=== PATIENT | female | born 1950 | race Caucasian/White ===

== ENCOUNTER 2018-11-10 11:48 | Observation (INO) | payer OTHER, BC ==
[2018-11-10 14:33] LABS: Absolute Lymphocytes (CBC) 2.8 K/uL (0.7-4.9); Basophils % 1.2 % (0-1.3); Hematocrit 41.2 % (36.0-45.0); Lymphocytes % 28.7 % (15.3-44.8); MPV 8.7 fL (7.6-11.3); RBC Red Blood Cell Count 4.65 M/uL (3.86-4.86)
[2018-11-10] MEDS ORDERED: NA CHLORIDE 0.9% 1,000 ML ONE (14:35)
[2018-11-10 14:39] LABS: Protime INR 1.05
[2018-11-10 15:28] LABS: ALT/SGPT 20 U/L (12-78); AST/SGOT 16 U/L (15-37); Albumin 3.5 g/dL (3.4-5.0); Alkaline Phosphatase 102 U/L (45-117); BUN Blood Urea Nitrogen 17 mg/dL (7-18); Bicarbonate 30 mmol/L (21-32); Bilirubin Direct 0.1 mg/dL (0-0.2); Bilirubin Total 0.5 mg/dL (0.2-1.0); Glucose Level 97 mg/dL (74-106); Lipase 126 U/L (73-393); Magnesium 2.3 mg/dL (1.8-2.4); NT PRO-BNP 148 pg/mL (<125); Potassium 3.8 mmol/L (3.5-5.1); Protein, Total 7.5 g/dL (6.4-8.2); Sodium Level 145 mmol/L (136-145); Troponin (Emerg Dept Use Only) < 0.02 ng/mL (0.0-0.045)
--- NOTE | 2018-11-10 15:48 | ER ---
Nurse's Notes [facility] Name: Mallory Lai Age: 68 yrs Sex: Female : 1950 Arrival Date: 11/10/2018 Time: 11:49 Bed 15 Private MD: Diagnosis: Chest pain, unspecified;Angina pectoris;Essential (primary) hypertension Presentation: 11/10 11:52 Presenting complaint: Patient states: Chest pain that started just prior to arrival. ss Patient reports that pain was much worse en route to ED, but now it seems to have "slacked up some.". Transition of care: patient was not received from another setting of care. Onset of symptoms was November 10, 2018. Risk Assessment: Do you want to hurt yourself or someone else? Patient reports no desire to harm self or others. Initial Sepsis Screen: Does the patient meet any 2 criteria? No. Patient's initial sepsis screen is negative. Does the patient have a suspected source of infection? No. Patient's initial sepsis screen is negative. Care prior to arrival: None. 11:52 Method Of Arrival: Ambulatory ss 11:52 Acuity: JAD 3 ss Historical: - Allergies: 11:54 No Known Allergies; ss - PMHx: 11:54 Hypertension; Hypothyroidism; ss - PSHx: 11:54 ; Tonsillectomy; b/l knee replacements; ss - Immunization history:: Adult Immunizations up to date. - Social history:: Smoking status: Patient/guardian denies using tobacco. - Ebola Screening: : Patient denies exposure to infectious person Patient denies travel to an Ebola-affected area in the 21 days before illness onset. - Family history:: not pertinent. Screenin:49 Abuse screen: Denies threats or abuse. Denies injuries from another. Nutritional ss screening: No deficits noted. Tuberculosis screening: Never had TB. Fall Risk None identified. Assessment: 11:52 General: Appears in no apparent distress. Behavior is calm, cooperative. Pain: ss Complains of pain in chest Pain does not radiate. Pain currently is 0 out of 10 on a pain scale. at worst was 7 out of 10 on a pain scale. Quality of pain is described as aching, Pain began suddenly, 30 min ago. Is episodic. Neuro: Level of Consciousness is awake, alert, obeys commands, Oriented to person, place, time, situation, Speech is normal. Cardiovascular: Capillary refill < 3 seconds is brisk in bilateral fingers. Respiratory: Airway is patent Respiratory effort is even, unlabored, Respiratory pattern is regular, symmetrical. GI: Abdomen is non-distended, Patient currently denies abdominal pain, diarrhea, nausea, vomiting. : Denies burning with urination, urinary frequency. EENT: Oral mucosa is moist. Throat is clear. Derm: Skin is fragile, is thin, Skin is dry, Skin is pink, warm \\T\\ dry. 14:49 Reassessment: blanket given for comfort. Patient is in good spirits and is laughing ss with ED staff and who remains at bedside. Denies pain at this time. Call light remains within reach. Awaiting results. 18:08 Reassessment: Patient appears in no apparent distress at this time. Patient and/or rv family updated on plan of care and expected duration. Pain level reassessed. Patient is alert, oriented x 3, equal unlabored respirations, skin warm/dry/pink. patient feels better and denies any pain at this moment. given food and updated on the status and plan of care. still awaiting admission. 19:26 Reassessment: HOSPITALIST TALKED TO THE PATIENT, EXPLAINED THE RESULT AND PLAN OF CARE. rv PATIENT AGREED. AWAITING ROOM ASSIGNMENT. Vital Signs: 11:54 BP 117 / 76; Pulse 63; Resp 18; Temp 97.6(TE); Pulse Ox 98% on R/A; Weight 78.02 kg; ss Height 5 ft. 6 in. (167.64 cm); Pain 0/10; 15:09 BP 116 / 69; Pulse 54; Resp 17; Pulse Ox 99% on R/A; rv 16:00 BP 137 / 108; Pulse 59; Resp 23; Pulse Ox 99% on R/A; rv 16:30 BP 135 / 65; Pulse 61; Resp 14; Pulse Ox 100% on R/A; rv 17:00 BP 118 / 59; Pulse 61; Resp 20; Pulse Ox 99% on R/A; rv 17:30 BP 115 / 63; Pulse 62; Resp 21; Pulse Ox 98% on R/A; rv 18:00 BP 130 / 61; Pulse 58; Resp 17; Pulse Ox 98% on R/A; rv 19:25 BP 137 / 68; Pulse 58; Resp 17; Pulse Ox 98% on R/A; rv 21:15 BP 126 / 68; Pulse 56; Resp 15; Pulse Ox 100% on R/A; mg2 11:54 Body Mass Index 27.76 (78.02 kg, 167.64 cm) ED Course: 11:49 Patient arrived in ED. as 11:54 Triage completed. ss 11:54 Arm band placed on right wrist. ss 11:59 EKG done, by electromechanical assembly technician. reviewed by Siddharth Andrea MD. at1 14:06 Siddharth Andrea MD is Attending Physician. stephanie 14:22 Lars Coles, ARNIE is Primary Nurse. rv 14:31 Inserted saline lock: 20 gauge in right antecubital area, using aseptic technique. ss Blood collected. Patient maintains SpO2 saturation greater than 95% on room air. 14:49 Patient has correct armband on for positive identification. Bed in low position. Call ss light in reach. color television console monitor on. Pulse ox on. NIBP on. 15:36 XRAY Chest (1 view) In Process Unspecified. EDSD 15:46 Jenn Gallego MD is Hospitalizing Provider. stephanie 21:15 No provider procedures requiring assistance completed. Patient admitted, IV remains in mg2 place. Administered Medications: 14:47 Drug: NS 0.9% 1000 ml Route: IV; Rate: 125 ml/hr; Site: right antecubital; ss 16:05 Drug: Aspirin 162 mg Route: PO; rv 18:12 Follow up: Response: No adverse reaction rv 16:10 Drug: Pepcid 20 mg Route: IVP; Site: right antecubital; rv 18:12 Follow up: Response: No adverse reaction rv 16:10 Drug: Lovenox 1 mg/kg Route: Sub-Q; Site: right lower abdomen; rv 18:12 Follow up: Response: No adverse reaction rv Outcome: 15:47 Decision to Hospitalize by Provider. stephanie 21:15 Admitted to Tele accompanied by tech, via wheelchair, room 410, Report called to rajan johnson rn 21:15 Condition: good 21:15 Instructed on the need for admit. 21:16 Patient left the ED. [facility] [place] Signatures: Dispatcher [employer] EDSD Siddharth Andrea MD MD cha Martinez, Amelia as Smirch, Shelby, RN RN ss Carmen Hogan, insole buffer EKG Tat1 Ede Dominguez RN RN mg2 Lars Coles RN RN rv Corrections: (The following items were deleted from the chart) 15:23 15:09 Pulse 54bpm; Resp 17bpm; Pulse Ox 99% RA; rv rv
--- NOTE | 2018-11-10 15:48 | EDPHYS ---
Physician Documentation [facility] Name: Mallory Lai Age: 68 yrs Sex: Female : 1950 Arrival Date: 11/10/2018 Time: 11:49 Bed 15 Private MD: ED Physician Siddharth Andrea HPI: 11/10 15:43 This 68 yrs old Female presents to ER via Ambulatory with complaints of Chest stephanie Pain. 15:43 The patient or guardian reports chest pain that is located primarily in the substernal stephanie area. Onset: just prior to arrival. The pain does not radiate. Associated signs and symptoms: The patient has no apparent associated signs or symptoms. The chest pain is described as a heaviness, a pressure, squeezing. Duration: The patient or guardian reports a single episode, that is now resolved. Modifying factors: The symptoms are alleviated by application of supplemental oxygen, remaining still, rest, the symptoms are aggravated by walking. Severity of pain: At its worst the pain was moderate in the emergency department the pain has resolved and did so just prior to arrival. The patient has not experienced similar symptoms in the past. Historical: - Allergies: 11:54 No Known Allergies; ss - PMHx: 11:54 Hypertension; Hypothyroidism; ss - PSHx: 11:54 ; Tonsillectomy; b/l knee replacements; ss - Immunization history:: Adult Immunizations up to date. - Social history:: Smoking status: Patient/guardian denies using tobacco. - Ebola Screening: : Patient denies exposure to infectious person Patient denies travel to an Ebola-affected area in the 21 days before illness onset. - Family history:: not pertinent. ROS: 15:43 Constitutional: Negative for fever, chills, and weight loss, Eyes: Negative for injury, stephanie pain, redness, and discharge, ENT: Negative for injury, pain, and discharge, Neck: Negative for injury, pain, and swelling, Respiratory: Negative for shortness of breath, cough, wheezing, and pleuritic chest pain, Abdomen/GI: Negative for abdominal pain, nausea, vomiting, diarrhea, and constipation, Back: Negative for injury and pain, : Negative for injury, bleeding, discharge, and swelling, MS/Extremity: Negative for injury and deformity, Skin: Negative for injury, rash, and discoloration, Neuro: Negative for headache, weakness, numbness, tingling, and seizure. 15:43 Cardiovascular: Positive for chest pain, of the chest. Exam: 15:43 Constitutional: This is a well developed, well nourished patient who is awake, alert, stephanie and in no acute distress. Head/Face: Normocephalic, atraumatic. Eyes: Pupils equal round and reactive to light, extra-ocular motions intact. Lids and lashes normal. Conjunctiva and sclera are non-icteric and not injected. Cornea within normal limits. Periorbital areas with no swelling, redness, or edema. ENT: Nares patent. No nasal discharge, no septal abnormalities noted. Tympanic membranes are normal and external auditory canals are clear. Oropharynx with no redness, swelling, or masses, exudates, or evidence of obstruction, uvula midline. Mucous membranes moist. Neck: Trachea midline, no thyromegaly or masses palpated, and no cervical lymphadenopathy. Supple, full range of motion without nuchal rigidity, or vertebral point tenderness. No Meningismus. Chest/axilla: Normal chest wall appearance and motion. Nontender with no deformity. No lesions are appreciated. Cardiovascular: Regular rate and rhythm with a normal S1 and S2. No gallops, murmurs, or rubs. Normal PMI, no JVD. No pulse deficits. Respiratory: Lungs have equal breath sounds bilaterally, clear to auscultation and percussion. No rales, rhonchi or wheezes noted. No increased work of breathing, no retractions or nasal flaring. Abdomen/GI: Soft, non-tender, with normal bowel sounds. No distension or tympany. No guarding or rebound. No evidence of tenderness throughout. Back: No spinal tenderness. No costovertebral tenderness. Full range of motion. Skin: Warm, dry with normal turgor. Normal color with no rashes, no lesions, and no evidence of cellulitis. MS/ Extremity: Pulses equal, no cyanosis. Neurovascular intact. Full, normal range of motion. Neuro: Awake and alert, GCS 15, oriented to person, place, time, and situation. Cranial nerves II-XII grossly intact. Motor strength 5/5 in all extremities. Sensory grossly intact. Cerebellar exam normal. Normal gait. Psych: Awake, alert, with orientation to person, place and time. Behavior, mood, and affect are within normal limits. 15:43 Musculoskeletal/extremity: DVT Exam: No signs of deep vein thrombosis. no pain, no swelling, no tenderness, negative Homans' sign noted on exam, no appreciated bluish discoloration, no erythema, no increased warmth. Vital Signs: 11:54 BP 117 / 76; Pulse 63; Resp 18; Temp 97.6(TE); Pulse Ox 98% on R/A; Weight 78.02 kg; ss Height 5 ft. 6 in. (167.64 cm); Pain 0/10; 15:09 BP 116 / 69; Pulse 54; Resp 17; Pulse Ox 99% on R/A; rv 16:00 BP 137 / 108; Pulse 59; Resp 23; Pulse Ox 99% on R/A; rv 16:30 BP 135 / 65; Pulse 61; Resp 14; Pulse Ox 100% on R/A; rv 17:00 BP 118 / 59; Pulse 61; Resp 20; Pulse Ox 99% on R/A; rv 17:30 BP 115 / 63; Pulse 62; Resp 21; Pulse Ox 98% on R/A; rv 18:00 BP 130 / 61; Pulse 58; Resp 17; Pulse Ox 98% on R/A; rv 19:25 BP 137 / 68; Pulse 58; Resp 17; Pulse Ox 98% on R/A; rv 21:15 BP 126 / 68; Pulse 56; Resp 15; Pulse Ox 100% on R/A; mg2 11:54 Body Mass Index 27.76 (78.02 kg, 167.64 cm) MDM: 14:06 Patient medically screened. [facility] 15:45 Data reviewed: vital signs, nurses notes, lab test result(s), EKG, radiologic studies, stephanie plain films. 11/10 14:08 Order name: Basic Metabolic Panel; Complete Time: 15:41 [facility] 11/10 14:08 Order name: CBC with Diff; Complete Time: 15:41 [facility] 11/10 14:08 Order name: LFT's; Complete Time: 15:41 [facility] 11/10 14:08 Order name: Magnesium; Complete Time: 15:41 [facility] 11/10 14:08 Order name: NT PRO-BNP; Complete Time: 15:41 [facility] 11/10 14:08 Order name: PT-INR; Complete Time: 15:41 [facility] 11/10 14:08 Order name: Troponin (emerg Dept Use Only); Complete Time: 15:41 [facility] 11/10 14:08 Order name: XRAY Chest (1 view) [facility] 11/10 14:08 Order name: EKG; Complete Time: 14:09 stephanie 11/10 14:08 Order name: Lipase; Complete Time: 15:41 [facility] 11/10 14:08 Order name: Cardiac monitoring; Complete Time: 14:31 [facility] 11/10 14:08 Order name: EKG - Nurse/Tech; Complete Time: 14:32 [facility] 11/10 14:08 Order name: IV Saline Lock; Complete Time: 14:32 [facility] 11/10 14:08 Order name: Labs collected and sent; Complete Time: 14:32 [facility] 11/10 14:08 Order name: O2 Per Protocol; Complete Time: 14:32 [facility] 11/10 14:08 Order name: O2 Sat Monitoring; Complete Time: 14:32 [facility] 11/10 16:33 Order name: Diet Heart Healthy; Complete Time: 16:33 aa5 Administered Medications: 14:47 Drug: NS 0.9% 1000 ml Route: IV; Rate: 125 ml/hr; Site: right antecubital; ss 16:05 Drug: Aspirin 162 mg Route: PO; rv 18:12 Follow up: Response: No adverse reaction rv 16:10 Drug: Pepcid 20 mg Route: IVP; Site: right antecubital; rv 18:12 Follow up: Response: No adverse reaction rv 16:10 Drug: Lovenox 1 mg/kg Route: Sub-Q; Site: right lower abdomen; rv 18:12 Follow up: Response: No adverse reaction rv Disposition: 11/10/18 15:47 Hospitalization ordered by Jenn Gallego for Observation. Preliminary diagnosis are Chest pain, unspecified, Angina pectoris, Essential (primary) hypertension. - Bed requested for Telemetry/MedSurg (observation). - Status is Observation. mg2 - Condition is Stable. - Problem is new. - Symptoms have improved. UTI on Admission? No Signatures: Dispatcher [employer] EDMS Siddharth Andrea MD MD cha Smirch, Shelby, RN RN ss Rosemary Cerda RN RN Ede Dominguez RN RN mg2 Lars Coles RN RN rv Corrections: (The following items were deleted from the chart) 20:26 15:47 Hospitalization Ordered by Jenn Galleog MD for Observation. Preliminary diagnosis cg is Chest pain, unspecified; Angina pectoris; Essential (primary) hypertension. Bed requested for Telemetry/MedSurg (observation). Status is Observation. Condition is Stable. Problem is new. Symptoms have improved. UTI on Admission? No. stephanie 21:16 20:26 11/10/2018 15:47 Hospitalization Ordered by Jenn Gallego MD for Observation. mg2 Preliminary diagnosis is Chest pain, unspecified; Angina pectoris; Essential (primary) hypertension. Bed requested for Telemetry/MedSurg (observation). Status is Observation. Condition is Stable. Problem is new. Symptoms have improved. UTI on Admission? No. cg
[2018-11-10] MEDS ORDERED: FAMOTIDINE 20 MG/2 ML VIAL IV ONE (15:53)
[2018-11-10] MEDS ORDERED: ASPIRIN 81 MG CHEWABLE TABLET ONE (15:53)
[2018-11-10] MEDS ORDERED: ENOXAPARIN 80 MG/0.8 ML SQ ONE (15:53)
--- NOTE | 2018-11-10 20:05 | P.HP ---
Certification for Inpatient Patient admitted to: Observation With expected LOS: <2 Midnights Patient will require the following post-hospital care: None Practitioner: I am a practitioner with admitting privileges, knowledge of patient current condition, hospital course, and medical plan of care. Services: Services provided to patient in accordance with Admission requirements found in Title 42 Section 412.3 of the Code of Federal Regulations Patient History Date of Service: 11/10/18 Primary Care Provider: Dr. Randy Mascorro Reason for admission: Chest pain History of Present Illness: 68-year-old female presented to the emergency room with chest pain. Patient with history of hypertension, hypothyroidism, and suspected early dementia. Most of the information came from the . reports that the patient had chest pain this morning. She was grabbing her chest. She appeared to have some shortness of breath. Patient was not able to describe her chest pain. No nausea, vomiting, palpitations noted. decided to bring the patient in for further evaluation. In the ER blood pressure is stable. CBC unremarkable. Sodium 145, potassium 3.8. Initial cardiac enzymes unremarkable. BNP 148. Patient was admitted for observation. When I saw the patient in the ER, she appeared comfortable. She appears to have underlying early dementia. She admits with memory loss. Allergies morphine Allergy (Intermediate, Verified 10/26/12 18:38) Itching/Hives/Rash No Known Allergies Allergy (Uncoded 07/30/15 06:38) Unknown Home medications list reviewed: Yes Home Medications: Amlodipine [Norvasc*] 5 mg PO DAILY 10/26/12 Fenofibrate [Tricor*] 145 mg PO DAILY 10/26/12 Losartan Potassium [Cozaar] 25 mg PO DAILY 10/26/12 Hydrocodone 5/APAP 325 [Barry 5/325*] 1 tab PO Q4HP PRN #30 tab 11/03/12 Rivaroxaban [Xarelto*] 15 mg PO BID 21 Days tablet 11/03/12 Rivaroxaban [Xarelto*] 20 mg PO DAILY 90 Days tab 11/03/12 - Past Medical/Surgical History Diabetic: No -: Hypertension -: Hypothyroidism -: Suspected early dementia -: History of DVT -: x2 -: Tonsillectomy -: Bilateral knee replacements Psychosocial/ Personal History: Patient is - Family History Family History: Reviewed- Non-Contributory - Social History Smoking Status: Never smoker Alcohol use: Yes CD- Drugs: No Caffeine use: Yes Place of Residence: Home Review of Systems General: As per HPI Eyes: Unremarkable ENT: Unremarkable Respiratory: Shortness of Breath, As per HPI Cardiovascular: Chest Pain, As per HPI Gastrointestinal: Unremarkable Genitourinary: Unremarkable Musculoskeletal: Unremarkable Integumentary: Unremarkable Neurological: Unremarkable Lymphatics: Unremarkable Physical Examination - Physical Exam General: Alert, In no apparent distress, Oriented x3, Cooperative HEENT: Atraumatic, Normocephalic, PERRLA, Mucous membr. moist/pink Neck: Supple, No Thyromegaly Respiratory: Clear to auscultation bilaterally, Normal air movement Cardiovascular: Normal pulses, Regular rate/rhythm Gastrointestinal: Normal bowel sounds, Soft and benign, Non-distended, No masses , No rebound, No guarding Musculoskeletal: No contractures, No erythema, No tenderness, No warmth Integumentary: No tenderness/swelling, No erythema, No warmth, No cyanosis Neurological: Normal speech, Normal strength at 5/5 x4 extr, Normal tone, Normal affect, Dementia (Mild dementia noted) - Studies Laboratory Data (last 24 hrs) 11/10/18 14:23: PT 12.4, INR 1.05 11/10/18 14:23: WBC 9.9, Hgb 14.0, Hct 41.2, Plt Count 345 11/10/18 14:23: Sodium 145, Potassium 3.8, BUN 17, Creatinine 0.86, Glucose 97, Magnesium 2.3, Total Bilirubin 0.5, AST 16, ALT 20, Alkaline Phosphatase 102, Lipase 126 Assessment and Plan - Plan Impression: Chest pain Hypertension Hypothyroidism Suspect early dementia Plan: Chest pain: Patient admitted for observation. Will continue to monitor telemetry and cardiac enzymes. Will provide aspirin, Lipitor and blood pressure medication if required. Will consult cardiology in the morning. If workup unremarkable anticipate discharge tomorrow. Patient may have further workup as an outpatient. Daytime hospitalist to continue her care. Hypertension: Will need to obtain home medication and restart. Hypothyroidism: Need to obtain home medication. Will check tsh and free T4. Suspect early dementia: This can be further evaluated by neurology as an outpatient. Discharge Plan: Home Plan to discharge in: 24 Hours - Advance Directives Does patient have a Living Will: No Does patient have a Durable POA for Healthcare: No - Code Status/Comfort Care Code Status Assessed: Yes (Patient is full code) Time Spent Managing Pts Care (In Minutes): 55
[2018-11-10] MEDS ORDERED: ACETAMINOPHEN 500 MG TAB PO PRN (21:08)
[2018-11-10] MEDS ORDERED: HYDRALAZINE HCL 20 MG/ML VIAL IV PRN (21:08)
[2018-11-10] MEDS ORDERED: ONDANSETRON 4 MG/2 ML VIAL IV PRN (21:08)
[2018-11-10 21:40] VITALS: BMI 34.2
[2018-11-10] MEDS ORDERED: ATORVASTATIN 40 MG TAB PO SCH (22:00)
[2018-11-10 22:08] LABS: CKMB Creatine Kinase MB < 1.0 ng/mL (0.3-3.6); Creatine Phosphokinase 47 U/L (26-192); Troponin I < 0.02 ng/mL (0.0-0.045)
[2018-11-10 22:15] LABS: Thyroid Stimulating Hormone 1.97 uIU/mL (0.360-3.740)
[2018-11-10] MEDS: FAMOTIDINE 20 MG TAB PO SCH (22:23)
--- NOTE | 2018-11-10 23:12 | RAD REPORT ---
EXAM DESCRIPTION: Bryson Single View11/10/2018 7:18 pm CLINICAL HISTORY: Chest pain COMPARISON: 2014 FINDINGS: The lungs appear clear of acute infiltrate. The heart is normal size IMPRESSION: No acute abnormalities displayed
--- NOTE | 2018-11-11 01:28 | P.DS ---
Admission Date: 11/10/18 Discharge Date: 11/11/18 Primary Care Provider: Dr. Randy Mascorro Disposition: ROUTINE DISCHARGE Discharge Condition: GOOD Reason for Admission: Chest pain Consultations: Cardiology Procedures: Medical Problem List: Chest pain Hypertension Hypothyroidism Hyperlipidemia Suspect early dementia Brief History of Present Illness: 68-year-old female presented to the emergency room with chest pain. Patient with history of hypertension, hypothyroidism, and suspected early dementia. Most of the information came from the . reports that the patient had chest pain this morning. She was grabbing her chest. She appeared to have some shortness of breath. Patient was not able to describe her chest pain. No nausea, vomiting, palpitations noted. decided to bring the patient in for further evaluation. In the ER blood pressure is stable. CBC unremarkable. Sodium 145, potassium 3.8. Initial cardiac enzymes unremarkable. BNP 148. Patient was admitted for observation. When I saw the patient in the ER, she appeared comfortable. She appears to have underlying early dementia. She admits with memory loss. Hospital Course: Patient presented with chest pain. Cardiac enzymes unremarkable. Chest pain likely noncardiac. Patient to be seen by Cardiology. Anticipate discharge today once cleared by cardiology. Patient may follow up with cardiology as an outpatient to further evaluate. At discharge patient may continue with aspirin 81 mg daily and folic acid 1 mg daily. Patient with underlying hypertension and hyperlipidemia. Patient may continue with her medication-Norvasc/lipitor 5/20 mg daily. Patient with underlying hypothyroidism. Tsh and free T4 within normal range. Patient may continue with her medication-levothyroxine 25 mcg daily.. Suspect early dementia as the patient and mention increased memory loss. Patient may continue with Aricept 10 mg daily along with folic acid 1 mg daily. Recommend neurology evaluation and workup as an outpatient to further address and monitor. Vital Signs/Physical Exam: Temp Pulse Resp BP Pulse Ox 98.5 F 59 18 141/78 H 100 11/11/18 00:00 11/11/18 00:00 11/11/18 00:00 11/11/18 00:00 11/11/18 00:00 General: Alert, In no apparent distress, Cooperative HEENT: Atraumatic Neck: Supple Respiratory: Clear to auscultation bilaterally, Normal air movement Cardiovascular: Normal pulses, Regular rate/rhythm Gastrointestinal: Normal bowel sounds, Soft and benign, Non-distended, No tenderness, No masses, No rebound, No guarding Musculoskeletal: No erythema, No tenderness, No warmth Integumentary: No tenderness/swelling, No erythema, No warmth, No cyanosis Neurological: Normal speech, Normal strength at 5/5 x4 extr, Normal tone, Normal affect, Dementia (Suspect early dementia) Laboratory Data at Discharge: WBC 9.9 K/uL (4.3-10.9) 11/10/18 14:23 Hgb 14.0 g/dL (12.0-15.0) 11/10/18 14:23 Hct 41.2 % (36.0-45.0) 11/10/18 14:23 Plt Count 345 K/uL (152-406) 11/10/18 14:23 PT 12.4 SECONDS (9.5-12.5) 11/10/18 14:23 INR 1.05 11/10/18 14:23 Sodium 145 mmol/L (136-145) 11/10/18 14:23 Potassium 3.8 mmol/L (3.5-5.1) 11/10/18 14:23 BUN 17 mg/dL (7-18) 11/10/18 14:23 Creatinine 0.86 mg/dL (0.55-1.3) 11/10/18 14:23 Glucose 97 mg/dL (74-106) 11/10/18 14:23 Magnesium 2.3 mg/dL (1.8-2.4) 11/10/18 14:23 Total Bilirubin 0.5 mg/dL (0.2-1.0) 11/10/18 14:23 AST 16 U/L (15-37) 11/10/18 14:23 ALT 20 U/L (12-78) 11/10/18 14:23 Alkaline Phosphatase 102 U/L (45-117) 11/10/18 14:23 Troponin I < 0.02 ng/mL (0.0-0.045) 11/10/18 21:27 Lipase 126 U/L (73-393) 11/10/18 14:23 Home Medications: Amlodipine/Atorvastatin [Amlodipine-Atorvast 5-20 mg] 1 each PO DAILY 11/10/18 Donepezil HCl 10 mg PO BEDTIME 11/10/18 Levothyroxine [Synthroid*] 25 mcg PO DAILY 11/10/18 Aspirin [Aspirin EC 81 MG] 81 mg PO DAILY #90 tablet. 11/11/18 Folic Acid 1 mg PO DAILY #90 tablet 11/11/18 New Medications: Aspirin [Aspirin EC 81 MG] 81 mg PO DAILY #90 tablet. Folic Acid 1 mg PO DAILY #90 tablet Patient Discharge Instructions: 1. Recommend follow up with her PCP within 1 week to follow up hospitalization. 2. Patient presented with chest pain. Cardiac enzymes unremarkable. Chest pain likely noncardiac. Patient to be seen by Cardiology. Anticipate discharge today once cleared by cardiology. Patient may follow up with cardiology as an outpatient to further evaluate. At discharge patient may continue with aspirin 81 mg daily and folic acid 1 mg daily. 3. Patient with underlying hypertension and hyperlipidemia. Patient may continue with her medication-Norvasc/lipitor 5/20 mg daily. 4. Patient with underlying hypothyroidism. Tsh and free T4 within normal range. Patient may continue with her medication-levothyroxine 25 mcg daily.. 5. Suspect early dementia as the patient and mention increased memory loss. Patient may continue with Aricept 10 mg daily along with folic acid 1 mg daily. Recommend neurology evaluation and workup as an outpatient to further address and monitor. Diet: AHA Activity: Fall precautions Time spent managing pt's care (in minutes): 55
--- NOTE | 2018-11-11 04:40 | EKG ---
Test Date: 2018-11-10 Test Time: 11:51:49 Plant Operator Helper: LORRIE MEASUREMENT RESULTS: Intervals: Rate: 65 CO: 166 QRSD: 86 QT: 408 QTc: 424 Rock: P: 47 CO: 166 QRS: -2 T: 47 INTERPRETIVE STATEMENTS: Normal sinus rhythm normal ECG Compared to ECG 11/19/2014 07:50:28 Sinus bradycardia no longer present Electronically Signed On 11-11-18 04:39:57 CDT by Guido Lozano
[2018-11-11 06:30] LABS: CKMB Creatine Kinase MB < 1.0 ng/mL (0.3-3.6); Creatine Phosphokinase 35 U/L (26-192); Troponin I < 0.02 ng/mL (0.0-0.045)
[2018-11-11] MEDS ORDERED: POTASSIUM CL SA 10 MEQ TAB PO ONE (08:00)
[2018-11-11] MEDS ORDERED: ENOXAPARIN 40 MG/0.4 ML SQ SCH (09:00)
[2018-11-11] MEDS ORDERED: ASPIRIN EC 81 MG TAB PO SCH (09:00)
[2018-11-11] MEDS ORDERED: FOLIC ACID 1 MG TABLET PO SCH (09:00)
[2018-11-11] MEDS ORDERED: THIAMINE HCL 100 MG TABLET PO SCH (09:00)
[2018-11-11] MEDS: FAMOTIDINE 20 MG TAB PO SCH (09:30)
[2018-11-11 12:20] VITALS: BP 144/66; TEMP 97.5
[2018-11-11 13:13] VITALS: O2SAT 98
--- NOTE | 2018-11-11 13:30 | CON ---
History Of Present Illness: Ms. Lai had chest pain. It occurred while she was walking. It last ed for several hours and resolved. Her electrocardiogram was completely normal. All her enzymes are normal. Four years ago, she underwent a noninvasive cardiac workup that was normal. Ms. Lai do es not have diabetes. She takes amlodipine, atorvastatin, simvastatin, donepezil, and levothyroxine. She has underlying dementia. I hope she is actually not taking the combination of atorvastatin and simvastatin both, but that is what we have listed. The patient has never had myocardial infarction or stroke. Physical Examination: General: She is alert, oriented, pleasant, not in distress. Lungs: Clear. Cardiac: Normal. Extremities: Normal distal pulses. Laboratory Data: EKG normal. All her troponins are less than 0.02. Impression: I think, the patient could be discharged home and do an outpatient stress test and echo. LUCIA/DRISS Voice ID: [id number] Report ID: [id number]
== END 2018-11-11 13:05 | disposition home or self-care (01) ==
LOC: ER 11:48 → ERHOLD 19:31 → 4TH 21:12
PROVIDERS: ADMIT Family Medicine; ATTEND Family Medicine
DX: R07.9 Chest pain, unspecified (principal); I10 Essential (primary) hypertension; E03.9 Hypothyroidism, unspecified; E78.5 Hyperlipidemia, unspecified
CPT/HCPCS: 93005; 85025; 80048; 36415; 83735; 82550 ×2; 85610; 80061; 80076; 84443; 84484 ×3; 82553 ×2; 84439; 83690; 83880; 71045; 96372; 96374; 99285; J1650 ×2; J7030; G0378 ×2

== ENCOUNTER → 2019-01-17 | Day surgery (SDC) | payer OTHER, BC ==
[2019-01-16 16:18] LABS: Absolute Lymphocytes (CBC) 3.1 K/uL (0.7-4.9); Basophils % 0.2 % (0-1.3); Hematocrit 39.5 % (36.0-45.0); Lymphocytes % 35.3 % (15.3-44.8); MPV 8.9 fL (7.6-11.3); RBC Red Blood Cell Count 4.48 M/uL (3.86-4.86)
[2019-01-16 16:43] LABS: Potassium 3.8 mmol/L (3.5-5.1)
[~2019-01-17] MED LIST: BUPIVACAINE 0.5% PF 10 ML VIAL ONE; CEFAZOLIN/SWI 1gm 0 GM/0 ML SYR ONE; FENTANYL CITR 100 MCG/2 ML ONE; LIDOCAINE 2% MPF 5 ML VIAL ONE; MIDAZOLAM HCL 2 MG/2 ML INJ ONE; ONDANSETRON 4 MG/2 ML VIAL ONE; Ringers Lactate 1,000 ML IV ONE; propofoL 200 MG/20 ML VIAL IV ONE
--- OUTSIDE RECORDS SUMMARY | 2019-01-17 06:57 | XMS REPORT ---
:1950 Author Organization e[employer] Care Team Providers Name Role Phone Ludwin Randy Provider Role Unavailable Allergies No Known Allergies Problems Problem Type Condition Code Onset Dates Condition Status Problem Benign essential HTN I10 Active Problem Hyperlipidemia E78.5 Active Problem Hypothyroidism E03.9 Active Problem Leg pain M79.606 Active Problem Abnormal mammogram R92.8 Active Problem Short-term memory loss R41.3 Active Problem Breast mass, left N63.20 Active Problem Memory loss R41.3 Active Problem Mild cognitive impairment G31.84 Active Problem Hip joint pain M25.559 Active Problem Osteoarthritis M19.90 Active Medications No Known Medications Results No Known Results Summary Purpose eClinicalWorks Submission
--- OUTSIDE RECORDS SUMMARY | 2019-01-17 06:57 | XMS REPORT ---
:1950 Author Organization [employer] Care Team Providers Name Role Phone Mascorro, Randy Provider Role Unavailable Allergies No Known Allergies Problems Problem Type Condition Code Onset Dates Condition Status Problem Benign essential HTN I10 Active Problem Hyperlipidemia E78.5 Active Problem Hypothyroidism E03.9 Active Assessment Breast mass, left N63.20 Active Problem Leg pain M79.606 Active Problem Abnormal mammogram R92.8 Active Problem Short-term memory loss R41.3 Active Problem Breast mass, left N63.20 Active Problem Memory loss R41.3 Active Problem Mild cognitive impairment G31.84 Active Problem Hip joint pain M25.559 Active Problem Osteoarthritis M19.90 Active Medications No Known Medications Results No Known Results Summary Purpose eClinicalWorks Submission
--- OUTSIDE RECORDS SUMMARY | 2019-01-17 06:57 | XMS REPORT ---
:1950 Author Organization [employer] Care Team Providers Name Role Phone Jesse Mascorroh Provider Role Unavailable Allergies, Adverse Reactions, Alerts Substance Reaction Event Type N.K.D.A. Info Not Available Non Drug Allergy Problems Problem Type Condition Code Onset Dates Condition Status Problem Leg pain M79.606 Active Problem Hypothyroidism E03.9 Active Problem Benign essential HTN I10 Active Problem Short-term memory loss R41.3 Active Problem Hip joint pain M25.559 Active Problem Abnormal mammogram R92.8 Active Problem Mild cognitive impairment G31.84 Active Problem Hyperlipidemia E78.5 Active Problem Osteoarthritis M19.90 Active Problem Memory loss R41.3 Active Assessment Short-term memory loss R41.3 Active Assessment Osteoarthritis M19.90 Active Assessment Benign essential HTN I10 Active Assessment Chest pain, unspecified type R07.9 Active Assessment Mild cognitive impairment G31.84 Active Assessment Hypothyroidism E03.9 Active Assessment Hyperlipidemia E78.5 Active Medications Medication Code Code Instructions Start End Status Dosage System Date Date Lotrel [facility] 73805065644 5-20 MG Orally Active 1 tab Once a day Levothyroxine [facility] 78582834706 25 MCG Orally Active 1 tablet Sodium Once a day on an empty stomach in the morning Super B-Complex [facility] 74200634580 - Orally Active not defined Aspir-81 [facility] 52871122929 81 MG Orally Active 1 tablet Once a day Folic Acid [facility] 32694069860 1 MG Orally Active 1 tablet Once a day Namenda [facility] 63207505187 5 MG Orally Inactive 1 tablet Once a day Amlodipine [facility] [address]-72 5-20 MG Orally Active 1 capsule Besy-Benazepril Once a day HCl Vitamin D-3 [facility] 36896265122 1000 UNIT Active 1 capsule Orally Once a day Ginkgo Biloba [facility] 22435984605 60 MG Orally Active not defined Simvastatin [facility] 95873401013 20 MG Orally Active 1 tablet Once a day in the evening Donepezil HCl [facility] 22205907131 10 MG Oral Active TAKE 1 TABLET BY MOUTH EVERY DAY AT NIGHT Glucosamine [facility] 12282819065 - Orally Active not Chondroit-Collag defined en Centrum Silver [facility] 28072614187 - Orally Active not 50+Women defined Co Q-10 [facility] 11899723944 300 MG Orally Active 1 capsule Once a day with a meal Results No Known Results Summary Purpose eClinicalWorks Submission
--- OUTSIDE RECORDS SUMMARY | 2019-01-17 06:57 | XMS REPORT ---
:1950 Author Organization [employer] Care Team Providers Name Role Phone MascorroRandy Provider Role Unavailable Allergies No Known Allergies Problems Problem Type Condition Code Onset Dates Condition Status Problem Leg pain M79.606 Active Problem Hypothyroidism E03.9 Active Problem Benign essential HTN I10 Active Assessment Benign essential HTN I10 Active Assessment Hypothyroidism E03.9 Active Assessment Hyperlipidemia E78.5 Active Problem Short-term memory loss R41.3 Active Problem Hip joint pain M25.559 Active Problem Abnormal mammogram R92.8 Active Problem Mild cognitive impairment G31.84 Active Problem Hyperlipidemia E78.5 Active Problem Osteoarthritis M19.90 Active Problem Memory loss R41.3 Active Medications No Known Medications Results No Known Results Summary Purpose eClinicalWorks Submission
[2019-01-17 07:36] VITALS: BP 133/69; TEMP 99; O2SAT 97
--- NOTE | 2019-01-17 12:41 | RAD REPORT ---
EXAM DESCRIPTION: MRI - Breast Bilat W Wo Cont - 01/17/2019 11:41 am CLINICAL HISTORY: BREAST MASS Indeterminate mammographic and sonographic findings. COMPARISON: Brst,Preop NL Wire Init w/Guid dated 01/17/2019; Follow Up Breast Axilla Comp dated 12/08; Chest Single View dated 11/10/2018; 3D SCR MAULIK BILAT W/CAD dated 10/05/2018 FINDINGS: Scattered fibroglandular densities are seen. No pathologic areas of enhancement seen to in dicate developing malignancy. Small 5 mm enhancing focus left breast anterior superior aspect has the appearance of a small enhancing intramammary lymph node is not regarded with suspicion at this time for developing malignancy. No nipple inversion, ductal ectasia or skin thickening. IMPRESSION: No evidence of developing malignancy. No abnormal MR finding is seen periareolar left br east to correlate with recent ultrasound findings. Recommendation: Annual mammographic follow-up. BI-RAD: 2 ResultCode: B Category Diagnosis 0 = Incomplete: Needs Additional Imaging Evaluation, 1 = Negative, 2 = Benign, 3 = Probably Benign, 4 = Suspicious Abnormality, 5 = Highly Suspicious of Malignancy, 6 = Known Biop sy Proven Malignancy
--- NOTE | 2019-01-17 12:54 | RAD REPORT ---
EXAM DESCRIPTION: US - Brst,Preop NL Wire Init w/Guid - 01/17/2019 8:31 am CLINICAL HISTORY: Breast mass COMPARISON: Ultrasound December 25, 2018. FINDINGS: The patient was referred for an ultrasound-guided needle localization for a mass within th e left breast. Sonographic imaging by the technologist as well as myself could not reproduce a mass w ithin the retro region of the left breast. Consequently localization could not be performed. The patient was scheduled to have an MRI later in the day to definitively determine if a mass is pres ent within the left breast. If a mass is visualized then MRI needle localization would be recommended prior to surgery. If a mass is not seen then a follow-up mammogram and ultrasound in 6 months would be recommended
== END ==
LOC: OR 06:55
PROVIDERS: ATTEND Surgery
DX: N63.20 Unspecified lump in the left breast, unspecified quadrant (principal); Z53.8 Procedure and treatment not carried out for other reasons
CPT/HCPCS: 85025; 80048; 36415; 77049; 19285; A9577; J7120; J0690; J2250; J2405; J2704; J3010

== ENCOUNTER 2019-06-23 19:17 | Inpatient (IN) | payer OTHER, BC ==
--- OUTSIDE RECORDS SUMMARY | 2019-06-23 19:20 | XMS REPORT ---
:1950 Author Organization [employer] Care Team Providers Name Role Phone MascorroRandy Provider Role Unavailable Allergies No Known Allergies Problems Problem Type Condition Code Onset Dates Condition Statu s Problem Benign essential HTN I10 Active Problem Hyperlipidemia E78.5 Active Problem Hypothyroidism E03.9 Active Problem Leg pain M79.606 Active Problem Abnormal mammogram R92.8 Active Problem Short-term memory loss R41.3 Activ e Problem Breast mass, left N63.20 Active Problem Memory loss R41.3 Active Problem Mild cognitive impairment G31.84 Ac tive Problem Hip joint pain M25.559 Active Problem Osteoarthritis M19.90 Active Medications No Known Medications Results No Known Results Summary Purpose eClinicalWorks Submission
--- OUTSIDE RECORDS SUMMARY | 2019-06-23 19:20 | XMS REPORT ---
:1950 Author Organization [employer] Care Team Providers Name Role Phone Ludwin Randy Provider Role Unavailable Allergies, Adverse Reactions, Alerts Substance Reaction Event Type N.K.D.A. Info Not Available Non Drug Allergy Problems Problem Type Condition Code Onset Dates Condition Statu s Problem Leg pain M79.606 Active Problem Hypothyroidism E03.9 Active Problem Benign essential HTN I10 Active Problem Short-term memory loss R41.3 Activ e Problem Hip joint pain M25.559 Active Problem Abnormal mammogram R92.8 Active Problem Mild cognitive impairment G31.84 Ac tive Problem Hyperlipidemia E78.5 Active Problem Osteoarthritis M19.90 Active Problem Memory loss R41.3 Active Assessment Short-term memory loss R41.3 Activ e Assessment Osteoarthritis M19.90 Active Assessment Benign essential HTN I10 Active Assessment Chest pain, unspecified type R07.9 Active Assessment Mild cognitive impairment G31.84 Ac tive Assessment Hypothyroidism E03.9 Active Assessment Hyperlipidemia E78.5 Active Medications Medication Code Code Instructions Start End Status Dosage System Date Date Lotrel [facility] 99925823238 5-20 MG Orally Active 1 tab Once a day Levothyroxine [facility] 89356531756 25 MCG Orally Active 1 tablet Sodium Once a day on an empty stomach in the morning Super B-Complex [facility] 39292674901 - Orally Active not defined Aspir-81 [facility] 25416797046 81 MG Orally Active 1 tabl et Once a day Folic Acid [facility] 44984158979 1 MG Orally Active 1 tab let Once a day Namenda [facility] 84918047847 5 MG Orally Inactive 1 table t Once a day Amlodipine [facility] [address]-39 5-20 MG Orally Active 1 capsule Besy-Benazepril Once a day HCl Vitamin D-3 [facility] 68619456332 1000 UNIT Active 1 caps ule Orally Once a day Ginkgo Biloba [facility] 54360442383 60 MG Orally Active n ot defined Simvastatin [facility] 80976498054 20 MG Orally Active 1 t ablet Once a day in the evening Donepezil HCl [facility] 45726479458 10 MG Oral Active ALIYA E 1 TABLET BY MOUTH EVERY DAY AT NIGHT Glucosamine [facility] 97991005354 - Orally Active not Chondroit-Collag defined en Centrum Silver [facility] 22254966220 - Orally Active not 50+Women defined Co Q-10 [facility] 82895273868 300 MG Orally Active 1 caps ule Once a day with a meal Results No Known Results Summary Purpose eClinicalWorks Submission
--- OUTSIDE RECORDS SUMMARY | 2019-06-23 19:20 | XMS REPORT ---
:1950 Author Organization [facility] t Address [address] [place] [address] [address] [place] [address] Care Team Providers Name Role Phone Unavailable Unavailable Unavailable Problems Condition Condition Condition Status Onset Resolution Last Treating Co mments Source Name Details Category Date Date Treatment Clinician Date Benign Benign Diagnosis Active [facility] essential essential [facility] - HTN [facility]N [facility] Hip joint Hip joint Problem Active [facility] Hypothyroi Hypothyroi Diagnosis Active [facility] dism dism [facility] Hyperlipid Hyperlipid Diagnosis Active [facility] emia emia [facility] Short-term Short-term Diagnosis Active [facility] memory memory [facility] loss loss [facility] Mild Mild Diagnosis Active [facility] cognitive cognitive Luke [facility] - impairment impairment Me moria l [facility] Leg pain Leg pain Problem Active [facility] Osteoarthr Osteoarthr Diagnosis Active [facility] itis itis [facility] Abnormal Abnormal Diagnosis Active [facility] mammogram mammogram Luke [facility] - of left of left Memoria breast breast l [facility] Breast Breast Diagnosis Active [facility] mass, left mass, left [place] - [facility] Chest Chest Diagnosis Active [facility] pain, pain, [facility] - unspecifie unspecifie Me moria d type d type l [facility] Allergies, Adverse Reactions, Alerts This patient has no known allergies or adverse reactions. Medications Ordered Filled Start Stop Current Ordering Indication Dosage Frequency Signature Comments Components Source Medication Medication Date Date Medication? Clinician (SIG) Name Name Lotrel Lotrel Yes Randy [address] [facility] Mascorro [facility] Centrum Centrum Yes Randy not [facility] Silver Silver Mascorro defined [facility] - 50+Women 50+Women [facility] Vitamin D-3 Vitamin D-3 Yes Randy [address] [facility] Mascorro [facility] Glucosamine Glucosamine Yes Randy not [facility] [place]-C [place]-C Mascorro defined [facility] - ollagen ollagen [facility] Aspir-81 Aspir-81 Yes Randy [address] Mascorro [facility] Super Super Yes Randy not [facility] B-Complex B-Complex Mascorro defined [facility] - [facility] Simvastatin Simvastatin Yes Randy [address] [facility] Mascorro in the [facility] - evening [facility] Levothyroxi Levothyroxi Yes Randy [address] [facility] ne Sodium ne Sodium Mascorro on an Cristal es - empty Memoria stomach in l the Outpat[facility] morning ent Clinics Ginkgo Ginkgo Yes Randy not [facility] Biloba Biloba Mascorro defined [facility] Donepezil Donepezil Yes Randy TAKE [address] HCl HCl Mascorro TABLET BY [facility] - MOUTH [facility] EVERY DAY l AT NIGHT [facility] Folic Acid Folic Acid Yes Randy [address] [facility] Mascorro [facility] Co Q-10 Co Q-10 Yes Randy [address] [facility]asc[facility] with a [facility] Amlodipine Amlodipine Yes Randy [address] [facility] [facility] Besy-Benaze Besy-Benaze Mascorro [facility] pril HCl [facility] Procedures This patient has no known procedures. Encounters Start End Encounter Admission Attending Care Care Encounter Source Date/Time Date/Time Type Type Clinicians Facility Department ID 2019-04-18 2019-04-18 Outpatient Sarah Wong [id number] [facility] 09:30:00 09:30:00 t [employer] [facility] 2019-01-12 2019-01-12 Outpatient Sarah Wong [id number] [facility] 10:22:00 10:22:00 t [employer] [facility] 2019-01-03 2019-01-03 Outpatient Sarah Wong [id number] [facility] 13:10:00 13:10:[place] [employer] [facility] - [facility] 2018-12-18 2018-12-18 [facility] [id number] [facility] 10:15:00 10:15:00 [place] [employer] s - Drive [facility] Outpat[facility] Clinics 2018-12-08 2018-12-08 [facility] [id number] 16:58:00 16:58:00 [place] [employer] s - Drive [facility] Out[facility] ent Clinics 2018-11-20 2018-11-20 [facility] [id number] 08:30:00 08:30:00 [place] [employer] [facility] [address] [facility] Outpat[facility] ent Clinics 2018-10-05 2018-10-05 [facility] [id number] 12:08:00 12:08:00 [place] [employer] [address] [facility] Out[facility] ent Clinics 2018-08-16 2018-08-16 [facility] [id number] [facility] 10:15:00 10:15:00 [place] [employer] [address] [facility] Out[facility] ent Clinics 2018-04-14 2018-04-14 [facility] [id number] 08:30:00 08:30:00 [place] [employer] [address] [facility] Outpat[facility] ent Clinics 2017-09-16 2017-09-16 [facility] [id number] 09:45:00 09:45:00 [place] [employer] [place] [address] [facility] Outpat[facility] ent Clinics 2017-06-16 2017-06-16 [facility] [id number] 10:15:00 10:15:00 [place] [employer] [facility] [address] [facility] Out[facility] ent Clinics Results This patient has no known results.
--- OUTSIDE RECORDS SUMMARY | 2019-06-23 19:20 | XMS REPORT ---
[...] E78.5 Active Problem Short-term memory loss R41.3 Activ e Problem Hip joint pain M25.559 Active Problem Abnormal mammogram R92.8 Active Problem Mild cognitive impairment G31.84 Ac tive Problem Hyperlipidemia E78.5 Active Problem Osteoarthritis M19.90 Active Problem Memory loss R41.3 Active Medications No Known Medications Results No Known Results Summary Purpose eClinicalWorks Submission
--- OUTSIDE RECORDS SUMMARY | 2019-06-23 19:21 | XMS REPORT ---
:1950 Author Organization [employer] Care Team Providers Name Role Phone Ludwin Randy Provider Role Unavailable Allergies, Adverse Reactions, Alerts Substance Reaction Event Type N.K.D.A. Info Not Available Non Drug Allergy Problems Problem Type Condition Code Onset Dates Condition Statu s Problem Benign essential HTN I10 Active Problem Hyperlipidemia E78.5 Active Problem Hypothyroidism E03.9 Active Problem Abnormal mammogram R92.8 Active Assessment Abnormal mammogram of left breast R92.8 Active Problem Short-term memory loss R41.3 Activ e Assessment Hip joint pain M25.559 Active Problem Breast mass, left N63.20 Active Problem Memory loss R41.3 Active Problem Mild cognitive impairment G31.84 Ac tive Problem Hip joint pain M25.559 Active Problem Osteoarthritis M19.90 Active Assessment Mild cognitive impairment G31.84 Ac tive Assessment Hyperlipidemia E78.5 Active Assessment Short-term memory loss R41.3 Activ e Assessment Osteoarthritis M19.90 Active Assessment Breast mass, left N63.20 Active Assessment Hypothyroidism E03.9 Active Assessment Benign essential HTN I10 Active Assessment Chest pain, unspecified type R07.9 Active Problem Leg pain M79.606 Active Medications Medication Code Code Instructions Start End Status Dosage System Date [facility] [place] 774586[place] 81 MG Orally Active 1 tabl et Once a day Vitamin D-3 [facility] [place] 57175248944 1000 UNIT Active 1 caps ule Orally Once a day Super B-Complex [facility] [place] 10752984674 - Orally Active not defined Amlodipine [facility] [place] 56115240533 5-20 MG Orally Active 1 capsule Besy-Benazepril Once a day HCl Levothyroxine [facility] [place] 56526657240 25 MCG Orally Active 1 tablet Sodium Once a day on an empty stomach in the morning Donepezil HCl [facility] [place] 58445853446 10 MG Oral Active ALIYA E 1 TABLET BY MOUTH EVERY DAY AT NIGHT Simvastatin [facility] [place] 72320519988 20 MG Orally Active 1 t ablet Once a day in the evening Ginkgo Biloba [facility] [place] 74335369115 60 MG Orally Active n ot defined Co Q-10 [facility] [place] 16534756116 300 MG Orally Active 1 caps ule Once a day with a meal Centrum Silver [facility] [place] 72662544172 - Orally Active not 50+Women defined Glucosamine [facility] [place] 52807172663 - Orally Active not Chondroit-Collage define d n Lotrel [facility] [place] 36114306791 5-20 MG Orally Active 1 tab Once a day Folic Acid [facility] [place] 81289127629 1 MG Orally Active 1 tab let Once a day Results No Known Results Summary Purpose [employer]Works Submission
[2019-06-23 20:11] LABS: Absolute Lymphocytes (CBC) 2.5 K/uL (0.7-4.9); Basophils % 0.9 % (0-1.3); Hematocrit 43.8 % (36.0-45.0); Lymphocytes % 24.8 % (15.3-44.8); MPV 8.4 fL (7.6-11.3); RBC Red Blood Cell Count 4.91 M/uL (3.86-4.86)
[2019-06-23 20:24] LABS: BUN Blood Urea Nitrogen 11 mg/dL (7-18); Bicarbonate 30 mmol/L (21-32); Glucose Level 135 mg/dL (74-106); Potassium 3.7 mmol/L (3.5-5.1); Sodium Level 141 mmol/L (136-145)
[2019-06-23] MEDS ORDERED: NA CHLORIDE 0.9% 1,000 ML ONE ×2 (20:38→22:28)
--- NOTE | 2019-06-23 21:46 | RAD REPORT ---
EXAM DESCRIPTION: CT - Abdomen Pelvis W Contrast - 06/23/2019 9:08 pm CLINICAL HISTORY: ABD PAIN COMPARISON: No comparisons TECHNIQUE: Biphasic, helical CT imaging of the abdomen and pelvis was performed following 100 ml non -ionic IV contrast. No oral contrast given. All CT scans are performed using dose optimization technique as appropriate and may include automated exposure control or mA/KV adjustment according to patient size. FINDINGS: No suspicious findings in the lung bases. The liver, spleen, and pancreas show no suspicious findings. Gallbladder and biliary tree are also wi thout suspicious finding. Symmetric renal function is seen with no hydronephrosis or suspicious renal mass. No pyelonephritis o r acute parenchymal process. No acute bladder finding. No adrenal abnormalities. No uterine abnormali ty. Right ovary is unremarkable. Left ovary contains a 4.3 centimeter cyst. This is large for the pat ient's age. No septation, mural nodule or fat component seen. This will need continuing close monitor ing. Stomach is distended but not dilated by the retained food and fluid. No gastric wall thickening, mass or outlet obstruction. No duodenal abnormality. No jejunum abnormality. Proximal and mid ileum show prominent circumferential wall thickening and edema. There is dilatation to 3.3 cm. No significant me senteric atherosclerotic change. Bowel ischemia is not suspected. Small mesenteric lymph nodes are pr esent. 1 portion of the affected small bowel there is a 2 centimeter homogeneous fat attenuation mass . This may be partially obstructing. Generally the small bowel lipoma is or fatty masses do not cause significant obstruction due to pliability. They will wall edema is not typical for mechanical obstru ction. No free air or pneumatosis. A small amount of free fluid is present in the peritoneal cavity. No her madhuri or bulky lymphadenopathy. No omental thickening. No suspicious bony findings. IMPRESSION: Dilation of the proximal and mid portions of the ileum with prominent wall thickening an d edema. At the distal end of the dilatation is a 2 centimeter fatty mass. This degree of wall edema is not typical for bowel obstruction and there may be a infectious/ inflamm atory ileitis. The fatty mass is at the distal end of the dilatation and may cause a small bowel partial obstruction or intussusception. Small amount of free fluid is present but no free air or pneumatosis. Patient has a 4.3 centimeter left ovarian cystic mass. This can be further evaluated with sonography and ongoing follow-up once the patient recovers from the current acute event.
--- NOTE | 2019-06-23 22:19 | EDPHYS ---
Physician Documentation [facility] Name: Mallory Lai Age: 68 yrs Sex: Female : 1950 Arrival Date: 06/23/2019 Time: 19:21 Bed 24 Private MD: ED Physician Siddharth Andrea HPI: 06/22 20:20 This 68 yrs old Female presents to ER via Ambulatory with complaints of Groin kb Pain. 20:20 The patient presents with abdominal pain in the left lower quadrant. Onset: The kb symptoms/episode began/occurred this morning. The symptoms do not radiate. Associated signs and symptoms: none. The symptoms are described as constant. Modifying factors: The symptoms are alleviated by nothing, the symptoms are aggravated by nothing. Severity of pain: At its worst the pain was moderate in the emergency department the pain is unchanged. The patient has not experienced similar symptoms in the past. The patient has not recently seen a physician. Historical: - Allergies: 19:45 No Known Allergies; ca1 - PMHx: 19:45 Hypertension; Hypothyroidism; Dementia; ca1 - PSHx: 19:45 ; Tonsillectomy; b/l knee replacements; ca1 - Immunization history:: Adult Immunizations up to date. - Social history:: Smoking status: Patient denies any tobacco usage or history of. ROS: 20:19 Constitutional: Negative for fever, chills, and weight loss, Cardiovascular: Negative kb for chest pain, palpitations, and edema, Respiratory: Negative for shortness of breath, cough, wheezing, and pleuritic chest pain, Back: Negative for injury and pain, : Negative for injury, bleeding, discharge, and swelling, MS/Extremity: Negative for injury and deformity, Skin: Negative for injury, rash, and discoloration, Neuro: Negative for headache, weakness, numbness, tingling, and seizure. 20:19 Abdomen/GI: Positive for abdominal pain, Negative for nausea, vomiting, and diarrhea, constipation, abdominal cramps, abdominal distension, anorexia. Exam: 20:19 Constitutional: This is a well developed, well nourished patient who is awake, alert, kb and in no acute distress. Head/Face: Normocephalic, atraumatic. Chest/axilla: Normal chest wall appearance and motion. Nontender with no deformity. No lesions are appreciated. Cardiovascular: Regular rate and rhythm with a normal S1 and S2. No gallops, murmurs, or rubs. Normal PMI, no JVD. No pulse deficits. Respiratory: Lungs have equal breath sounds bilaterally, clear to auscultation and percussion. No rales, rhonchi or wheezes noted. No increased work of breathing, no retractions or nasal flaring. Abdomen/GI: Soft, non-tender, with normal bowel sounds. No distension or tympany. No guarding or rebound. No evidence of tenderness throughout. Back: No spinal tenderness. No costovertebral tenderness. Full range of motion. Skin: Warm, dry with normal turgor. Normal color with no rashes, no lesions, and no evidence of cellulitis. MS/ Extremity: Pulses equal, no cyanosis. Neurovascular intact. Full, normal range of motion. Neuro: Awake and alert, GCS 15, oriented to person, place, time, and situation. Cranial nerves II-XII grossly intact. Motor strength 5/5 in all extremities. Sensory grossly intact. Cerebellar exam normal. Normal gait. Vital Signs: 19:41 BP 147 / 73; Pulse 65; Resp 16 S; Temp 97.2(TE); Pulse Ox 100% on R/A; Weight 79.38 kg ca1 (R); Height 5 ft. 6 in. (167.64 cm) (R); 21:24 BP 147 / 69; Pulse 58; Resp 18; Pulse Ox 97% on R/A; tl2 22:20 BP 149 / 71; Pulse 65; Resp 18; Pulse Ox 98% on R/A; Pain 0/10; tl2 19:41 Body Mass Index 28.25 (79.38 kg, 167.64 cm) ca1 MDM: 19:46 Patient medically screened. kb 20:18 Data reviewed: vital signs, nurses notes. Data interpreted: Pulse oximetry: on room air kb is 100 %. Interpretation: normal. 22:16 Counseling: I had a detailed discussion with the patient and/or guardian regarding: the kb historical points, exam findings, and any diagnostic results supporting the discharge/admit diagnosis, lab results, radiology results, the need for further work-up and treatment in the hospital. Physician consultation: Marcus Kennedy MD was contacted at 22:16, regarding consult, patient's condition, and will see patient in inpatient room. 22:16 Physician consultation: Dayne Lima was contacted at 22:17, regarding admission, to kb the medical/surgical unit. patient's condition, and will see patient in ED, shortly. 06/22 19:46 Order name: Basic Metabolic Panel; Complete Time: 20:27 kb 06/22 19:46 Order name: CBC with Diff; Complete Time: 20:27 kb 06/22 20:27 Order name: CT Abd/Pelvis - IV Contrast Only; Complete Time: 21:48 kb 06/22 19:46 Order name: IV Saline Lock; Complete Time: 20:15 kb 06/22 19:46 Order name: Labs collected and sent; Complete Time: 20:15 kb Administered Medications: 20:34 Drug: NS 0.9% 1000 ml Route: IV; Rate: 1000 ml; Site: right antecubital; tl2 06/23 00:13 Follow up: IV Status: Completed infusion; IV Intake: 1000ml tl2 06/22 22:26 Drug: Flagyl 500 mg Volume: 100 ml; Route: IVPB; Rate: 200 ml/hr; Infused Over: 30 tl2 mins; Site: right antecubital; 23:30 Follow up: IV Status: Completed infusion; IV Intake: 100ml tl2 22:26 Drug: NS 0.9% 1000 ml Route: IV; Rate: 75 ml/hr; Site: right antecubital; tl2 23:46 Drug: Cipro 400 mg Volume: 200 ml; Route: IVPB; Infused Over: 60 mins; Site: right tl1 antecubital; 06/23 01:00 Follow up: IV Status: Infusion continued upon admission; IV Intake: 100ml tl1 Disposition: 08:03 Co-signature as Attending Physician, Siddharth Andrea MD I agree with the assessment and stephanie plan of care. Disposition: 06/23/19 22:18 Hospitalization ordered by Dayne Lima for Observation. Preliminary diagnosis are Ileitis, Lower abdominal pain, unspecified. - Bed requested for Telemetry/MedSurg (observation). - Status is Observation. tl1 - Condition is Stable. - Problem is new. - Symptoms are unchanged. Signatures: Dispatcher [employer] EDTX Soumya Rae, LINDA-C LINDA-Siddharth Ferrari MD MD cha Lasagna, Tonya, RN RN tl1 Rosemary Cerda, RN RN cg Kathi Lambert, RN RN tl2 Christal Breen RN RN ca1 Corrections: (The following items were deleted from the chart) 06/22 23:48 22:18 Hospitalization Ordered by Dayne Lima for Observation. Preliminary diagnosis cg is Ileitis; Lower abdominal pain, unspecified. Bed requested for Telemetry/MedSurg (observation). Status is Observation. Condition is Stable. Problem is new. Symptoms are unchanged. 06/23 01:00 06/22 23:48 06/23/2019 22:18 Hospitalization Ordered by Dayne Lima for Observation. tl1 Preliminary diagnosis is Ileitis; Lower abdominal pain, unspecified. Bed requested for Telemetry/MedSurg (observation). Status is Observation. Condition is Stable. Problem is new. Symptoms are unchanged. cg
--- NOTE | 2019-06-23 22:19 | ER ---
Nurse's Notes [facility] Name: Mallory Lai Age: 68 yrs Sex: Female : 1950 Arrival Date: 06/23/2019 Time: 19:21 Bed 24 Private MD: Diagnosis: Ileitis;Lower abdominal pain, unspecified Presentation: 06/22 19:41 Chief complaint: Patient states: LLQ and groin pain x 3-4 days. Denies urinary ca1 symptoms. Denies N/V/diarrhea. Coronavirus screen: Proceed with normal triage. Patient denies a cough. Patient denies shortness of breath or difficulty breathing. Patient denies measured and/or subjective temperature greater than 100.4F prior to today's visit. Patient denies travel on a cruise ship or to a country the [facility] currently lists as an affected area. Patient denies contact with known and/or suspected case of COVID-19. Ebola Screen: Patient negative for fever greater than or equal to 101.5 degrees Fahrenheit, and additional compatible Ebola Virus Disease symptoms Patient denies exposure to infectious person. Patient denies travel to an Ebola-affected area in the 21 days before illness onset. No symptoms or risks identified at this time. Initial Sepsis Screen: Does the patient meet any 2 criteria? No. Patient's initial sepsis screen is negative. Does the patient have a suspected source of infection? No. Patient's initial sepsis screen is negative. Risk Assessment: Do you want to hurt yourself or someone else? Patient reports no desire to harm self or others. Onset of symptoms was June 23, 2019. 19:41 Method Of Arrival: Ambulatory ca1 19:41 Acuity: JAD 3 ca1 Historical: - Allergies: 19:45 No Known Allergies; ca1 - PMHx: 19:45 Hypertension; Hypothyroidism; Dementia; ca1 - PSHx: 19:45 ; Tonsillectomy; b/l knee replacements; ca1 - Immunization history:: Adult Immunizations up to date. - Social history:: Smoking status: Patient denies any tobacco usage or history of. Screenin:15 Abuse screen: Denies threats or abuse. Nutritional screening: No deficits noted. tl2 Tuberculosis screening: No symptoms or risk factors identified. Fall Risk None identified. Assessment: 20:15 General: Appears in no apparent distress. comfortable, Behavior is calm, cooperative, tl2 appropriate for age. Pain: Complains of pain in suprapubic area and left lower quadrant. Neuro: Level of Consciousness is awake, alert, obeys commands, Oriented to person, place, time, situation. Respiratory: Airway is patent Respiratory effort is even, unlabored. GI: Patient currently denies diarrhea, nausea, vomiting. Derm: Skin is pink, warm \T\ dry. 21:24 Reassessment: Patient appears in no apparent distress at this time. Patient and/or tl2 family updated on plan of care and expected duration. Pain level reassessed. Patient is alert, oriented x 3, equal unlabored respirations, skin warm/dry/pink. pt returned from CT, awaiting results, updated pt and family on plan of care. 22:20 Reassessment: Patient appears in no apparent distress at this time. Patient and/or tl2 family updated on plan of care and expected duration. Pain level reassessed. Patient is alert, oriented x 3, equal unlabored respirations, skin warm/dry/pink. updated pt on need for hospitalization, pt verbalized understanding. Vital Signs: 19:41 BP 147 / 73; Pulse 65; Resp 16 S; Temp 97.2(TE); Pulse Ox 100% on R/A; Weight 79.38 kg ca1 (R); Height 5 ft. 6 in. (167.64 cm) (R); 21:24 BP 147 / 69; Pulse 58; Resp 18; Pulse Ox 97% on R/A; tl2 22:20 BP 149 / 71; Pulse 65; Resp 18; Pulse Ox 98% on R/A; Pain 0/10; tl2 19:41 Body Mass Index 28.25 (79.38 kg, 167.64 cm) ca1 ED Course: 19:21 Patient arrived in ED. ds1 19:44 Triage completed. ca1 19:45 Arm band placed on right wrist. ca1 19:46 Soumya Rae FNP-C [facility]. kb 19:46 Siddharth Andrea MD is Attending Physician. kb 20:01 Inserted saline lock: 20 gauge in right antecubital area, using aseptic technique. tl2 Blood collected. 20:15 Kathi Lambert RN is Primary Nurse. tl2 20:15 Patient has correct armband on for positive identification. Bed in low position. Call tl2 light in reach. Side rails up X2. 21:08 CT Abd/Pelvis - IV Contrast Only In Process Unspecified. EDPR 22:18 Dayne Lima is Hospitalizing Provider. kb 06/23 00:12 No provider procedures requiring assistance completed. Patient admitted, IV remains in tl2 place. Administered Medications: 06/22 20:34 Drug: NS 0.9% 1000 ml Route: IV; Rate: 1000 ml; Site: right antecubital; tl2 06/23 00:13 Follow up: IV Status: Completed infusion; IV Intake: 1000ml tl2 06/22 22:26 Drug: Flagyl 500 mg Volume: 100 ml; Route: IVPB; Rate: 200 ml/hr; Infused Over: 30 tl2 mins; Site: right antecubital; 23:30 Follow up: IV Status: Completed infusion; IV Intake: 100ml tl2 22:26 Drug: NS 0.9% 1000 ml Route: IV; Rate: 75 ml/hr; Site: right antecubital; tl2 23:46 Drug: Cipro 400 mg Volume: 200 ml; Route: IVPB; Infused Over: 60 mins; Site: right tl1 antecubital; 06/23 01:00 Follow up: IV Status: Infusion continued upon admission; IV Intake: 100ml tl1 Intake: 06/22 23:30 IV: 100ml; Total: 100ml. tl2 06/23 00:13 IV: 1000ml; Total: 1100ml. tl2 01:00 IV: 100ml; Total: 1200ml. tl1 Outcome: 06/22 22:18 Decision to Hospitalize by Provider. kb 06/23 00:11 Admitted to Med/surg accompanied by nurse, via wheelchair, with chart, Report called to tl2 ARNIE Daly Condition: stable Discharge instructions given to patient, Instructed on the need for admit. 01:00 Patient left the ED. tl1 Signatures: Dispatcher [employer] EDPR Soumya Rae, ENGINE GENERATOR ASSEMBLER-C ENGINE GENERATOR ASSEMBLER-Guadalupe Sanderson ds1 Christa Leary RN RN tl1 Kathi Lambert RN RN tl2 Christal Breen RN RN ca1
[2019-06-23] MEDS ORDERED: METRONIDAZOLE 500mg IVPB 500 MG/100 ML BAG IV ONE (22:28)
[2019-06-23] MEDS ORDERED: CIPROFLOXACIN 400mg IV 400 MG/200 ML BAG IV ONE (22:28)
--- NOTE | 2019-06-23 23:32 | P.HP ---
Certification for Inpatient Patient admitted to: Observation With expected LOS: <2 Midnights Practitioner: I am a practitioner with admitting privileges, knowledge of patient current condition, hospital course, and medical plan of care. Services: Services provided to patient in accordance with Admission requirements found in Title 42 Section 412.3 of the Code of Federal Regulations Patient History Date of Service: 06/23/19 Reason for admission: Abdominal pain History of Present Illness: 68-year-old woman with a history of hypothyroidism and dementia presented to the emergency department with a complaint of abdominal pain which has been present for about 3-4 days. Patient denied any diarrhea or constipation. She is so denied any fever. She reports some nausea but no vomiting. CT scan done in the emergency department showed dilated small bowel and bowel edema. Findings could suggest partial bowel obstruction versus ileus versus enteritis. Patient described the pain as colicky and it waxes and wanes. She was without pain when I saw her in the ED. Patient is placed under observation for further management. Allergies morphine Allergy (Intermediate, Verified 10/26/12 18:38) Itching/Hives/Rash No Known Allergies Allergy (Uncoded 07/30/15 06:38) Unknown Home Medications: Amlodipine/Atorvastatin [Amlodipine-Atorvast 5-20 mg] 1 each PO DAILY 11/10/18 Levothyroxine [Synthroid*] 25 mcg PO DAILY 11/10/18 Folic Acid 1 mg PO DAILY #90 tablet 11/11/18 Cholecalciferol (Vitamin D3) [Vitamin D3] 50 mcg PO DAILY 01/16/19 Multivitamin [Multivitamins] 1 tab PO DAILY 01/16/19 Simvastatin 20 mg PO DAILY 01/16/19 - Past Medical/Surgical History Diabetic: No -: Hypertension -: Hypothyroidism -: Suspected early dementia -: History of DVT -: x2 -: Tonsillectomy -: Bilateral knee replacements Psychosocial/ Personal History: Patient is - Family History Family History: Reviewed- Non-Contributory - Social History Smoking Status: Never smoker Alcohol use: No CD- Drugs: No Caffeine use: Yes Review of Systems Other: Except as documented, all other systems reviewed and negative. Physical Examination - Physical Exam General: Alert, In no apparent distress, Other (Memory impairment) HEENT: Mucous membr. moist/pink, Sclerae nonicteric Neck: Supple, JVD not distended Respiratory: Clear to auscultation bilaterally, Normal air movement Cardiovascular: No edema, Normal pulses, Regular rate/rhythm Capillary refill: <2 Seconds Gastrointestinal: Hypoactive, Soft and benign, Non-distended, No tenderness Musculoskeletal: No swelling, No erythema Integumentary: No rashes, No erythema Neurological: Normal speech, Normal strength at 5/5 x4 extr - Studies Laboratory Data (last 24 hrs) 06/23/19 20:01: WBC 10.3, Hgb 14.8, Hct 43.8, Plt Count 305 06/23/19 20:01: Sodium 141, Potassium 3.7, BUN 11, Creatinine 0.65, Glucose 135 H Assessment and Plan - Problems (Diagnosis) (1) Partial bowel obstruction Current Visit: Yes Status: Acute (2) Enteritis Current Visit: Yes Status: Acute (3) Hypothyroidism Current Visit: Yes Status: Acute - Plan Place under observation. Bowel rest. Keep NPO for now. IV hydration IV Cipro and Flagyl Consult general surgeon Serial abdominal examination. Monitor and optimize electrolytes - Advance Directives Does patient have a Living Will: No Does patient have a Durable POA for Healthcare: No - Code Status/Comfort Care Code Status Assessed: Yes Code Status: Full Code
[2019-06-24] MEDS ORDERED: MORPHINE 2 MG/ML SYR IV PRN (00:29)
[2019-06-24] MEDS ORDERED: ACETAMINOPHEN 500 MG TAB PO PRN (00:29)
[2019-06-24] MEDS: METRONIDAZOLE 500mg IVPB 500 MG/100 ML BAG IV SCH ×3 (00:52→16:41)
[2019-06-24] MEDS ORDERED: HEPARIN 5000 UNIT/ML 1 ML VIAL SQ SCH (01:00)
[2019-06-24 01:09] VITALS: BMI 28.2
[2019-06-24 06:08] LABS: Absolute Lymphocytes (CBC) 3.8 K/uL (0.7-4.9); Basophils % 0.9 % (0-1.3); Hematocrit 41.8 % (36.0-45.0); Lymphocytes % 35.6 % (15.3-44.8); RBC Red Blood Cell Count 4.72 M/uL (3.86-4.86)
[2019-06-24 06:33] LABS: ALT/SGPT 18 U/L (12-78); AST/SGOT 14 U/L (15-37); Albumin 3.3 g/dL (3.4-5.0); Alkaline Phosphatase 76 U/L (45-117); BUN Blood Urea Nitrogen 7 mg/dL (7-18); Bicarbonate 28 mmol/L (21-32); Bilirubin Total 0.7 mg/dL (0.2-1.0); Glucose Level 99 mg/dL (74-106); Magnesium 1.9 mg/dL (1.8-2.4); Phosphorus 2.9 mg/dL (2.5-4.9); Potassium 3.4 mmol/L (3.5-5.1); Protein, Total 6.5 g/dL (6.4-8.2); Sodium Level 142 mmol/L (136-145)
[2019-06-24] MEDS: KCL 20 MEQ/100 mL IVPB 20 MEQ/100 ML BAG IV SCH ×2 (09:00→13:14)
[2019-06-24] MEDS: CIPROFLOXACIN 400mg IV 400 MG/200 ML BAG IV SCH ×2 (09:00→20:27)
[2019-06-24] MEDS: NA CHLORIDE 0.9% 1,000 ML IV SCH ×3 (09:00→20:27)
[2019-06-24] MEDS: ENOXAPARIN 40 MG/0.4 ML SQ SCH (16:42)
--- NOTE | 2019-06-24 18:04 | PN ---
Date of Progress Note: 06/24/2019 Patient seen and examined. Chart reviewed and case discussed with RN and Dr. Kennedy. Patient bishop es any significant pain, was able to tolerate clear liquids today; however, does have some pain with that. Medications: List reviewed. Code Status: Full. Physical Examination: Vital Signs: Temperature 98.1, heart rate 50, blood pressure 150/73, respirations 16, O2 98% on room air. General: Awake, alert, oriented x3. Elderly female, not in any acute distress. CV: S1, S2. Regular rate and rhythm. Peripheral pulses present. Respiratory: Moving air well bilaterally. No wheezing or stridor. No use of accessory muscles. Gastrointestinal: Abdomen is soft. Minimal tenderness to palpation. No guarding or rigidity. Posi tive bowel sounds. Extremities: No clubbing, cyanosis, or edema. Neurologic: Nonfocal. Laboratory Data: Sodium 142, potassium 3.4, chloride 107, CO2 of 28, BUN 7, creatinine 0.57, calcium 8.3, TSH 3.82. WBC 10.6, H and H 14.1 and 41.8, platelets 301. Assessment And Plan: 68-year-old female with: 1.Partial small bowel obstruction. Reviewed CAT scan with Dr. Kennedy. Patient does have fatty ma ss present as well, possible intussusception, which may indicate tumor. Dr. Kennedy recommends GI e ndoscopy to further elucidate the etiology of this fatty mass and possible tumor. Dr. Govea is on -call in a.m., therefore, we will consult him in the morning. For now, patient is not having any preeti sea or vomiting, tolerating clear liquids. We will avoid nasogastric tube placement. No need for de compression. 2.Acute enteritis. We will continue with intravenous antibiotics. We will monitor cultures. The p atient's white count is normal. No signs of sepsis at this time. 3.Hypothyroidism. We will continue home medications. 4.Essential hypertension. Resume home medications as appropriate. 5.Mixed hyperlipidemia, stable. Continue statin. 6.Hypokalemia. We will replace and monitor. 7.Deep vein thrombosis prophylaxis, Lovenox. Plan is to monitor closely for signs of sepsis or worsening obstruction, which may need NG tube decom pression. We will need to have GI further evaluate for a possible mass that may be causing the intus susception versus exploratory laparotomy by General Surgery. /DRISS Voice ID: [id number] Report ID: [id number]
[2019-06-25] MEDS: METRONIDAZOLE 500mg IVPB 500 MG/100 ML BAG IV SCH ×3 (00:24→16:00)
[2019-06-25] MEDS: LEVOTHYROXINE SOD 0.025 MG TAB PO SCH (05:41)
[2019-06-25] MEDS: NA CHLORIDE 0.9% 1,000 ML IV SCH ×3 (06:29→21:13)
[2019-06-25] MEDS: AMLODIPINE 5 MG TAB PO SCH (08:00)
[2019-06-25] MEDS: CIPROFLOXACIN 400mg IV 400 MG/200 ML BAG IV SCH ×2 (08:00→21:12)
--- NOTE | 2019-06-25 08:48 | RAD REPORT ---
EXAM DESCRIPTION: RAD - Abdomen 1 View (KUB) - 06/25/2019 8:33 am CLINICAL HISTORY: Follow up SBO vs possible intuss. COMPARISON: Abdomen Pelvis W Contrast dated 06/23/2019 FINDINGS: Several nondilated air-filled small bowel loops are present in the right-side of the abdom en. No dilated small bowel. Air and stool are present throughout nondilated colon from cecum to dista l rectum. No free air or pneumatosis seen. Stomach is decompressed. No suspicious calcifications. No significant bony findings IMPRESSION: No bowel obstruction, free air or pneumatosis. Prominent bowel pattern seen on the June 22 CT study may have resolved or may be occult on KUB imaging . As clinical findings warrant, repeat CT imaging could be performed or a small bowel follow-through ex amination could be performed.
[2019-06-25] MEDS ORDERED: LEVOTHYROXINE SOD 0.05 MG TABLET PO SCH (09:00)
[2019-06-25 11:27] LABS: Urine Appearance CLEAR; Urine Bilirubin NEGATIVE (NEG); Urine Blood NEGATIVE (NEG); Urine Color YELLOW; Urine Glucose NEGATIVE (NEG); Urine Protein NEGATIVE (NEG); Urine Specific Gravity <=1.005 (1.005-1.030); Urine Urobilinogen 0.2 mg/dL (0.2-1.0)
[2019-06-25 12:06] LABS: Urine Microscopic Reflex ORDER UMIC
--- NOTE | 2019-06-25 12:08 | P.PN ---
Subjective Date of Service: 06/25/19 Chief Complaint: Abdominal pain Subjective: No new changes, Tolerating diet, Improving Patient is feeling well today tolerating clear liquid diet. <Wayne Lemus Last Filed: 06/25/19 12:08> Date of Service: 06/25/19 Patient seen and examined with nurse practitioner. Patient doing well. Without significant pain, nausea or vomiting. Patient tolerating clear liquid diet. <Casper Pope - Last Filed: 06/25/19 16:08> Review of Systems General: Unremarkable Eyes: Unremarkable ENT: Unremarkable Respiratory: Unremarkable Cardiovascular: Unremarkable Gastrointestinal: As per HPI Genitourinary: Unremarkable Integumentary: Unremarkable Neurological: Unremarkable Lymphatics: Unremarkable <Wayne Lemus Filed: 06/25/19 12:08> Physical Examination - Vital Signs Temperature: 98.3 F Blood Pressure: 153/79 Pulse: 56 Respirations: 15 Pulse Ox (%): 99 - Physical Exam General: Alert, In no apparent distress, Oriented x3 HEENT: Atraumatic, Normocephalic Neck: Supple Respiratory: Clear to auscultation bilaterally, Normal air movement Cardiovascular: No edema Capillary refill: <2 Seconds Gastrointestinal: Hypoactive, Soft and benign Musculoskeletal: No clubbing, No swelling Integumentary: No rashes Neurological: Normal speech Lymphatics: No axilla or inguinal lymphadenopathy <Wayne Lemus Filed: 06/25/19 12:08> - Physical Exam General: Cooperative Cardiovascular: Normal pulses, Regular rate/rhythm Gastrointestinal: No tenderness, No masses, No rebound, No guarding - Studies Medications List Reviewed: Yes <Casper Pope - Last Filed: 06/25/19 16:08> Assessment & Plan Discharge Plan: Home Plan to discharge in: 72 Hours - Code Status/Comfort Care Code Status Assessed: Yes Physician Review: Patient Assessed, Agree with Above Assessment and Plan Physician Review Additional Text: Assessment Partial small bowel obstruction with possible intussusception with fatty liver mass Acute enteritis Hypothyroidism Hypertension Mixed hyperlipidemia Hypokalemia Plan Partial small bowel obstruction with possible intussusception with fatty liver mass- GI has been consulted on this case, will await evaluation from GI to determine if patient would benefit from having an endoscopy. General surgery states that if patient cannot have endoscopy she may benefit from interventional radiology evaluation for possible biopsy. Alternatively patient may benefit from having a procedure with general surgery. Will monitor closely for signs of sepsis or worsening bowel obstruction. Await further input and recommendations from GI, General Surgery, radiology. Continue with Lovenox for DVT prophylaxis. Acute enteritis- continue IV antibiotics, patient is now tolerating the clear liquid diet. Will await further recommendations from general surgery and gastroenterology. Hypothyroidism- will continue patient's home medication Hypertension-will continue patient's home medication Mixed hyperlipidemia- will continue patient's home medication Hypokalemia- patient placed on potassium replacement protocol and telemetry. Will continue to monitor. Critical Care: No Time Spent Managing Pts Care (In Minutes): 55 <Wayne Lemus - Last Filed: 06/25/19 12:08> Discharge Plan: Home Plan to discharge in: 72 Hours Physician Review Additional Text: Patient seen and examined with nurse practitioner. Agree with plan of care. Case discussed with surgery. Case also discuss with GI. GI plans for no intervention as he feels that he is not able to get to the area where there is a suspicious fatty mass. Will discuss with surgery further to determine next course of action. <Casper Pope - Last Filed: 06/25/19 16:08>
[2019-06-25 12:40] LABS: Urine Bacteria <20 /HPF (<20); Urine RBC <5 /HPF (NONE SEEN)
[2019-06-25 12:41] LABS: Urine Mucus 1+ /HPF (NONE SEEN)
[2019-06-25 12:43] LABS: Urine Culture Reflex Order REFLEXED; Urine Urothelial Cells <5 /HPF (NONE SEEN)
[2019-06-25] MEDS: ENOXAPARIN 40 MG/0.4 ML SQ SCH (16:01)
[2019-06-25] MEDS: ATORVASTATIN 10 MG TAB PO SCH (21:11)
--- NOTE | 2019-06-26 00:32 | CON ---
Date of Consultation: 06/24/2019 Reason For Service: Small bowel obstruction. History Of Present Illness: This is the case of a 68-year-old female with a history of dementia, cam e to the hospital complaining of abdominal pain. She states she has been feeling like that in the ri ght and left lower quadrant for several weeks, but she thought it was just normal until it get worse enough to come to the ER. States she feel the pain to be crampy in nature. She denies any dysuria, hematuria, hematochezia, or melena. Denies any recent travelling out of the country. Denies any fam santosh member sick at home. She also does not remember the last colonoscopy. Surgical consult was obta ined. Allergies: NONE. Medical Problems: Include dementia, hypothyroidism, hypertension. Past Surgical History: Include 2 C sections, bilateral knee replacement, and tonsillectomy. Social History: She does not smoke. She does not drink alcohol. Family History: Noncontributory. Review of Systems: 10-points otherwise unremarkable. Physical Examination: General: Patient is awake and alert. EYES: Pupils are equal and reactive, anicteric sclerae. Neck: Supple. Chest: Clear. Abdomen: Diffuse abdominal tenderness. No peritonitis at this time. No guarding or rebound. Mild distention of abdomen. Extremities: Deferred. Breasts: Deferred. Pelvic: Deferred. Extremities: Good capillary refill. Rectal: Deferred. Laboratory Data: Blood work shows WBC count 10.3 with a hemoglobin of 14.8, potassium 3.7, glucose 1 35. CAT scan of abdomen and pelvis interpreted by Dr. Moody as dilatation of the proximal and mid portion of the ileum with prominent wall thickening, and edema. At the distal end of the dilatation, a 2 cm fatty mass. As per radiologist, the degree of wall edema is not typical for just a bowel obs truction, may be infectious or inflammatory ileitis. The fatty mass in the distal end may be the cau se of small bowel obstruction or intussusception. No pneumatosis seen. There is also a 4.3 cm in th e left ovary. Assessment And Plan: A 68-year-old patient came with symptoms of nausea bowel obstruction , found to have this dilatation of the bowel of unknown origin. Happened to have a mass on that area and they cannot rule out intussusception causing partial small bowel obstruction. Patient has no pr evious history, I cannot get any history from the patient herself in detail. She has some dementia, nice lady, but she cannot give all the information. She does not remember any previous colonoscopy. So, I reviewed the CAT scan, the blood work, and I discussed the case with the primary doctor. We a re going to get GI involved to see if we can define this ileitis or some other infectious disease cau se. If they believe they have intussusception and she has a tumor nearby, then that is we may have t o consider exploration, either laparoscopic or open and that will see that point of intussusception s ashley and second may be a tumor in that area causing this. May need a bowel resection, may need the tumor removed. At this moment, she is comfortable, she just want to go home. Although whe n we explained all that, she understood why we have to treat this some other way. She want to take s ome diet, so in the meantime until workup is done it is okay to have some liquid diet since we did no t see any complete obstruction, although it is partial, but if she gets nauseous again or vomiting, s he has to be n.p.o. We are going to get the radiologist involved to see if there is any way we can s ample that mass and a molder meat once again to help us with the ileitis. At the end, the lap arotomy versus diagnostic lap fully explained to the patient, and she seemed to understand the benefi ts, alternatives, and risks, which include, but are not limited to infection, bleeding, damage to adjacent structures, anesthesia complication, negat graciela exploration, [place], even . DIANA/JESSIKAL Voice ID: [id number] Report ID: [id number]
[2019-06-26] MEDS: METRONIDAZOLE 500mg IVPB 500 MG/100 ML BAG IV SCH ×3 (01:10→16:29)
--- NOTE | 2019-06-26 01:33 | PN ---
Date of Progress Note: 06/25/2019 Reason For Service: Basically intraabdominal mass and bowel obstruction. History: Patient is doing well. Tolerating diet. Just mild distention of the abdomen. No flatus a nd no bowel movement, at least she does not remember, and once again, she is a nice lady but has some dementia. Physical Examination: Chest: Clear. Abdomen: Soft and depressible. Mildly distended. X-rays reviewed with the patient, once again, the CAT scan. I appreciate GI consult, Dr. Govea. He has no access to the area of concern. We were hoping the area of the mass was close by idalia lemus, but is not the location. Plan: I discussed the case with the primary doctor too. Patient has what could be a . Wally paniagua has an intraabdominal mass with a partial bowel obstruction. That from the surgical standpoint may require some exploration. The benefits and risks fully explained to the patient, including diag nostic lap, possible laparotomy, possible resection, with benefits, alternatives, and risks, which in clude, but are not limited to infection, bleeding, damage to adjacent structures, and anesthesia comp lication, inability to find a tumor, [place], and even . She also understands this may not relieve s ymptoms, she might need more than one surgical intervention. We are going to discuss the case with t claudia patient, family, and the primary doctor as soon as they are available to understand different opti ons in this case. She does not want surgery tomorrow. If any, she will allow us to do that on Tuesday. We respect that. DIANA/DRISS Voice ID: [id number] Report ID: [id number]
[2019-06-26] MEDS: NA CHLORIDE 0.9% 1,000 ML IV SCH ×2 (05:08→16:29)
[2019-06-26] MEDS: LEVOTHYROXINE SOD 0.025 MG TAB PO SCH (06:13)
[2019-06-26] MEDS: CIPROFLOXACIN 400mg IV 400 MG/200 ML BAG IV SCH ×2 (09:08→20:39)
[2019-06-26] MEDS: AMLODIPINE 5 MG TAB PO SCH (09:08)
--- NOTE | 2019-06-26 13:09 | P.PN ---
Subjective Date of Service: 06/26/19 Chief Complaint: Abdominal pain Subjective: Improving, Doing well Physical Examination - Vital Signs Temperature: 98 F Blood Pressure: 155/78 Pulse: 59 Respirations: 16 Pulse Ox (%): 97 - Physical Exam General: Alert, Demented Neck: Supple Respiratory: Clear to auscultation bilaterally, Normal air movement Cardiovascular: Normal pulses, Regular rate/rhythm Gastrointestinal: Normal bowel sounds, Soft and benign, Non-distended, No masses, No rebound, No guarding Neurological: Normal speech, Normal strength at 5/5 x4 extr, Normal tone, Normal affect - Studies Medications List Reviewed: Yes Assessment & Plan Discharge Plan: Home Plan to discharge in: 48 Hours Physician Review Additional Text: Assessment Partial small bowel obstruction with possible intussusception with fatty liver mass Acute enteritis Hypothyroidism Hypertension Mixed hyperlipidemia Hypokalemia Plan Partial small bowel obstruction with possible intussusception with fatty mass- spoke with GI yesterday. GI feels they are not able to do evaluation at this time due to the location of mass. Also spoke to general surgery. General surgery spoke to patient. Will plan for surgical intervention to evaluate fatty mass. This woke her tomorrow. Will continue clear liquid diet and keep eat NPO after midnight at this time. Acute enteritis- continue IV antibiotics, patient is now tolerating the clear liquid diet. Continue with general surgery plan of care. Hypothyroidism- will continue patient's home medication Hypertension-will continue patient's home medication Mixed hyperlipidemia- will continue patient's home medication Hypokalemia- patient placed on potassium replacement protocol and telemetry. Will continue to monitor. Time Spent Managing Pts Care (In Minutes): 55
[2019-06-26] MEDS: ENOXAPARIN 40 MG/0.4 ML SQ SCH (16:29)
[2019-06-26] MEDS: ATORVASTATIN 10 MG TAB PO SCH (20:40)
[2019-06-27] MEDS: METRONIDAZOLE 500mg IVPB 500 MG/100 ML BAG IV SCH ×4 (00:15→09:20)
[2019-06-27] MEDS: NA CHLORIDE 0.9% 1,000 ML IV SCH ×3 (05:23→12:42)
[2019-06-27] MEDS: LEVOTHYROXINE SOD 0.025 MG TAB PO SCH (05:57)
[2019-06-27 06:20] LABS: Absolute Lymphocytes (CBC) 2.2 K/uL (0.7-4.9); Basophils % 0.2 % (0-1.3); Hematocrit 40.4 % (36.0-45.0); Lymphocytes % 28.3 % (15.3-44.8); MPV 8.9 fL (7.6-11.3); RBC Red Blood Cell Count 4.57 M/uL (3.86-4.86)
[2019-06-27 06:30] LABS: BUN Blood Urea Nitrogen 6 mg/dL (7-18); Bicarbonate 26 mmol/L (21-32); Glucose Level 99 mg/dL (74-106); Magnesium 1.8 mg/dL (1.8-2.4); Potassium 3.2 mmol/L (3.5-5.1); Sodium Level 143 mmol/L (136-145)
[2019-06-27] MEDS ORDERED: MAGNESIUM SULFATE 1 gm IVPB 1 GM/100 ML BAG IV ONE (06:36)
[2019-06-27] MEDS: AMLODIPINE 5 MG TAB PO SCH (08:23)
[2019-06-27] MEDS: KCL 20 MEQ/100 mL IVPB 20 MEQ/100 ML BAG IV SCH ×2 (08:24→10:00)
[2019-06-27] MEDS: CIPROFLOXACIN 400mg IV 400 MG/200 ML BAG IV SCH ×3 (08:26→09:30)
[2019-06-27] MEDS ORDERED: NS 0.9% VIAL 10 ML ONE (08:45)
[2019-06-27] MEDS ORDERED: ONDANSETRON 4 MG/2 ML VIAL ONE ×3 (08:45→11:16)
[2019-06-27] MEDS ORDERED: LIDOCAINE 1% MPF 5 ML VIAL ONE (08:45)
[2019-06-27] MEDS ORDERED: FENTANYL CITR 250 MCG/5 ML ONE (08:45)
[2019-06-27] MEDS ORDERED: dexAMETHasone 10 MG/ML VIAL ONE (08:45)
[2019-06-27] MEDS ORDERED: VECURONIUM 10 MG/VIAL IV ONE (08:45)
[2019-06-27] MEDS ORDERED: propofoL 200 MG/20 ML VIAL IV ONE (08:45)
[2019-06-27] MEDS: Ringers Lactate 1,000 ML IV ONE ×2 (08:50→08:53)
[2019-06-27] MEDS ORDERED: GLYCOPYRROLATE 0.2 MG/ML SYR ONE ×3 (09:32→10:12)
[2019-06-27] MEDS ORDERED: EPHEDRINE SULF 50 MG/ML VIAL ONE (09:40)
[2019-06-27] MEDS ORDERED: KETOROLAC 30 MG/ML INJ ONE (10:03)
[2019-06-27] MEDS ORDERED: NEOSTIGMINE 1 MG/ML -5 ML ONE (10:12)
--- NOTE | 2019-06-27 10:20 | P.BOP ---
Preoperative diagnosis: SBO, enteritis, small bowel tumor, intussuception Postoperative diagnosis: same , intrabdominal adhesions, Left inguinal hernia, left ovarian cyst Primary procedure: Diagnostic laparoscopy, Exploratory laparotomy Secondary procedure: Small bowel resection with anastomosis, lysis of adhesions Unix Engineer: CHENTE BUSH (JuliannaLarisa) Estimated blood loss: <75cc Specimen: small bowel with intraluminal tumor, Findings: see dictation. Anesthesia: General Complications: None Transferred to: Recovery Room Condition: Good
[2019-06-27] MEDS ORDERED: HYDROMORPHONE HCL 1 MG/ML INJ ONE (10:57)
[2019-06-27] MEDS ORDERED: POTASSIUM CL 40 MEQ in NA CHLORIDE 0.9% 500 ML IV SCH (12:00)
--- NOTE | 2019-06-27 12:59 | PN ---
Date of Progress Note: 06/27/2019 History Of Present Illness: This is the case of a 68-year-old patient, who comes to us with partial bowel obstruction. She came to us with intraabdominal mass and also a finding that could be intussus ception with ileitis and dilatation of the bowel, unable to see intussusception versus colitis, but a lso found to have a tumor just after the area that they claimed intussusception. For the last few da ys we explained to her that the partial bowel obstruction and the mass in that area and the possible intussusception together and may have some clinically importance. We offered her a diagnostic laparo horace to clarify those was not clear. For the last 4 days she has been back and forward ag reeing with surgery or not. We are trying to just comply she has no evidence clinically or radiologi mg of ischemia, then we are trying to be patient and trying to make sure she understands what she is going for. Once again after she agreed last night, this morning she has doubt about signing for chacho omaira. She stated the same thing, she had the same thing on Tuesday and she asked me to do it on and when we have today she has a doubt, so we waited until the came in and once again cl arified this, now she wants to go even with the , but we recommend her since the is on the way, just to sit down and let us discuss everything to make sure there are no questions. We off ered her diagnostic lap, possible bowel resection, possible ostomy. We may or may not find a tumor i n that area. We may or may not find intussusception, but obviously intussusception in adult with the tumor next to it needs to be explored for a chance of neoplasia. The benefits, alternatives, and ri sks were explained once again to the her and family which include, but are not limited to infection, bleeding, damage to adjacent structures, anesthesia complications, nonhealing wound, [place], and even alessandro th. She also understands this may not relieve any symptoms, she might need more than one surgical in tervention. She agreed with surgery with the condition that we would put the camera first and I priya lara this is a fair request. She has been trying diet for the last 2 to 3 days and she has been able to tolerate only liquid since the area of inflammation is causing some partial obstruction if not com plete at 1 point when she came the first time. Now she wants to go for the exploration, she does not want to go home until she has the exploration, so we took advantage of that and booked her in the OR. DIANA/DRISS Voice ID: [id number] Report ID: [id number]
--- NOTE | 2019-06-27 14:32 | P.PN ---
Subjective Date of Service: 06/27/19 Chief Complaint: Abdominal pain Subjective: Doing well Physical Examination - Vital Signs Temperature: 96.9 F Blood Pressure: 129/62 Pulse: 71 Respirations: 13 Pulse Ox (%): 96 - Physical Exam General: Alert, Cooperative HEENT: Atraumatic Neck: Supple Respiratory: Clear to auscultation bilaterally, Normal air movement Cardiovascular: Normal pulses, Regular rate/rhythm Gastrointestinal: Normal bowel sounds, Soft and benign, Non-distended Neurological: Normal speech, Normal strength at 5/5 x4 extr, Normal tone - Studies Medications List Reviewed: Yes Assessment & Plan Discharge Plan: Home Plan to discharge in: Greater than 2 days Physician Review Additional Text: Assessment Partial small bowel obstruction with possible intussusception with fatty mass status post diagnostic laparoscopy, exploratory laparotomy, small-bowel resection with anastomosis, and lysis of adhesions Acute enteritis Hypothyroidism Hypertension Mixed hyperlipidemia Hypokalemia Plan Partial small bowel obstruction with possible intussusception with fatty mass status post diagnostic laparoscopy, exploratory laparotomy, small-bowel resection with anastomosis, and lysis of adhesions: Spoke with patient today. She was agreeable to surgery. Surgery has been performed. Spoke with surgery after procedure. Patient had small-bowel resection with anastomosis due to intussusception with fatty tumor. Surgery plans to keep the patient NPO for at least 2 days. Patient will go to ICU to closely monitor. Pathology sent for fatty mass. Will continue to monitor closely. Continue current medications. Acute enteritis: Continue as above Hypothyroidism: Will provide medication IV. Hypertension: Will provide medication IV Mixed hyperlipidemia: Will hold medication at this time Hypokalemia: Will monitor and replace appropriately. Replacement protocol in place. Time Spent Managing Pts Care (In Minutes): 55
[2019-06-27] MEDS: MEPERIDINE HCL 50 MG/ML IV PRN ×2 (14:52→22:01)
[2019-06-27] MEDS: D5 0.45 NS 1,000 ML IV SCH (15:43)
[2019-06-27] MEDS: ATORVASTATIN 10 MG TAB PO SCH (21:00)
[2019-06-27] MEDS ORDERED: KCL 20 MEQ/100 mL IVPB 20 MEQ/100 ML BAG IV SCH (23:45)
[2019-06-28] MEDS: METRONIDAZOLE 500mg IVPB 500 MG/100 ML BAG IV SCH ×3 (00:02→17:26)
[2019-06-28] MEDS: D5 0.45 NS 1,000 ML IV SCH ×2 (04:08→17:26)
[2019-06-28] MEDS: MEPERIDINE HCL 50 MG/ML IV PRN ×4 (04:10→22:38)
[2019-06-28 05:08] LABS: Absolute Lymphocytes (CBC) 1.5 K/uL (0.7-4.9); Hematocrit 37.7 % (36.0-45.0); MPV 8.9 fL (7.6-11.3); RBC Red Blood Cell Count 4.27 M/uL (3.86-4.86)
[2019-06-28 05:33] LABS: BUN Blood Urea Nitrogen 8 mg/dL (7-18); Bicarbonate 28 mmol/L (21-32); Glucose Level 126 mg/dL (74-106); Magnesium 1.9 mg/dL (1.8-2.4); Potassium 3.8 mmol/L (3.5-5.1); Sodium Level 142 mmol/L (136-145)
[2019-06-28] MEDS: LEVOTHYROXINE SODIUM 100 MCG VIAL IV SCH (05:49)
[2019-06-28] MEDS ORDERED: KCL 20 MEQ/100 mL IVPB 20 MEQ/100 ML BAG IV SCH (06:00)
[2019-06-28] MEDS: AMLODIPINE 5 MG TAB PO SCH (07:17)
[2019-06-28] MEDS: ENOXAPARIN 40 MG/0.4 ML SQ SCH (09:05)
[2019-06-28] MEDS: ONDANSETRON 4 MG/2 ML VIAL IV PRN ×2 (09:21→18:00)
[2019-06-28] MEDS: CIPROFLOXACIN 400mg IV 400 MG/200 ML BAG IV SCH ×2 (11:05→22:39)
--- NOTE | 2019-06-28 16:52 | P.PN ---
Subjective Date of Service: 06/28/19 Chief Complaint: Abdominal pain Subjective: Other (Patient doing well post operatively. No significant pain. Family at bedside.) Physical Examination - Vital Signs Temperature: 98.4 F Blood Pressure: 124/64 Pulse: 64 Respirations: 15 Pulse Ox (%): 98 - Physical Exam General: Alert, Cooperative, Demented Neck: Supple Respiratory: Clear to auscultation bilaterally, Normal air movement Cardiovascular: Normal pulses, Regular rate/rhythm Gastrointestinal: Normal bowel sounds, Soft and benign, Non-distended, Other (No significant pain noted. Postop changes noted.) Neurological: Normal speech, Normal strength at 5/5 x4 extr, Normal tone, Dementia - Studies Medications List Reviewed: Yes Assessment & Plan Discharge Plan: Home Plan to discharge in: 72 Hours Physician Review Additional Text: Assessment Partial small bowel obstruction with possible intussusception with fatty mass status post diagnostic laparoscopy, exploratory laparotomy, small-bowel resection with anastomosis, and lysis of adhesions Acute enteritis Hypothyroidism Hypertension Mixed hyperlipidemia Hypokalemia Dementia Plan Partial small bowel obstruction with possible intussusception with fatty mass status post diagnostic laparoscopy, exploratory laparotomy, small-bowel resection with anastomosis, and lysis of adhesions: Patient has done well postop her bedside. Spoke with surgery. Will transfer patient to the floor. Will continue physical therapy. Patient remains NPO at this time. Possible initiation of clear liquids tomorrow. Await further recommendations from surgery. Pathology sent for fatty mass. Will continue to monitor closely. Continue current medications. Acute enteritis: Continue as above Hypothyroidism: Will provide medication IV. Hypertension: Will provide medication IV Mixed hyperlipidemia: Will hold medication at this time Hypokalemia: Will monitor and replace appropriately. Replacement protocol in place. Dementia: Overall stable. Will monitor closely. This was confirmed with family. Time Spent Managing Pts Care (In Minutes): 55
[2019-06-28] MEDS: ATORVASTATIN 10 MG TAB PO SCH (21:00)
--- NOTE | 2019-06-28 23:47 | PN ---
Date of Progress Note: 06/28/2019 Diagnosis: A small bowel obstruction status post resection of small bowel and tumor. Patient is doi ng well. No complaint. NG-tube was removed today. Kingsley is in a way to be removed. Physical Examination: HEENT: Pupils anicteric Neck: Supple. Chest: Clear. Abdomen: Soft and depressible. Bowel sounds still negative. Extremities: Good capillary refill. Laboratory Data: Blood work reviewed. Plan: To see the NG tube would not going to feed her yet. We are going to probably give her only so me water in the morning, just little sips. We want to get some bowel function before we feed her to diminish the chance of aspiration. Ambulation and its importance, incentive spirometry, I discussed the case with the daughter and she agreed with the plan. DIANA/DRISS Voice ID: [id number] Report ID: [id number]
[2019-06-29] MEDS: METRONIDAZOLE 500mg IVPB 500 MG/100 ML BAG IV SCH ×3 (02:03→16:49)
--- NOTE | 2019-06-29 04:41 | OP ---
Date of Procedure: 06/28/2019 Surgeon: Marcus Kennedy MD Director Of Distance Learning: MARIANNA Van Preoperative Diagnoses: Small bowel obstruction, enteritis, small bowel tumor, intussusception. Postoperative Diagnoses: Small bowel obstruction, enteritis, small bowel tumor, intussusception, int raabdominal adhesions, left inguinal hernia, left ovarian cyst. Procedure Performed: Diagnostic laparoscopy, exploratory laparotomy, small bowel resection with anas tomosis, and lysis of adhesions. Specimen: Small bowel with intraluminal tumor. Estimated Blood Loss: Less than 75 mL. Findings: The patient has an active intussusception causing bowel obstruction right after I inspecte d the area. There is a tumor likely at the end of that small bowel, is intraluminal. The tumor seems not to be coming through the wall of the small bowel. The intussusception is about 6 in ches inside each other. Indications: This is the case of a lady who has been having on and off bowel obstruction. She came to the hospital with bowel obstruction, was found to have a small bowel intussusception, possible ___ versus enteritis. It could be a tumor at the end of it. She has been feeling well _. We explained to her the need for an exploration of the area since intussusception may be caused b y the tumor in that area. We have been working on her for the last 3 or 4 days and her family and fi rolando we obtained a consent. This morning when she was going to go for surgery once again she change d her mind, but then we contacted her . Eventually the came and then consent was sign ed, so we were able to proceed with the case. The benefits, alternatives, and risks of the diagnosti c laparoscopy, exploratory laparotomy, possible resection, possible ostomy discussed with the patient and the family, which include, but not limited to infection, bleeding, damage to adjacent structures , anesthesia complication, recurrence, negative procedure, NC, even . She also understands this may not relieve any symptoms. She might need more than one surgical intervention. She understood. The was there. Consent was signed. Description Of Procedure: Patient was brought to the operating room, placed in supine position. Ane sthesia was done without complication. Abdominal area was prepped and draped in a sterile fashion. A time-out was called. A midline incision was made in the infraumbilical region. An incision was ca rried down to fascia was opened under direct vision. Peritoneum was encountered, opened under direct vision. Vicryl #1 placed inside the fascia. Nidia trocar was carefully introduced and no bleeding was obtained. Diagnostic lap revealed an area of intussusception in the area of the ilium with some adhesions present in that area. The bowel had some discoloration to it. We were afraid that manipu lation with the laparoscopic technique may compromise that and may cause a perforation, so at that mo ment, we removed the cameras. Then did a midline incision. Exploratory laparotomy shows an area int ussusception about 6 inches with a distal tumor present to it with the dilated bowel proximal to it a nd completely collapsed bowel distal to it. We ran the entire bowel from the ligament of Treitz to t he terminal ileum, ascending, transverse, descending colon. The liver with no masses palpated. Stom ach soft and compressible. The area of the inguinal region shows a small hernia present there, we di d not have incarceration at this moment and apparently was asymptomatic since we are going to do most likely the bowel resection, this may be done electively. The area of the ovary shows a translucent ovarian cyst. Although we advised that to the family to follow up in the future with the gynecologis t. At that moment, we obtained proximal and distal control of the bowel. Transect the bowel with a SELVIN-55. The mesentery was dissected with the help of LigaSure. No bleeding. The area was marked an d sent to the pathologist. I proceeded to close mesenteric border of the bowel and then m suha enterotomies and fired a SELVIN-55 between, created anastomosis and then closed the enterotomies wit h TA60. No bleeding. Anastomosis was created, nice color in the bowel. No ischemia. The mesentery was closed approximated with 0 chromic in a running fashion. Profuse irrigation was done in the are a, we checked anastomosis once again, looks viable with good peristalsis, and then the distal bowel n ow started to regain shape. At that moment, I proceeded then to obtain a sponge count, instrument co unt correct and then proceeded to close the abdomen with #2 nylon in a running fashion. Subcutaneous tissue and 3-0 chromic and the skin with demetria. Sponge count and instrument counts were correct. Patient tolerated the procedure well. Patient was sent to the recovery in stable condition. This p atient will go to the ICU. After I discussed the case with the primary doctor, we believe it is the safest thing to do and then we will treat her when she has bowel function. DIANA/MODL Voice ID: [id number] Report ID: [id number]
[2019-06-29] MEDS: LEVOTHYROXINE SODIUM 100 MCG VIAL IV SCH (06:00)
[2019-06-29 06:37] LABS: Absolute Lymphocytes (CBC) 2.4 K/uL (0.7-4.9); Basophils % 1.1 % (0-1.3); Hematocrit 35.4 % (36.0-45.0); Lymphocytes % 22.2 % (15.3-44.8); MPV 8.7 fL (7.6-11.3); RBC Red Blood Cell Count 3.97 M/uL (3.86-4.86)
[2019-06-29 06:45] LABS: BUN Blood Urea Nitrogen 9 mg/dL (7-18); Bicarbonate 32 mmol/L (21-32); Glucose Level 97 mg/dL (74-106); Magnesium 1.7 mg/dL (1.8-2.4); Potassium 3.4 mmol/L (3.5-5.1); Sodium Level 140 mmol/L (136-145)
[2019-06-29] MEDS: D5 0.45 NS 1,000 ML IV SCH ×2 (07:00→22:05)
[2019-06-29] MEDS: CIPROFLOXACIN 400mg IV 400 MG/200 ML BAG IV SCH ×2 (08:28→21:45)
[2019-06-29] MEDS: ENOXAPARIN 40 MG/0.4 ML SQ SCH (08:29)
[2019-06-29] MEDS: AMLODIPINE 5 MG TAB PO SCH (08:29)
[2019-06-29] MEDS ORDERED: MAGNESIUM SULFATE 1 gm IVPB 1 GM/100 ML BAG IV ONE (09:00)
[2019-06-29] MEDS: KCL 20 MEQ/100 mL IVPB 20 MEQ/100 ML BAG IV SCH ×2 (11:39→13:54)
--- NOTE | 2019-06-29 16:49 | P.PN ---
Subjective Date of Service: 06/29/19 Chief Complaint: Abdominal pain Subjective: Improving, Doing well Physical Examination - Vital Signs Temperature: 98 F Blood Pressure: 145/69 Pulse: 57 Respirations: 16 Pulse Ox (%): 94 - Physical Exam General: Alert, In no apparent distress, Oriented x3, Cooperative HEENT: Atraumatic Neck: Supple Respiratory: Clear to auscultation bilaterally, Normal air movement Cardiovascular: Normal pulses, Regular rate/rhythm Gastrointestinal: Normal bowel sounds, Non-distended, No tenderness - Studies Medications List Reviewed: Yes Assessment & Plan Discharge Plan: Home Plan to discharge in: 48 Hours Physician Review Additional Text: Assessment Partial small bowel obstruction with possible intussusception with fatty mass status post diagnostic laparoscopy, exploratory laparotomy, small-bowel resection with anastomosis, and lysis of adhesions Acute enteritis Hypothyroidism Hypertension Mixed hyperlipidemia Hypokalemia Dementia Plan Partial small bowel obstruction with possible intussusception with fatty mass status post diagnostic laparoscopy, exploratory laparotomy, small-bowel resection with anastomosis, and lysis of adhesions: Patient has done well postop. Spoke with surgery. Plan will be if patient doing well will start full liquid diet tomorrow. Encourage ambulation. Then on Tuesday if doing well will start soft diet. If she tolerates that she can go home as early as Tuesday. Will continue monitor closely. Continue current medications at this time. Encourage incentive spirometer. Encourage ambulation. Acute enteritis: Continue as above Hypothyroidism: Will provide medication IV. Hypertension: Will provide medication IV Mixed hyperlipidemia: Will hold medication at this time Hypokalemia: Will monitor and replace appropriately. Replacement protocol in place. Dementia: Overall stable. Will monitor closely. This was confirmed with family. Time Spent Managing Pts Care (In Minutes): 55
[2019-06-29] MEDS: ATORVASTATIN 10 MG TAB PO SCH (21:00)
[2019-06-29] MEDS: MEPERIDINE HCL 50 MG/ML IV PRN (21:59)
[2019-06-29] MEDS: ONDANSETRON 4 MG/2 ML VIAL IV PRN (22:07)
[2019-06-29] MEDS: HYDRALAZINE HCL 20 MG/ML VIAL IV PRN (22:13)
[2019-06-30] MEDS: METRONIDAZOLE 500mg IVPB 500 MG/100 ML BAG IV SCH ×3 (01:00→16:26)
[2019-06-30] MEDS ORDERED: POTASSIUM CL SA 10 MEQ TAB PO ONE ×2 (01:26→13:00)
[2019-06-30] MEDS ORDERED: KCL 20 MEQ/100 mL IVPB 20 MEQ/100 ML BAG IV SCH (02:00)
[2019-06-30] MEDS: LEVOTHYROXINE SODIUM 100 MCG VIAL IV SCH (06:07)
[2019-06-30] MEDS: CIPROFLOXACIN 400mg IV 400 MG/200 ML BAG IV SCH ×2 (08:50→21:43)
[2019-06-30] MEDS: ENOXAPARIN 40 MG/0.4 ML SQ SCH (08:50)
[2019-06-30] MEDS: AMLODIPINE 5 MG TAB PO SCH (08:51)
[2019-06-30] MEDS ORDERED: TRAMADOL HCL 50 MG TAB PO PRN (09:03)
[2019-06-30] MEDS: HYDROCODONE/APAP 7.5/325 MG TAB PO PRN ×2 (09:28→16:46)
[2019-06-30] MEDS: D5 0.45 NS 1,000 ML IV SCH ×2 (09:40→23:00)
[2019-06-30 09:45] LABS: BUN Blood Urea Nitrogen 6 mg/dL (7-18); Bicarbonate 30 mmol/L (21-32); Glucose Level 137 mg/dL (74-106); Potassium 3.5 mmol/L (3.5-5.1); Sodium Level 141 mmol/L (136-145)
--- NOTE | 2019-06-30 13:54 | P.PN ---
Subjective Date of Service: 06/30/19 Chief Complaint: Abdominal pain Subjective: Improving, Doing well Physical Examination - Vital Signs Temperature: 97.5 F Blood Pressure: 121/71 Pulse: 61 Respirations: 18 Pulse Ox (%): 95 - Physical Exam General: Alert, In no apparent distress, Cooperative, Demented HEENT: Atraumatic Neck: Supple Respiratory: Clear to auscultation bilaterally, Normal air movement Cardiovascular: Normal pulses, Regular rate/rhythm Gastrointestinal: Normal bowel sounds, Soft and benign, Non-distended, No masses, No rebound, No guarding Neurological: Normal speech, Normal strength at 5/5 x4 extr, Normal tone, Dementia - Studies Medications List Reviewed: Yes Assessment & Plan Discharge Plan: Home Plan to discharge in: 24 Hours Physician Review Additional Text: Assessment Partial small bowel obstruction with possible intussusception with fatty mass status post diagnostic laparoscopy, exploratory laparotomy, small-bowel resection with anastomosis, and lysis of adhesions Acute enteritis Hypothyroidism Hypertension Mixed hyperlipidemia Hypokalemia Dementia Plan Partial small bowel obstruction with possible intussusception with fatty mass status post diagnostic laparoscopy, exploratory laparotomy, small-bowel resection with anastomosis, and lysis of adhesions: Patient continues to do well. Patient to start full liquid diet today. If tolerating diet then will change to GI soft tomorrow. If doing well by tomorrow will consider discharge. Case discussed with surgery yesterday. Acute enteritis: Continue as above Hypothyroidism: Will provide medication IV. Hypertension: Will provide medication IV Mixed hyperlipidemia: Will hold medication at this time Hypokalemia: Will monitor and replace appropriately. Replacement protocol in place. Dementia: Overall stable. Will monitor closely. This was confirmed with family. Time Spent Managing Pts Care (In Minutes): 55
--- NOTE | 2019-06-30 18:47 | RAD REPORT ---
EXAM DESCRIPTION: RAD - Hip Left 2 View - 06/30/2019 6:34 pm CLINICAL HISTORY: fall on left hip Fall, pain COMPARISON: Hip Left 2 View dated 07/23/2015; Hip Left 2 View dated 12/26/2012 FINDINGS: No acute fracture is evident. No dislocation is seen.
[2019-06-30] MEDS: ATORVASTATIN 10 MG TAB PO SCH (21:43)
[2019-07-01] MEDS: METRONIDAZOLE 500mg IVPB 500 MG/100 ML BAG IV SCH ×2 (00:34→09:07)
[2019-07-01] MEDS: HYDRALAZINE HCL 20 MG/ML VIAL IV PRN (05:10)
[2019-07-01] MEDS: LEVOTHYROXINE SODIUM 100 MCG VIAL IV SCH (06:21)
[2019-07-01] MEDS: D5 0.45 NS 1,000 ML IV SCH (06:22)
[2019-07-01 07:00] LABS: BUN Blood Urea Nitrogen 4 mg/dL (7-18); Bicarbonate 28 mmol/L (21-32); Glucose Level 123 mg/dL (74-106); Magnesium 1.6 mg/dL (1.8-2.4); Potassium 3.5 mmol/L (3.5-5.1); Sodium Level 139 mmol/L (136-145)
[2019-07-01] MEDS ORDERED: POTASSIUM CL SA 10 MEQ TAB PO ONE (08:00)
[2019-07-01] MEDS ORDERED: MAGNESIUM SULFATE 1 gm IVPB 1 GM/100 ML BAG IV ONE (09:00)
[2019-07-01] MEDS: CIPROFLOXACIN 400mg IV 400 MG/200 ML BAG IV SCH (09:08)
[2019-07-01] MEDS: AMLODIPINE 5 MG TAB PO SCH (09:09)
[2019-07-01] MEDS: ENOXAPARIN 40 MG/0.4 ML SQ SCH (09:10)
[2019-07-01 09:22] VITALS: O2SAT 97
[2019-07-01] MEDS: HYDROCODONE/APAP 7.5/325 MG TAB PO PRN (10:39)
[2019-07-01] MEDS: ONDANSETRON 4 MG/2 ML VIAL IV PRN (10:39)
--- NOTE | 2019-07-01 12:27 | P.DS ---
Admission Date: 06/24/19 Discharge Date: 07/01/19 Primary Care Provider: Dr. Mascorro Disposition: DC HOME/HOME HEALTH CARE Discharge Condition: GOOD Reason for Admission: Abdominal pain Consultations: Surgery-Dr. Kennedy Procedures: CT Scan: FINDINGS: No suspicious findings in the lung bases. The liver, spleen, and pancreas show no suspicious findings. Gallbladder and biliary tree are also without suspicious finding. Symmetric renal function is seen with no hydronephrosis or suspicious renal mass. No pyelonephritis or acute parenchymal process. No acute bladder finding. No adrenal abnormalities. No uterine abnormality. Right ovary is unremarkable. Left ovary contains a 4.3 centimeter cyst. This is large for the patient's age. No septation, mural nodule or fat component seen. This will need continuing close monitoring. Stomach is distended but not dilated by the retained food and fluid. No gastric wall thickening, mass or outlet obstruction. No duodenal abnormality. No jejunum abnormality. Proximal and mid ileum show prominent circumferential wall thickening and edema. There is dilatation to 3.3 cm. No significant mesenteric a therosclerotic change. Bowel ischemia is not suspected. Small mesenteric lymph nodes are present. 1 portion of the affected small bowel there is a 2 centimeter homogeneous fat attenuation mass. This may be partially obstructing. Generally the small bowel lipoma is or fatty masses do not cause significant obstruction due to pliability. They will wall edema is not typical for mechanical obstruction. No free air or pneumatosis. A small amount of free fluid is present in the peritoneal cavity. No hernia or bulky lymphadenopathy. No omental thickening. No suspicious bony findings. IMPRESSION: Dilation of the proximal and mid portions of the ileum with prominent wall thickening and edema. At the distal end of the dilatation is a 2 centimeter fatty mass. This degree of wall edema is not typical for bowel obstruction and there may be a infectious/ inflammatory ileitis. The fatty mass is at the distal end of the dilatation and may cause a small bowel partial obstruction or intussusception. Small amount of free fluid is present but no free air or pneumatosis. Patient has a 4.3 centimeter left ovarian cystic mass. This can be further evaluated with sonography and ongoing follow-up once the patient recovers from the current acute event. Surgery: Date of Procedure: 06/28/2019 Surgeon: Marcus Kennedy MD Ab Initio Etl Developer: MARIANNA Van Preoperative Diagnoses: Small bowel obstruction, enteritis, small bowel tumor, intussusception. Postoperative Diagnoses: Small bowel obstruction, enteritis, small bowel tumor, intussusception, intraabdominal adhesions, left inguinal hernia, left ovarian cyst. Procedure Performed: Diagnostic laparoscopy, exploratory laparotomy, small bowel resection with anastomosis, and lysis of adhesions. Specimen: Small bowel with intraluminal tumor. Estimated Blood Loss: Less than 75 mL. Surgery pathology: [id number] segmental resection colon submucosal lipoma 3 cm, surgical margins unremarkable Medical Problem List: Partial small bowel obstruction with possible intussusception with fatty mass status post diagnostic laparoscopy, exploratory laparotomy, small-bowel resection with anastomosis, and lysis of adhesions Acute enteritis Hypothyroidism Hypertension Mixed hyperlipidemia Hypokalemia Dementia Brief History of Present Illness: 60-year-old female presented with abdominal pain to the right and lower left quadrants. This had been occurring for several weeks. He got worse. She denied any hematochezia or melena. Patient was admitted for further evaluation and treatment. Hospital Course: Patient presented with abdominal pain. Initial impression was small-bowel obstruction with possible intussusception. CT scan revealed possible fatty mass at the end of the dilation of the small bowel. The patient was further xavi luated by surgery. Surgical intervention was required. Diagnostic laparoscopic E, exploratory laparotomy, small-bowel resection with anastomosis and lyses of adhesions was done. The patient tolerated the procedure well. Pathology shows no malignancy. Patient still has ADDY tube in place. At discharge patient will continue with a GI soft diet. A limited supply of tramadol 50 mg twice daily as needed for pain will be provided. Patient will continue with ADDY tube in place. ADDY tube instructions and monitoring of drainage will be provided. Patient will follow up with surgery within 1 week to follow up this hospitalization. Patient with underlying hypothyroidism, hypertension and dementia. This has remained stable. Medications have been reviewed. Will recommend to discontinue Concensi at discharge. This is a combination medication for blood pressure and arthritis. Will recommend to discontinue this due to her chronic condition. Patient will be switched over to Norvasc 5 mg daily for hypertension. The patient will continue with levothyroxine 25 mcg daily for her hypothyroidism. Patient with underlying dementia. Will recommend neurology evaluation as an outpatient. This can be further addressed and managed by neurology. I will recommend home health and physical therapy at discharge. This can be arranged by her PCP. I will discuss further about plan of care with PCP at discharge. Patient will stay with family at least for the next week. There is planned for possible long-term placement in the future. Fall precautions in place. Vital Signs/Physical Exam: Temp Pulse Resp BP Pulse Ox 98.1 F 56 18 145/78 H 96 07/01/19 08:00 07/01/19 09:09 07/01/19 10:39 07/01/19 09:09 07/01/19 10:39 General: Alert, In no apparent distress, Oriented x3, Cooperative, Demented HEENT: Atraumatic Neck: Supple Respiratory: Clear to auscultation bilaterally, Normal air movement Cardiovascular: Normal pulses, Regular rate/rhythm Gastrointestinal: Other (Appropriate postop tenderness,) Integumentary: No erythema, No warmth, No cyanosis Neurological: Normal speech, Normal strength at 5/5 x4 extr, Normal tone, Normal affect, Dementia Laboratory Data at Discharge: WBC 11.0 K/uL (4.3-10.9) H D 06/29/19 06:08 Hgb 12.2 g/dL (12.0-15.0) 06/29/19 06:08 Hct 35.4 % (36.0-45.0) L 06/29/19 06:08 Plt Count 272 K/uL (152-406) 06/29/19 06:08 Sodium 139 mmol/L (136-145) 07/01/19 06:14 Potassium 3.5 mmol/L (3.5-5.1) 07/01/19 06:14 BUN 4 mg/dL (7-18) L 07/01/19 06:14 Creatinine 0.43 mg/dL (0.55-1.3) L 07/01/19 06:14 Glucose 123 mg/dL (74-106) H 07/01/19 06:14 Phosphorus 2.9 mg/dL (2.5-4.9) 06/24/19 05:18 Magnesium 1.6 mg/dL (1.8-2.4) L 07/01/19 06:14 Total Bilirubin 0.7 mg/dL (0.2-1.0) 06/24/19 05:18 AST 14 U/L (15-37) L 06/24/19 05:18 ALT 18 U/L (12-78) 06/24/19 05:18 Alkaline Phosphatase 76 U/L (45-117) 06/24/19 05:18 Home Medications: Levothyroxine [Synthroid*] 0.25 mcg PO DAILY 06/24/19 Simvastatin 20 mg PO BEDTIME 06/24/19 Amlodipine [Norvasc*] 5 mg PO DAILY #30 tab 07/01/19 traMADol HCL [Ultram*] 50 mg PO TID PRN #10 tab 07/01/19 New Medications: Amlodipine [Norvasc*] 5 mg PO DAILY #30 tab traMADol HCL [Ultram*] 50 mg PO TID PRN #10 tab PRN Reason: PAIN Patient Discharge Instructions: 1. Follow up with PCP in 1 week. 2. Patient presented with abdominal pain. Initial impression was small-bowel obstruction with possible intussusception. CT scan revealed possible fatty mass at the end of the dilation of the small bowel. The patient was further evaluated by surgery. Surgical intervention was required. Diagnostic laparoscopic E, exploratory laparotomy, small-bowel resection with anastomosis and lyses of adhesions was done. The patient tolerated the procedure well. Pathology shows no malignancy. Patient still has ADDY tube in place. At discharge patient will continue with a GI soft diet. A limited supply of tramadol 50 mg twice daily as needed for pain will be provided. Patient will continue with ADDY tube in place. ADDY tube instructions and monitoring of drainage will be provided. Patient will follow up with surgery within 1 week to follow up this hospitalization. 3. Patient with underlying hypothyroidism, hypertension and dementia. This has remained stable. Medications have been reviewed. Will recommend to discontinue Concensi at discharge. This is a combination medication for blood pressure and arthritis. Will recommend to discontinue this due to her chronic condition. Patient will be switched over to Norvasc 5 mg daily for hypertension. The patient will continue with levothyroxine 25 mcg daily for her hypothyroidism. 4. Patient with underlying dementia. Will recommend neurology evaluation as an outpatient. This can be further addressed and managed by neurology. 5. I will recommend home health and physical therapy at discharge. This can be arranged by her PCP. I will discuss further about plan of care with PCP at discharge. Patient will stay with family at least for the next week. There is planned for possible long-term placement in the future. Fall precautions in place. Diet: GI soft diet Activity: Fall precautions Time spent managing pt's care (in minutes): 55
[2019-07-01 14:23] VITALS: BP 140/66; TEMP 98
== END 2019-07-01 14:34 | disposition home health service (06) | DRG 331 ==
LOC: ER 19:17 → ERHOLD 06-24 00:05 → 2ND 06-24 00:11 → OBSVTOIN 06-24 13:27 → INTOOBSV 06-24 13:27 → 3RD-ICU 06-27 11:14 → 4TH 06-28 14:20 → 2ND 06-28 20:42
PROVIDERS: ADMIT Internal Medicine; ATTEND Family Medicine
PROC: 0DB80ZZ Excision of Small Intestine, Open Approach (ICD-10-PCS; principal; 2019-06-28)
PROC: 0DS80ZZ Reposition Small Intestine, Open Approach (ICD-10-PCS; 2019-06-28)
PROC: 0W9G0ZZ Drainage of Peritoneal Cavity, Open Approach (ICD-10-PCS; 2019-06-28)
PROC: 0DJD4ZZ Inspection of Lower Intestinal Tract, Percutaneous Endoscopic Approach (ICD-10-PCS; 2019-06-28)
DX: K56.1 Intussusception (principal); E03.9 Hypothyroidism, unspecified; I10 Essential (primary) hypertension; K52.9 Noninfective gastroenteritis and colitis, unspecified; E78.2 Mixed hyperlipidemia; E87.6 Hypokalemia; K66.0 Peritoneal adhesions (postprocedural) (postinfection); F03.90 Unspecified dementia, unspecified severity, without behavioral disturbance, psychotic disturbance, mood disturbance, and anxiety; R16.0 Hepatomegaly, not elsewhere classified; K40.90 Unilateral inguinal hernia, without obstruction or gangrene, not specified as recurrent; N83.202 Unspecified ovarian cyst, left side; Z79.899 Other long term (current) drug therapy; Z79.890 Hormone replacement therapy; Z86.718 Personal history of other venous thrombosis and embolism; Z88.5 Allergy status to narcotic agent; Z96.653 Presence of artificial knee joint, bilateral; Z53.31 Laparoscopic surgical procedure converted to open procedure
CPT/HCPCS: 36415; 74018; 74177; 80048; 80053; 81003; 81015; 83605; 83735; 84100; 84132; 84439; 84443; 85025; 87086; 87088; 88307; 96361; 96365; 96367; 97116; 97161; 97164; 97530; 99285; G0378; J0360; J0744; J1100; J1170; J1644; J1650; J2175; J2405; J2704; J2710; J3010; J3475; J7030; J7040; J7120; J7799; Q9967

== ENCOUNTER 2019-08-27 07:25 | Day surgery (SDC) | payer OTHER, BC ==
[2019-08-27] MEDS ORDERED: Ringers Lactate 1,000 ML IV ONE (07:57)
--- OUTSIDE RECORDS SUMMARY | 2019-08-27 08:07 | XMS REPORT | Continuity of Care Document ---
:1950 Author Organization [facility] t Address [facility] [address] [place] [address] Care Team Providers Name Role Phone Unavailable Unavailable Unavailable Problems Condition Condition Condition Status Onset Resolution Last Treating Co mments Source Name Details Category Date Date Treatment Clinician Date Benign Benign Problem Active [facility] essential essential [facility] - HTN [facility] Hip joint Hip joint Problem Active [facility] Hypothyroi Hypothyroi Problem Active [facility] dism [facility] Hyperlipid [facility]lipid Problem Active [facility] emia emia [facility] Short-term Short-term Problem Active [facility] memory memory [facility] loss loss [facility] Mild Mild Problem Active [facility] cognitive cognitive [facility] - impairment impairment Me moria l [facility] Leg pain Leg pain Problem [facility] Osteoarthr Osteoarthr Problem Active [facility] itis itis [facility] Abnormal Abnormal Problem Active [facility]ogram [facility] Breast Breast Problem Active [facility] mass, left mass, left [place] - [facility] S/P small S/P small Problem Active [facility] bowel bowel [facility] - resection resection [facility] Dementia Dementia Problem Active [facility] in other in other [facility] - diseases diseases Memori a classified classified l elsewhere elsewhere Outp ati without without ent behavioral behavioral Cl inics disturbanc disturbanc e e Alzheimer' Alzheimer' Problem Active [facility] s disease, s disease, [place] - unspecifie unspecifie Me moria d d l [facility] Encounter Encounter Diagnosis Active [facility] for for [facility] - screening screening Von mukund mammogram mammogram l for for Outpati malignant malignant ent neoplasm neoplasm Clinic s of breast of breast Medicare Medicare Diagnosis Active [facility] annual annual [facility] - wellness wellness Memori a visit, visit, l subsequent subsequent [facility] ent Clinics Allergies, Adverse Reactions, Alerts This patient has no known allergies or adverse reactions. Medications Ordered Filled Start Stop Current Ordering Indication Dosage Frequency Signature Comments Components Source Medication Medication Date Date Medication? Clinician (SIG) Name Name Lotrel Lotrel Yes Randy [address] [facility] Centrum Centrum Yes Randy not [facility] Silver Silver Mascorro defined [facility] - 50+Women 50+Women Memoria l [facility] Vitamin D-3 Vitamin D-3 Yes Randy [address] [facility] Glucosamine Glucosamine Yes Randy not [facility] Chondroit-C Chondroit-C Mascorro defined [facility] - ollagen ollagen [facility]oria l [facility] Aspir-81 Aspir-81 Yes Randy [address] [facility] Super Super Yes Randy not [facility] B-Complex B-Complex Mascorro defined L [facility] - [facility] Simvastatin Simvastatin Yes Randy [address] [facility] Mascorro in the [facility] - evening [facility] Levothyroxi Levothyroxi Yes Randy [address] [facility] ne Sodium ne Sodium Mascorro on an Cristal es - empty Memoria stomach in l the [facility] Ginkgo Ginkgo Yes Randy not [facility] Biloba Biloba Mascorro defined [facility] Donepezil Donepezil Yes Randy TAKE [address] HCl HCl Mascorro TABLET BY [facility] - MOUTH Memoria EVERY DAY l AT NIGHT [facility] Co Q-10 Co Q-10 Yes Randy [address] Masc[facility] with a [facility] - meal [facility] Amlodipine Amlodipine Yes Randy [address] [facility] Besy-Benaze Besy-Benaze Mascorro [facility] - pril HCl pril HCl [facility] Folic Acid Folic Acid Yes Randy [address] [facility] Procedures This patient has no known procedures. Encounters Start End Encounter Admission Attending Care Care Encounter Source Date/Time Date/Time Type Type Clinicians Facility Department ID 2019-08-15 2019-08-15 [facility] [id number] [facility] 11:45:00 11:45:00 t [employer] [facility] l Medicine Outpati ent Clinics 2019-08-15 2019-08-15 [facility] [id number] [address] 11:00:00 11:00:00 t [employer] [facility] Medicine Outpati ent Clinics 2019-07-27 2019-07-27 [facility] [id number] [address] 13:26:00 13:26:00 t [facility] l Medicine Outpati ent Clinics 2019-07-20 2019-07-20 [facility] [id number] [address] 15:29:00 15:29:00 t [employer] [facility] Medicine Outpati ent Clinics 2019-07-17 2019-07-17 [facility] [id number] [address] 16[facility]27:00 16:27:00 t [employer] [facility] Medicine l Medicine Outpati ent Clinics 2019-07-06 2019-07-06 [facility] [id number] [address] 16[facility]15:00 16:15:00 t [employer] [facility] l Medicine Outpati ent Clinics 2019-07-05 2019-07-05 [facility] [id number] 12:54:00 12:54:00 t [employer] [facility] Medicine Outpati ent Clinics 2019-07-05 2019-07-05 [facility] [id number] 11:30:00 11:30:00 t [employer] [facility] Medicine Outpati ent Clinics 2019-07-03 2019-07-03 [facility] [id number] 09:30:00 09:30:00 t [facility]'s Up s Vivaty [facility] Medicine Outpati ent Clinics 2019-06-26 2019-06-26 [facility] [id number] 11:18:00 11:18:[address] [place] [facility] - [address] [facility] Medicine l Medicine Outpati ent Clinics 2019-04-18 2019-04-18 [facility] [id number] 09:30:00 09:30:[address] [facility] - Drive [facility] Medicine l Medicine Outpati ent Clinics 2019-01-12 2019-01-12 [facility] [id number] 10:22:00 10:22:[address] [facility] - Drive [facility] Medicine l Medicine Outpati ent Clinics 2019-01-03 2019-01-03 [facility] [id number] 13:10:00 13:10:[address] Luke [facility] - Drive [facility] l Medicine Outpati ent Clinics 2018-12-18 2018-12-18 [facility] [id number] [address] 10:15:00 10:15:[address] Luke [facility] - Drive [facility] Medicine l Medicine Outpati ent Clinics 2018-12-08 2018-12-08 [facility] [id number] 16:58:00 16:58:[address] Luke s - Drive [facility] Medicine l Medicine Outpati ent Clinics 2018-11-20 2018-11-20 [facility] [id number] 08:30:00 08:30:[address] Luke s - Drive [facility] Medicine l Medicine Outpati ent Clinics 2018-10-05 2018-10-05 [facility] [id number] 12[facility]08:00 12:08:[address] Luke [facility] - Drive [facility] Medicine l Medicine Outpati ent Clinics 2018-08-16 2018-08-16 [facility] [id number] 10:15:00 10:15:[address] Luke s - Drive [facility] Medicine l Medicine Outpati ent Clinics 2018-04-14 2018-04-14 [facility] [id number] 08:30:00 08:30:[address] Luke [facility] - Drive [facility] Medicine l Medicine Outpati ent Clinics 2017-09-16 2017-09-16 Outpatient Sarah Wong [id number] 09:45:00 09:45:00 [employer] [facility] 2017-06-16 2017-06-16 Outpatient Sarah Wong [id number] [facility] [address] 10:15:00 10:15:00 [employer] [facility] ent Clinics Results This patient has no known results.
--- OUTSIDE RECORDS SUMMARY | 2019-08-27 08:08 | XMS REPORT ---
:1950 Author Organization eClinicalWorks Care Team Providers Name Role Phone Ludwin Randy Provider Role Unavailable Allergies No Known Allergies Problems Problem Type Condition Code Onset Dates Condition Statu s Problem Mild cognitive impairment G31.84 Ac tive Problem Osteoarthritis M19.90 Active Problem Memory loss R41.3 Active Problem Leg pain M79.606 Active Problem Benign essential HTN I10 Active Problem Hypothyroidism E03.9 Active Problem Hyperlipidemia E78.5 Active Problem Alzheimer's disease, unspecified G30.9 Active Problem S/P small bowel resection Z90.49 Ac tive Problem Dementia in other diseases F02.80 A ctive classified elsewhere without behavioral disturbance Problem Short-term memory loss R41.3 Activ e Problem Hip joint pain M25.559 Active Problem Breast mass, left N63.20 Active Problem Abnormal mammogram R92.8 Active Medications No Known Medications Results No Known Results Summary Purpose eClinicalWorks Submission
--- OUTSIDE RECORDS SUMMARY | 2019-08-27 08:08 | XMS REPORT ---
:1950 Author Organization eClinicalWorks Care Team Providers Name Role Phone Randy Mascorro Provider Role Unavailable Allergies No Known Allergies Problems Problem Type Condition Code Onset Dates Condition Statu s Problem Mild cognitive impairment G31.84 Ac tive Problem Osteoarthritis M19.90 Active Problem Memory loss R41.3 Active Problem Alzheimer's disease, unspecified G30.9 Active Problem S/P small bowel resection Z90.49 Ac tive Problem Dementia in other diseases F02.80 A ctive classified elsewhere without behavioral disturbance Problem Short-term memory loss R41.3 Activ e Problem Hip joint pain M25.559 Active Problem Breast mass, left N63.20 Active Problem Abnormal mammogram R92.8 Active Problem Leg pain M79.606 Active Problem Benign essential HTN I10 Active Assessment Alzheimer's disease, unspecified G30.9 Active Problem Hypothyroidism E03.9 Active Problem Hyperlipidemia E78.5 Active Medications No Known Medications Results No Known Results Summary Purpose eClinicalKupiKupon Submission
--- OUTSIDE RECORDS SUMMARY | 2019-08-27 08:08 | XMS REPORT ---
:1950 Author Organization eClinicalWorks Care Team Providers Name Role Phone Randy Mascorro Provider Role Unavailable Allergies, Adverse Reactions, Alerts Substance Reaction Event Type N.K.D.A. Info Not Available Non Drug Allergy Problems Problem Type Condition Code Onset Dates Condition Statu s Assessment History of intussusception Z87.19 A ctive Assessment Traumatic ecchymosis of left lower S80.12XA Active leg, initial encounter Assessment Left ovarian cyst N83.202 Active Assessment Intra-abdominal adhesions K66.0 Ac tive Assessment Left inguinal hernia K40.90 Active Assessment S/P small bowel resection Z90.49 Ac tive Assessment Hip joint pain M25.559 Active Assessment Abnormal mammogram of left breast R92.8 Active Assessment Osteoarthritis M19.90 Active Problem Hypothyroidism E03.9 Active Assessment Dementia in other diseases F02.80 A ctive classified elsewhere without behavioral disturbance Problem Hyperlipidemia E78.5 Active Assessment Health detention, active care Z78.9 Active coordination Problem Mild cognitive impairment G31.84 Ac tive Problem Osteoarthritis M19.90 Active Problem Memory loss R41.3 Active Problem Alzheimer's disease, unspecified G30.9 Active Problem S/P small bowel resection Z90.49 Ac tive Assessment Breast mass, left N63.20 Active Assessment Hyperlipidemia E78.5 Active Problem Dementia in other diseases F02.80 A ctive classified elsewhere without behavioral disturbance Assessment Chest pain, unspecified type R07.9 Active Problem Short-term memory loss R41.3 Activ e Problem Hip joint pain M25.559 Active Problem Breast mass, left N63.20 Active Problem Abnormal mammogram R92.8 Active Assessment Hypothyroidism E03.9 Active Assessment Left leg pain M79.605 Active Assessment Alzheimer's disease, unspecified G30.9 Active Assessment Benign essential HTN I10 Active Assessment Need for home health care Z74.2 Ac tive Problem Leg pain M79.606 Active Problem Benign essential HTN I10 Active Assessment Small bowel obstruction, partial K56.600 Active Medications Medication Code Code Instructions Start End Status Dosage System Date Date Co Q-10 [facility] 12948141259 300 MG Orally Active 1 caps ule Once a day with a meal Ginkgo Biloba [facility] 84022999546 60 MG Orally Active n ot defined Lotrel [facility] 98308031290 5-20 MG Orally Active 1 tab Once a day Glucosamine [facility] 63806043636 - Orally Active not Chondroit-Collage define d n Aspir-81 [facility] 04302445384 81 MG Orally Active 1 tabl et Once a day Donepezil HCl [facility] 79547787156 10 MG Oral Active ALIYA E 1 TABLET BY MOUTH EVERY DAY AT NIGHT Amlodipine [facility] 01814499160 5-20 MG Orally Active 1 capsule Besy-Benazepril Once a day HCl Levothyroxine [facility] 12610774993 25 MCG Orally Active 1 tablet Sodium Once a day on an empty stomach in the morning Simvastatin [facility] 02419595796 20 MG Orally Active 1 t ablet Once a day in the evening Folic Acid [facility] 75062186992 1 MG Orally Active 1 tab let Once a day Vitamin D-3 [facility] 35363223661 1000 UNIT Active 1 caps ule Orally Once a day Centrum Silver [facility] 94468252020 - Orally Active not 50+Women defined Super B-Complex [facility] 12466629263 - Orally Active not defined Results No Known Results Summary Purpose eClinicalWorks Submission
--- OUTSIDE RECORDS SUMMARY | 2019-08-27 08:09 | XMS REPORT ---
[...] Active Problem Abnormal mammogram R92.8 Active Assessment Encounter for screening mammogram Z12.31 Active for malignant neoplasm of breast Problem Leg pain M79.606 Active Problem Benign essential HTN I10 Active Assessment Medicare annual wellness visit, Z00.00 Active subsequent Problem Hypothyroidism E03.9 Active Problem Hyperlipidemia E78.5 Active Medications Medication Code Code Instructions Start End Status Dosage System Date Date Glucosamine [facility] 38854530252 - Orally Active not Chondroit-Collage define d n Simvastatin [facility] 81250773876 20 MG Orally Active 1 t ablet Once a day in the evening Vitamin D-3 [facility] 33561445414 1000 UNIT Active 1 caps ule Orally Once a day Centrum Silver [facility] 50508233922 - Orally Active not 50+Women defined Donepezil HCl [facility] 21646470130 10 MG Oral Active ALIYA E 1 TABLET BY MOUTH EVERY DAY AT NIGHT Aspir-81 [facility] 68766981378 81 MG Orally Active 1 tabl et Once a day Levothyroxine [facility] 54159332126 25 MCG Orally Active 1 tablet Sodium Once a day on an empty stomach in the morning Co Q-10 [facility] 75878836572 300 MG Orally Active 1 caps ule Once a day with a meal Amlodipine [facility] 19446986705 5-20 MG Orally Active 1 capsule Besy-Benazepril Once a day HCl Ginkgo Biloba [facility] 28526767670 60 MG Orally Active n ot defined Folic Acid [facility] 18312902282 1 MG Orally Active 1 tab let Once a day Super B-Complex [facility] 22595785852 - Orally Active not defined Lotrel [facility] 66439664559 5-20 MG Orally Active 1 tab Once a day Results No Known Results Summary Purpose eClinicalWorks Submission
--- OUTSIDE RECORDS SUMMARY | 2019-08-27 08:09 | XMS REPORT ---
:1950 Author Organization eClinicalWorks Care Team Providers Name Role Phone Randy Mascorro Provider Role Unavailable Allergies, Adverse Reactions, Alerts Substance Reaction Event Type N.K.D.A. Info Not Available Non Drug Allergy Problems Problem Type Condition Code Onset Dates Condition Statu s Assessment Left leg pain M79.605 Active Assessment History of intussusception Z87.19 A ctive Assessment Traumatic ecchymosis of left lower S80.12XA Active leg, initial encounter Assessment Intra-abdominal adhesions K66.0 Ac tive Assessment Left ovarian cyst N83.202 Active Assessment Left inguinal hernia K40.90 Active Assessment S/P small bowel resection Z90.49 Ac tive Assessment Hip joint pain M25.559 Active Problem Hypothyroidism E03.9 Active Assessment Abnormal mammogram of left breast R92.8 Active Problem Hyperlipidemia E78.5 Active Assessment Osteoarthritis M19.90 Active Problem Mild cognitive impairment G31.84 Ac tive Problem Osteoarthritis M19.90 Active Problem Memory loss R41.3 Active Problem Alzheimer's disease, unspecified G30.9 Active Problem S/P small bowel resection Z90.49 Ac tive Assessment Hyperlipidemia E78.5 Active Assessment Chest pain, unspecified type R07.9 Active Problem Dementia in other diseases F02.80 A ctive classified elsewhere without behavioral disturbance Assessment Dementia in other diseases F02.80 A ctive classified elsewhere without behavioral disturbance Problem Short-term memory loss R41.3 Activ e Problem Hip joint pain M25.559 Active Problem Breast mass, left N63.20 Active Problem Abnormal mammogram R92.8 Active Assessment Hypothyroidism E03.9 Active Assessment Alzheimer's disease, unspecified G30.9 Active Assessment Breast mass, left N63.20 Active Assessment Benign essential HTN I10 Active Problem Leg pain M79.606 Active Problem Benign essential HTN I10 Active Assessment Small bowel obstruction, partial K56.600 Active Medications Medication Code Code Instructions Start End Status Dosage System Date Date Levothyroxine [facility] 95677683133 25 MCG Orally Active 1 tablet Sodium Once a day on an empty stomach in the morning Glucosamine [facility] 17991204063 - Orally Active not Chondroit-Collage define d n Folic Acid [facility] 52346437200 1 MG Orally Active 1 tab let Once a day Simvastatin [facility] 29986955923 20 MG Orally Active 1 t ablet Once a day in the evening Aspir-81 [facility] 14727338457 81 MG Orally Active 1 tabl et Once a day Ginkgo Biloba [facility] 35504119645 60 MG Orally Active n ot defined Co Q-10 [facility] 38354941900 300 MG Orally Active 1 caps ule Once a day with a meal Donepezil HCl [facility] 91582601002 10 MG Oral Active ALIYA E 1 TABLET BY MOUTH EVERY DAY AT NIGHT Lotrel [facility] 91987947888 5-20 MG Orally Active 1 tab Once a day Super B-Complex [facility] 30003261718 - Orally Active not defined Centrum Silver [facility] 28059071862 - Orally Active not 50+Women defined Vitamin D-3 [facility] 60707397031 1000 UNIT Active 1 caps ule Orally Once a day Amlodipine [facility] 64127057199 5-20 MG Orally Active 1 capsule Besy-Benazepril Once a day HCl Results No Known Results Summary Purpose eClinicalWorks Submission
[2019-08-27] MEDS ORDERED: LIDOCAINE 1% MPF 5 ML VIAL ONE (08:42)
[2019-08-27] MEDS ORDERED: propofoL 200 MG/20 ML VIAL IV ONE ×2 (08:42)
--- NOTE | 2019-08-27 09:04 | ENDO RPT ---
[address], [address] COLONOSCOPY PROCEDURE REPORT EXAM DATE: 08/27/2019 PATIENT NAME: Mallory Lai MR #: [id number] BIRTHDATE: 1950 ATTENDING: Marcus Kennedy MD STATUS: outpatient SALT WASHER: Fabi Romero RN and Sudha Lamb RN INDICATIONS: The patient is a 69 yr old Female here for a colonoscopy due to f/u bowel obstruction, intussusception, intrabdominal tumor PROCEDURE PERFORMED: Colonoscopy MEDICATIONS: Per Anesthesia. ESTIMATED BLOOD LOSS: None CONSENT: The patient understands the risks and benefits of the procedure and understands that these risks include, but are not limited to: sedation, allergic reaction, infection, perforation and/or bleeding. Alternative means of evaluation and treatment include, among others: physical exam, x-rays, and/or surgical intervention. The patient elects to proceed with this endoscopic procedure. DESCRIPTION OF PROCEDURE: During intra-op preparation period all mechanical medical equipment was checked for proper function. Hand hygiene and appropriate measures for infection prevention was taken. Procedure, possible complications, alternatives including, but not limited to possibility of bleeding, perforation, tear, infection, sepsis, need for surgery, need for blood transfusion, were explained to the patient. After the risks, benefits and alternatives of the procedure were thoroughly explained, Informed consent was verified, confirmed and timeout was successfully executed by the treatment team. The patient was placed in the left lateral position. A digital rectal exam was performed and revealed external hemorrhoids. After appropriate level of anesthesia, the scope was passed. The EC-[id number] ([id number]) endoscope was introduced through the anus and advanced to the cecum, which was identified by transillumination from the light source, the appendix, and the ileocecal valve. The quality of the prep was fair. The instrument was then slowly withdrawn as the colon was fully examined. Scope withdrawal time was . COLON FINDINGS: Diverticula was found throughout the entire examined colon. Retroflexed views revealed no abnormalities. The scope was then completely withdrawn from the patient and the procedure terminated. ADVERSE EVENTS: There were no complications. IMPRESSIONS: 1. Diverticula throughout the entire examined colon 2. External hemorrhoids 3. Internal hemorrhoids RECOMMENDATIONS: 1. follow-up: office 1-2 week(s) 2. hemorrhoidal hygiene 3. no seeds in diet RECALL: Return in 5 year(s) for Colonoscopy. Marcus Kennedy MD eSigned: Marcus Kennedy MD 08/27/2019 9:04 AM cc: Randy Mascorro MD CPT CODES: ICD9 CODES: PATIENT NAME: Mallory Lai MR#: [id number]
[2019-08-27] MEDS ORDERED: GLYCOPYRROLATE 0.2 MG/ML SYR ONE (09:13)
[2019-08-27 09:48] VITALS: O2SAT 100
[2019-08-27 10:01] VITALS: BP 130/70; TEMP 97.3
== END 2019-08-27 09:45 | disposition home or self-care (01) ==
LOC: OR 07:25
PROVIDERS: ATTEND Surgery
PROC: 0DJD8ZZ Inspection of Lower Intestinal Tract, Via Natural or Artificial Opening Endoscopic (ICD-10-PCS; principal; 2019-08-27 08:30)
DX: Z09 Encounter for follow-up examination after completed treatment for conditions other than malignant neoplasm (principal); K57.30 Diverticulosis of large intestine without perforation or abscess without bleeding; K64.8 Other hemorrhoids; K64.4 Residual hemorrhoidal skin tags; I10 Essential (primary) hypertension; E07.9 Disorder of thyroid, unspecified; Z11.59 Encounter for screening for other viral diseases; Z98.890 Other specified postprocedural states; Z90.49 Acquired absence of other specified parts of digestive tract; Z88.6 Allergy status to analgesic agent; Z83.3 Family history of diabetes mellitus; Z82.49 Family history of ischemic heart disease and other diseases of the circulatory system
CPT/HCPCS: 45378; U0002; J2704; J7120

== ENCOUNTER 2019-10-10 06:28 | Day surgery (SDC) | payer OTHER, BC ==
[2019-09-28 14:25] LABS: Absolute Lymphocytes (CBC) 2.8 K/uL (0.7-4.9); Basophils % 0.9 % (0-1.3); Hematocrit 42.8 % (36.0-45.0); Lymphocytes % 38.7 % (15.3-44.8); MPV 8.5 fL (7.6-11.3)
[2019-09-28 14:56] LABS: Potassium 3.8 mmol/L (3.5-5.1)
--- NOTE | 2019-09-28 16:10 | RAD REPORT ---
EXAM DESCRIPTION: Bryson Lo And Ministerio (2 Views)09/28/2019 3:12 pm CLINICAL HISTORY: Preop for hernia repair COMPARISON: 1999 FINDINGS: Lungs are hyperaerated. The lungs appear clear of acute infiltrate. The heart is normal size IMPRESSION: No acute abnormalities displayed
--- OUTSIDE RECORDS SUMMARY | 2019-10-10 06:34 | XMS REPORT ---
[...] Medications Results No Known Results Summary Purpose eClinicalHealthPocket Submission
--- OUTSIDE RECORDS SUMMARY | 2019-10-10 06:34 | XMS REPORT | Continuity of Care Document ---
:1950 Author Organization [facility] t Address [facility] [place] [address] Care Team Providers Name Role Phone Unavailable Unavailable Unavailable Problems Condition Condition Condition Status Onset Resolution Last Treating Co mments Source Name Details Category Date Date Treatment Clinician Date Benign Benign Problem Active [facility] essential essential [facility] - HTN HTN [facility] Hip joint Hip joint Problem Active [facility] pain pain [facility] Hypothyroi Hypothyroi Problem Active [facility] dism dism [facility]ics Hyperlipid Hyperlipid Problem Active [facility] emia emia [facility] Short-term Short-term Problem Active [facility] memory memory [facility] - loss loss [facility] Mild Mild Problem Active [facility] cognitive cognitive [facility] - impairment impairment Me moria l [facility] Leg pain Leg pain Problem [facility] Osteoarthr Osteoarthr Problem Active [facility] itis itis [facility] Abnormal Abnormal Problem Active [facility] mammogram mammogram [facility] - [facility] Breast Breast Problem Active [facility] mass, left mass, left [place] - [facility] S/P small S/P small Problem Active [facility] bowel bowel [facility] - resection resection Von mukund l [facility] Dementia Dementia Problem Active [facility] in other in other [facility] - diseases diseases Memori a classified classified l elsewhere elsewhere Outp ati without without ent behavioral behavioral Cl inics disturbanc disturbanc e e Alzheimer' Alzheimer' Problem Active [facility] s disease, s disease, [place] - unspecifie unspecifie Me moria d d l Outpati ent Clinics Left lower Left lower Diagnosis Active [facility] quadrant quadrant [facility] - abdominal abdominal Von mukund pain pain l Outpati ent Clinics Allergies, Adverse Reactions, Alerts This patient has no known allergies or adverse reactions. Medications Ordered Filled Start Stop Current Ordering Indication Dosage Frequency Signature Comments Components Source Medication Medication Date Date Medication? Clinician (SIG) Name Name Mehnaz Darby Yes Randy [address] [facility] Mascorro [facility] Centrum Centrum Yes Randy not [facility] Silver Silver Mascorro defined [facility] - 50+Women 50+Women Memoria l [facility] ent Clinics Vitamin D-3 Vitamin D-3 Yes Randy [address] [facility] [place] Glucosamine Glucosamine Yes Randy not [facility] Chondroit-C Chondroit-C Mascorro defined [facility] - ollagen ollagen Memoria l [facility] Clinics Aspir-81 Aspir-81 Yes Randy [address] Masc[facility]ics Super Super Yes Randy not [facility] B-Complex B-Complex Mascorro defined L u[facility] - Memoria l [facility]ics Simvastatin Simvastatin Yes Randy [address] [facility] Masc[facility] in the [facility] - evening Memoria l [facility]ics Levothyroxi Levothyroxi Yes Randy [address] [facility] ne Sodium ne Sodium Mascorro on an Cristal es - empty Memoria stomach in l [facility] Ginkgo Ginkgo Yes Randy not [facility] Biloba Biloba Mascorro defined [facility] Donepezil Donepezil Yes Randy TAKE [address] HCl HCl Mascorro TABLET BY [facility] - MOUTH Memoria EVERY DAY l AT NIGHT [facility] Clinics Co Q-10 Co Q-10 Yes Randy [address] Masc[facility] with a [facility] - meal Memoria l [facility] Amlodipine Amlodipine Yes Randy [address] [facility] Besy-Benaze Besy-Benaze Mascorro [facility] - pril HCl pril HCl Memoria l [facility] Clinics Folic Acid Folic Acid Yes Randy [address] [facility] Procedures This patient has no known procedures. Encounters Start End Encounter Admission Attending Care Care Encounter Source Date/Time Date/Time Type Type Clinicians Facility Department ID 2019-09-17 2019-09-17 Outpatient Sarah Wong [id number] [facility] [address] 09:30:00 09:30:[address] [facility] s - Drive [facility] Medicine l Medicine Outpati ent Clinics 2019-08-15 2019-08-15 [facility] [id number] 11:45:00 11:45:00 t [place] [email or web address] s - Drive [facility] Medicine l Medicine Outpati ent Clinics 2019-08-15 2019-08-15 [facility] [id number] 11:00:00 11:00:00 t [place] [employer] s - Drive [facility] Medicine l Medicine Outpati ent Clinics 2019-07-27 2019-07-27 [facility] [id number] [facility] 13:26:00 13:26:00 t [facility] [email or web address] [facility] l Medicine Outpati ent Clinics 2019-07-20 2019-07-20 [facility] [id number] 15:29:00 15:29:00 t [place] [employer] s - Drive [facility] Medicine Outpati ent Clinics 2019-07-17 2019-07-17 [facility] [id number] [address] 16:27:00 16:27:00 t [place] [employer] s - Drive [facility] Medicine Outpati ent Clinics 2019-07-06 2019-07-06 [facility] [id number] [address] 16:15:00 16:15:00 t [place] [employer] s - Drive [facility] Medicine l Medicine Outpati ent Clinics 2019-07-05 2019-07-05 [facility] [id number] 12:54:00 12:54:00 t [place] [email or web address] s - Drive [facility] Medicine l Medicine Outpati ent Clinics 2019-07-05 2019-07-05 [facility] [id number] 11:30:00 11:30:00 t [place] [employer] s - Drive [facility] Medicine Outpati ent Clinics 2019-07-03 2019-07-03 [facility] [id number] [address] 09:30:00 09:30:00 t [place] [employer] s - Drive [facility] l Medicine Outpati ent Clinics 2019-06-26 2019-06-26 [facility] [id number] 11:18:00 11:18:00 t [place] [employer] Luke s - Drive [facility] Medicine l Medicine Outpati ent Clinics 2019-04-18 2019-04-18 [facility] [id number] [address] 09:30:00 09:30:00 t [place] [employer] [employer] s - Drive [facility] Medicine l Medicine Outpati ent Clinics 2019-01-12 2019-01-12 [facility] [id number] [address] 10:22:00 10:22:00 t [place] [employer] Lu[employer]duf[employer] s - Drive [facility] Family Medicine l Medicine Outpati ent Clinics 2019-01-03 2019-01-03 [facility] [id number] [address] 13:10:00 13:10:00 t [place] [email or web address] s - Drive [facility] Medicine l Medicine Outpati ent Clinics 2018-12-18 2018-12-18 [facility] [id number] 10:15:00 10:15:00 t [place] [email or web address] s - Drive [facility] Medicine l Medicine Outpati ent Clinics 2018-12-08 2018-12-08 [facility] [id number] [address] 16:58:00 16:58:00 t [place] [email or web address] s - Drive [facility] Medicine l Medicine Outpati ent Clinics 2018-11-20 2018-11-20 [facility] [id number] 08:30:00 08:30:00 t [place] [email or web address] s - Drive [facility] Medicine l Medicine Outpati ent Clinics 2018-10-05 2018-10-05 [facility] [id number] 12:08:00 12:08:00 t [place] [email or web address] s - Drive [facility] Medicine l Medicine Outpati ent Clinics 2018-08-16 2018-08-16 [facility] [id number] 10:15:00 10:15:00 t [place] [email or web address] s - Drive [facility] Medicine l Medicine Outpati ent Clinics 2018-04-14 2018-04-14 [facility] [id number] 08:30:00 08:30:00 t [place] [email or web address] s - Drive [facility] 2017-09-16 2017-09-16 Outpatient Sarah Wong [id number] 09:45:00 09:45:00 t [employer] [facility] 2017-06-16 2017-06-16 Outpatient Sarah Wong [id number] [facility] 10:15:00 10:15:00 t [email or web address] [facility] ent Clinics Results This patient has no known results.
--- OUTSIDE RECORDS SUMMARY | 2019-10-10 06:35 | XMS REPORT ---
[...] End Status Dosage System Date Date Levothyroxine [facility] 88832289177 25 MCG Orally Active 1 tablet Sodium Once a day on an empty stomach in the morning Glucosamine [facility] 85846900392 - Orally Active not Chondroit-Collage define d n Folic Acid [facility] 80188014354 1 MG Orally Active 1 tab let Once a day Simvastatin [facility] 10801578498 20 MG Orally Active 1 t ablet Once a day in the evening Aspir-81 [facility] 20979408915 81 MG Orally Active 1 tabl et Once a day Ginkgo Biloba [facility] 63551858675 60 MG Orally Active n ot defined Co Q-10 [facility] 54016385536 300 MG Orally Active 1 caps ule Once a day with a meal Donepezil HCl [facility] 98990626382 10 MG Oral Active ALIYA E 1 TABLET BY MOUTH EVERY DAY AT NIGHT Lotrel [facility] 65491449192 5-20 MG Orally Active 1 tab Once a day Super B-Complex [facility] 85438670432 - Orally Active not defined Centrum Silver [facility] 04381564036 - Orally Active not 50+Women defined Vitamin D-3 [facility] 03091866676 1000 UNIT Active 1 caps ule Orally Once a day Amlodipine [facility] 63849815632 5-20 MG Orally Active 1 capsule Besy-Benazepril Once a day HCl Results No Known Results Summary Purpose eClinicalWorks Submission
--- OUTSIDE RECORDS SUMMARY | 2019-10-10 06:35 | XMS REPORT ---
[...] Active Problem Abnormal mammogram R92.8 Active Assessment Benign essential HTN I10 Active Problem Leg pain M79.606 Active Problem Benign essential HTN I10 Active Assessment Left lower quadrant abdominal pain R10.32 Active Problem Hypothyroidism E03.9 Active Problem Hyperlipidemia E78.5 Active Medications Medication Code Code Instructions Start End Status Dosage System Date Date Donepezil HCl [facility] 04714627251 10 MG Oral Active AILYA E 1 TABLET BY MOUTH EVERY DAY AT NIGHT Super B-Complex [facility] 45358917280 - Orally Active not defined Amlodipine [facility] 64508025292 5-20 MG Orally Active 1 capsule Besy-Benazepril Once a day HCl Co Q-10 [facility] 87887936219 300 MG Orally Active 1 caps ule Once a day with a meal Glucosamine [facility] 37177414795 - Orally Active not Chondroit-Collage define d n Vitamin D-3 [facility] 48968096569 1000 UNIT Active 1 caps ule Orally Once a day Aspir-81 [facility] 95323157186 81 MG Orally Active 1 tabl et Once a day Centrum Silver [facility] 52056184371 - Orally Active not 50+Women defined Lotrel [facility] 58394592950 5-20 MG Orally Active 1 tab Once a day Ginkgo Biloba [facility] 30217709950 60 MG Orally Active n ot defined Simvastatin [facility] 61343157776 20 MG Orally Active 1 t ablet Once a day in the evening Levothyroxine [facility] 66332543369 25 MCG Orally Active 1 tablet Sodium Once a day on an empty stomach in the morning Folic Acid [facility] 17077507192 1 MG Orally Active 1 tab let Once a day Results No Known Results Summary Purpose eClinicalWorks Submission
--- OUTSIDE RECORDS SUMMARY | 2019-10-10 06:35 | XMS REPORT ---
[...] End Status Dosage System Date Date Glucosamine [facility] 91381111514 - Orally Active not Chondroit-Collage define d n Simvastatin [facility] 23754277604 20 MG Orally Active 1 t ablet Once a day in the evening Vitamin D-3 [facility] 17480664120 1000 UNIT Active 1 caps ule Orally Once a day Centrum Silver [facility] 46131589990 - Orally Active not 50+Women defined Donepezil HCl [facility] 16504690978 10 MG Oral Active ALIYA E 1 TABLET BY MOUTH EVERY DAY AT NIGHT Aspir-81 [facility] 87382594134 81 MG Orally Active 1 tabl et Once a day Levothyroxine [facility] 04799328293 25 MCG Orally Active 1 tablet Sodium Once a day on an empty stomach in the morning Co Q-10 [facility] 32900269035 300 MG Orally Active 1 caps ule Once a day with a meal Amlodipine [facility] 77519775574 5-20 MG Orally Active 1 capsule Besy-Benazepril Once a day HCl Ginkgo Biloba [facility] 30831779615 60 MG Orally Active n ot defined Folic Acid [facility] 83301087119 1 MG Orally Active 1 tab let Once a day Super B-Complex [facility] 64424463099 - Orally Active not defined Lotrel [facility] 47704009787 5-20 MG Orally Active 1 tab Once a day Results No Known Results Summary Purpose eClinicalWorks Submission
[2019-10-10] MEDS ORDERED: propofoL 200 MG/20 ML VIAL IV ONE (07:07)
[2019-10-10] MEDS ORDERED: FENTANYL CITR 100 MCG/2 ML ONE (07:07)
[2019-10-10] MEDS ORDERED: dexAMETHasone 10 MG/ML VIAL ONE (07:07)
[2019-10-10] MEDS ORDERED: MIDAZOLAM HCL 2 MG/2 ML INJ ONE (07:08)
[2019-10-10] MEDS ORDERED: LIDOCAINE 2% MPF 5 ML VIAL ONE (07:08)
[2019-10-10] MEDS ORDERED: CEFAZOLIN/SWI 1gm 1 GM/10 ML SYR ONE (07:11)
[2019-10-10] MEDS ORDERED: Ringers Lactate 1,000 ML IV ONE ×2 (07:11→10:04)
[2019-10-10] MEDS ORDERED: ROCURONIUM 50 MG/5 ML VIAL IV ONE (07:53)
[2019-10-10] MEDS ORDERED: GLYCOPYRROLATE 0.2 MG/ML SYR ONE ×2 (08:44→08:45)
[2019-10-10] MEDS ORDERED: KETOROLAC 30 MG/ML INJ ONE (09:03)
[2019-10-10] MEDS: MORPHINE 4 MG/ML SYR ONE ×6 (09:05→09:22)
--- NOTE | 2019-10-10 09:16 | P.BOP ---
Preoperative diagnosis: tender incarcerated ventral hernia LLq Postoperative diagnosis: ventral spigelian hernia LLQ Primary procedure: Open repair of tender ventral spigelian hernia LLQ Secondary procedure: Diagnostic laparoscopy Mailing Clerk: rand\ (Tena) Estimated blood loss: <10cc Specimen: none Findings: ventral spigelian hernia LLQ Anesthesia: General Complications: None Transferred to: Recovery Room Condition: Good
[2019-10-10] MEDS ORDERED: ONDANSETRON 4 MG/2 ML VIAL ONE ×2 (09:22→10:02)
[2019-10-10] MEDS ORDERED: MORPHINE 4 MG/ML SYR ONE (09:39)
[2019-10-10] MEDS ORDERED: MEPERIDINE HCL 25 MG/ML SYR ONE (09:40)
[2019-10-10 10:56] VITALS: BP 112/63; TEMP 97.3; O2SAT 96
--- NOTE | 2019-10-10 20:38 | DS ---
Date of Discharge: 10/10/2019 Diagnosis: Ventral and spigelian incarcerated hernia. Postoperative Diagnosis: Ventral and spigelian incarcerated hernia. Procedure: Open repair of a ventral hernia, laparoscopic assist, diagnostic laparoscopy. Disposition: Home. Plan: Follow up in my office in 1 week, call for appointment at [phone]. We discussed the case wit h the patient's daughter as per the patient's request. She is going to trying to avoid heavy lifting . Medications: See orders. DIANA/DRISS Voice ID: [id number] Report ID: [id number]
--- NOTE | 2019-10-10 20:52 | OP ---
Date of Procedure: 10/10/2019 Surgeon: Marcus Kennedy MD Preoperative Diagnosis: Left tender incarcerated ventral hernia. Postoperative Diagnosis: Left tender incarcerated ventral hernia plus spigelian hernia in left lower quadrant. Procedure: Open repair of a left lower quadrant incarcerated ventral hernia with laparoscopic assist and diagnostic laparoscopy. Anesthesia: General plus local. Indications: This is a case of a 69-year-old patient, comes to us with a ventral lump and has been a ll the time, palpated this morning when she . The hernia was incarcerated, reduced, but we still have area of concern, but it is difficult now, when the hernia is reduced since she was pushin g on it, to locate the area, so we offered her repair of a ventral hernia with possible mesh, but at the same time, in this case we have to do diagnostic lap through specifically the area that we are go ing to go feel the hernia. Benefits, alternatives, and risks of repair fully explained, which includ e, but not limited to infection, bleeding, damage to adjacent structures, anesthesia complication, no nhealing wound, ND, and even . She also understands this may not relieve any symptoms. She petey ht need more than one surgical intervention. She understood, signed a consent. Description Of Procedure: The patient was brought to the operating room, placed in supine position. Anesthesia was done without complication. Abdominal area was prepped and draped in sterile fashion. We proceeded to do a time-out. An incision was made in the ventral region. Incision was carried d own to fascia, opened under direct vision. Peritoneum was encountered, opened under direct vision. Vicryl #1 placed inside the fascia. Nidia trocar was carefully introduced. Pneumoperitoneum was ob tained. When we went there, we noticed the fact that the patient had a spigelian hernia present. Th ere is a ventral hernia in the left lower quadrant. So, we localized the area carefully, make a smal l incision on the left lower quadrant, identified the hernia and fascia edges under direct visualization, [id number] fashion multiple times. Area was irrigated. Once again, laparoscopi c visualization shows complete hernia repair. At that moment, I proceeded to remove the trocars unde r direct vision, deflated the pneumoperitoneum. Closed the fascia with #1 Prolene and also the area of the ventral hernia was closed with Prolene. The patient tolerated the procedure well. Area was closed with chromic and then with demetria. Sponge count, instrument counts correct. The p atient tolerated the procedure well. The patient was sent to recovery in stable condition. DIANA/DRISS Voice ID: [id number] Report ID: [id number]
== END 2019-10-10 11:50 | disposition home or self-care (01) ==
LOC: OR 06:28
PROVIDERS: ATTEND Surgery
PROC: 0WQF0ZZ Repair Abdominal Wall, Open Approach (ICD-10-PCS; principal; 2019-10-10 08:15)
DX: K43.6 Other and unspecified ventral hernia with obstruction, without gangrene (principal); I10 Essential (primary) hypertension; E03.9 Hypothyroidism, unspecified; E78.00 Pure hypercholesterolemia, unspecified; F03.90 Unspecified dementia, unspecified severity, without behavioral disturbance, psychotic disturbance, mood disturbance, and anxiety; Z20.828 Contact with and (suspected) exposure to other viral communicable diseases; Z88.6 Allergy status to analgesic agent; Z83.3 Family history of diabetes mellitus; Z82.49 Family history of ischemic heart disease and other diseases of the circulatory system
CPT/HCPCS: 93005; 85025; 80048; 36415; 71046; 49561; U0002; J2704; J3010; J1100; J2175; J0690; J7120 ×2; J2405 ×2; J2250

== ENCOUNTER 2020-02-09 18:32 | Emergency (ER) | payer OTHER, BC ==
--- OUTSIDE RECORDS SUMMARY | 2020-02-09 18:34 | XMS REPORT | Continuity of Care Document ---
:1950 Author Organization [facility] t Address [address] [place] [address] Care Team Providers Name Role Phone Unavailable Unavailable Unavailable Problems This patient has no known problems. Allergies, Adverse Reactions, Alerts This patient has no known allergies or adverse reactions. Medications Ordered Filled Start Stop Current Ordering Indication Dosage Frequency Signature Comments Components Source Medication Medication Date Date Medication? Clinician (SIG) Name Name Lotrel Lotrel Yes Randy [address] [facility] Centrum Centrum Yes Randy not [facility] Silver Silver [facility] defined [facility] 50+Women 50+[facility] Vitamin D-3 Vitamin D-3 Yes Randy [address] [facility] Glucosamine Glucosamine Yes Randy not [facility] Chondroit-C Chondroit-C Mascorro defined [facility]agen [facility]agen [facility] Aspir-81 Aspir-81 Yes Randy [address] [facility] Super Super Yes Randy not [facility] B-Complex B-Complex [facility] defined [facility] Simvastatin Simvastatin Yes Randy [address] [facility] in the [facility] evening [facility] Levothyroxi Levothyroxi Yes Randy [address] [facility] ne Sodium ne Sodium Mascorro on an Cristal es - empty [facility] stomach in l the Outpat[facility] morning ent Clinics Ginkgo Ginkgo Yes Randy not [facility] Biloba Biloba [facility] defined [facility] Donepezil Donepezil Yes Randy TAKE [address] HCl HCl [facility] TABLET BY [facility] EVERY DAY l AT NIGHT Outpati ent Clinics Co Q-10 Co Q-10 Yes Randy [address] [facility] with a [facility] Amlodipine Amlodipine Yes Randy [address] [facility] Besy-Benaze Besy-Benaze Mascorro [facility] pril HCl pril HCl [facility] Folic Acid Folic Acid Yes Randy [address] [facility] Procedures This patient has no known procedures. Encounters Start End Encounter Admission Attending Care Care Encounter Source Date/Time Date/Time Type Type Clinicians Facility Department ID 2020-01-17 2020-01-17 Outpatient [facility] [id number] [facility] 2019-10-17 2019-10-17 [facility] [id number] [facility] [address] 10:50[facility]00 10:50:[address] [facility] Medicine l Medicine Outpati ent Clinics 2019-09-17 2019-09-17 [facility] [id number] [address] 09:30:00 09:30:[address] [facility] Medicine l Medicine Outpati ent Clinics 2019-08-15 2019-08-15 [facility] [id number] [address] 11:45:00 11:45:[address] [facility] Medicine l Medicine Outpati ent Clinics 2019-08-15 2019-08-15 [facility] [id number] [address] 11:00:00 11:00:[address] [facility] Medicine l Medicine Outpati ent Clinics 2019-07-27 2019-07-27 [facility] [id number] 13:26:00 13:26:00 t [facility] [employer] [facility] Medicine l Medicine Outpati ent Clinics 2019-07-20 2019-07-20 [facility] [id number] 15:29:00 15:29:00 [facility] [employer] [place] [facility] - [facility] Medicine l Medicine Outpati ent Clinics 2019-07-17 2019-07-17 [facility] [id number] 16:27:00 16:27:00 [facility] [employer] - Drive [facility] l Medicine Outpati ent Clinics 2019-07-06 2019-07-06 [facility] [id number] 16:15:00 16:15:00 t [employer] [place] LuLEY[place] s - Drive [facility] Medicine l Medicine Outpati ent Clinics 2019-07-05 2019-07-05 [facility] [id number] 12:54:00 12:54:00 [place] [employer] - Drive [facility] Medicine Outpati ent Clinics 2019-07-05 2019-07-05 [facility] [id number] 11:30:00 11:30:00 [facility] [employer] - Drive [facility] Medicine Outpati ent Clinics 2019-07-03 2019-07-03 [facility] [id number] 09:30:00 09:30:00 [place] [employer] - Drive [facility] Medicine Outpati ent Clinics 2019-06-26 2019-06-26 [facility] [id number] 11:18:00 11:18:00 t [employer] [employer] - Drive [facility] Medicine Outpati ent Clinics 2019-04-18 2019-04-18 [facility] [id number] 09:30:00 09:30:00 t [employer] - Drive [facility] Medicine Medicine Outpati ent Clinics 2019-01-12 2019-01-12 [facility] [id number] 10:22:00 10:22:00 [place] [employer] - Drive [facility] Medicine Outpati ent Clinics 2019-01-03 2019-01-03 [facility] [id number] 13:10:00 13:10:00 t [employer] - Drive [facility] Medicine Outpati ent Clinics 2018-12-18 2018-12-18 [facility] [id number] 10:15:00 10:15:00 [place] [employer] - Drive [facility] Medicine Outpati ent Clinics 2018-12-08 2018-12-08 [facility] [id number] 16:58:00 16:58:00 t [employer] - Drive [facility] Medicine Outpati ent Clinics 2018-11-20 2018-11-20 [facility] [id number] 08:30:00 08:30:00 [place] [employer] - Drive [facility] Medicine Outpati ent Clinics 2018-10-05 2018-10-05 [facility] [id number] 12:08:00 12:08:00 [place] [employer] - Drive [facility] Medicine Outpati ent Clinics 2018-08-16 2018-08-16 [facility] [id number] 10:15:00 10:15:00 t [employer] - Drive [facility] Medicine Outpati ent Clinics 2018-04-14 2018-04-14 [facility] [id number] 08:30:00 08:30:00 t [employer] - [place] [facility] Medicine Outpati ent Clinics 2017-09-16 2017-09-16 [facility] [id number] 09:45:00 09:45:00 t [employer] - [place] [facility] Medicine Outpati ent Clinics 2017-06-16 2017-06-16 [facility] [id number] 10:15:00 10:15:00 [place] [employer] - Drive [facility] Medicine Outpati ent Clinics Results This patient has no known results.
--- OUTSIDE RECORDS SUMMARY | 2020-02-09 18:35 | XMS REPORT ---
:1950 Author Organization [facility] Address [address], [address] [place] [address] Care Team Providers Name Role Phone Mascorro Unavailable [phone] PROBLEMS Type Condition ICD9-CM GPC18-TB Onset Condition SNOMED Code Notes Code Code Dates Status Problem Leg pain M79.606 Active 64226593 Problem Hypothyroidism E03.9 Active 75811844 Problem Benign essential I10 Active 20720688 HTN Problem Memory loss R41.3 Active 39172399 Problem Osteoarthritis M19.90 Active 480411343 Problem Hip joint pain M25.559 Active 79369544 Problem Alzheimer's G30.9 Active 53212421 disease, unspecified Problem Mild cognitive G31.84 Active 365204051 impairment Problem Dementia in F02.80 Active 211385400 other diseases classified elsewhere without behavioral disturbance Problem Hyperlipidemia E78.5 Active 74260197 Problem Short-term R41.3 Active 906259685 memory loss Problem Abnormal R92.8 Active 995713364 mammogram Problem Breast mass, N63.20 Active [id number] left Problem S/P small bowel Z90.49 Active [id number] resection ALLERGIES No Known Allergies ENCOUNTERS from 1950 to 2020-01-17 Encounter Location Date Provider Diagnosis [facility] [address] [place], Randy Mascorro [address] [facility] [address] [place], obstruct[place], [place] [address] K56.600 ; Alzh eimer's disease, unspec ified G30.9 ; Hypothy roidism E03.9 ; Benign essential HTN I 10 ; Breast mass, le ft N63.20 ; Hyperl ipidemia E78.5 ; Chest p ain, unspecified typ e R07.9 ; Dementia in o ther diseases classi fied elsewhere witho ut behavioral dist urbance F02.80 ; Osteoa rthritis M19.90 ; Abnorm al mammogram of le ft breast R92.8 ; Hip joint pain M25. 559 ; S/P small bowel resection Z90.4 9 ; Left ovarian cyst N8 3.202 ; Intra-abdominal adhesions K66.0 ; History of intussusception Z87.19 ; Traumatic ecc hymosis of left lower l eg, initial encount er S80.12XA ; Left leg pain M79.605 ; Personal history of othe r diseases of the digestive syste m Z87.19 and Other speci fied postprocedural states Z98.890 IMMUNIZATIONS Vaccine Route Administration Date Status FluAD Unknown Dec 06, 2019 Administered SOCIAL HISTORY Tobacco Use: Social History Observation Description Date Details (start date - stop date) Never Smoker Sex Assigned At : Social History Observation Description Sex Assigned At Unknown PHQ9 Question Answer Notes Little interest or pleasure in doing things Not at all Feeling down, depressed, or hopeless Several days Trouble falling or staying asleep or sleeping too much Not a t all Feeling tired or having little energy Not at all Poor appetite or overeating Nearly every day Feeling bad about yourself, or that you are a failure, or marquez ve Several days let yourself or your family down Trouble concentrating on things, such as reading the newspap er Not at all or watching television Moving or speaking so slowly that other people could have No t at all noticed; or the opposite, being so fidgety or restless that you have been moving around a lot more than usual Total Score 5 Interpretation Mild Depression Thoughts that you would be better off or of hurting Not at all yourself in some way Alcohol Screen Question Answer Notes Did you have a drink containing alcohol in the past year? No Points 0 Interpretation Negative Tobacco Use/Smoking Question Answer Notes Are you a never smoker REASON FOR REFERRAL No Information VITAL SIGNS Height 66 in Jan, Weight 160.9 lbs Jan, Temperature 97.4 degrees Fahrenheit Jan, BMI 25.97 kg/m2 Jan, Oximetry 98 % Jan, Respiratory Rate 17 /min Jan, Blood pressure systolic 138 mm Hg Jan, Blood pressure diastolic 70 mm Hg Jan, MEDICATIONS Medication SIG (Take, Route, Notes Start Date End Date Status Frequency, Duration) Vitamin D-3 1000 UNIT 1 capsule Orally Once Active a day Donepezil HCl 10 MG TAKE 1 TABLET BY MOUTH Active EVERY DAY AT NIGHT Oral Ginkgo Biloba 60 MG Orally Not-T aking Folic Acid 1 MG 1 tablet Orally Once a Active day Aspir-81 81 MG 1 tablet Orally Once a Active day Co Q-10 300 MG 1 capsule with a meal Not-Taking Orally Once a day for 30 day(s) Lotrel 5-20 MG 1 tab Orally Once a A ctive day for 90 days Super B-Complex - Orally Active Amlodipine Besy-Benazepril 1 capsule Orally Once Active HCl 5-20 MG a day Simvastatin 20 MG 1 tablet in the Ac tive evening Orally Once a day for 90 Levothyroxine Sodium 25 1 tablet on an empty Active MCG stomach in the morning Orally Once a day for 90 Glucosamine Orally Active Chondroit-Collagen - Centrum Silver 50+Women - Orally Active PROCEDURES No Information RESULTS No Results REASON FOR VISIT 3 mth lab f/u MEDICAL (GENERAL) HISTORY Type Description Date Medical History Osteoarthritis Medical History Hypothyroidism Medical History Benign essential HTN Medical History Hyperlipidemia Medical History Memory loss Medical History Leg pain Medical History Hip joint pain Medical History Mild cognitive impairment Surgical History Open repair of a ventral hernia, laparos copic assist, 10/[address] Kennedy Hospitalization History Partial small bowel obstruction, sta tus post small 06/2019 bowel resection due to lipoma. Intussus ception, lysis of adhesions Dr. Kennedy Goals Section No Information Health Concerns No Information MEDICAL EQUIPMENT No Information MENTAL STATUS No Information FUNCTIONAL STATUS No Information ASSESSMENTS Encounter Date Diagnosis Assessment Treatment Notes Treatment Notes Clinical Notes Jan, Small bowel Hospital course obstruction, partial reviewed extensively (ICD-10 - K56.600) with daughter and patient. Answered all questions to the best my knowledge. Encouraged to follow-up with surgeon. Appointment scheduled. Pain controlled. Jan, Alzheimer's disease, Reviewed neuropsych unspecified (ICD-10 - evaluation. Manage d G30.9) by neurology. Referral to home health. Jan, Hypothyroidism Education given. (ICD-10 - E03.9) Stable. Continue current regimen. , Hypothyroidism Education: This a condition in which the thyroid gland does not produce enough thyroid hormone for the body. The hormones are important in regulating the body''s use of storing and controlling energy. Symptoms are widely varied and often mimick the body''s normal changes of life. Symptoms may include: fatigue, shortness of breath with exertion, dry skin, hair loss, constipation, depressed feeling, weight gain and temperature intolerance. A blood test is used to determine the thyroid levels. Treatment involves the use of medication in order to balance the TSH and T4 hormone levels. Treatment is indefinite and often lifelong. Your hormone levels will need to be checked periodically to insure that the levels are balanced. Compliance with medication is vital. Overtreated hormone levels can lead to complications. Contact your doctor if you have any abnormal symptoms. Jan, Benign essential HTN Controlled at home. (ICD-10 - I10) Education given. Instructed to measure BP at home to monitor. Jan, Breast mass, left Managed by (ICD-10 - N63.20) Van. Patient declined any interventions at this time. Jan, Hyperlipidemia Labs ordered. STOP (ICD-10 - E78.5) TRICOR. INCREASED ZOCOR. Tolerating it well. , Hyperlipidemia Education: Hyperlipidemia refers to increased levels of lipids(fats) in the blood, including cholesterol and triglycerides. This can significantly increase your risk of developing coronary artery disease and peripheral artery disease. This can cause chest pain, heart attack, stroke, and fatigue. Treatment is recommended to decrease your risk. Treatment includes: lifestyle modification, low salt/low fat diet, exercise, tobacco cessation, low alcohol intake and sometimes medication. Blood tests (TC,TG, HDL, LDL) are utilized to determine treatment regimens. TC(Total cholesterol) should be below 200. TG(Total Triglycerides) should be below 150. HDL(Good cholesterol) should be above 40. LDL(Bad Cholesterol) should be below 130(if you have one risk factor) or less than 100( if you have more than one risk factor or have DM/CAD/PVD). Compliance with medication and treatment is vital. If you have questions, talk to your doctor. Jan, Chest pain, Managed by unspecified type Blake. (ICD-10 - R07.9) Asymptomatic. discussed differential diagnosis. Jan, Dementia in other diseases classified elsewhere without behavioral disturbance (ICD-10 - F02.80) Jan, Osteoarthritis Education given. (ICD-10 - M19.90) Using OTC medications, helps somewhat. Jan, Abnormal mammogram of left breast (ICD-10 - R92.8) Jan, Hip joint pain Negative XR and (ICD-10 - M25.559) Doppler for DVT. Discussed differential diagnosis with patient. Education given. Jan, S/P small bowel resection (ICD-10 - Z90.49) Jan, Left ovarian cyst (ICD-10 - N83.202) Jan, Intra-abdominal adhesions (ICD-10 - K66.0) Jan, History of intussusception (ICD-10 - Z87.19) Jan, Traumatic ecchymosis . Discussed of left lower leg, differential initial encounter diagnosis patient. (ICD-10 - S80.12XA) Education given. Discussed likelihood of being on anticoagulation during hospitalization. Will monitor closely. Jan, Left leg pain (ICD-10 - M79.605) Jan, Personal history of other diseases of the digestive system (ICD-10 - Z87.19) Jan, Other specified Open repair of a postprocedural states ventral hernia, (ICD-10 - Z98.890) laparoscopic assist, diagnostic laparoscopy. Dr. Kennedy 10/10/19 Jan, Other -- Medication reviewed and updated. -- Dietary and Lifestyle modifications addressed regarding diet, exercise and weight managemen t. -- Treatment options, risks and benefits, side effects reviewed in detail. -- Advised on signs/symptoms to monitor and when to call clinic and/or visit the nearest ER. Patient verbalized understanding and agreeable with plan. PLAN OF TREATMENT Medication Medication Name Sig Start Date Stop Date Folic Acid 1 MG 1 tablet Orally Once a day Glucosamine Chondroit-Collagen - Orally Super B-Complex - Orally Donepezil HCl 10 MG TAKE 1 TABLET BY MOUTH EVERY DAY AT NIGHT Oral Lotrel 5-20 MG 1 tab Orally Once a day for 90 days Simvastatin 20 MG 1 tablet in the evening Orally Once a day for 90 Levothyroxine Sodium 25 MCG 1 tablet on an empty stomach in the morning Orally Once a day for 90 Treatment Notes Assessment Notes Clinical Notes Small bowel obstruction, partial Hospital course reviewed extensively with daughter and patient. Answered all questions to the best my knowledge. Encouraged to follow-up with surgeon. Appointment scheduled. Pain controlled. Alzheimer's disease, unspecified Reviewed neuropsych evaluat ion. Managed by neurology. Referral to home health. Hypothyroidism Education given. Stable. Continue current regimen. , Hypothyroidism Education: This a condition in which the thyroid gland does not produce enough thyroid hormone for the body. The hormones are important in regulating the body''s use of storing and controlling energy. Symptoms are widely varied and often mimick the body''s normal changes of life. Symptoms may include: fatigue, shortness of breath with exertion, dry skin, hair loss, constipation, depressed feeling, weight gain and temperature intolerance. A blood test is used to determine the thyroid levels. Treatment involves the use of medication in order to balance the TSH and T4 hormone levels. Treatment is indefinite and often lifelong. Your hormone levels will need to be checked periodically to insure that the levels are balanced. Compliance with medication is vital. Overtreated hormone levels can lead to complications. Contact your doctor if you have any abnormal symptoms. Benign essential HTN Controlled at home. Education given. Instructed to measure BP at home to monitor. Breast mass, left Managed by Dr. Araujo. Patient declined any interventions at this time. Hyperlipidemia Labs ordered. STOP TRICOR. INCREASED ZOCOR. Tolerating it well. , Hyperlipidemia Education: Hyperlipidemia refers to increased levels of lipids(fats) in the blood, including cholesterol and triglycerides. This can significantly increase your risk of developing coronary artery disease and peripheral artery disease. This can cause chest pain, heart attack, stroke, and fatigue. Treatment is recommended to decrease your risk. Treatment includes: lifestyle modification, low salt/low fat diet, exercise, tobacco cessation, low alcohol intake and sometimes medication. Blood tests (TC,TG, HDL, LDL) are utilized to determine treatment regimens. TC(Total cholesterol) should be below 200. TG(Total Triglycerides) should be below 150. HDL(Good cholesterol) should be above 40. LDL(Bad Cholesterol) should be below 130(if you have one risk factor) or less than 100( if you have more than one risk factor or have DM/CAD/PVD). Compliance with medication and treatment is vital. If you have questions, talk to your doctor. Chest pain, unspecified type Managed by Dr. Lozano. Asymptomatic. discussed differential diagnosis. Osteoarthritis Education given. Using OTC medications, helps somewhat. Hip joint pain Negative XR and Doppler for DVT. Discussed differential diagnosis with patient. Education given. Traumatic ecchymosis of left lower . Discussed differential diagnosis leg, initial encounter patient. Education given. Discussed likelihood of being on anticoagulation during hospitalization. Will monitor closely. Other specified postprocedural Open repair of a ventral kings ia, states laparoscopic assist, diagnostic laparoscopy. Dr. Kennedy 10/10/19 Treatment Notes Test Name Order Date Lipid Panel With LDL/HDL Ratio 2020-01-17 Thyroid Panel With TSH 2020-01-17 Comp. Metabolic Panel (14) (CMP) 2020-01-17 CBC With Differential/Platelet 2020-01-17 Next Appt Details 3 Months + Labs 1 week Reason: Provider Name:Randy Mascorro 2020-04-10 0 9:00:00 AM, [address], [address], [place], [address], Provider Name:Randy Mascorro 2020-04-16 1 0:20:00 AM, [address], [address], [place], [address], Insurance Providers Payer Name Payer Address Payer Insured Patient Coverage Cover age Phone Name Relationship to Start Date End Date Insured MEDICARE Attn Part B [id number] Dieter Lai 2015 [employer] Claims [address] [facility] [address] [facility] [address] [phone] Dieter Lai self 2017 and [facility] [address] [facility] [address]
[2020-02-09] MEDS ORDERED: IBUPROFEN 200 MG TAB PO ONE (19:29)
[2020-02-09] MEDS ORDERED: IBUPROFEN 400 MG TAB ONE (19:29)
--- NOTE | 2020-02-09 19:57 | RAD REPORT ---
EXAM DESCRIPTION: RAD - Forearm Right - 02/09/2020 7:50 pm CLINICAL HISTORY: Right arm pain status post fall FINDINGS: Intra-articular, comminuted markedly displaced fracture involves the distal radius. Avulsion fracture ulnar styloid process
--- NOTE | 2020-02-09 19:58 | RAD REPORT ---
EXAM DESCRIPTION: RAD - Wrist Right 3 View - 02/09/2020 7:50 pm CLINICAL HISTORY: Right wrist pain status post injury FINDINGS: Intra-articular, comminuted markedly displaced fracture involves the distal radius. Avulsion fracture ulnar styloid process No dislocation
--- NOTE | 2020-02-09 20:35 | ER ---
Nurse's Notes [facility] Name: Mallory Lai Age: 69 yrs Sex: Female : 1950 Arrival Date: 02/09/2020 Time: 18:33 Bed 24 Private MD: Diagnosis: Right Distal Radius and Ulna Fracture Presentation: 02/08 19:14 Chief complaint: Spouse and/or significant other states: Tripped and fell in a parking, ph attempted to catch herself on her R arm, obvious deformity and swelling to R wrist, denies other injury or LOC. Coronavirus screen: Client denies travel out of the [place] in the last 14 days. At this time, the client does not indicate any symptoms associated with coronavirus-19. Ebola Screen: No symptoms or risks identified at this time. Initial Sepsis Screen: Does the patient meet any 2 criteria? No. Patient's initial sepsis screen is negative. Does the patient have a suspected source of infection? No. Patient's initial sepsis screen is negative. Risk Assessment: Do you want to hurt yourself or someone else? Patient reports no desire to harm self or others. Onset of symptoms was February 09, 2020. 19:14 Method Of Arrival: Ambulatory ph 19:14 Acuity: JAD 4 ph Triage Assessment: 19:21 General: Appears in no apparent distress. Behavior is calm, cooperative, appropriate ph for age. Pain: Complains of pain in right wrist. Neuro: Level of Consciousness is awake, alert, obeys commands. Musculoskeletal: Bony deformity noted of right wrist Swelling present in right wrist. Screenin:08 Abuse screen: Denies threats or abuse. Nutritional screening: No deficits noted. ll2 Tuberculosis screening: No symptoms or risk factors identified. Fall Risk Fall in past 12 months (25 points). Assessment: 19:45 Reassessment: see triage assessment. ll2 Vital Signs: 19:14 BP 154 / 71; Pulse 65; Resp 18; Temp 97.5; Pulse Ox 99% on R/A; Weight 72.57 kg; Height ph 5 ft. 6 in. (167.64 cm); 19:14 Body Mass Index 25.82 (72.57 kg, 167.64 cm) ph ED Course: 18:33 Patient arrived in ED. rg4 19:19 Triage completed. ph 19:19 Arm band placed on Patient placed in waiting room, Patient notified of wait time ph Patient medicated in triage. X-ray ordered. Affected limb iced. 19:50 Wrist Right 3 View XRAY In Process Unspecified. EDMS 19:51 Forearm Right XRAY In Process Unspecified. EDMS 20:00 Siddharth Hodges PA is PHCP. cp 20:00 Rafael Howard MD is Attending Physician. cp 20:08 Patient has correct armband on for positive identification. Call light in reach. Side ll2 rails up X 1. 20:08 No provider procedures requiring assistance completed. ll2 20:32 Preston Francisco MD is Referral Physician. cp 20:35 Olamide Blanchard, ARNIE is Primary Nurse. ll2 Administered Medications: 19:20 Drug: Motrin 600 mg Route: PO; ph 20:43 Follow up: Response: No adverse reaction ll2 Outcome: 20:34 Discharge ordered by . cp 21:01 Patient left the ED. ll2 Signatures: Dispatcher [employer] Tasha Walker, RN RN Siddharth Craig PA PA cp Garcia, Rubi rg4 Olamide Blanchard, ARNIE RN ll2
--- NOTE | 2020-02-09 20:35 | EDPHYS ---
Physician Documentation [facility] Name: Mallory Lai Age: 69 yrs Sex: Female : 1950 Arrival Date: 02/09/2020 Time: 18:33 Bed 24 Private MD: ED Physician Rafael Howard HPI: 02/08 20:25 This 69 yrs old Female presents to ER via Ambulatory with complaints of Arm cp Injury. 20:25 The patient or guardian complains of injury, pain, that is acute. The complaints affect cp the right wrist. Context: resulted from a fall, while walking. Onset: The symptoms/episode began/occurred today. Treatment prior to arrival includes: no previous treatment. Associated signs and symptoms: Pertinent positives: swelling, Pertinent negatives: numbness. ROS: 20:27 Constitutional: Negative for body aches, fever. cp 20:27 Neck: Negative for pain with movement, pain at rest, stiffness. 20:27 Cardiovascular: Negative for chest pain. 20:27 Respiratory: Negative for cough, shortness of breath, wheezing. 20:27 Abdomen/GI: Negative for abdominal pain. 20:27 Back: Negative for pain at rest, pain with movement. 20:27 MS/extremity: Positive for injury or acute deformity, decreased range of motion, pain, of the right wrist, Negative for paresthesias. 20:27 Neuro: Negative for altered mental status, headache, loss of consciousness, syncope. 20:27 All other systems are negative. Exam: 20:29 Head/Face: Normocephalic, atraumatic. cp 20:29 Constitutional: The patient appears in no acute distress, alert, awake, non-diaphoretic, non-toxic, well developed, well nourished. 20:29 Neck: ROM/movement: is normal, is supple, without pain, no range of motions limitations. 20:29 Chest/axilla: Inspection: normal. 20:29 Cardiovascular: Rate: normal, Pulses: Pulses are 2+ in right radial artery and left radial artery. 20:29 Respiratory: the patient does not display signs of respiratory distress, Respirations: normal, no use of accessory muscles, no retractions. 20:29 Abdomen/GI: Inspection: abdomen appears normal. 20:29 Back: pain, is absent, ROM is normal. 20:29 Musculoskeletal/extremity: Extremities: grossly normal except: noted in the right wrist: deformity, ecchymosis, swelling, tenderness, ROM: limited passive range of motion due to pain, in the right wrist. 20:29 Neuro: Orientation: to person, place \T\ time. Mentation: is normal. Vital Signs: 19:14 BP 154 / 71; Pulse 65; Resp 18; Temp 97.5; Pulse Ox 99% on R/A; Weight 72.57 kg; Height ph 5 ft. 6 in. (167.64 cm); 19:14 Body Mass Index 25.82 (72.57 kg, 167.64 cm) ph Procedures: 21:00 Splinting: Splint applied to right wrist using Orthoglass splint, sling, applied by cp tech. Examined by me, post splint application: neurovascular intact, Patient tolerated well. MDM: 20:00 Differential diagnosis: dislocation, closed fracture, contusion. cp 20:04 Patient medically screened. 20:33 Data reviewed: vital signs, nurses notes, radiologic studies, plain films. 20:33 Counseling: I had a detailed discussion with the patient and/or guardian regarding: the cp historical points, exam findings, and any diagnostic results supporting the discharge/admit diagnosis, radiology results, the need for outpatient follow up, for definitive care, a orthopedic surgeon, to return to the emergency department if symptoms worsen or persist or if there are any questions or concerns that arise at home. Response to treatment: the patient's symptoms have markedly improved after treatment, and as a result, I will discharge patient. 02/08 19:20 Order name: Wrist Right 3 View XRAY; Complete Time: 20:03 02/08 20:03 Interpretation: Report reviewed. 02/08 19:20 Order name: Forearm Right XRAY; Complete Time: 20:03 ph 02/08 20:03 Interpretation: Reviewed. 02/08 19:20 Order name: Ice pack; Complete Time: 19:21 ph Administered Medications: 19:20 Drug: Motrin 600 mg Route: PO; ph 20:43 Follow up: Response: No adverse reaction ll2 Disposition: 21:15 Chart complete. 02/09 07:19 Co-signature as Attending Physician, Rafael Howard MD I agree with the assessment and tw4 plan of care. Disposition: 02/09/20 20:34 Discharged to Home. Impression: Right Distal Radius and Ulna Fracture. - Condition is Stable. - Discharge Instructions: Wrist Fracture Treated With Immobilization. - Prescriptions for Tylenol- Codeine #3 300-30 mg Oral Tablet - take 2 tablets by ORAL route every 8 hours As needed; 20 tablet. - Medication Reconciliation Form, Thank You Letter, Antibiotic Education, Prescription Opioid Use form. - Follow up: Preston Francisco MD; When: 2 - 3 days; Reason: Recheck today's complaints. - Problem is new. - Symptoms have improved. Signatures: Dispatcher [employer] EDTasha Wade RN RN ph Tracie, Siddharth, PA PA Rafael Mauro MD MD tw4 Olamide Blanchard RN RN ll2 Corrections: (The following items were deleted from the chart) 02/08 21:01 20:34 02/09/2020 20:34 Discharged to Home. Impression: Right Distal Radius and Ulna ll2 Fracture. Condition is Stable. Forms are Medication Reconciliation Form, Thank You Letter, Antibiotic Education, Prescription Opioid Use. Follow up: Dr. Preston Francisco; When: 2 - 3 days; Reason: Recheck today's complaints. Problem is new. Symptoms have improved. cp
[2020-02-09] MEDS ORDERED: HYDROCODONE/APAP 7.5/325 MG TAB ONE (21:10)
[2020-02-09 21:25] VITALS: BP 154/71; TEMP 97.5; O2SAT 99
== END 2020-02-09 21:01 | disposition home or self-care (01) ==
LOC: ER 18:32
PROC: 2W3CX1Z Immobilization of Right Lower Arm using Splint (ICD-10-PCS; principal; 2020-02-09)
DX: S52.571A Other intraarticular fracture of lower end of right radius, initial encounter for closed fracture (principal); S52.611A Displaced fracture of right ulna styloid process, initial encounter for closed fracture; W18.30XA Fall on same level, unspecified, initial encounter; Y93.01 Activity, walking, marching and hiking; Y92.9 Unspecified place or not applicable
CPT/HCPCS: 99283

== ENCOUNTER 2020-02-17 | Emergency (ER) | payer OTHER, BC ==
--- OUTSIDE RECORDS SUMMARY | 2020-02-17 06:07 | XMS REPORT | Continuity of Care Document ---
:1950 Author Organization [facility] t Address [address] [place] [address] Care Team Providers Name Role Phone Unavailable [...] [facility] Centrum Centrum Yes Randy not [facility] Silver Silver [facility] defined [facility]+Women 50+[facility] Vitamin D-3 Vitamin D-3 Yes Randy [address] [facility] Glucosamine Glucosamine Yes Randy not [facility] [place]-C [place]-C Masc[facility] defined [facility] Aspir-81 Aspir-81 Yes Randy [address] [facility] Super Super Yes Randy not [facility] B-Complex B-Complex [facility] defined [facility] Simvastatin Simvastatin Yes Randy [address] [facility] in the [facility] Levothyroxi Levothyroxi Yes Randy 1 [...] Department ID 2020-01-17 2020-01-17 Outpatient [facility] [id number] 2019-10-17 2019-10-17 [facility] [id number] [facility] 10:50:00 10:50:00 t [employer] [facility] Medicine l Medicine Outpati ent Clinics 2019-09-17 2019-09-17 [facility] [id number] 09:30:00 09:30:00 t [employer] [facility] Medicine l Medicine Outpati ent Clinics 2019-08-15 2019-08-15 [facility] [id number] [facility] 11:45:00 11:45:00 t [employer] [facility] Medicine l Medicine Outpati ent Clinics 2019-08-15 2019-08-15 [facility] [id number] 11:00:00 11:00:00 t [employer] [facility] Medicine l Medicine Outpati ent Clinics 2019-07-27 2019-07-27 [facility] [id number] 13:26:00 13:26:00 [facility] [employer] [facility] Medicine l Medicine Outpati ent Clinics 2019-07-20 2019-07-20 [facility] [id number] 15:29:00 15:29:00 t [email or web address] s - Drive [facility] Medicine l Medicine Outpati ent Clinics 2019-07-17 2019-07-17 [facility] [id number] 16:27:00 16:27:00 t [employer] s - Drive [facility] l Medicine Outpati ent Clinics 2019-07-06 2019-07-06 [facility] [id number] 16:15:00 16:15:00 t [employer] s - Drive [facility] Medicine l Medicine Outpati ent Clinics 2019-07-05 2019-07-05 [facility] [id number] 12:54:00 12:54:00 t [employer] - [email or web address] [facility] Medicine Outpati ent Clinics 2019-07-05 2019-07-05 [facility] [id number] 11:30:00 11:30:00 t [employer] - [email or web address] [facility] Medicine Outpati ent Clinics 2019-07-03 2019-07-03 [facility] [id number] 09:30:00 09:30:00 t [employer]lick [employer] - [email or web address] [facility] Medicine Outpati ent Clinics 2019-06-26 2019-06-26 [facility] [id number] 11:18:00 11:18:00 t [employer]lick [employer] - [email or web address] [facility] Medicine Medicine Outpati ent Clinics 2019-04-18 2019-04-18 [facility] [id number] 09:30:00 09:30:00 t [employer] s - Drive [facility] Medicine Medicine Outpati ent Clinics 2019-01-12 2019-01-12 [facility] [id number] [address] 10:22:00 10:22:00 t [employer]lick [employer] s - Drive [facility] Medicine Outpati ent Clinics 2019-01-03 2019-01-03 [facility] [id number] 13:10:00 13:10:00 t [employer] s - Drive [facility] l Medicine Outpati ent Clinics 2018-12-18 2018-12-18 [facility] [id number] 10:15:00 10:15:00 t [employer] - [email or web address] [facility] Medicine Outpati ent Clinics 2018-12-08 2018-12-08 [facility] [id number] 16:58:00 16:58:00 t [employer] - [email or web address] [facility] Medicine Outpati ent Clinics 2018-11-20 2018-11-20 [facility] [id number] 08:30:00 08:30:00 t [employer]lick [employer] - [email or web address] [facility] Medicine Outpati ent Clinics 2018-10-05 2018-10-05 [facility] [id number] 12:08:00 12:08:00 t [employer]lick [employer] - [email or web address] [facility] Medicine Outpati ent Clinics 2018-08-16 2018-08-16 [facility] [id number] [facility] 10:15:00 10:15:00 t [employer]lick [employer] - [email or web address] [facility] Medicine Outpati ent Clinics 2018-04-14 2018-04-14 [facility] [id number] [facility] 08:30:00 08:30:00 t [email or web address] [facility] Medicine Outpati ent Clinics 2017-09-16 2017-09-16 [facility] [id number] 09:45:00 09:45:00 t [employer]lick [employer] - [email or web address] [facility] Medicine Outpati ent Clinics 2017-06-16 2017-06-16 [facility] [id number] [facility] 10:15:00 10:15:00 t Slick [employer] [facility] Medicine Outpati ent Clinics Results This patient has no known results.
--- NOTE | 2020-02-17 06:52 | ER ---
Nurse's Notes [facility] Name: Mallory Lai Age: 69 yrs Sex: Female : 1950 Arrival Date: 02/17/2020 Time: 06:09 Bed 13 Private MD: Randy Mascorro Diagnosis: Right Upper Extremity Cast Displacement Presentation: 02/16 06:22 Chief complaint: Spouse and/or significant other states: Reports patient's cast fell lp1 off while she was asleep tonight; States cast applied at Dr. Gibbons's office on 02/12/20. Coronavirus screen: Client denies travel out of the [place] in the last 14 days. At this time, the client does not indicate any symptoms associated with coronavirus-19. Ebola Screen: No symptoms or risks identified at this time. Initial Sepsis Screen: Does the patient meet any 2 criteria? No. Patient's initial sepsis screen is negative. Does the patient have a suspected source of infection? No. Patient's initial sepsis screen is negative. Risk Assessment: Do you want to hurt yourself or someone else? Patient reports no desire to harm self or others. Onset of symptoms was February 17, 2020. 06:22 Method Of Arrival: Ambulatory lp1 06:22 Acuity: JAD 4 lp1 Historical: - Allergies: 06:30 No Known Allergies; lp1 - PMHx: 06:30 Dementia; Hypertension; Hypothyroidism; lp1 - PSHx: 06:30 ; Tonsillectomy; Knee surgery; lp1 - Immunization history:: Adult Immunizations up to date. - Social history:: Smoking status: Patient denies any tobacco usage or history of. Screenin:31 Abuse screen: Denies threats or abuse. Denies injuries from another. Nutritional lp1 screening: No deficits noted. Tuberculosis screening: No symptoms or risk factors identified. Fall Risk None identified. Assessment: 06:31 General: Appears in no apparent distress. Behavior is calm, cooperative. Pain: Denies lp1 pain. Neuro: Level of Consciousness is awake, alert, obeys commands. Cardiovascular: Patient's skin is warm and dry. Pulses are palpable in right radial artery and left radial artery. Respiratory: Respiratory effort is even, unlabored. GI: No signs and/or symptoms were reported involving the gastrointestinal system. : No signs and/or symptoms were reported regarding the genitourinary system. EENT: No signs and/or symptoms were reported regarding the EENT system. Derm: Skin is pink, warm \T\ dry. Musculoskeletal: Circulation, motion, and sensation intact. Capillary refill < 3 seconds, in right fingers. 07:10 Reassessment: Splint assessed by Dr. Harper. lp1 Vital Signs: 06:22 BP 137 / 79; Pulse 66; Resp 18; Temp 98.7(TE); Pulse Ox 99% on R/A; Weight 72.57 kg; lp1 Pain 0/10; ED Course: 06:09 Patient arrived in ED. am2 06:10 Randy Mascorro DO is Private Physician. am2 06:24 Umair Harper MD is Attending Physician. 7 06:25 Triage completed. lp1 06:25 Arm band placed on. lp1 06:32 Patient has correct armband on for positive identification. lp1 06:49 applied a sugar tong sling as ordered by doctor to the right arm/ applied 40 inches of eb 4 inch orthoglass, used 3 rolls of 4 inch cast padding/ used 4 rolls of 4 inch makenzie wraps/ cap refill less than two pre and post splint application/ patient tolerated well/ Dr. Harper at bed side to check splint/ applied a large sling to the right arm/. 06:51 Jessee Gibbons MD is Referral Physician. 7 07:09 Ritika Davis, RN is Primary Nurse. lp1 07:09 No provider procedures requiring assistance completed. Patient did not have IV access lp1 during this emergency room visit. Administered Medications: No medications were administered Outcome: 06:52 Discharge ordered by . 7 07:09 Discharged to home ambulatory, with significant other. lp1 07:09 Condition: good 07:09 Discharge instructions given to patient, significant other, Instructed on discharge instructions, follow up and referral plans. Demonstrated understanding of instructions, follow-up care, splint care. 07:10 Patient left the ED. lp1 Signatures: Ritika Davis, RN RN lp1 Carmen French am2 Lori Beebe Maurice, MD MD [facility]
--- NOTE | 2020-02-17 06:53 | EDPHYS ---
Physician Documentation [facility] Name: Mallory Lai Age: 69 yrs Sex: Female : 1950 Arrival Date: 02/17/2020 Time: 06:09 Bed 13 Private MD: [facility] ED Physician Umair Harper HPI: 02/16 06:33 This 69 yrs old Female presents to ER via Ambulatory with complaints of right mh7 arm cast fell off. 06:33 The patient or guardian reports Cast came off. The complaints affect the right wrist mh7 diffusely. Context: The problem was sustained at home, resulted from an unknown cause. Onset: The symptoms/episode began/occurred today. Modifying factors: The symptoms are alleviated by nothing, the symptoms are aggravated by nothing. Associated signs and symptoms: Pertinent negatives: cyanosis distally, decreased sensation distally, fever, nausea, numbness distally, tingling distally, vomiting. Compartment Syndrome negative for numbness, tingling. Patient had cast placed for right wrist fracture last week. She states that the cast came off this morning. She denies any recurrent injury.. Historical: - Allergies: 06:30 No Known Allergies; lp1 - PMHx: 06:30 Dementia; Hypertension; Hypothyroidism; lp1 - PSHx: 06:30 ; Tonsillectomy; Knee surgery; lp1 - Immunization history:: Adult Immunizations up to date. - Social history:: Smoking status: Patient denies any tobacco usage or history of. ROS: 06:33 Constitutional: Negative for fever, chills, and weight loss, Eyes: Negative for injury, mh7 pain, redness, and discharge, ENT: Negative for injury, pain, and discharge, Neck: Negative for injury, pain, and swelling, Cardiovascular: Negative for chest pain, palpitations, and edema, Respiratory: Negative for shortness of breath, cough, wheezing, and pleuritic chest pain, Abdomen/GI: Negative for abdominal pain, nausea, vomiting, diarrhea, and constipation, Back: Negative for injury and pain, : Negative for injury, bleeding, discharge, and swelling, Skin: Negative for injury, rash, and discoloration, Neuro: Negative for headache, weakness, numbness, tingling, and seizure, Psych: Negative for depression, anxiety, suicide ideation, homicidal ideation, and hallucinations, Allergy/Immunology: Negative for hives, rash, and allergies, Endocrine: Negative for neck swelling, polydipsia, polyuria, polyphagia, and marked weight changes, Hematologic/Lymphatic: Negative for swollen nodes, abnormal bleeding, and unusual bruising. Exam: 06:33 Constitutional: This is a well developed, well nourished patient who is awake, alert, mh7 and in no acute distress. Head/Face: Normocephalic, atraumatic. Skin: Warm, dry with normal turgor. Normal color with no rashes, no lesions, and no evidence of cellulitis. 06:33 Neuro: Awake and alert, GCS 15, oriented to person, place, time, and situation. Cranial nerves II-XII grossly intact. Motor strength 5/5 in all extremities. Sensory grossly intact. Cerebellar exam normal. Normal gait. Psych: Awake, alert, with orientation to person, place and time. Behavior, mood, and affect are within normal limits. 06:33 Musculoskeletal/extremity: Extremities: noted in the right wrist: tenderness, ROM: limited active range of motion due to pain, in the right wrist, limited passive range of motion due to pain, in the right wrist, Circulation is intact in all extremities. Pulses: are normal with no appreciated deficits, Perfusion: the patient is normally perfused throughout, Perfusion: the extremity is normally perfused throughout, Sensation intact. Compartment Syndrome exam of affected extremity: is normal. no numbness, no tingling, no sensation deficit, no palor, no weak pulses, Joints: the right wrist displays painful range of motion, tenderness, Weight bearing: able to fully bear weight, without difficulty, Tendon exam: specific tendon testing normal through active and passive range of motion 06:48 Chest/axilla: Normal chest wall appearance and motion. Nontender with no deformity. mh7 No lesions are appreciated. Cardiovascular: Regular rate and rhythm with a normal S1 and S2. No gallops, murmurs, or rubs. Normal PMI, no JVD. No pulse deficits. Respiratory: Lungs have equal breath sounds bilaterally, clear to auscultation and percussion. No rales, rhonchi or wheezes noted. No increased work of breathing, no retractions or nasal flaring. Abdomen/GI: Soft, non-tender, with normal bowel sounds. No distension or tympany. No guarding or rebound. No evidence of tenderness throughout. Vital Signs: 06:22 BP 137 / 79; Pulse 66; Resp 18; Temp 98.7(TE); Pulse Ox 99% on R/A; Weight 72.57 kg; lp1 Pain 0/10; Procedures: 06:48 Splinting: Splint applied to right forearm using Orthoglass splint, applied by tech. 7 Examined by me, post splint application: neurovascular intact, 2+ distal pulses palpable, brisk capillary refill noted, Patient tolerated well. MDM: 06:48 Differential diagnosis: closed fracture. Differential diagnosis: Cast malfunction. Data 7 reviewed: vital signs, nurses notes, old medical records. Data interpreted: Pulse oximetry: on room air is 99 %. Interpretation: normal. Counseling: I had a detailed discussion with the patient and/or guardian regarding: the historical points, exam findings, and any diagnostic results supporting the discharge/admit diagnosis, the presence of at least one elevated blood pressure reading (>120/80) during this emergency department visit, the need for outpatient follow up, a orthopedic surgeon, to return to the emergency department if symptoms worsen or persist or if there are any questions or concerns that arise at home. Response to treatment: the patient's symptoms have resolved after treatment, the patient's blood pressure is in an acceptable range, mental status has returned to baseline, the patient no longer shows bradycardia, the patient is not short of breath, the patient is not tachycardic, the patient's pain is gone, the patient's temperature has normalized. 06:52 Patient medically screened. [facility] 02/16 06:46 Order name: Splint - Sugar Tong - Forearm; Complete Time: 06:55 [facility] 02/16 06:46 Order name: Sling; Complete Time: 06:55 [facility] Administered Medications: No medications were administered Disposition: 02/17/20 06:52 Discharged to Home. Impression: Right Upper Extremity Cast Displacement. - Condition is Stable. - Discharge Instructions: Cast or Splint Care, [id number]. - Medication Reconciliation Form, Thank You Letter, Antibiotic Education, Prescription Opioid Use form. - Follow up: Jessee Gibbons MD; When: 1 - 2 days; Reason: Worsening of condition, Recheck today's complaints. - Problem is an ongoing problem. - Symptoms have improved. Signatures: Ritika Davis RN RN lp1 Umair Harper MD MD mh7 Corrections: (The following items were deleted from the chart) 07:10 06:52 02/17/2020 06:52 Discharged to Home. Impression: Right Upper Extremity Cast lp1 Displacement. Condition is Stable. Forms are Medication Reconciliation Form, Thank You Letter, Antibiotic Education, Prescription Opioid Use. Follow up: Jessee Gibbons; When: 1 - 2 days; Reason: Worsening of condition, Recheck today's complaints. Problem is an ongoing problem. Symptoms have improved. mh7
== END 2020-02-17 07:10 | disposition home or self-care (01) ==
PROC: 2W3CX1Z Immobilization of Right Lower Arm using Splint (ICD-10-PCS; principal; 2020-02-17)
DX: Z46.89 Encounter for fitting and adjustment of other specified devices (principal)
CPT/HCPCS: 99283

== ENCOUNTER 2020-09-15 09:00 | Emergency (ER) | payer OTHER, BC ==
--- OUTSIDE RECORDS SUMMARY | 2020-09-15 09:03 | XMS REPORT | Continuity of Care Document ---
:1950 Author Organization [facility] t Address [address] [place] [address] Care Team Providers Name Role Phone Unavailable [...] [facility] Centrum Centrum Yes Randy not [facility] Silver Silver Masc[facility] defined [facility] 50+Women 50+Women [facility] Vitamin D-3 Vitamin D-3 Yes Randy [address] [facility] Glucosamine Glucosamine Yes Randy not [facility] [place]-C [place]-C Mascorro defined [facility]agen [facility] Aspir-81 Aspir-81 Yes Randy [address] [facility] Super Super Yes Randy not [facility] B-Complex B-Complex Masc[facility] defined [facility] Simvastatin Simvastatin Yes Randy [address] [facility] in the [facility] Levothyroxi Levothyroxi Yes Randy 1 [...] Date/Time Type Type Clinicians Facility Department ID 2020-08-14 2020-08-14 [facility] [id number] [facility] 2020-08-14 2020-08-14 [facility] [id number] [facility] 2020-04-21 2020-04-21 [facility] [id number] [facility] 2020-04-16 2020-04-16 [facility] [id number] [facility] 2020-01-17 2020-01-17 [facility] [id number] [facility] 2019-10-17 2019-10-17 [facility] [id number] 10:50:00 10:50:00 t [employer] [facility] Medicine Medicine Outpati ent Clinics 2019-09-17 2019-09-17 [facility] [id number] 09:30:00 09:30:00 t [employer] [facility] Medicine Outpati ent Clinics 2019-08-15 2019-08-15 [facility] [id number] 11[facility]45:00 11:45:00 [place] [employer] s - Drive [facility] Medicine Medicine Outpati ent Clinics 2019-08-15 2019-08-15 [facility] [id number] 11:00:00 11:00:00 [place] [employer] - Drive [facility] l Medicine Outpati ent Clinics 2019-07-27 2019-07-27 [facility] [id number] 13:26:00 13:26:[address] [employer] [address] - Road [facility] l Medicine Outpati ent Clinics 2019-07-20 2019-07-20 [facility] [id number] 15:29:00 15:29:00 [place] [employer] [facility] l Medicine Outpati ent Clinics 2019-07-17 2019-07-17 [facility] [id number] 16:27:00 16:27:00 [place] [employer] - Drive [facility] Medicine Medicine Outpati ent Clinics 2019-07-06 2019-07-06 [facility] [id number] 16:15:00 16:15:00 [place] [employer] [facility] Medicine Outpati ent Clinics 2019-07-05 2019-07-05 [facility] [id number] 12:54:00 12:54:00 [place] [employer] - Drive [facility] l Medicine Outpati ent Clinics 2019-07-05 2019-07-05 [facility] [id number] 11:30:00 11:30:00 t [place] [employer] - Drive [facility] Medicine Outpati ent Clinics 2019-07-03 2019-07-03 [facility] [id number] 09:30:00 09:30:00 t [place] [employer] - Drive [facility] l Medicine Outpati ent Clinics 2019-06-26 2019-06-26 [facility] [id number] 11:18:00 11:18:[address] [place] [address] - Drive [facility] Medicine Medicine Outpati ent Clinics 2019-04-18 2019-04-18 [facility] [id number] 09:30:00 09:30:00 [place] [employer] [place] s - Drive [facility] l Medicine Outpati ent Clinics 2019-01-12 2019-01-12 [facility] [id number] 10:22:00 10:22:00 t [place] [employer] - Drive [facility] Medicine Outpati ent Clinics 2019-01-03 2019-01-03 [facility] [id number] 13:10:00 13:10:00 [place] [employer] - Drive [facility] Medicine Outpati ent Clinics 2018-12-18 2018-12-18 [facility] [id number] 10:15:00 10:15:00 [place] [employer] - Drive [facility] Medicine Outpati ent Clinics 2018-12-08 2018-12-08 [facility] [id number] 16:58:00 16:58:00 [place] [employer] - Drive [facility] Medicine Outpati ent Clinics 2018-11-20 2018-11-20 [facility] [id number] 08:30:00 08:30:00 t [place] [employer] - Drive [facility] Medicine Outpati ent Clinics 2018-10-05 2018-10-05 [facility] [id number] 12:08:00 12:08:00 [place] [employer] - Drive [facility] Medicine Medicine Outpati ent Clinics 2018-08-16 2018-08-16 [facility] [id number] 10:15:00 10:15:00 t [place] [employer] s - Drive [facility] Medicine Outpati ent Clinics 2018-04-14 2018-04-14 [facility] [id number] 08:30:00 08:30:00 [place] [employer] - Drive [facility] l Medicine Outpati ent Clinics 2017-09-16 2017-09-16 [facility] [id number] 09:45:00 09:45:00 t [facility] 2017-06-16 2017-06-16 Outpatient Sarah Wong [id number] [facility] 10:15:00 10:15:00 [employer] [facility] ent [facility] Results This patient has no known results.
--- NOTE | 2020-09-15 10:52 | RAD REPORT ---
EXAM DESCRIPTION: RAD - Wrist Right 3 View - 09/15/2020 10:37 am CLINICAL HISTORY: Right wrist pain FINDINGS: Late subacute fracture involves the distal radius with impaction of fracture fragments and some angulation present at the fracture site. Ununited fracture ulnar styloid process Bones are osteoporotic. No dislocation
--- NOTE | 2020-09-15 11:04 | RAD REPORT ---
EXAM DESCRIPTION: RAD - Forearm Left - 09/15/2020 10:37 am CLINICAL HISTORY: Left forearm pain FINDINGS: Cortical regularity involves the distal radius presumably a subacute or relatively old fra cture. This should be correlated clinically. Old fracture ulnar styloid process. Bones are osteoporotic
--- NOTE | 2020-09-15 11:06 | RAD REPORT ---
EXAM DESCRIPTION: RAD -Hand Left 3 View - 09/15/2020 10:37 am CLINICAL HISTORY: Left hand pain FINDINGS: Mild narrowing involves DIP and PIP joints. Cortical regularity involves the distal radius presumably a subacute or relatively old fracture. This should be correlated clinically. Old fracture ulnar styloid process. The bones are osteoporotic
--- NOTE | 2020-09-15 11:23 | ER ---
Nurse's Notes [facility] Name: Mallory Lai Age: 70 yrs Sex: Female : 1950 Arrival Date: 09/15/2020 Time: 09:09 Bed 9 Private MD: Randy Mascorro Diagnosis: Distal Right radius fracture;Distal left radius fracture Presentation: 09/15 10:18 Chief complaint: Patient states: mechanical fall, injury to jamia wrist. iw 10:18 Acuity: JAD 4 iw Historical: - PMHx: 11:26 Dementia; Hypertension; Hypothyroidism; iw ED Course: 09:09 Patient arrived in ED. mr 09:09 Randy Mascorro, is Private Physician. mr 10:14 Billy Allen PA is PHCP. jr8 10:14 Thang Viera MD is Attending Physician. jr8 10:19 Triage completed. iw 10:37 XRAY Wrist RIGHT 3 view In Process Unspecified. EDMS 10:37 XRAY Forearm LEFT In Process Unspecified. EDMS 10:37 XRAY Hand LEFT 3 View In Process Unspecified. EDMS 11:20 Jessee Gibbons MD is Referral Physician. jr8 11:26 Dinorah Buitrago, RN is Primary Nurse. iw 11:26 Arm band placed on. iw Administered Medications: 11:39 Drug: Tylenol 1000 mg Route: PO; iw Outcome: 11:22 Discharge ordered by . jr8 11:40 Patient left the ED. iw Signatures: Dispatcher [employer] EDVT Diana Berkowitz mr Dinorah Buitrago RN RN iw Billy Allen PA PA jr8
--- NOTE | 2020-09-15 11:23 | EDPHYS ---
Physician Documentation [facility] Name: Mallory Lai Age: 70 yrs Sex: Female : 1950 Arrival Date: 09/15/2020 Time: 09:09 Bed 9 Private MD: [facility] ED Physician Thang Viera HPI: 09/15 10:15 This 70 yrs old Female presents to ER via Unassigned with complaints of Fall jr8 Injury, Wrist Injury, Lip Injury. 10:15 Details of fall: The patient fell from an upright position, while standing. Onset: The jr8 symptoms/episode began/occurred acutely, today. Associated injuries: The patient sustained right arm and left arm. Severity of symptoms: At their worst the symptoms were mild, in the emergency department the symptoms are unchanged. The patient has not experienced similar symptoms in the past. The patient has not recently seen a physician. This is a 70-year-old female that was going to her doctor's office today when she sustained a mechanical fall causing her to fall on her wrists and abrasions her lip. Denies loss of consciousness.. Historical: - PMHx: 11:26 Dementia; Hypertension; Hypothyroidism; iw ROS: 10:15 Constitutional: Negative for fever, chills, and weight loss, Neck: Negative for injury, jr8 pain, and swelling, Cardiovascular: Negative for chest pain, palpitations, and edema, Respiratory: Negative for shortness of breath, cough, wheezing, and pleuritic chest pain, Abdomen/GI: Negative for abdominal pain, nausea, vomiting, diarrhea, and constipation, Back: Negative for injury and pain, Skin: Negative for rash, and discoloration. Positive for abrasion to lip Neuro: Negative for headache, weakness, numbness, tingling, and seizure. 10:15 MS/extremity: Positive for pain, swelling, tenderness, of the right arm and left arm. Exam: 10:15 Constitutional: This is a well developed, well nourished patient who is awake, alert, jr8 and in no acute distress. Head/Face: Normocephalic, atraumatic. Eyes: Pupils equal round and reactive to light, extra-ocular motions intact. Lids and lashes normal. Conjunctiva and sclera are non-icteric and not injected. Cornea within normal limits. Periorbital areas with no swelling, redness, or edema. Neck: Trachea midline, no thyromegaly or masses palpated, and no cervical lymphadenopathy. Supple, full range of motion without nuchal rigidity, or vertebral point tenderness. No Meningismus. Chest/axilla: Normal chest wall appearance and motion. Nontender with no deformity. No lesions are appreciated. Cardiovascular: Regular rate and rhythm with a normal S1 and S2. No gallops, murmurs, or rubs. Normal PMI, no JVD. No pulse deficits. Respiratory: Lungs have equal breath sounds bilaterally, clear to auscultation and percussion. No rales, rhonchi or wheezes noted. No increased work of breathing, no retractions or nasal flaring. Abdomen/GI: Soft, non-tender, with normal bowel sounds. No distension or tympany. No guarding or rebound. No evidence of tenderness throughout. Back: No spinal tenderness. No costovertebral tenderness. Full range of motion. Skin: Warm, dry with normal turgor. Normal color with no rashes, no lesions, and no evidence of cellulitis. Neuro: Awake and alert, GCS 15, oriented to person, place, time, and situation. Cranial nerves II-XII grossly intact. Motor strength 5/5 in all extremities. Sensory grossly intact. Cerebellar exam normal. Normal gait. 10:15 ENT: Exam is negative for injury of acute deformity, TM abnormalities, septal hematoma, sinus tenderness, pharyngitis, exudate, small superficial abrasion noted to the upper lip. 10:15 Musculoskeletal/extremity: Extremities: grossly normal except: noted in the right arm: pain, tenderness, Pain in swelling or other external signs of trauma, noted in the left arm: Patient has mild swelling to the dorsal left wrist with tenderness upon palpation. Mild tenderness to proximal forearm as well., ROM: intact in all extremities, full active range of motion, full passive range of motion, limited active range of motion due to pain, in the left arm, limited passive range of motion due to pain, in the left arm, Circulation is intact in all extremities. Pulses: noted to be 2+ in the right radial artery and left radial artery, Sensation intact. Procedures: 11:20 Splinting: Splint applied to right arm and left arm using Orthoglass splint, applied by jrMariaelena myself. Examined by me, post splint application: neurovascular intact, 2+ distal pulses palpable, brisk capillary refill noted, Patient tolerated well. MDM: 10:14 Patient medically screened. jr8 11:17 Data reviewed: vital signs, nurses notes, radiologic studies, plain films. Data jr8 interpreted: Pulse oximetry: on room air is 100 %. Interpretation: normal. Counseling: I had a detailed discussion with the patient and/or guardian regarding: the historical points, exam findings, and any diagnostic results supporting the discharge/admit diagnosis, radiology results, the need for outpatient follow up, a orthopedic surgeon, to return to the emergency department if symptoms worsen or persist or if there are any questions or concerns that arise at home. 09/15 10:15 Order name: XRAY Wrist RIGHT 3 view; Complete Time: 11:16 jr8 09/15 10:15 Order name: XRAY Forearm LEFT; Complete Time: 11:16 jr8 09/15 10:15 Order name: XRAY Hand LEFT 3 View; Complete Time: 11:16 jr8 09/15 10:44 Order name: Sugar Tong Forearm Splint: Right wrist; Complete Time: 11:26 jr8 09/15 10:44 Order name: Volar Wrist Splint: left wrist; Complete Time: 11:26 jr8 Administered Medications: 11:39 Drug: Tylenol 1000 mg Route: PO; iw Disposition: 13:40 Co-signature as Attending Physician, Thang Viera MD I agree with the assessment and rn plan of care. Attestation: The patient's history, exam findings, diagnostics, and a summary of any interventions or procedures was reviewed in detail with Billy GR. Disposition Summary: 09/15/20 11:22 Discharge Ordered Location: Home jr8 Problem: new jr8 Symptoms: have improved jr8 Condition: Stable jr8 Diagnosis - Distal Right radius fracture jr8 - Distal left radius fracture jr8 Followup: jr8 - With: Jessee Gibbons MD - When: 2 - 3 days - Reason: Recheck today's complaints, Continuance of care, Re-evaluation by your physician Discharge Instructions: - Discharge Summary Sheet jr8 - Radial Fracture jr8 Forms: - Medication Reconciliation Form jr8 - Thank You Letter jr8 - Antibiotic Education jr8 - Prescription Opioid Use jr8 Prescriptions: - Tramadol 50 mg Oral Tablet - take 1 tablet by ORAL route every 8 hours as needed; 12 tablet; Refills: 0, jr8 Product Selection Permitted Signatures: Dispatcher [employer] Dinorah Traore, Thang Lofton RN, MD MD rn Roszak, Josh, PA PA jr8
[2020-09-15] MEDS ORDERED: ACETAMINOPHEN 500 MG TAB ONE (11:56)
== END 2020-09-15 11:40 | disposition home or self-care (01) ==
LOC: ER 09:00
PROC: 2W3DX1Z Immobilization of Left Lower Arm using Splint (ICD-10-PCS; principal; 2020-09-15)
PROC: 2W3CX1Z Immobilization of Right Lower Arm using Splint (ICD-10-PCS; 2020-09-15)
DX: S52.502A Unspecified fracture of the lower end of left radius, initial encounter for closed fracture (principal); S52.501A Unspecified fracture of the lower end of right radius, initial encounter for closed fracture; W19.XXXA Unspecified fall, initial encounter; I10 Essential (primary) hypertension; F03.90 Unspecified dementia, unspecified severity, without behavioral disturbance, psychotic disturbance, mood disturbance, and anxiety
CPT/HCPCS: 99283

== ENCOUNTER 2020-09-17 21:17 | Emergency (ER) | payer OTHER, BC ==
--- OUTSIDE RECORDS SUMMARY | 2020-09-17 21:21 | XMS REPORT | Continuity of Care Document ---
:1950 Author Organization [facility] t Address [address] [place] [address] Care Team Providers Name Role Phone Unavailable [...] [facility] Centrum Centrum Yes Randy not [facility] Silver Silver [facility] defined [facility] 50+Women 50+Women [facility] Vitamin D-3 Vitamin D-3 Yes Randy [address] [facility] Glucosamine Glucosamine Yes Randy not [facility] [place]-C [place]-C [place] defined [facility]ics Aspir-81 Aspir-81 Yes Randy [address] [facility] Super Super Yes Randy not [facility] B-Complex B-Complex [facility] defined [facility] Simvastatin Simvastatin Yes Randy [address] [facility] in the [facility] Levothyroxi Levothyroxi Yes Randy 1 [...] Date/Time Type Type Clinicians Facility Department ID 2020-09-16 2020-09-16 Outpatient [facility] [id number] [facility] 2020-08-14 2020-08-14 Outpatient [facility] [id number] [facility] 2020-08-14 2020-08-14 Outpatient [facility] [id number] [facility] 2020-04-21 2020-04-21 Outpatient [facility] [id number] [facility] 2020-04-16 2020-04-16 Outpatient [facility] [id number] [facility] 2020-01-17 2020-01-17 Outpatient [facility] [id number] [facility] 2019-10-17 2019-10-17 [facility] [id number] [facility] 10[facility]50[facility]00 10:50:00 [employer] [facility] Out[facility] ent Clinics 2019-09-17 2019-09-17 [facility] [id number] 09:30:00 09:30:00 [place] [employer] - Drive [facility] Medicine l Medicine Outpati ent Clinics 2019-08-15 2019-08-15 [facility] [id number] 11:45:00 11:45:00 [place] [employer] - Drive [facility] Medicine l Medicine Outpati ent Clinics 2019-08-15 2019-08-15 [facility] [id number] 11:00:00 11:00:00 [place] [employer] - Drive [facility] Medicine l Medicine Outpati ent Clinics 2019-07-27 2019-07-27 [facility] [id number] 13:26:00 13:26:[address] [facility] [address] [employer] [facility] l Medicine Outpati ent Clinics 2019-07-20 2019-07-20 [facility] [id number] 15:29:00 15:29:00 t [place] [employer] - [employer] [facility] Medicine l Medicine Outpati ent Clinics 2019-07-17 2019-07-17 [facility] [id number] 16:27:00 16:27:00 t [place] [employer] - Drive [facility] Medicine l Medicine Outpati ent Clinics 2019-07-06 2019-07-06 [facility] [id number] 16:15:00 16:15:00 [place] [employer] - Drive [facility] Medicine l Medicine Outpati ent Clinics 2019-07-05 2019-07-05 [facility] [id number] 12:54:00 12:54:00 [place] [employer] - Drive [facility] Medicine l Medicine Outpati ent Clinics 2019-07-05 2019-07-05 [facility] [id number] 11:30:00 11:30:00 [place] [employer] - Drive [facility] Medicine l Medicine Outpati ent Clinics 2019-07-03 2019-07-03 [facility] [id number] 09:30:00 09:30:00 [place] [employer] - [facility] Out[facility] Clinics 2019-06-26 2019-06-26 [facility] [id number] 11:18:00 11:18:00 [place] [employer] [place] s - Drive [facility] Medicine l Medicine Outpati ent Clinics 2019-04-18 2019-04-18 [facility] [id number] 09:30:00 09:30:00 [place] [employer] s - Drive [facility] Medicine l Medicine Outpati ent Clinics 2019-01-12 2019-01-12 [facility] [id number] 10:22:00 10:22:00 [place] [employer] s - Drive [facility] Medicine l Medicine Outpati ent Clinics 2019-01-03 2019-01-03 [facility] [id number] 13:10:00 13:10:00 [place] [employer] - Drive [facility] Medicine l Medicine Outpati ent Clinics 2018-12-18 2018-12-18 [facility] [id number] 10:15:00 10:15:00 [place] [employer] - Drive [facility] Medicine l Medicine Outpati ent Clinics 2018-12-08 2018-12-08 [facility] [id number] 16:58:00 16:58:00 [place] [employer] - Drive [facility] Medicine l Medicine Outpati ent Clinics 2018-11-20 2018-11-20 [facility] [id number] 08:30:00 08:30:00 [place] [employer] s - Drive [facility] Medicine l Medicine Outpati ent Clinics 2018-10-05 2018-10-05 [facility] [id number] 12:08:00 12:08:00 [place] [employer] s - Drive [facility] Medicine l Medicine Outpati ent Clinics 2018-08-16 2018-08-16 [facility] [id number] 10:15:00 10:15:00 [place] [employer] - Drive [facility] Medicine l Medicine Outpati ent Clinics 2018-04-14 2018-04-14 [facility] [id number] 08:30:00 08:30:00 [place] [employer] - Drive [facility] 2017-09-16 2017-09-16 [facility] [id number] 09:45:00 09:45:00 [employer] [facility] 2017-06-16 2017-06-16 Outpatient Sarah Wong [id number] [facility] St 10:15:00 10:15:00 [employer] [facility] ent Clinics Results This patient has no known results.
--- NOTE | 2020-09-17 22:04 | EDPHYS ---
Physician Documentation [facility] Name: Mallory Lai Age: 70 yrs Sex: Female : 1950 Arrival Date: 09/17/2020 Time: 21:22 Bed Waiting Private MD: ED Physician Thang Viera HPI: 09/17 22:02 This 70 yrs old Female presents to ER via Unassigned with complaints of Needs jr8 cast put back on, -broken arms. 22:02 Patient with history of dementia. Recently fractured both wrists. Accidentally pulled jr8 her left cast off today and needed it placed back on. No other complaints at this time.. Onset: The symptoms/episode began/occurred acutely, today. The patient has been recently seen by a physician:. Historical: - Allergies: 22:14 No Known Allergies; kg - Home Meds: 22:14 None [Active]; kg - PMHx: 22:14 Dementia; Hypertension; Hypothyroidism; kg - Immunization history:: Adult Immunizations up to date, . - Social history:: Smoking status: Patient denies any tobacco usage or history of. ROS: 22:02 Eyes: Negative for injury, pain, redness, and discharge, ENT: Negative for injury, jr8 pain, and discharge, Neck: Negative for injury, pain, and swelling, Cardiovascular: Negative for chest pain, palpitations, and edema, Respiratory: Negative for shortness of breath, cough, wheezing, and pleuritic chest pain, Abdomen/GI: Negative for abdominal pain, nausea, vomiting, diarrhea, and constipation, Back: Negative for injury and pain, MS/Extremity: Negative for injury and deformity, Skin: Negative for injury, rash, and discoloration, Neuro: Negative for headache, weakness, numbness, tingling, and seizure. Exam: 22:02 Constitutional: This is a well developed, well nourished patient who is awake, alert, jr8 and in no acute distress. Cardiovascular: Regular rate and rhythm with a normal S1 and S2. No gallops, murmurs, or rubs. Normal PMI, no JVD. No pulse deficits. Respiratory: Lungs have equal breath sounds bilaterally, clear to auscultation and percussion. No rales, rhonchi or wheezes noted. No increased work of breathing, no retractions or nasal flaring. Skin: Warm, dry with normal turgor. Normal color with no rashes, no lesions, and no evidence of cellulitis. MS/ Extremity: Pulses equal, no cyanosis. Neurovascular intact. Full, normal range of motion. Neuro: Awake and alert, GCS 15, oriented to person, place, time, and situation. Cranial nerves II-XII grossly intact. Motor strength 5/5 in all extremities. Sensory grossly intact. Cerebellar exam normal. Normal gait. Vital Signs: 22:08 BP 150 / 61; Pulse 64; Resp 20; Temp 98.6; Pulse Ox 98% on R/A; Pain 0/10; kg MDM: 22:03 Data reviewed: vital signs, nurses notes. Data interpreted: Pulse oximetry: on room air jr8 is 100 %. Interpretation: normal. Counseling: I had a detailed discussion with the patient and/or guardian regarding: the historical points, exam findings, and any diagnostic results supporting the discharge/admit diagnosis, the need for outpatient follow up, a orthopedic surgeon, to return to the emergency department if symptoms worsen or persist or if there are any questions or concerns that arise at home. 22:04 Patient medically screened. jr8 Administered Medications: No medications were administered Disposition: 09/18 00:36 Co-signature as Attending Physician, Thang Viera MD. rn 00:36 I agree with the assessment and plan of care. rn Disposition Summary: 09/17/20 22:04 Discharge Ordered Location: Home jr8 Problem: new jr8 Symptoms: have improved jr8 Condition: Stable jr8 Diagnosis - Encounter for complication with splint jr8 Followup: jr8 - With: Private Physician - When: Tomorrow - Reason: Recheck today's complaints, Continuance of care, Re-evaluation by your physician Forms: - Medication Reconciliation Form jr8 - Thank You Letter jr8 - Antibiotic Education jr8 - Prescription Opioid Use jr8 Signatures: Thang Viera MD MD rn Roszak, Josh, PA PA jr8 Colleen Simmons RN RN kg
--- NOTE | 2020-09-18 00:21 | ER ---
Nurse's Notes [facility] Name: Mallory Lai Age: 70 yrs Sex: Female : 1950 Arrival Date: 09/17/2020 Time: 21:22 Bed Waiting Private MD: Diagnosis: Encounter for complication with splint Presentation: 09/17 22:08 Chief complaint: Spouse and/or significant other states: Pt has dementia and accidently kg took her splint off. Pt is scheduled to see Dr. Gibbons tomorrow morning 09/18. Coronavirus screen: Client denies travel out of the [place] in the last 14 days. At this time, unable to obtain information related to travel outside the [place] At this time, the client does not indicate any symptoms associated with coronavirus-19. Ebola Screen: Patient negative for fever greater than or equal to 101.5 degrees Fahrenheit, and additional compatible Ebola Virus Disease symptoms Patient denies exposure to infectious person. Patient denies travel to an Ebola-affected area in the 21 days before illness onset. Initial Sepsis Screen: Does the patient meet any 2 criteria? No. Patient's initial sepsis screen is negative. Does the patient have a suspected source of infection? No. Patient's initial sepsis screen is negative. Risk Assessment: Do you want to hurt yourself or someone else? Patient reports no desire to harm self or others. Onset of symptoms was September 17, 2020. 22:08 Method Of Arrival: Ambulatory kg 22:08 Acuity: JAD 5 kg Triage Assessment: 22:14 General: Appears in no apparent distress. Behavior is calm, cooperative. Pain: Denies kg pain. Neuro: Level of Consciousness is awake, alert, obeys commands, confused, Oriented to person. Cardiovascular: Historical: - Allergies: 22:14 No Known Allergies; kg - Home Meds: 22:14 None [Active]; kg - PMHx: 22:14 Dementia; Hypertension; Hypothyroidism; kg - Immunization history:: Adult Immunizations up to date, . - Social history:: Smoking status: Patient denies any tobacco usage or history of. Screenin/12 00:12 Abuse screen: Denies threats or abuse. Denies injuries from another. Nutritional kg screening: No deficits noted. Tuberculosis screening: No symptoms or risk factors identified. Fall Risk Fall in past 12 months (25 points). No secondary diagnosis (0 pts). No IV (0 pts). Ambulatory Aid- None/Bed Rest/Nurse Assist (0 pts). Gait- Weak (10 pts.). Mental Status- Overestimates/Forgets Limitations (15 pts.). Total Parish Fall Scale indicates Low Risk Score (25-44 pts). Vital Signs: 09/17 22:08 BP 150 / 61; Pulse 64; Resp 20; Temp 98.6; Pulse Ox 98% on R/A; Pain 0/10; kg ED Course: 21:22 Patient arrived in ED. bp1 22:02 Billy Allen PA is PHCP. jr8 22:02 Thang Viera MD is Attending Physician. jr8 22:14 Triage completed. kg 22:14 Arm band placed on. kg 08 00:18 No provider procedures requiring assistance completed. Patient did not have IV access kg during this emergency room visit. 00:19 Colleen Simmons, RN is Primary Nurse. kg 00:19 Patient has correct armband on for positive identification. kg Administered Medications: No medications were administered Outcome: 09/17 22:04 Discharge ordered by . jr8 09/18 00:18 Discharged to home ambulatory, with family. kg Condition: good Discharge instructions given to patient, family, Instructed on discharge instructions, follow up and referral plans. Demonstrated understanding of instructions, follow-up care. 00:19 Patient left the ED. kg Signatures: Billy Allen PA PA jr8 Skyla Corrales bp1 Colleen Simmons, RN RN kg
[2020-09-18 01:03] VITALS: BP 150/61; TEMP 98.6; O2SAT 98
== END 2020-09-18 00:19 | disposition home or self-care (01) ==
LOC: ER 21:17
DX: S62.102G Fracture of unspecified carpal bone, left wrist, subsequent encounter for fracture with delayed healing (principal); F03.90 Unspecified dementia, unspecified severity, without behavioral disturbance, psychotic disturbance, mood disturbance, and anxiety; I10 Essential (primary) hypertension
CPT/HCPCS: 99281

== ENCOUNTER 2021-05-19 16:03 | Inpatient (IN) | payer OTHER, BC ==
--- OUTSIDE RECORDS SUMMARY | 2021-05-19 16:06 | XMS REPORT | Continuity of Care Document ---
:1950 Author Organization [facility] t Address [address] [place] [address] Care Team Providers Name Role Phone Indra Mascorro Attending Clinician Unavailable CHELY Attending Clinician Unavailable Payers Payer Name Policy Type Policy Number Effective Date Expiration Date S mari MEDICARE PART A \T\ [id number] - MEDICARE MEDICARE SUPPLEMENT [id number] - BCBS ZZZPPO [id number] 2015 00:00:00 Problems This patient has no known problems. Allergies, Adverse Reactions, Alerts Allergy Allergy Status Severity Reaction(s) Onset Inactive Treating Comm ents Source Name Type Date Date Clinician Opioid Propensi Active Rash [facility] Analgesi ty to [address] cs adverse 00:00: of reaction 00 Medicin s to e drug Family History Family Member Diagnosis Comments Start Date Stop Date Source Natural father Heart Attack [facility] C ollege [facility] Natural mother [facility] lege [facility] Natural sister [facility] Social [facility] Social Habit Start Date Stop Date Quantity Comments Source Sex Assigned At F [facility] llege of Medicine Tobacco use and 2019-08-31 2019-08-31 Never used [facility] llege exposure 00:00:00 00:00:00 of Medicine Alcohol intake 2019-08-31 2019-08-31 Ex-drinker [facility] 00:00:00 00:00:00 (finding) of Medicine Smoking Status Start Date Stop Date Source Never smoker [facility] o f Medicine Medications Ordered Filled Start Stop Current Ordering Indication Dosage Frequency Signature Comments Components Source Medication Medication Date Date Medication? Clinician (SIG) Name Name donepezil Yes 10mg Take 1 Tab Ba ylor (ARICEPT) 7-24 by mouth Colleg e 10 MG 00:00: nightly. of tablet 00 Medicin e amlodipine- Yes TAKE 1 [facility] or benazepril 5-12 CAPSULE BY Col lege (LOTREL) 00:00: MOUTH of 5-20 MG per 00 EVERY DAY Med icin capsule e simvastatin Yes TAKE 1 [facility]l or (ZOCOR) 20 5-04 TABLET BY Jahaira ege MG tablet 00:00: MOUTH of 00 EVERY DAY Medicin IN THE e EVENING levothyroxi Yes TAKE 1 [facility]l or ne 4-16 TABLET BY Jaleesa (SYNTHROID) 00:00: MOUTH of 25 MCG 00 EVERY DAY Medicin tablet IN THE e MORNING ON EMPTY STOMACH Lotrel Lotrel Yes Randy [address] [facility] Centrum Centrum Yes Randy not [facility] Silver Silver Mascorro defined [facility] 50+Women 50+Women [facility] Vitamin D-3 Vitamin D-3 Yes Randy [address] [facility] Glucosamine Glucosamine Yes Randy not [facility] Chondroit-C Chondroit-C Mascorro defined [facility] Aspir-81 Aspir-81 Yes Randy [address] [facility] Super Super Yes Randy not [facility] B-Complex B-Complex Mascorro defined [facility] Simvastatin Simvastatin Yes Randy [address] [facility] Mascorro in the [facility] evening [facility] Levothyroxi Levothyroxi Yes Randy [address] [facility] ne Sodium ne Sodium Mascorro on an Cristal es - empty Memoria stomach in l the Outpati morning ent Clinics Ginkgo Ginkgo Yes Randy not [facility] Biloba Biloba Mascorro defined [facility] Donepezil Donepezil Yes Randy TAKE [address] HCl HCl Mascorro TABLET BY [facility] MOUTH [facility] EVERY DAY l AT NIGHT [facility] Co Q-10 Co Q-10 Yes Randy [address] [facility] with a [facility] Amlodipine Amlodipine Yes Randy [address] [facility] Besy-Benaze Besy-Benaze Mascorro [facility] pril HCl pril HCl [facility] Folic Acid Folic Acid Yes Randy [address] [facility] Vital Signs Vital Name Observation Time Observation Value Comments Source Systolic blood 2019-08-31 14:15:00 134 mm[Hg] [facility] Medicine Diastolic blood 2019-08-31 14:15:00 79 mm[Hg] [facility] pressure Medicine Heart rate 2019-08-31 14:15:00 65 /min [facility] Body height 2019-08-31 14:15:00 167.6 cm [facility] Body weight 2019-08-31 14:15:00 73.029 kg [facility] BMI 2019-08-31 14:15:00 25.99 kg/m2 [facility] Procedures This patient has no known procedures. Plan of Care Planned Activity Planned Date Details Comments Source Future Scheduled Test COLON CANCER SCREENING: [facility] COLONOSCOPY [code = Medicine COLON CANCER SCREENING: COLONOSCOPY] Future Scheduled Test MAMMOGRAM ANNUAL [code [facility] = MAMMOGRAM ANNUAL] Medicine Future Scheduled Test TETANUS SHOT (ADULT) [facility] [code = TETANUS SHOT Medicin e (ADULT)] Future Scheduled Test BMI FOLLOW UP PLAN [facility] [code = BMI FOLLOW UP Medici ne PLAN] Future Scheduled Test HEPATITIS C SCREENING [facility] [code = HEPATITIS C Medicine SCREENING] Future Scheduled Test ZOSTER VACCINE (1 of 2) [facility] [code = ZOSTER VACCINE Medic ine (1 of 2)] Future Scheduled Test MEDICARE AWV (Initial) [facility] [code = MEDICARE AWV Medicin e (Initial)] Future Scheduled Test FALL SCREEN [code = [facility] FALL SCREEN] Medicine Future Scheduled Test OSTEOPOROSIS SCREENING [facility] [code = OSTEOPOROSIS Medicin e SCREENING] Future Scheduled Test PNEUMOVAX >=65 (PPSV23) [facility] [code = PNEUMOVAX >=65 Medic ine (PPSV23)] Future Scheduled Test FLU VACCINE > 6 MONTHS [facility] [code = FLU VACCINE > 6 Medi cine MONTHS] Encounters Start End Encounter Admission Attending Care Care Encounter Source Date/Time Date/Time Type Type Clinicians Facility Department ID 2021-03-04 Outpatient Mascorro, [facility] 2021-03-04 Outpatient Mascorro, [facility] 14:22:10 Randy [id number] [facility] 2021-03-04 Outpatient Mascorro, [facility] 14:19:16 Randy [id number] [facility] 2021-03-04 Outpatient Mascorro, [facility] 13:21:13 Randy [id number] [facility] 2021-03-04 Outpatient Mascorro, [facility] 12[facility]40:51 Randy [id number] [facility] 2021-03-04 Outpatient Mascorro, [facility] 12:40:22 Randy [id number] [facility] 2021-03-04 Outpatient Mascorro, [facility] 12:39:19 Randy [id number] [facility] 2021-03-04 Outpatient Mascorro, [facility] 12:38:26 Randy [id number] [facility] 2021-03-04 Outpatient Mascorro, [place] [id number] [facility] 12:37:28 Randy [id number] [facility] 2021-03-04 Outpatient Mascorro, [place] [id number] [facility] 12:36:06 Randy [id number] [facility] 2021-03-04 Outpatient Mascorro, [facility] 12:17:31 Randy [id number] [facility] 2021-03-04 Outpatient Mascorro, [facility] 12:11:34 Randy [id number] [facility] 2021-03-04 Outpatient Mascorro, [facility] 11:36:13 Randy [id number] [facility] 2021-03-04 Outpatient Mascorro, [facility] 11:26:04 Randy [id number] [facility] 2021-03-04 Outpatient Mascorro, [facility] 11:23:42 Randy [id number] [facility] 2021-03-04 Out[facility] Mascorro, [facility] 11:22:28 Randy [id number] [facility] 2021-03-04 Out[facility] M[facility]orro, [facility] 11:13[facility]10 Randy [id number] [facility] 2021-03-04 Out[facility] Mascorro, [facility] 11:11:46 Randy [id number] [facility] 2021-02-24 2021-02-24 ambulatory [facility] [id number] [facility] 2021-01-14 2021-01-14 ambulatory [facility] [id number] [facility] 2021-01-09 2021-01-09 ambulatory [facility] [id number] [facility] 2021-01-09 2021-01-09 ambulatory [facility] [id number] [facility] 2020-12-29 2020-12-[address] [facility] [id number] [facility] 13:00:27 13:00:27 [facility] 2020-12-26 2020-12-26 ambulatory [facility] [id number] [facility] 2020-12-02 2020-12-02 Outpatient [facility] [id number] [facility] 2020-09-16 2020-09-16 Outpatient [facility] [id number] [facility] 2020-08-14 2020-08-14 Outpatient [facility] [id number] [facility] 2020-08-14 2020-08-14 Outpatient [facility] [id number] [facility] 2020-04-21 2020-04-21 Outpatient [facility] [id number] [facility] 2020-04-16 2020-04-16 Outpatient [facility] [id number] [facility] 2020-01-17 2020-01-17 Outpatient [facility] [id number] [facility] 2019-10-17 2019-10-17 [facility] [id number] 10:50:00 10:50:00 [place] [employer] [facility] l Medicine Outpati ent Clinics 2019-09-17 2019-09-17 [facility] [id number] 09:30:00 09:30:00 [place] [employer] [facility] Medicine Outpati ent Clinics 2019-08-15 2019-08-15 [facility] [id number] 11:45:00 11:45:00 [place] [employer] - [address] [facility] Medicine l Medicine Outpati ent Clinics 2019-08-15 2019-08-15 [facility] [id number] 11:00:00 11:00:00 [place] [employer] [facility] [address] [facility] Medicine l Medicine Outpati ent Clinics 2019-07-27 2019-07-27 [facility] [id number] 13:26:00 13:26:[address] [facility] [address] Lu s - Road [facility] Medicine l Medicine Outpati ent Clinics 2019-07-20 2019-07-20 [facility] [id number] 15:29:00 15:29:00 t [place] [employer] - [employer] [facility] Medicine l Medicine Outpati ent Clinics 2019-07-17 2019-07-17 [facility] [id number] 16:27:00 16:27:00 t [email or web address] s - Drive [facility] Medicine l Medicine Outpati ent Clinics 2019-07-06 2019-07-06 [facility] [id number] 16:15:00 16:15:00 [place] [employer] [facility] [address] [facility] Medicine l Medicine Outpati ent Clinics 2019-07-05 2019-07-05 [facility] [id number] 12:54:00 12:54:00 [place] [employer] [facility] [address] [facility] Medicine l Medicine Outpati ent Clinics 2019-07-05 2019-07-05 [facility] [id number] [facility] 11:30:00 11:30:00 [place] [employer] [facility] [address] [facility] Medicine l Medicine Outpati ent Clinics 2019-07-03 2019-07-03 [facility] [id number] [facility] 09:30:00 09:30:00 [place] [employer] [facility] [address] [facility] Medicine l Medicine Outpati ent Clinics 2019-06-26 2019-06-26 [facility] [id number] 11:18:00 11:18:00 t [place] [employer] [facility] [address] [facility] Medicine l Medicine Outpati ent Clinics 2019-04-18 2019-04-18 [facility] [id number] [facility] 09:30:00 09:30:[address] Luke s - Drive [facility] Medicine l Medicine Outpati ent Clinics 2019-01-12 2019-01-12 [facility] [id number] [facility] 10:22:00 10:22:[address] Luke s - Drive [facility] Medicine l Medicine Outpati ent Clinics 2019-01-03 2019-01-03 [facility] [id number] 13:10:00 13:10:[address] Luke s - Drive [facility] Medicine l Medicine Outpati ent Clinics 2018-12-18 2018-12-18 [facility] [id number] 10:15:00 10:15:00 t [place] [employer] Luke s - Drive [facility] l Medicine Outpati ent Clinics 2018-12-08 2018-12-08 [facility] [id number] 16:58:00 16:58:00 t [place] [employer] s - Drive [facility] Medicine Medicine Outpati ent Clinics 2018-11-20 2018-11-20 [facility] [id number] 08:30:00 08:30:00 t [place] [employer] Luke s - Drive [facility] Medicine l Medicine Outpati ent Clinics 2018-10-05 2018-10-05 [facility] [id number] 12:08:00 12:08:00 t [place] [employer] s - Drive [facility] Medicine l Medicine Outpati ent Clinics 2018-08-16 2018-08-16 [facility] [id number] [facility] 10:15:00 10:15:00 t [place] [employer] Luke s - Drive [facility] Medicine l Medicine Outpati ent Clinics 2018-04-14 2018-04-14 [facility] [id number] 08:30:00 08:30:00 t [place] [employer] s - Drive [facility] l Medicine Outpati ent Clinics 2017-09-16 2017-09-16 [facility] [id number] 09:45:00 09:45:00 t [place] [employer] Luke s - Drive [facility] Medicine Medicine Outpati ent Clinics 2017-06-16 2017-06-16 [facility] [id number] [facility] 10:15:00 10:15:00 t Na[employer] [facility] Medicine Outpati ent Clinics Results This patient has no known results.
[2021-05-19 16:50] LABS: Absolute Lymphocytes (CBC) 1.8 K/uL (0.7-4.9); Hematocrit 46.5 % (36.0-45.0); MPV 8.5 fL (7.6-11.3); RBC Red Blood Cell Count 5.12 M/uL (3.86-4.86)
[2021-05-19] MEDS ORDERED: NA CHLORIDE 0.9% 500 ML ONE (16:56)
[2021-05-19] MEDS ORDERED: NA CHLORIDE 0.9% 1,000 ML ONE (16:56)
[2021-05-19 17:11] LABS: Albumin 3.8 g/dL (3.4-5.0); Bilirubin Direct 0.1 mg/dL (0-0.2); Bilirubin Total 0.7 mg/dL (0.2-1.0); Magnesium 2.1 mg/dL (1.8-2.4); Potassium 3.8 mmol/L (3.5-5.1); Protein, Total 7.3 g/dL (6.4-8.2); Troponin High Sensitivity 10.6 pg/mL (<58.9)
--- NOTE | 2021-05-19 17:20 | RAD REPORT ---
EXAM DESCRIPTION: CT - Head Brain Wo Cont - 05/19/2021 5:04 pm CLINICAL HISTORY: AMS COMPARISON: No comparisons TECHNIQUE: Axial 5 mm thick images of the head were obtained without IV contrast. All CT scans are performed using dose optimization technique as appropriate and may include automated exposure control or mA/KV adjustment according to patient size. FINDINGS: No intracranial hemorrhage, mass, edema or shift of mid-line structures. No acute infarcti on of the cortical level. No cortical edema or sulcal effacement. Moderate severity atrophy changes a re present. Chronic ischemic change of the cerebral white matter is [id number]. No abnormal ext ra-axial fluid collections. Ventricles are in proportion to the volume loss. Arterial and physiologic calcifications are present. Left side mastoid air cells are fully opacified. Middle ear is clear. Right-side mastoid air cells ar e clear with no acute paranasal sinus finding. No globe or orbital content acute finding. No acute bony findings. IMPRESSION: No acute intracranial finding identifiable. Patient has moderate severity atrophy along with chronic ischemic change. Ventricles are in proportion to volume loss. Complete opacification of the left side mastoid air cells. No bone destruction. This could be acute o r chronic.
[2021-05-19 17:26] LABS: Protime INR 0.91
--- NOTE | 2021-05-19 17:35 | RAD REPORT ---
EXAM DESCRIPTION: RAD - Chest Single View - 05/19/2021 5:22 pm CLINICAL HISTORY: COUGH, altered mental status COMPARISON: Two view chest 09/28/2019 TECHNIQUE: AP portable chest image was obtained 05/19/2021 5:22 pm . FINDINGS: Lung volumes are low compared to prior imaging. No acute lung parenchymal process. No mauricio r change to the interstitial pattern. Hilar regions within normal limits for shallow inspiration port able imaging. Heart and vasculature are normal. No measurable pleural effusion and no pneumothorax. No acute bony abnormality seen. No acute aortic findings suspected. IMPRESSION: No acute cardiopulmonary process.
--- NOTE | 2021-05-19 18:41 | ER ---
Nurse's Notes [facility] Name: Mallory Lai Age: 70 yrs Sex: Female : 1950 Arrival Date: 05/19/2021 Time: 16:09 Bed 18 Private MD: Diagnosis: Altered mental status, unspecified;Dementia in other diseases classified elsewhere with behavioral disturbance;UTI/ Urinary tract infection, site not specified Presentation: 05/19 16:12 Chief complaint: EMS states: Progressive mental decline over the past 4 days, then ss suddenly became violent while in the car with her . HX of dementia. Coronavirus screen: Client denies travel out of the [place] in the last 14 days. Ebola Screen: Patient denies exposure to infectious person. Patient denies travel to an Ebola-affected area in the 21 days before illness onset. Initial Sepsis Screen: Does the patient meet any 2 criteria? No. Patient's initial sepsis screen is negative. Does the patient have a suspected source of infection? No. Patient's initial sepsis screen is negative. Risk Assessment: Do you want to hurt yourself or someone else? Patient reports no desire to harm self or others. Onset of symptoms was May 15, 2021. 16:12 Method Of Arrival: EMS: [facility] 16:12 Acuity: JAD 3 ss Historical: - Allergies: 16:16 No Known Allergies; ss - PMHx: 16:16 Dementia; Hypertension; Hypothyroidism; ss - Immunization history:: Adult Immunizations up to date. - Social history:: Smoking status: unknown. Screenin:26 Abuse screen: Denies threats or abuse. Denies injuries from another. Nutritional ab2 screening: No deficits noted. Tuberculosis screening: No symptoms or risk factors identified. Fall Risk None identified. Assessment: 17:25 General: Appears in no apparent distress. comfortable, Behavior is calm, cooperative, ab2 appropriate for age. Pain: Denies pain. Neuro: Level of Consciousness is awake, alert, obeys commands, Oriented to person, place, Cruise Counselor are equal bilaterally Moves all extremities. Speech Patients speech is clear but does not make sense. . Cardiovascular: No deficits noted. Denies chest pain, shortness of breath, Heart tones S1 S2 present Patient's skin is warm and dry. Rhythm is sinus rhythm. Respiratory: No deficits noted. Airway is patent Respiratory effort is even, unlabored, Respiratory pattern is regular, symmetrical, Breath sounds are clear bilaterally. GI: No deficits noted. No signs and/or symptoms were reported involving the gastrointestinal system. Abdomen is round non-distended, Bowel sounds present X 4 quads. : No deficits noted. No signs and/or symptoms were reported regarding the genitourinary system. Derm: No deficits noted. Skin is fragile. 18:27 Reassessment: Patient appears in no apparent distress at this time. Pt resting in bed. ab2 Fluids infusing. Pt denies any needs at this time. at bedside. 21:09 Reassessment: The pt was recv'd to room 18 with her at bedside. He left, richa shortly after she came to the room \\T\\ 2100. She was placed on the bedside monitor. I agree with previous assessment. 22:11 Reassessment: The pt is AAOx 1. She seems to get agitated when the bp cuff tightens, so richa it was put on different increments. She is able to assist us in moving her up in the bed. Vital Signs: 17:27 BP 141 / 80; Pulse 57; Resp 17; Temp 98.4; Pulse Ox 100% ; ab2 17:27 Weight 74.84 kg; ab2 18:27 BP 159 / 91; Pulse 60; Resp 17; Pulse Ox 98% on R/A; Pain 0/10; ab2 21:43 BP 143 / 80; Pulse 53; Resp 15; Pulse Ox 99% on R/A; wm 21:46 BP 143 / 80; Pulse 53; Resp 16; Pulse Ox 100% on R/A; Pain 0/10; richa 22:07 BP 157 / 66; Pulse 56; Resp 15; Pulse Ox 98% on R/A; Pain 0/10; wm ED Course: 16:09 Patient arrived in ED. ss 16:14 Siddharth Andrea MD is Attending Physician. stephanie 16:16 Triage completed. ss 16:16 Arm band placed on right wrist. ss 16:31 Eric Ferguson is Primary Nurse. ab2 16:42 SARS-COV-2 RT PCR (Document "Date of Onset" if Symptomatic) Sent. ab2 16:50 Inserted saline lock: 20 gauge in right antecubital area, using aseptic technique. ab2 16:55 Basic Metabolic Panel Sent. ab2 16:55 CBC with Diff Sent. ab2 16:55 LFT's Sent. ab2 16:55 Magnesium Sent. ab2 16:55 NT PRO-BNP Sent. ab2 16:55 PT-INR Sent. ab2 16:55 Troponin HS Sent. ab2 17:06 CT Head Brain wo Cont In Process Unspecified. EDMS 17:24 XRAY Chest (1 view) In Process Unspecified. EDMS 17:27 Patient has correct armband on for positive identification. Call light in reach. Side ab2 rails up X2. 17:27 No provider procedures requiring assistance completed. ab2 18:28 monitoring engineer on. Pulse ox on. NIBP on. ab2 18:39 Robe Viera MD is Hospitalizing Provider. stephanie 18:44 Murphy Craig MD is Hospitalizing Provider. la1 18:53 Urine Culture Sent. ab2 22:10 Pillow given. Head of bed lowered. wm 22:52 Lights dimmed. Assisted to bathroom. 23:46 Primary Nurse role handed off by Eric Ferguson [facility] 23:46 Navya Herrera, RN is Primary Nurse. [facility] 05/20 07:25 Primary Nurse role handed off by Navya Herrera, ARNIE Administered Medications: 05/19 16:55 Drug: NS 0.9% 1000 ml Route: IV; Rate: 125 ml/hr; Site: right antecubital; ab2 16:55 Drug: NS 0.9% 500 ml Route: IV; Rate: bolus; Site: right antecubital; ab2 18:53 Follow up: Response: No adverse reaction; IV Status: Completed infusion ab2 19:03 Drug: Rocephin (cefTRIAXone) 1 grams Route: IV; Rate: per protocol; Site: right ab2 antecubital; Outcome: 18:40 Decision to Hospitalize by Provider. stephanie 22:13 Condition: stable richa 05/20 14:32 Patient left the ED. ap3 Signatures: Dispatcher [employer] EDMS Deysi Palma Corey, MD MD cha Smirch, Shelby, RN RN ss Wayne Lemus, BIOMEDICAL ELECTRONICS TECHNICIAN-C BIOMEDICAL ELECTRONICS TECHNICIAN-Cla1 Carmen Simpson RN RN ap3 Tayler Dalton Tiffany [facility] Navya Herrera, RN RN richa Ferguson, Eric ab2 Corrections: (The following items were deleted from the chart) 05/19 16:16 16:16 Allergies: Aspirin; ss ss
--- NOTE | 2021-05-19 18:41 | EDPHYS ---
Physician Documentation [facility] Name: Mallory Lai Age: 70 yrs Sex: Female : 1950 Arrival Date: 05/19/2021 Time: 16:09 Bed 18 Private MD: ED Physician Siddharth Andrea HPI: 05/19 18:25 This 70 yrs old Female presents to ER via EMS with complaints of Altered stephanie Mental Status. 18:25 The patient presents with confusion, decreased mental status. Onset: The stephanie symptoms/episode began/occurred 4 day(s) ago. Possible causes: unknown. Associated signs and symptoms: The patient has no apparent associated signs or symptoms. Current symptoms: In the emergency department the patient's symptoms have improved, mildly. Patient's baseline: Neuro: alert but confused. The patient has experienced similar episodes in the past, several times. Historical: - Allergies: 16:16 No Known Allergies; ss - PMHx: 16:16 Dementia; Hypertension; Hypothyroidism; ss - Immunization history:: Adult Immunizations up to date. - Social history:: Smoking status: unknown. ROS: 18:37 Constitutional: Negative for fever, chills, and weight loss, Eyes: Negative for injury, stephanie pain, redness, and discharge, ENT: Negative for injury, pain, and discharge, Neck: Negative for injury, pain, and swelling, Cardiovascular: Negative for chest pain, palpitations, and edema, Respiratory: Negative for shortness of breath, cough, wheezing, and pleuritic chest pain, Abdomen/GI: Negative for abdominal pain, nausea, vomiting, diarrhea, and constipation, Back: Negative for injury and pain, : Negative for injury, bleeding, discharge, and swelling, MS/Extremity: Negative for injury and deformity, Skin: Negative for injury, rash, and discoloration, Psych: Negative for depression, anxiety, suicide ideation, homicidal ideation, and hallucinations, Allergy/Immunology: Negative for hives, rash, and allergies, Endocrine: Negative for neck swelling, polydipsia, polyuria, polyphagia, and marked weight changes, Hematologic/Lymphatic: Negative for swollen nodes, abnormal bleeding, and unusual bruising. 18:37 Neuro: Positive for altered mental status. Exam: 18:37 Constitutional: This is a well developed, well nourished patient who is awake, alert, stephanie and in no acute distress. Head/Face: Normocephalic, atraumatic. Eyes: Pupils equal round and reactive to light, extra-ocular motions intact. Lids and lashes normal. Conjunctiva and sclera are non-icteric and not injected. Cornea within normal limits. Periorbital areas with no swelling, redness, or edema. ENT: Nares patent. No nasal discharge, no septal abnormalities noted. Tympanic membranes are normal and external auditory canals are clear. Oropharynx with no redness, swelling, or masses, exudates, or evidence of obstruction, uvula midline. Mucous membranes moist. Neck: Trachea midline, no thyromegaly or masses palpated, and no cervical lymphadenopathy. Supple, full range of motion without nuchal rigidity, or vertebral point tenderness. No Meningismus. Chest/axilla: Normal chest wall appearance and motion. Nontender with no deformity. No lesions are appreciated. Cardiovascular: Regular rate and rhythm with a normal S1 and S2. No gallops, murmurs, or rubs. Normal PMI, no JVD. No pulse deficits. Respiratory: Lungs have equal breath sounds bilaterally, clear to auscultation and percussion. No rales, rhonchi or wheezes noted. No increased work of breathing, no retractions or nasal flaring. Abdomen/GI: Soft, non-tender, with normal bowel sounds. No distension or tympany. No guarding or rebound. No evidence of tenderness throughout. Back: No spinal tenderness. No costovertebral tenderness. Full range of motion. Female : Normal external genitalia. Skin: Warm, dry with normal turgor. Normal color with no rashes, no lesions, and no evidence of cellulitis. MS/ Extremity: Pulses equal, no cyanosis. Neurovascular intact. Full, normal range of motion. 18:37 Neuro: Orientation: to person, Not oriented to place, time, situation, Mentation: no acute changes, Memory: unable to test, Cranial nerves: grossly normal, is grossly normal based on the patient's age, no acute changes, Cerebellar function: no acute changes, Motor: moves all fours, Sensation: appropriate no acute changes, Gait: not tested. seizure activity, is not displayed by the patient. 18:50 ECG was reviewed by the Attending Physician. [facility] Vital Signs: 17:27 BP 141 / 80; Pulse 57; Resp 17; Temp 98.4; Pulse Ox 100% ; ab2 17:27 Weight 74.84 kg; ab2 18:27 BP 159 / 91; Pulse 60; Resp 17; Pulse Ox 98% on R/A; Pain 0/10; ab2 21:43 BP 143 / 80; Pulse 53; Resp 15; Pulse Ox 99% on R/A; wm 21:46 BP 143 / 80; Pulse 53; Resp 16; Pulse Ox 100% on R/A; Pain 0/10; richa 22:07 BP 157 / 66; Pulse 56; Resp 15; Pulse Ox 98% on R/A; Pain 0/10; wm MDM: 16:14 Patient medically screened. stephanie 18:42 Differential Diagnosis: CVA, electrolyte abnormality, intracranial bleed, TIA, UTI, stephanie volume depletion. Data reviewed: vital signs, nurses notes, lab test result(s), EKG, radiologic studies, CT scan, plain films. Data interpreted: goggles assembler: rate is 60 beats/min, rhythm is Pulse oximetry: on room air is 98 %. Test interpretation: by ED physician or midlevel provider: ECG, plain radiologic studies. Counseling: I had a detailed discussion with the patient and/or guardian regarding: the historical points, exam findings, and any diagnostic results supporting the discharge/admit diagnosis, lab results, radiology results, the need for further work-up and treatment in the hospital. 05/19 16:18 Order name: Basic Metabolic Panel; Complete Time: 17:46 [facility] 05/19 16:18 Order name: CBC with Diff; Complete Time: 17:46 [facility] 05/19 16:18 Order name: LFT's; Complete Time: 18:06 [facility] 05/19 16:18 Order name: Magnesium; Complete Time: 18:06 [facility] 05/19 16:18 Order name: NT PRO-BNP; Complete Time: 18:06 [facility] 05/19 16:18 Order name: PT-INR; Complete Time: 18:06 [facility] 05/19 16:18 Order name: Troponin HS; Complete Time: 18:06 [facility] 05/19 16:18 Order name: Lipase; Complete Time: 18:06 [facility] 05/19 16:18 Order name: SARS-COV-2 RT PCR (Document "Date of Onset" if Symptomatic); Complete Time: [facility] 19:01 05/19 16:18 Order name: Urine Culture [facility] 05/19 18:52 Order name: Urine Dipstick-Ancillary; Complete Time: 18:52 [facility] 05/19 19:01 Order name: Urine Microscopic Only la1 05/20 05:26 Order name: CBC with Automated Diff [facility] 05/20 05:44 Order name: Comprehensive Metabolic Panel [facility] 05/19 16:18 Order name: XRAY Chest (1 view); Complete Time: 18:06 [facility] 05/19 16:18 Order name: EKG; Complete Time: 16:19 [facility] 05/19 16:18 Order name: Cardiac monitoring; Complete Time: 16:55 [facility] 05/19 16:18 Order name: EKG - Nurse/Tech; Complete Time: 16:55 [facility] 05/19 16:18 Order name: IV Saline Lock; Complete Time: 16:55 [facility] 05/19 16:18 Order name: Labs collected and sent; Complete Time: 16:55 [facility] 05/19 16:18 Order name: O2 Per Protocol; Complete Time: 16:55 [facility] 05/19 16:18 Order name: O2 Sat Monitoring; Complete Time: 16:55 [facility] 05/19 16:18 Order name: CT Head Brain wo Cont; Complete Time: 18:06 [facility] 05/19 16:18 Order name: Urine Dipstick-Ancillary (obtain specimen); Complete Time: 18:53 [facility] 05/20 05:44 Order name: T4 Free [facility] 05/20 05:44 Order name: Thyroid Stimulating Hormone EDND EC:50 Rate is 58 beats/min. Rhythm is regular. QRS [place] is Normal. UT interval is normal. QRS stephanie interval is normal. QT interval is normal. No Q waves. T waves are Normal. No ST changes noted. Clinical impression: Sinus bradycardia and No evidence of ischemia. Interpreted by me. Reviewed by me. Administered Medications: 16:55 Drug: NS 0.9% 1000 ml Route: IV; Rate: 125 ml/hr; Site: right antecubital; ab2 16:55 Drug: NS 0.9% 500 ml Route: IV; Rate: bolus; Site: right antecubital; ab2 18:53 Follow up: Response: No adverse reaction; IV Status: Completed infusion ab2 19:03 Drug: Rocephin (cefTRIAXone) 1 grams Route: IV; Rate: per protocol; Site: right ab2 antecubital; Disposition Summary: 05/19/21 18:40 Hospitalization Ordered Hospitalization Status: Observation stephanie Condition: Stable stephanie Problem: new stephanie Symptoms: have improved stephanie Bed/Room Type: Standard stephanie Provider: Murphy Craig(05/19/21 18:44) la1 Location: Telemetry/MedSurg (observation)(05/20/21 13:23) bd Room Assignment: 205(05/20/21 13:23) bd Diagnosis - Altered mental status, unspecified stephanie - Dementia in other diseases classified elsewhere with behavioral disturbance stephanie - UTI/ Urinary tract infection, site not specified stephanie Forms: - Medication Reconciliation Form stephanie - SBAR form stephanie Signatures: Dispatcher [employer] EDMS Deysi Palma Martha RN RN Siddharth Doe MD MD cha Smirch, Shelby, RN RN ss Wayne Lemus, LINE DEPARTMENT SUPERVISOR-C LINE DEPARTMENT SUPERVISOR-Cla1 Eric Ferguson2 Corrections: (The following items were deleted from the chart) 16:16 16:16 Allergies: Aspirin; ss ss 18:44 18:40 Robe Viera stephanie la1 19:19 18:40 stephanie mw 19:31 18:40 Telemetry/MedSurg (observation) stephanie mw 19:31 19:19 213 mw mw 19:31 19:31 Telemetry/MedSurg (observation) mw mw 19:31 19:31 mw mw 05/20 13:23 05/19 19:31 [facility] ER HOLD mw bd 05/20 13:23 04 19:31 ERHOLD- mw bd
[2021-05-19 18:51] LABS: Urine Blood 1+ (Negative); Urine Glucose Negative (Negative); Urine Protein Negative (Negative); Urine Specific Gravity 1.015 (1.005-1.030); Urine pH 6.5 (5.0-7.0)
[2021-05-19] MEDS ORDERED: CEFTRIAXONE 1000 MG/VIAL ONE (19:02)
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
[2021-05-19] MEDS ORDERED: ONDANSETRON 4 MG/2 ML VIAL IV PRN (23:41)
[2021-05-19] MEDS ORDERED: WATER FOR INJ,STERILE 10 ML IM PRN (23:41)
[2021-05-19] MEDS ORDERED: ACETAMINOPHEN 500 MG TAB PO PRN (23:41)
[2021-05-20] MEDS ORDERED: WATER FOR INJ,STERILE 10 ML ONE (00:20)
[2021-05-20] MEDS ORDERED: ZIPRASIDONE MESYLA 20 MG/VIAL IM ONE ×2 (00:20→03:19)
[2021-05-20] MEDS: ZIPRASIDONE MESYLA 20 MG/VIAL IM PRN ×2 (00:33→21:24)
[2021-05-20] MEDS ORDERED: WATER FOR INJ,STERILE 10 ML IM PRN (03:19)
[2021-05-20 05:19] LABS: Absolute Lymphocytes (CBC) 2.7 K/uL (0.7-4.9); Hematocrit 45.8 % (36.0-45.0); Lymphocytes % 33.7 % (15.3-44.8); MPV 8.8 fL (7.6-11.3); RBC Red Blood Cell Count 5.08 M/uL (3.86-4.86)
[2021-05-20 05:43] LABS: ALT/SGPT 22 U/L (12-78); AST/SGOT 13 U/L (15-37); Albumin 3.6 g/dL (3.4-5.0); Alkaline Phosphatase 84 U/L (45-117); BUN Blood Urea Nitrogen 14 mg/dL (7-18); Bicarbonate 30 mmol/L (21-32); Bilirubin Total 0.8 mg/dL (0.2-1.0); Glucose Level 100 mg/dL (74-106); Potassium 3.4 mmol/L (3.5-5.1); Sodium Level 144 mmol/L (136-145)
[2021-05-20 07:45] VITALS: BMI 26.6
[2021-05-20] MEDS ORDERED: CEFTRIAXONE 1000 MG/VIAL ONE (08:50)
[2021-05-20] MEDS ORDERED: NA CHLORIDE 0.9% 0 ML ONE (08:51)
[2021-05-20] MEDS ORDERED: ENOXAPARIN 40 MG/0.4 ML SQ ONE (08:51)
[2021-05-20] MEDS ORDERED: CEFTRIAXONE 1,000 MG in NA CHLORIDE 0.9% 50 ML IVPB SCH (09:00)
[2021-05-20] MEDS: ENOXAPARIN 40 MG/0.4 ML SQ SCH (09:00)
--- NOTE | 2021-05-20 11:00 | EKG ---
Test Date: 2021-05-19 Test Time: 16:43:20 Account Resolution Specialist: AB MEASUREMENT RESULTS: Intervals: Rate: 58 KS: 174 QRSD: 90 QT: 420 QTc: 412 Hope: P: 60 KS: 174 QRS: 6 T: 38 INTERPRETIVE STATEMENTS: Sinus bradycardia Cannot rule out Inferior infarct, age undetermined Abnormal ECG Compared to ECG 09/28/2019 14:56:14 Myocardial infarct finding now present Electronically Signed On 05-20-21 10:57:22 CDT by Kedar Abraham
--- NOTE | 2021-05-20 13:07 | P.PN ---
Subjective Date of Service: 05/20/21 Primary Care Provider: Dr. Mascorro Chief Complaint: UTI, delirium Subjective: No new changes Physical Examination - Vital Signs Temperature: 98.2 F Blood Pressure: 177/89 Pulse: 65 Respirations: 18 Pulse Ox (%): 100 - Physical Exam General: Delirious HEENT: Atraumatic, Normocephalic Neck: Supple Respiratory: Normal air movement Cardiovascular: Regular rate/rhythm, Normal S1 S2 Gastrointestinal: Soft and benign Musculoskeletal: No swelling - Studies Laboratory Data (last 24 hrs) 05/19/21 16:35: PT 10.9, INR 0.91 05/19/21 16:35: WBC 7.4, Hgb 15.6 H, Hct 46.5 H, Plt Count 318 05/19/21 16:35: Sodium 142, Potassium 3.8, BUN 22 H, Creatinine 1.04, Glucose 116 H, Magnesium 2.1 D, Total Bilirubin 0.7, AST 15, ALT 24, Alkaline Phosphatase 88, Lipase 177 Assessment And Plan - Plan etabolic encephalopathy/delirium likely secondary to UTI complicated with history of dementia Hypertension Hypothyroidism Plan: metabolic encephalopathy/delirium likely secondary to UTI complicated with history of dementia: To be continued on empiric Rocephin for UTI management per We will continue to monitor mentation per Seems to be slightly better since admission. Neurology to evaluate. We will follow symptomatology closely. Hypertension: Blood pressure control is deemed adequate for now. We will continue home medications. Hypothyroidism: We will continue home medications. Prophylaxis: Lovenox for DVT prophylaxis. Disposition: For possible discharge in the next 24 to 48 hours.
[2021-05-20] MEDS: CEFTRIAXONE 1,000 MG in NA CHLORIDE 0.9% 50 ML IVPB SCH (17:37)
[2021-05-21] MEDS: ZIPRASIDONE MESYLA 20 MG/VIAL IM PRN ×4 (06:00→23:41)
[2021-05-21 07:53] LABS: Absolute Lymphocytes (CBC) 2.1 K/uL (0.7-4.9); Hematocrit 43.6 % (36.0-45.0); Lymphocytes % 33.7 % (15.3-44.8); RBC Red Blood Cell Count 4.82 M/uL (3.86-4.86)
[2021-05-21 08:11] LABS: Albumin 3.3 g/dL (3.4-5.0); Bilirubin Total 0.8 mg/dL (0.2-1.0); Protein, Total 6.4 g/dL (6.4-8.2)
[2021-05-21 08:12] LABS: Potassium 3.7 mmol/L (3.5-5.1)
[2021-05-21] MEDS: ENOXAPARIN 40 MG/0.4 ML SQ SCH (08:28)
[2021-05-21] MEDS: CEFTRIAXONE 1,000 MG in NA CHLORIDE 0.9% 50 ML IVPB SCH (17:44)
[2021-05-22] MEDS: ZIPRASIDONE MESYLA 20 MG/VIAL IM PRN ×2 (06:49→15:27)
--- NOTE | 2021-05-22 09:45 | P.PN ---
Subjective Date of Service: 05/21/21 Primary Care Provider: Dr. Mascorro Chief Complaint: UTI, delirium Subjective: New changes (has morte episode of agitation.) Physical Examination - Vital Signs Temperature: 98.7 F Blood Pressure: 174/87 Pulse: 69 Respirations: 18 Pulse Ox (%): 98 - Physical Exam General: Delirious HEENT: Atraumatic, Normocephalic Neck: Supple Respiratory: Normal air movement Cardiovascular: Normal pulses, Regular rate/rhythm - Studies Microbiology Data (last 24 hrs): 05/19/21 18:52 Catheterized Urine [place] Count - Final BETWEEN 10,000 & 100,000 CFU/ML 05/19/21 18:52 Catheterized Urine - Final Escherichia Coli Gram Neg Nba Assessment And Plan - Plan Metabolic encephalopathy/delirium likely secondary to UTI complicated with history of dementia Hypertension Hypothyroidism Plan: metabolic encephalopathy/delirium likely secondary to UTI complicated with history of dementia: To be continued on empiric Rocephin for UTI management We will continue to monitor mentation. has had more agitation today. PRN agitation meds on board. We will follow symptomatology closely. Hypertension: Blood pressure control is deemed adequate for now. We will continue home medications. Hypothyroidism: We will continue home medications. UTI: Urine culture growing gram negative rods. we will follow report closely. Prophylaxis: Lovenox for DVT prophylaxis.
--- NOTE | 2021-05-22 09:47 | P.PN ---
Subjective Date of Service: 05/22/21 Primary Care Provider: Dr. Mascorro Chief Complaint: UTI, delirium Subjective: New changes (still delirious.) Physical Examination - Vital Signs Temperature: 98.7 F Blood Pressure: 174/87 Pulse: 69 Respirations: 18 Pulse Ox (%): 98 - Physical Exam General: Delirious HEENT: Atraumatic, Normocephalic Neck: Supple Respiratory: Normal air movement Cardiovascular: Regular rate/rhythm, Normal S1 S2 Gastrointestinal: Soft and benign Musculoskeletal: No swelling - Studies Microbiology Data (last 24 hrs): 05/19/21 18:52 Catheterized Urine [place] Count - Final BETWEEN 10,000 & 100,000 CFU/ML 05/19/21 18:52 Catheterized Urine - Final Escherichia Coli Gram Neg Nba Assessment And Plan - Plan Metabolic encephalopathy/delirium likely secondary to UTI complicated with history of dementia Hypertension Hypothyroidism Plan: metabolic encephalopathy/delirium likely secondary to UTI complicated with history of dementia: Final urine culture grew E. coli. We will continue to monitor mentation. PRN agitation meds on board. We will follow symptomatology closely. Hypertension: Blood pressure control is deemed adequate for now. We will continue home medications. Hypothyroidism: We will continue home medications. UTI: Final urine culture grew E. coli sensitive to cephalosporins. We will continue Rocephin therapy. No ESBL features. She will complete 10 to 14 days of IV antibiotic. Prophylaxis: Lovenox for DVT prophylaxis.
[2021-05-22] MEDS: ENOXAPARIN 40 MG/0.4 ML SQ SCH (09:59)
[2021-05-22] MEDS ORDERED: CEFTRIAXONE 1000 MG/VIAL ONE (17:13)
[2021-05-22] MEDS ORDERED: NA CHLORIDE 0.9% 50 ML ONE (17:14)
[2021-05-22] MEDS: CEFTRIAXONE 1,000 MG in NA CHLORIDE 0.9% 50 ML IVPB SCH (17:27)
--- NOTE | 2021-05-23 07:32 | P.PN ---
Subjective Date of Service: 05/23/21 Primary Care Provider: Dr. Mascorro Chief Complaint: UTI, delirium Subjective: No new changes Physical Examination - Vital Signs Temperature: 98.1 F Blood Pressure: 143/76 Pulse: 64 Respirations: 17 Pulse Ox (%): 94 - Physical Exam General: Alert, Oriented x3 HEENT: Atraumatic, Normocephalic Neck: Supple Respiratory: Normal air movement Cardiovascular: Regular rate/rhythm, Normal S1 S2 Gastrointestinal: Soft and benign Neurological: Other (delirious) - Studies Microbiology Data (last 24 hrs): 05/19/21 18:52 Catheterized Urine [place] Count - Final BETWEEN 10,000 & 100,000 CFU/ML 05/19/21 18:52 Catheterized Urine - Final Escherichia Coli Gram Neg Nba Assessment And Plan - Plan Metabolic encephalopathy/delirium likely secondary to UTI complicated with history of dementia Hypertension Hypothyroidism Plan: metabolic encephalopathy/delirium likely secondary to UTI complicated with history of dementia: Final urine culture grew E. coli. We will continue to monitor mentation. PRN agitation meds on board. We will follow symptomatology closely. Hypertension: Blood pressure control is deemed adequate for now. We will continue home medications. Hypothyroidism: We will continue home medications. UTI: Final urine culture grew E. coli sensitive to cephalosporins. We will continue Rocephin therapy. No ESBL features. She will complete 10 to 14 days of IV antibiotic. Prophylaxis: Lovenox for DVT prophylaxis.
[2021-05-23] MEDS: ZIPRASIDONE MESYLA 20 MG/VIAL IM PRN ×2 (07:36→13:38)
[2021-05-23] MEDS: ENOXAPARIN 40 MG/0.4 ML SQ SCH (08:32)
[2021-05-23] MEDS: CEFTRIAXONE 1,000 MG in NA CHLORIDE 0.9% 50 ML IVPB SCH (17:36)
[2021-05-23] MEDS ORDERED: SIMVASTATIN 20 MG PO SCH (21:00)
[2021-05-23] MEDS: DONEPEZIL HCL 5 MG TAB PO SCH (21:08)
[2021-05-23] MEDS: ATORVASTATIN 10 MG TAB PO SCH (21:08)
--- NOTE | 2021-05-24 07:42 | P.PN ---
Subjective Date of Service: 05/24/21 Primary Care Provider: Dr. Mascorro Chief Complaint: UTI, delirium Physical Examination - Vital Signs Temperature: 97.5 F Blood Pressure: 158/88 Pulse: 60 Respirations: 17 Pulse Ox (%): 94 - Physical Exam General: Alert HEENT: Atraumatic, Normocephalic Neck: Supple Respiratory: Normal air movement Cardiovascular: Regular rate/rhythm, Normal S1 S2 Gastrointestinal: Soft and benign Neurological: Normal speech Assessment And Plan - Plan Metabolic encephalopathy/delirium likely secondary to UTI complicated with history of dementia Hypertension Hypothyroidism Plan: metabolic encephalopathy/delirium likely secondary to UTI complicated with history of dementia: Final urine culture grew E. coli. We will continue to monitor mentation. PRN agitation meds on board. We will follow symptomatology closely. Hypertension: Blood pressure control is deemed adequate for now. We will continue home medications. Hypothyroidism: We will continue home medications. UTI: Final urine culture grew E. coli sensitive to cephalosporins. We will continue Rocephin therapy. No ESBL features. She will complete 10 to 14 days of IV antibiotic. Prophylaxis: Lovenox for DVT prophylaxis.
[2021-05-24] MEDS: MULTIVITAMIN TAB PO SCH ×2 (08:30→08:31)
[2021-05-24] MEDS: ENOXAPARIN 40 MG/0.4 ML SQ SCH ×2 (08:30→08:32)
[2021-05-24] MEDS ORDERED: CALCIUM PO SCH (09:00)
[2021-05-24] MEDS ORDERED: FOLIC PO SCH (09:00)
[2021-05-24] MEDS ORDERED: DONEPEZIL HCL 10 MG PO SCH (09:00)
[2021-05-24] MEDS ORDERED: VITK PO SCH (09:00)
[2021-05-24] MEDS ORDERED: IRON PO SCH (09:00)
[2021-05-24] MEDS ORDERED: MV MIN PO SCH (09:00)
[2021-05-24] MEDS: CEFTRIAXONE 1,000 MG in NA CHLORIDE 0.9% 50 ML IVPB SCH (17:32)
[2021-05-24] MEDS: DONEPEZIL HCL 5 MG TAB PO SCH (19:30)
[2021-05-24] MEDS: ATORVASTATIN 10 MG TAB PO SCH (19:30)
[2021-05-25] MEDS: MULTIVITAMIN TAB PO SCH (08:09)
[2021-05-25] MEDS: ENOXAPARIN 40 MG/0.4 ML SQ SCH (08:10)
[2021-05-25 08:33] VITALS: TEMP 97.6
[2021-05-25] MEDS ORDERED: CEFTRIAXONE 1,000 MG in NA CHLORIDE 0.9% 50 ML IVPB SCH (09:00)
[2021-05-25 10:42] VITALS: O2SAT 96
[2021-05-25 12:33] VITALS: BP 136/77
== END 2021-05-25 13:00 | disposition home or self-care (01) | DRG 689 ==
LOC: ER 16:03 → ERHOLD 19:06 → 2ND 05-20 13:58 → OBSVTOIN 05-20 15:33
PROVIDERS: ADMIT Internal Medicine Nephrology; ATTEND Internal Medicine Nephrology
DX: N39.0 Urinary tract infection, site not specified (principal); G93.41 Metabolic encephalopathy; B96.20 Unspecified Escherichia coli [E. coli] as the cause of diseases classified elsewhere; I10 Essential (primary) hypertension; E03.9 Hypothyroidism, unspecified; F03.90 Unspecified dementia, unspecified severity, without behavioral disturbance, psychotic disturbance, mood disturbance, and anxiety; Z86.718 Personal history of other venous thrombosis and embolism; Z96.653 Presence of artificial knee joint, bilateral; Z20.822 Contact with and (suspected) exposure to COVID-19
CPT/HCPCS: 36415; 70450; 71045; 80048; 80053; 80076; 81003; 83690; 83735; 83880; 84439; 84443; 84484; 85025; 85610; 87077; 87086; 87088; 87186; 93005; 96361; 96374; 99285; G0378; J1650; J3486; J7030; J7040; U0003

== ENCOUNTER 2021-11-06 00:23 | Emergency (ER) | payer OTHER, BC ==
--- OUTSIDE RECORDS SUMMARY | 2021-11-06 00:28 | XMS REPORT | Continuity of Care Document ---
:1950 Author Organization [facility] t Address [address] [place] [address] Care Team Providers Name Role Phone Randy Mascorro Attending Clinician Unavailable SHAVONNE MO Attending Clinician Unavailable Payers Payer Name Policy Type Policy Number Effective Date Expiration Date S [facility] MEDICARE PART A \T\ [id number] - MEDICARE MEDICARE SUPPLEMENT [id number] - BCBS ZZZPPO [id number] 2015 00:00:00 Problems This patient has no known problems. Allergies, Adverse Reactions, Alerts Allergy Allergy Status Severity Reaction(s) Onset Inactive Treating Comm ents Source Name Type Date Date Clinician Opioid Propensi Active Rash [facility] Analgesi ty to 08-30 [facility]to cs adverse 00:00: of reaction 00 Medicin s to e drug Family History Family Member Diagnosis Comments Start Date Stop Date Source Natural father Heart Attack [facility] C ollege of Medicine Natural mother [facility] Col lege of Medicine Natural sister [facility] lege Medicine Social History Social Habit Start Date Stop Date Quantity Comments Source Sex Assigned At F [facility] llege of Medicine Tobacco use and 2019-08-31 2019-08-31 Never used [facility] llege exposure 00:00:00 00:00:00 of Medicine Alcohol intake 2019-08-31 2019-08-31 Ex-drinker [facility] lege 00:00:00 00:00:00 (finding) of Medicine Smoking Status Start Date Stop Date Source Never smoker [facility] o f Medicine Medications Ordered Filled [...] 1 Bayl or ne 4-16 TABLET BY Hutto (SYNTHROID) 00:00: MOUTH of 25 MCG 00 EVERY DAY Medicin tablet IN THE e MORNING ON EMPTY STOMACH Lotrel Lotrel Yes Randy 1 tab Common Mascorro [facility] Centrum Centrum Yes Randy not Common Silver Silver Mascorro defined [facility] 50+Women 50+Women [facility] Vitamin D-3 Vitamin D-3 Yes Randy 1 capsule Common Mascorro [facility] Glucosamine Glucosamine Yes Randy not Common Chondroit-C Chondroit-C Mascorro defined [facility] ollagen ollagen [facility] Aspir-81 Aspir-81 Yes Randy 1 tablet C ommon Mascorro [facility] Super Super Yes Randy not Common B-Complex B-Complex Mascorro defined S pirit [facility] Simvastatin Simvastatin Yes Randy 1 tablet Common Mascorro in the [facility] evening [facility] Levothyroxi Levothyroxi Yes Randy 1 tablet Common ne Sodium ne Sodium Mascorro on an Spi rit empty - [facility] stomach in [facility] Ginkgo Ginkgo Yes Randy not Common Biloba Biloba Mascorro defined [facility] Donepezil Donepezil Yes Ranyd TAKE 1 C ommon HCl HCl Mascorro TABLET BY [facility] MOUTH - [facility] EVERY DAY St AT NIGHT [facility] Co Q-10 Co Q-10 Yes Randy 1 capsule Co mmon Mascorro with a [facility] meal [facility] Amlodipine Amlodipine Yes Randy 1 capsule Common Besy-Benaze Besy-Benaze Mascorro Spirit pril HCl pril HCl - [facility] Folic Acid Folic Acid Yes Randy 1 tablet Common Mascorro Spirit [facility] Vital Signs Vital Name Observation Time Observation Value Comments Source Systolic blood 2019-08-31 14:15:00 134 mm[Hg] [facility] pressure Medicine Diastolic blood 2019-08-31 14:15:00 79 mm[Hg] [facility] Medicine Heart rate 2019-08-31 14:15:00 65 /min [facility] Body height 2019-08-31 14:15:00 167.6 cm [facility] Body weight 2019-08-31 14:15:00 73.029 kg [facility] BMI 2019-08-31 14:15:00 25.99 kg/m2 [facility] Procedures This patient has no known procedures. Plan of Care Planned Activity Planned Date Details Comments Source Future Scheduled Test COLON CANCER SCREENING: [facility] COLONOSCOPY [code = Medicine COLON CANCER SCREENING: COLONOSCOPY] Future Scheduled Test MAMMOGRAM ANNUAL [code [facility] = MAMMOGRAM ANNUAL] Medicine Future Scheduled Test TETANUS SHOT (ADULT) [facility] [code = TETANUS SHOT Medicin e (ADULT)] Future Scheduled Test BMI FOLLOW UP PLAN [facility] [code = BMI FOLLOW UP Medici ne PLAN] Future Scheduled Test HEPATITIS C SCREENING [facility] [code = HEPATITIS C Medicine SCREENING] Future Scheduled Test ZOSTER VACCINE (1 of 2) [facility] [code = ZOSTER VACCINE Medic ine (1 of 2)] Future Scheduled Test MEDICARE AWV (Initial) [facility] [code = MEDICARE AWV Medicin e (Initial)] Future Scheduled Test FALL SCREEN [code = [facility] FALL SCREEN] Medicine Future Scheduled Test OSTEOPOROSIS SCREENING [facility] [code = OSTEOPOROSIS Medicin e SCREENING] Future Scheduled Test PNEUMOVAX >=65 (PPSV23) [facility] [code = PNEUMOVAX >=65 Medic ine (PPSV23)] Future Scheduled Test FLU VACCINE > 6 MONTHS [facility] [code = FLU VACCINE > 6 Medi cine MONTHS] Encounters Start End Encounter Admission Attending Care Care Encounter Source Date/Time Date/Time Type Type Clinicians Facility Department ID 2021-03-04 Outpatient Mascorro, STLMLC STLMLC [id number] Common 14:38:54 Randy [facility] 2021-03-04 Outpatient Mascorro, STLMLC STLMLC [id number] Common 14:22:10 Randy [id number] [facility] 2021-03-04 Outpatient Mascorro, STLMLC STLMLC [id number] Common 14:19:16 Randy [facility] 2021-03-04 Outpatient Mascorro, STLMLC STLMLC [id number] Common 13:21:13 Randy [id number] [facility] 2021-03-04 Outpatient Mascorro, STLMLC STLMLC [id number] Common 12:40:51 Randy [id number] [facility] 2021-03-04 Outpatient Mascorro, STLMLC STLMLC [id number] Common 12:40:22 Randy [id number] [facility] 2021-03-04 Outpatient Mascorro, STLMLC STLMLC [id number] Common 12:39:19 Randy [id number] [facility] 2021-03-04 Outpatient Mascorro, STLMLC STLMLC [id number] Common 12:38:26 Randy [id number] [facility] 2021-03-04 Outpatient Mascorro, STLMLC STLMLC [id number] Common 12:37:28 Randy [id number] [facility] 2021-03-04 Outpatient Mascorro, STLMLC STLMLC [id number] Common 12:36:06 Randy [id number] [facility] 2021-03-04 Outpatient Mascorro, STLMLC STLMLC [id number] Common 12:17:31 Randy [id number] [facility] 2021-03-04 Outpatient Mascorro, STLMLC STLMLC [id number] Common 12:11:34 Randy [id number] [facility] 2021-03-04 Outpatient Mascorro, STLMLC STLMLC [id number] Common 11:36:13 Randy [id number] [facility] 2021-03-04 Outpatient Mascorro, STLMLC STLMLC [id number] Common 11:26:04 Randy [id number] [facility] 2021-03-04 Outpatient Mascorro, STLMLC STLMLC [id number] Common 11:23:42 Randy [id number] [facility] 2021-03-04 Outpatient Mascorro, STLMLC STLMLC [id number] Common 11:22:28 Randy [id number] [facility] 2021-03-04 Outpatient Mascorro, STLMLC STLMLC [id number] Common 11:13:10 Randy [id number] [facility] 2021-03-04 Outpatient Mascorro, STLMLC STLMLC [id number] Common 11:11:46 Randy [id number] [facility] 2021-08-26 2021-08-26 ambulatory STLMLC STLMLC [id number] Common 00:00:00 00:00:00 [facility] 2021-08-26 2021-08-26 ambulatory STLMLC STLMLC [id number] Common 00:00:00 00:00:00 [facility] 2021-05-26 2021-05-26 ambulatory STLMLC STLMLC [id number] Common 00:00:00 00:00:00 [facility] 2021-05-26 2021-05-26 ambulatory STLMLC STLMLC [id number] Common 00:00:00 00:00:00 [facility] 2021-02-24 2021-02-24 ambulatory STLMLC STLMLC [id number] Common 00:00:00 00:00:00 [facility] 2021-01-14 2021-01-14 ambulatory STLMLC STLMLC [id number] Common 00:00:00 00:00:00 [facility] 2021-01-09 2021-01-09 ambulatory STLMLC STLMLC [id number] Common 00:00:00 00:00:00 [facility] 2021-01-092021-01-09 ambulatory STLMLC STLMLC [id number] Common 00:00:00 00:00:00 [facility] 2020-12-29 2020-12-29 Outpatient SHAVONNE MO [facility] [id number] [facility] 13:00:27 13:00:27 [facility] 2020-12-26 2020-12-26 ambulatory STLMLC STLMLC [id number] Common 00:00:00 00:00:00 [facility] 2020-12-02 2020-12-02 Outpatient STLMLC STLMLC [id number] Common 00:00:00 00:00:00 [facility] 2020-09-16 2020-09-16 Outpatient STLMLC STLMLC [id number] Common 00:00:00 00:00:00 [facility] 2020-08-14 2020-08-14 Outpatient STLMLC STLMLC [id number] Common 00:00:00 00:00:00 [facility] 2020-08-14 2020-08-14 Outpatient STLMLC STLMLC [id number] Common 00:00:00 00:00:00 [facility] 2020-04-21 2020-04-21 Outpatient STLMLC STLMLC [id number] Common 00:00:00 00:00:00 [facility] 2020-04-16 2020-04-16 Outpatient STLMLC STLMLC [id number] Common 00:00:00 00:00:00 [facility] 2020-01-17 2020-01-17 Outpatient STLMLC STLMLC [id number] Common 00:00:00 00:00:00 [facility] 2019-10-17 2019-10-17 [facility] [id number] Common 10:50:00 10:50:00 [employer] [facility] [address] [facility] 2019-09-17 2019-09-17 [facility] [id number] Common 09:30:00 09:30:00 [employer] [facility] [employer] [facility] 2019-08-15 2019-08-15 [facility] [id number] Common 11:45:00 11:45:[address] [facility] 2019-08-15 2019-08-15 [facility] [id number] Common 11:00:00 11:00:[address] [facility] 2019-07-27 2019-07-27 [facility] [id number] Common 13:26:00 13:26:[address] [facility] [address] [facility] 2019-07-20 2019-07-20 [facility] [id number] Common 15:29:00 15:29:[address] [facility] 2019-07-17 2019-07-17 [facility] [id number] Common 16:27:00 16:27:[address] [facility] 2019-07-06 2019-07-06 [facility] [id number] Common 16:15:00 16:15:[address] [facility] 2019-07-05 2019-07-05 [facility] [id number] Common 12:54:00 12:54:[address] [facility] 2019-07-05 2019-07-05 [facility] [id number] Common 11:30:00 11:30:[address] [facility] 2019-07-03 2019-07-03 [facility] [id number] Common 09:30:00 09:30:[address] [facility] 2019-06-26 2019-06-26 [facility] [id number] Common 11:18:00 11:18:[address] [facility] 2019-04-18 2019-04-18 [facility] [id number] Common 09:30:00 09:30:[address] [facility] 2019-01-12 2019-01-12 [facility] [id number] Common 10:22:00 10:22:[address] [facility] 2019-01-03 2019-01-03 [facility] [id number] Common 13:10:00 13:10:[address] [facility] 2018-12-18 2018-12-18 [facility] [id number] Common 10:15:00 10:15:[address] [facility] 2018-12-08 2018-12-08 [facility] [id number] Common 16:58:00 16:58:[address] [facility] 2018-11-20 2018-11-20 [facility] [id number] Common 08:30:00 08:30:[address] [facility] 2018-10-05 2018-10-05 [facility] [id number] Common 12:08:00 12:08:[address] [facility] 2018-08-16 2018-08-16 [facility] [id number] Common 10:15:00 10:15:[address] [facility] 2018-04-14 2018-04-14 [facility] [id number] Common 08:30:00 08:30:[address] [facility] 2017-09-16 2017-09-16 [facility] [id number] Common 09:45:00 09:45:[address] [facility] 2017-06-16 2017-06-16 [facility] [id number] Common 10:15:00 10:15:[address] [facility] Results This patient has no known results.
--- NOTE | 2021-11-06 01:56 | ER ---
Nurse's Notes [facility] Name: Mallory Lai Age: 71 yrs Sex: Female : 1950 Arrival Date: 11/06/2021 Time: 00:29 Bed 19 Private MD: Diagnosis: Fall on same level, unspecified Presentation: 11/06 00:32 Chief complaint: EMS states: Fell from the bed, didn't know how long the tw5 patient was down for. 00:32 Method Of Arrival: EMS: [facility] tw5 00:36 Ebola Screen: No symptoms or risks identified at this time. Initial Sepsis Screen: Does kd3 the patient meet any 2 criteria? No. Patient's initial sepsis screen is negative. Does the patient have a suspected source of infection? No. Patient's initial sepsis screen is negative. Risk Assessment: Do you want to hurt yourself or someone else? Patient reports no desire to harm self or others. Onset of symptoms was November 06, 2021. 00:36 Acuity: JAD 3 kd3 00:48 Coronavirus screen: Vaccine status: Patient reports receiving the 2nd dose of the covid kd3 vaccine. Triage Assessment: 00:37 General: Appears in no apparent distress. Behavior is calm, cooperative. Pain: kd3 Complains of pain in right hip. Historical: - PMHx: 00:38 Dementia; Hypertension; Hypothyroidism; kd3 - Immunization history:: Adult Immunizations up to date. - Family history:: not pertinent. - Social history:: Smoking status: unknown. - Hospitalizations: : No recent hospitalization is reported. Screenin:37 Abuse screen: Denies threats or abuse. Denies injuries from another. Nutritional kd3 screening: No deficits noted. Tuberculosis screening: No symptoms or risk factors identified. Fall Risk Fall in past 12 months (25 points). Assessment: 00:46 General: Appears in no apparent distress. Behavior is calm, cooperative. Pain: kd3 Complains of pain in right hip. Respiratory: Airway is patent Trachea midline Respiratory effort is even, unlabored, Respiratory pattern is regular, symmetrical. 01:55 Reassessment: Patient and/or family updated on plan of care and expected duration. Pain kd3 level reassessed. Patient is alert, oriented x 3, equal unlabored respirations, skin warm/dry/pink. Vital Signs: 00:32 BP 110 / 78; Pulse 18; Resp 20; Pulse Ox 100% on R/A; tw5 00:37 BP 132 / 55; Pulse 85; Resp 16; Pulse Ox 100% on R/A; kd3 00:49 Weight 72.57 kg; kd3 00:49 Temp 98.2(O); kd3 01:56 BP 148 / 69; Pulse 59; Resp 17; Pulse Ox 100% on R/A; kd3 ED Course: 00:29 Patient arrived in ED. rn 00:29 Thang Viera MD is Attending Physician. rn 00:31 Carmela Tate, ARNIE is Primary Nurse. kd3 00:37 Triage completed. kd3 00:37 Patient has correct armband on for positive identification. kd3 00:38 Arm band placed on right wrist. kd3 01:28 XRAY Chest (1 view) In Process Unspecified. EDMS 01:28 XRAY Pelvis In Process Unspecified. EDMS 01:28 XRAY Femur LEFT In Process Unspecified. EDMS 01:28 XRAY Femur RIGHT In Process Unspecified. EDMS 02:09 No provider procedures requiring assistance completed. Patient did not have IV access kd3 during this emergency room visit. Administered Medications: No medications were administered Medication: 00:49 VIS not applicable for this client. kd3 Outcome: 01:56 Discharge ordered by . rn 02:10 Discharged to home via wheelchair, with family. kd3 02:10 Condition: stable 02:10 Discharge instructions given to family, Instructed on discharge instructions, follow up and referral plans. Demonstrated understanding of instructions, follow-up care. 02:10 Patient left the ED. kd3 Signatures: Dispatcher [employer] EDMS Thang Viera MD MD rn Wood, Tiffany tw5 Carmela Tate, RN RN kd3
--- NOTE | 2021-11-06 01:56 | EDPHYS ---
Physician Documentation [facility] Name: Mallory Lai Age: 71 yrs Sex: Female : 1950 Arrival Date: 11/06/2021 Time: 00:29 Bed 19 Private MD: ED Physician Thang Viera HPI: 11/06 00:32 This 71 yrs old Female presents to ER via Unassigned with complaints of fall from bed. rn 00:32 Details of fall: The patient fell from a supine position, out of bed. Onset: The rn symptoms/episode began/occurred at an unknown time. Severity of symptoms: At their worst the symptoms were mild, in the emergency department the symptoms have improved. It is unknown whether or not the patient has had similar symptoms in the past. The patient has not recently seen a physician. EMS reports fall from bed, unknown timing of event, initially reported left hip pain, but now denies pain. Unknown if blood thinners. Patient with dementia. . Historical: - PMHx: 00:38 Dementia; Hypertension; Hypothyroidism; kd3 - Immunization history:: Adult Immunizations up to date. - Family history:: not pertinent. - Social history:: Smoking status: unknown. - Hospitalizations: : No recent hospitalization is reported. ROS: 00:32 Constitutional: Negative for fever, chills, and weight loss, Eyes: Negative for injury, rn pain, redness, and discharge, Neck: Negative for injury, pain, and swelling, Cardiovascular: Negative for chest pain, palpitations, and edema, Respiratory: Negative for shortness of breath, cough, wheezing, and pleuritic chest pain, Abdomen/GI: Negative for abdominal pain, nausea, vomiting, diarrhea, and constipation, Back: Negative for injury and pain, MS/Extremity: Negative for injury and deformity, Skin: Negative for injury, rash, and discoloration, Neuro: Negative for headache, weakness, numbness, tingling, and seizure. Exam: 00:32 Constitutional: This is a well developed, well nourished patient who is awake, alert, rn and in no acute distress. Head/Face: Normocephalic, atraumatic. Eyes: Periorbital areas with no swelling, redness, or edema. Neck: NO midline cervical tenderness Chest/axilla: Normal chest wall appearance and motion. Nontender with no deformity. Cardiovascular: Regular rate and rhythm. No pulse deficits. Respiratory: No increased work of breathing, no retractions or nasal flaring. Abdomen/GI: soft, non-tender Back: No spinal tenderness. Skin: Warm, dry MS/ Extremity: Pulses equal, no cyanosis. Neurovascular intact. Full, normal range of motion. Equal circumference. Neuro: Awake and alert, GCS 15, not oriented to place or time. Moves all 4 extremities equally. Vital Signs: 00:32 BP 110 / 78; Pulse 18; Resp 20; Pulse Ox 100% on R/A; tw5 00:37 BP 132 / 55; Pulse 85; Resp 16; Pulse Ox 100% on R/A; kd3 00:49 Weight 72.57 kg; kd3 00:49 Temp 98.2(O); kd3 01:56 BP 148 / 69; Pulse 59; Resp 17; Pulse Ox 100% on R/A; kd3 MDM: 00:29 Patient medically screened. rn 01:54 Differential diagnosis: contusion, fracture, sprain, strain. Data reviewed: vital rn signs, nurses notes, lab test result(s), radiologic studies, CT scan, plain films, and as a result, I will discharge patient. Counseling: I had a detailed discussion with the patient and/or guardian regarding: the historical points, exam findings, and any diagnostic results supporting the discharge/admit diagnosis, lab results, radiology results, the need for outpatient follow up, to return to the emergency department if symptoms worsen or persist or if there are any questions or concerns that arise at home. Response to treatment: the patient's symptoms have markedly improved after treatment, and as a result, I will discharge patient. Special discussion: I discussed with the patient/guardian in detail that at this point there is no indication for admission to the hospital. It is understood, however, that if the symptoms persist or worsen the patient needs to return immediately for re-evaluation. ED course: NO acute findings on Ct head/cspine. Plain films neg. . 11/06 00:30 Order name: CT Head C Spine rn 11/06 00:30 Order name: XRAY Chest (1 view) rn 11/06 00:30 Order name: XRAY Pelvis rn 11/06 00:30 Order name: XRAY Femur LEFT rn 11/06 00:30 Order name: XRAY Femur RIGHT rn 11/06 00:35 Order name: Head C Spine Mpr Wo Con EDMS Administered Medications: No medications were administered Disposition Summary: 11/06/21 01:56 Discharge Ordered Location: Home rn Problem: new rn Symptoms: have improved rn Condition: Stable rn Diagnosis - Fall on same level, unspecified rn Followup: rn - With: Private Physician - When: As needed - Reason: Recheck today's complaints, Re-evaluation by your physician Discharge Instructions: - Discharge Summary Sheet rn - Fall Prevention in the Home, Adult rn Forms: - Medication Reconciliation Form rn - Thank You Letter rn - Antibiotic rn lactation - Prescription Opioid Use rn Signatures: Dispatcher [employer] Thang Martini MD MD rn Doucette, Kyli RN RN kd3
--- NOTE | 2021-11-06 17:59 | RAD REPORT ---
EXAM DESCRIPTION: RAD - Chest Single View - 11/06/2021 1:26 am CLINICAL HISTORY: 71 years Female, fall COMPARISON: None. TECHNIQUE: Single portable x-ray view of the chest performed on 11/06/2021 at 12:49 AM FINDINGS The l ungs are well expanded and are clear. There is no evidence of a pneumothorax. The cardiac silhouette is normal in size and configuration. The mediastinal contours are normal. No acute osseous abnormality is identified. There are degenerative changes of the shoulders No acute soft tissue abnormalities are seen. Lines and tubes: None. Free air: None IMPRESSION: No evidence of acute intrathoracic disease. Electronically signed by: Simona Blanchard DO 11/06/2021 1:40 AM CDT Due to temporary technical issues with the PACS/Fluency reporting system, reports are being signed by the in house radiologists without review as a courtesy to insure prompt reporting. The interpreting radiologist is fully responsible for the content of the report.
--- NOTE | 2021-11-06 18:27 | RAD REPORT ---
EXAM DESCRIPTION: RAD - Pelvis - 11/06/2021 1:26 am CLINICAL HISTORY: 71 years, Female, fall COMPARISON: None FINDINGS: Single frontal view of the pelvis was obtained. The pelvic brim is intact. There are degen erative changes within the lower lumbar spine. No areas of acute bony injuries were demonstrated. N o gross soft tissue abnormality is identified. There are no gross intraosseous lesions. No perios teal reaction were seen. Bilateral hip joints demonstrate minimal degenerative changes with spurrin g and increased sclerosis anterior superior aspect of the acetabulum. No definitive displaced fractur e are identified, if symptoms persist, clinical correlation and/or further evaluation with CT scan an d/or MRI could be of assistance. IMPRESSION: No acute bony injuries were demonstrated. Minimal degenerative changes within the lower lumbar spine. Electronically signed by: Norm Villaseñor MD 11/06/2021 1:43 AM CDT Due to temporary technical issues with the PACS/Fluency reporting system, reports are being signed by the in house radiologists without review as a courtesy to insure prompt reporting. The interpreting radiologist is fully responsible for the content of the report.
--- NOTE | 2021-11-06 18:31 | RAD REPORT ---
EXAM DESCRIPTION: CT - Head C Spine Mpr Wo Con - 11/06/2021 1:28 am CLINICAL HISTORY: 71 years Female fall TECHNIQUE: Multiple axial CT images of the brain and cervical spine were performed followed by sagit shaquille and coronal reconstructed images. The CT study is performed according to ALARA (as low as reasona mary achievable) or ALARA/IMAGE GENTLY, with automatic adjustment of mA and/or kV according to patient size. Performed on: 11/06/2021 at 1:20 AM COMPARISON: None. FINDINGS: CT HEAD: There is no evidence of mass, acute mass effect or midline shift. There are no acute extra-axial flui d collections. There is no evidence of acute intracranial hemorrhage. The cerebral sulci and ventricles are prominent consistent with mild cerebral volume loss. There are scattered areas of decreased attenuation within the subcortical and periventricular white m atter most likely due to mild chronic microangiopathy. There is mild mucosal thickening of the left maxillary sinus. There is partial opacification of the lateral left mastoid air cells. The orbital contents are grossly unremarkable. No acute osseous abnormalities are identified. No focal soft tissue abnormalities are identified. CT CERVICAL SPINE: The cervical vertebrae are normal in height. There is straightening of the normal cervical lordosis. There is moderate disc space narrowing C5-C6 and C6-C7 and there is mild degenerative spurring along these vertebral endplates as well as along the endplates of C3 and C4. Bone mineralization is normal. The atlanto-axial articulation is preserved and the odontoid process is intact. There are degener ative changes of the atlantoaxial articulation. There is normal alignment of the facet joints on the parasagittal images. There are mild degenerative changes of the facet joints. There is no evidence of acute fracture or subluxation. There is no significant canal stenosis. There are multilevel mild disc osteophyte complexes. There is multilevel bilateral neural foraminal stenosi s secondary to uncovertebral joint and facet joint hypertrophy. The prevertebral and paraspinal soft tissues are unremarkable. The lung apices are clear. IMPRESSION: CT HEAD: 1. No evidence of acute intracranial pathology. 2. Mild cerebral atrophy with findings compatible with chronic microangiopathy. 3. Partial opacification of the lateral left mastoid air cells and left maxillary sinus. CT CERVICAL SPINE: 1. No evidence of acute cervical spine injury. 2. Degenerative changes of the cervical spine as described above. 3. Straightening of the normal cervical lordosis which may be due to muscle spasm or patient positi oning. Electronically signed by: Simona Blanchard DO 11/06/2021 1:51 AM CDT Due to temporary technical issues with the PACS/Fluency reporting system, reports are being signed by the in house radiologists without review as a courtesy to insure prompt reporting. The interpreting radiologist is fully responsible for the content of the report.
--- NOTE | 2021-11-06 18:32 | RAD REPORT ---
EXAM DESCRIPTION: RAD - Femur Right - 11/06/2021 1:26 am CLINICAL HISTORY: 71 years, Female, PAIN Femur Right COMPARISON: None. FINDINGS: 2 X-ray views of the right femur were performed. There is no acute fracture or dislocation. There is a IM guillermo through the right femur transfixing a mid/distal shaft femoral fracture. 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 Minimal degenerative changes right hip joint. IMPRESSION: No acute findings. ORIF right femur fracture. Electronically signed by: Norm Villaseñor MD 11/06/2021 1:45 AM CDT Due to temporary technical issues with the PACS/Fluency reporting system, reports are being signed by the in house radiologists without review as a courtesy to insure prompt reporting. The interpreting radiologist is fully responsible for the content of the report.
--- NOTE | 2021-11-06 18:33 | RAD REPORT ---
EXAM DESCRIPTION: RAD - Femur Left - 11/06/2021 1:26 am CLINICAL HISTORY: 71 years, Female, PAIN COMPARISON: None. FINDINGS: 2 X-ray views of the left femur were performed. There is no acute fracture or dislocation. There is no focal soft tissue swelling. There is status post total left knee arthroplasty Very minimal degenerative changes anterior superior aspect of the acetabulum. IMPRESSION: No acute findings. Status post total left knee arthroplasty. Electronically signed by: Norm Villaseñor MD 11/06/2021 1:44 AM CDT Due to temporary technical issues with the PACS/Fluency reporting system, reports are being signed by the in house radiologists without review as a courtesy to insure prompt reporting. The interpreting radiologist is fully responsible for the content of the report.
[2021-11-06 23:55] VITALS: O2SAT 100
[2021-11-06 23:57] VITALS: TEMP 98.2
[2021-11-06 23:58] VITALS: BP 148/69
== END 2021-11-06 02:10 | disposition home or self-care (01) ==
LOC: ER 00:23
DX: M25.552 Pain in left hip (principal); W06.XXXA Fall from bed, initial encounter; F03.90 Unspecified dementia, unspecified severity, without behavioral disturbance, psychotic disturbance, mood disturbance, and anxiety
CPT/HCPCS: 70450; 71045; 72125; 72170; 99283

== ENCOUNTER 2021-12-07 04:39 | Emergency (ER) | payer OTHER, BC ==
--- OUTSIDE RECORDS SUMMARY | 2021-12-07 04:48 | XMS REPORT | Continuity of Care Document ---
:1950 Author Organization [facility] t Address [address] [place] [address] [address] [place] [address] Care Team Providers Name Role Phone Randy Mascorro Attending Clinician Unavailable SHAVONNE MO Attending Clinician Unavailable Payers Payer Name Policy Type Policy Effective Date Expiration Date [facility] Number Blue Cross Blue 6 [id number] 2015 [facility] 00:00:00 - [facility] MEDICARE NOVITAS MB [id number] 2015 [facility] 00:00:00 - [facility] MEDICARE NOVITAS MB [id number] 2015 [facility] 00:00:00 - [facility] MEDICARE PART A [id number] \T\ B - MEDICARE MEDICARE [id number] SUPPLEMENT - BCBS ZJONATHAN [id number] 2015 00:00:00 MEDICARE NOVITAS MB [id number] 2015 [facility] 00:00:00 [facility] MEDICARE NOVITAS MB [id number] 2015 [facility] 00:00:00 [facility] Problems Condition Condition Condition Status Onset Resolution Last Treating Co mments Source Name Details Category Date Date Treatment Clinician Date Recurrent Multiple Problem Comm on falls falls [facility] [id number] Delirium Problem Common due to [facility] condition [facility] behavioral [facility] e [id number] Acute Problem Common metabolic [facility] encephalop - [facility] at[facility] [id number] +6th digit Problem C ommon 103 eff Spirit 11/07/21*De - [facility] in [facility] Medical classified Center elsewhere with behavioral disturbanc e Hypothyroi Hypothyroi Problem C ommon dism dism [facility] Hyperlipid Hyperlipid Problem C ommon emia emia [facility] Pain in Leg pain Problem Common limb [facility] Essential Benign Problem Common hypertensi essential Spi rit on HTN [facility] Memory Memory Problem Common loss loss [facility] Osteoarthr Osteoarthr Problem C ommon itis itis [facility] Hip joint Hip joint Problem Com mon pain pain [facility] 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 [facility] [id number] Breast Problem Commo n [id number] mass, left Spiri t [facility] [id number] S/P small Problem Co mmon [address] bowel Spirit resection [facility] Alzheimer Alzheimer Problem Com mon disease disease [facility] Abnormal Abnormal Problem Commo n mammogram mammogram Spir it [facility] [id number] Short-term Problem Co mmon memory [facility] loss [facility] [id number] Dementia Problem Comm on in other Spirit diseases [facility] classified [facility] without Medical behavioral Center disturbanc e Allergies, Adverse Reactions, Alerts Allergy Allergy Status Severity Reaction(s) Onset Inactive Treating Comm ents Source Name Type Date Date Clinician Opioid Propensi Active Rash [facility] Analgesi ty to 08-30 [place] [facility] adverse 00:00: of reaction 00 Medicin s to e drug Family History Family Member Diagnosis Comments Start Date Stop Date Source Natural father Heart Attack [facility] C ollege of Medicine Natural mother [facility] lege of Medicine Natural sister [facility] lege Medicine Social History Social Habit Start Date Stop Date Quantity Comments Source History of [facility] - [facility] Use [facility]igned [facility] Tobacco use and 2019-08-31 2019-08-31 Never used [facility] Co llege exposure 00:00:00 00:00:00 of Medicine Alcohol intake 2019-08-31 2019-08-31 Ex-drinker [facility] leg 00:00:00 00:00:00 (finding) of Medicine Smoking Status Start Date Stop Date Source Never Smoker [facility] Medications Ordered Filled Start Stop Current Ordering Indication Dosage Frequency Signature Comments Components Source Medication Medication Date Date Medication? Clinician (SIG) Name Name Ondansetron Ondansetron No 1{table Ondansetro 4 MG 4 MG 8-10 t_on_th n 4 MG 00:00: e_tongu 00 e_and_a llow_to _dissol ve} Ondansetron Ondansetron No 1{table Ondansetro 4 MG 4 MG 8-10 t_on_th n 4 MG 00:00: e_tongu 00 e_and_a llow_to _dissol ve} Ondansetron Ondansetron No 1{table Ondansetro 4 MG 4 MG 8-10 t_on_th n 4 MG 00:00: e_tongu 00 e_and_a llow_to _dissol ve} Ondansetron Ondansetron No 1{table Ondansetro 4 MG 4 MG 8-10 t_on_th n 4 MG 00:00: e_tongu 00 e_and_a llow_to _dissol ve} Ondansetron Ondansetron No 1{table Ondansetro 4 MG 4 MG 8-10 t_on_th n 4 MG 00:00: e_tongu 00 e_and_a llow_to _dissol ve} Ondansetron Ondansetron No 1{table Ondansetro 4 MG 4 MG 8-10 t_on_th n 4 MG 00:00: e_tongu 00 e_and_a llow_to _dissol ve} Ondansetron Ondansetron No 1{table Ondansetro 4 MG 4 MG 8-10 t_on_th n 4 MG 00:00: e_tongu 00 e_and_a llow_to _dissol ve} Ondansetron Ondansetron No 1{table Ondansetro 4 MG 4 MG 8-10 t_on_th n 4 MG 00:00: e_tongu 00 e_and_a llow_to _dissol ve} Ondansetron Ondansetron No 1{table Ondansetro 4 MG 4 MG 8-10 t_on_th n 4 MG 00:00: e_tongu 00 e_and_a llow_to _dissol ve} Ondansetron Ondansetron No 1{table Ondansetro 4 MG 4 MG 8-10 t_on_th n 4 MG 00:00: e_tongu 00 e_and_a llow_to _dissol ve} Ondansetron Ondansetron No 1{table Ondansetro 4 MG 4 MG 8-10 t_on_th n 4 MG 00:00: e_tong 00 e_and_a llow_to _dissol ve} Ondansetron Ondansetron No 1{table Ondansetro 4 MG 4 MG 8-10 t_on n 4 MG 00:00: e_tongu 00 e_and_a llow_to _dissol ve} Ondansetron Ondansetron No 1{table Ondansetro 4 MG 4 MG 8-10 t_on n 4 MG 00:00: e_tong e_and_a llow_to _dissol ve} donepezil Yes 10mg Take 1 Tab [facility] (ARICEPT) 7-24 by mouth Colleg e 10 MG 00:00: nightly. of tablet 00 Medicin e amlodipine- Yes TAKE 1 [facility] benazepril 5-12 CAPSULE BY [facility] (LOTREL) 00:00: MOUTH of 5-20 MG per 00 EVERY DAY Med icin capsule e simvastatin Yes TAKE 1 [facility] or (ZOCOR) 20 5-04 TABLET BY [facility] ege MG tablet 00:00: MOUTH of 00 EVERY DAY Medicin IN THE e EVENING levothyroxi Yes TAKE 1 [facility] or ne 4-16 TABLET BY [facility] (SYNTHROID) 00:00: MOUTH of 25 MCG 00 EVERY DAY Medicin tablet IN THE e MORNING ON EMPTY STOMACH Lotrel Lotrel Yes Randy 1 tab Common Mascorro [facility] Centrum Centrum Yes Randy not Common Silver Silver Mascorro defined Spirit 50+Women 50+Women - [facility] Vitamin D-3 Vitamin D-3 Yes Randy 1 capsule Common Mascorro [facility] Glucosamine Glucosamine Yes Randy not Common Chondroit-C Chondroit-C Mascorro defined Spirit ollagen ollagen - [facility] Aspir-81 Aspir-81 Yes Randy 1 tablet C ommon Mascorro [facility] Super Super Yes Randy not Common B-Complex B-Complex Mascorro defined S pirit [facility] Simvastatin Simvastatin Yes Randy 1 tablet Common Mascorro in the [facility] evening [facility] Levothyroxi Levothyroxi Yes Randy 1 tablet Common ne Sodium ne Sodium Mascorro on an Spi rit empty - [facility]I stomach in [facility] Ginkgo Ginkgo Yes Randy not Common Biloba Biloba Mascorro defined [facility] Donepezil Donepezil Yes Randy TAKE 1 C ommon HCl HCl Mascorro TABLET BY [facility] MOUTH - [facility] EVERY DAY AT NIGHT [facility] Co Q-10 Co Q-10 Yes Randy 1 capsule Co mmon Mascorro with a Spirit meal - [facility] Amlodipine Amlodipine Yes Randy 1 capsule Common Besy-Benaze Besy-Benaze Mascorro Spirit pril HCl pril HCl - [facility] Folic Acid Folic Acid Yes Randy 1 tablet Common Mascorro [facility] Centrum Centrum No Centrum Silver Silver Silver 50+Women - 50+Women - 50+Women - Folic Acid Folic Acid No 1{table QD Folic Acid 1 MG 1 MG t} 1 MG Lotrel 5-20 Lotrel 5-20 No QD Lotrel MG MG 5-20 MG Donepezil Donepezil No Donepezil HCl 10 MG HCl 10 MG HCl 10 MG Glucosamine Glucosamine No Glucosamin Chondroit-C Chondroit-C e ollagen - ollagen - Chondroit- Collagen - Levothyroxi Levothyroxi No QD Levothyrox ne Sodium ne Sodium ine Sodium 25 MCG 25 MCG 25 MCG Lotrel 5-20 Lotrel 5-20 No QD Lotrel MG MG 5-20 MG Super Super No Super B-Complex - B-Complex - B-Complex - Aspir-81 81 Aspir-81 81 No 1{table QD Aspir-81 MG MG t} 81 MG Folic Acid Folic Acid No 1{table QD Folic Acid 1 MG 1 MG t} 1 MG Centrum Centrum No Centrum Silver Silver Silver 50+Women - 50+Women - 50+Women - Ginkgo Ginkgo No Ginkgo Biloba 60 Biloba 60 Biloba 60 MG MG MG Vitamin D-3 Vitamin D-3 No 1{capsu QD Vitamin 1000 UNIT 1000 UNIT le} D-3 1000 UNIT Simvastatin Simvastatin No 1{table QD Simvastati 20 MG 20 MG t_in_th n 20 MG e_eveni ng} Co Q-10 300 Co Q-10 300 No 1{capsu QD Co Q-10 MG MG le_with 300 MG _a_meal } amLODIPine amLODIPine No amLODIPine Besy-Benaze Besy-Benaze Besy-Benaz pril HCl pril HCl epril HCl 5-20 MG 5-20 MG 5-20 MG Donepezil Donepezil No Donepezil HCl 10 MG HCl 10 MG HCl 10 MG Glucosamine Glucosamine No Glucosamin Chondroit-C Chondroit-C e ollagen - ollagen - Chondroit- Collagen - Levothyroxi Levothyroxi No QD Levothyrox ne Sodium ne Sodium ine Sodium 25 MCG 25 MCG 25 MCG Lotrel 5-20 Lotrel 5-20 No QD Lotrel MG MG 5-20 MG Super Super No Super B-Complex - B-Complex - B-Complex - Aspir-81 81 Aspir-81 81 No 1{table QD Aspir-81 MG MG t} 81 MG Folic Acid Folic Acid No 1{table QD Folic Acid 1 MG 1 MG t} 1 MG Centrum Centrum No Centrum Silver Silver Silver 50+Women - 50+Women - 50+Women - Ginkgo Ginkgo No Ginkgo Biloba 60 Biloba 60 Biloba 60 MG MG MG Vitamin D-3 Vitamin D-3 No 1{capsu QD Vitamin 1000 UNIT 1000 UNIT le} D-3 1000 UNIT Simvastatin Simvastatin No 1{table QD Simvastati 20 MG 20 MG t_in_th n 20 MG e_eveni ng} Co Q-10 300 Co Q-10 300 No 1{capsu QD Co Q-10 MG MG le_with 300 MG _a_meal } amLODIPine amLODIPine No amLODIPine Besy-Benaze Besy-Benaze Besy-Benaz pril HCl pril HCl epril HCl 5-20 MG 5-20 MG 5-20 MG Donepezil Donepezil No Donepezil HCl 10 MG HCl 10 MG HCl 10 MG Glucosamine Glucosamine No Glucosamin Chondroit-C Chondroit-C e ollagen - ollagen - Chondroit- Collagen - Levothyroxi Levothyroxi No QD Levothyrox ne Sodium ne Sodium ine Sodium 25 MCG 25 MCG 25 MCG Lotrel 5-20 Lotrel 5-20 No QD Lotrel MG MG 5-20 MG Super Super No Super B-Complex - B-Complex - B-Complex - Aspir-81 81 Aspir-81 81 No 1{table QD Aspir-81 MG MG t} 81 MG Folic Acid Folic Acid No 1{table QD Folic Acid 1 MG 1 MG t} 1 MG Centrum Centrum No Centrum Silver Silver Silver 50+Women - 50+Women - 50+Women - Ginkgo Ginkgo No Ginkgo Biloba 60 Biloba 60 Biloba 60 MG MG MG Vitamin D-3 Vitamin D-3 No 1{capsu QD Vitamin 1000 UNIT 1000 UNIT le} D-3 1000 UNIT Simvastatin Simvastatin No 1{table QD Simvastati 20 MG 20 MG t_in_th n 20 MG e_eveni ng} Co Q-10 300 Co Q-10 300 No 1{capsu QD Co Q-10 MG MG le_with 300 MG _a_meal } amLODIPine amLODIPine No amLODIPine Besy-Benaze Besy-Benaze Besy-Benaz pril HCl pril HCl epril HCl 5-20 MG 5-20 MG 5-20 MG Donepezil Donepezil No Donepezil HCl 10 MG HCl 10 MG HCl 10 MG Glucosamine Glucosamine No Glucosamin Chondroit-C Chondroit-C e ollagen - ollagen - Chondroit- Collagen - Levothyroxi Levothyroxi No QD Levothyrox ne Sodium ne Sodium ine Sodium 25 MCG 25 MCG 25 MCG Lotrel 5-20 Lotrel 5-20 No QD Lotrel MG MG 5-20 MG Super Super No Super B-Complex - B-Complex - B-Complex - Aspir-81 81 Aspir-81 81 No 1{table QD Aspir-81 MG MG t} 81 MG Folic Acid Folic Acid No 1{table QD Folic Acid 1 MG 1 MG t} 1 MG Centrum Centrum No Centrum Silver Silver Silver 50+Women - 50+Women - 50+Women - Ginkgo Ginkgo No Ginkgo Biloba 60 Biloba 60 Biloba 60 MG MG MG Vitamin D-3 Vitamin D-3 No 1{capsu QD Vitamin 1000 UNIT 1000 UNIT le} D-3 1000 UNIT Simvastatin Simvastatin No 1{table QD Simvastati 20 MG 20 MG t_in_th n 20 MG e_eveni ng} Co Q-10 300 Co Q-10 300 No 1{capsu QD Co Q-10 MG MG le_with 300 MG _a_meal } amLODIPine amLODIPine No amLODIPine Besy-Benaze Besy-Benaze Besy-Benaz pril HCl pril HCl epril HCl 5-20 MG 5-20 MG 5-20 MG Centrum Centrum No Centrum Silver Silver Silver 50+Women - 50+Women - 50+Women - Ginkgo Ginkgo No Ginkgo Biloba 60 Biloba 60 Biloba 60 MG MG MG Super Super No Super B-Complex - B-Complex - B-Complex - amLODIPine amLODIPine No amLODIPine Besy-Benaze Besy-Benaze Besy-Benaz pril HCl pril HCl epril HCl 5-20 MG 5-20 MG 5-20 MG Vitamin D-3 Vitamin D-3 No 1{capsu QD Vitamin 1000 UNIT 1000 UNIT le} D-3 1000 UNIT Simvastatin Simvastatin No 1{table QD Simvastati 20 MG 20 MG t_in_th n 20 MG e_eveni ng} Donepezil Donepezil No Donepezil HCl 10 MG HCl 10 MG HCl 10 MG Aspir-81 81 Aspir-81 81 No 1{table QD Aspir-81 MG MG t} 81 MG Lotrel 5-20 Lotrel 5-20 No QD Lotrel MG MG 5-20 MG Glucosamine Glucosamine No Glucosamin Chondroit-C Chondroit-C e ollagen - ollagen - Chondroit- Collagen - Folic Acid Folic Acid No 1{table QD Folic Acid 1 MG 1 MG t} 1 MG Co Q-10 300 Co Q-10 300 No 1{capsu QD Co Q-10 MG MG le_with 300 MG _a_meal } Levothyroxi Levothyroxi No QD Levothyrox ne Sodium ne Sodium ine Sodium 25 MCG 25 MCG 25 MCG Folic Acid Folic Acid No 1{table QD Folic Acid 1 MG 1 MG t} 1 MG Super Super No Super B-Complex - B-Complex - B-Complex - Donepezil Donepezil No Donepezil HCl 10 MG HCl 10 MG HCl 10 MG Simvastatin Simvastatin No 1{table QD Simvastati 20 MG 20 MG t_in_th n 20 MG e_eveni ng} Co Q-10 300 Co Q-10 300 No 1{capsu QD Co Q-10 MG MG le_with 300 MG _a_meal } amLODIPine amLODIPine No amLODIPine Besy-Benaze Besy-Benaze Besy-Benaz pril HCl pril HCl epril HCl 5-20 MG 5-20 MG 5-20 MG Aspir-81 81 Aspir-81 81 No 1{table QD Aspir-81 MG MG t} 81 MG Levothyroxi Levothyroxi No QD Levothyrox ne Sodium ne Sodium ine Sodium 25 MCG 25 MCG 25 MCG Centrum Centrum No Centrum Silver Silver Silver 50+Women - 50+Women - 50+Women - Glucosamine Glucosamine No Glucosamin Chondroit-C Chondroit-C e ollagen - ollagen - Chondroit- Collagen - Lotrel 5-20 Lotrel 5-20 No QD Lotrel MG MG 5-20 MG Vitamin D-3 Vitamin D-3 No 1{capsu QD Vitamin 1000 UNIT 1000 UNIT le} D-3 1000 UNIT Ginkgo Ginkgo No Ginkgo Biloba 60 Biloba 60 Biloba 60 MG MG MG Folic Acid Folic Acid No 1{table QD Folic Acid 1 MG 1 MG t} 1 MG Super Super No Super B-Complex - B-Complex - B-Complex - Donepezil Donepezil No Donepezil HCl 10 MG HCl 10 MG HCl 10 MG Simvastatin Simvastatin No 1{table QD Simvastati 20 MG 20 MG t_in_th n 20 MG e_eveni ng} Co Q-10 300 Co Q-10 300 No 1{capsu QD Co Q-10 MG MG le_with 300 MG _a_meal } amLODIPine amLODIPine No amLODIPine Besy-Benaze Besy-Benaze Besy-Benaz pril HCl pril HCl epril HCl 5-20 MG 5-20 MG 5-20 MG Aspir-81 81 Aspir-81 81 No 1{table QD Aspir-81 MG MG t} 81 MG Levothyroxi Levothyroxi No QD Levothyrox ne Sodium ne Sodium ine Sodium 25 MCG 25 MCG 25 MCG Centrum Centrum No Centrum Silver Silver Silver 50+Women - 50+Women - 50+Women - Glucosamine Glucosamine No Glucosamin Chondroit-C Chondroit-C e ollagen - ollagen - Chondroit- Collagen - Lotrel 5-20 Lotrel 5-20 No QD Lotrel MG MG 5-20 MG Vitamin D-3 Vitamin D-3 No 1{capsu QD Vitamin 1000 UNIT 1000 UNIT le} D-3 1000 UNIT Ginkgo Ginkgo No Ginkgo Biloba 60 Biloba 60 Biloba 60 MG MG MG Simvastatin Simvastatin No 1{table QD Simvastati 20 MG 20 MG t_in_th n 20 MG e_eveni ng} Aspir-81 81 Aspir-81 81 No 1{table QD Aspir-81 MG MG t} 81 MG Centrum Centrum No Centrum Silver Silver Silver 50+Women - 50+Women - 50+Women - Vitamin D-3 Vitamin D-3 No 1{capsu QD Vitamin 1000 UNIT 1000 UNIT le} D-3 1000 UNIT Ginkgo Ginkgo No Ginkgo Biloba 60 Biloba 60 Biloba 60 MG MG MG Lotrel 5-20 Lotrel 5-20 No QD Lotrel MG MG 5-20 MG Folic Acid Folic Acid No 1{table QD Folic Acid 1 MG 1 MG t} 1 MG Co Q-10 300 Co Q-10 300 No 1{capsu QD Co Q-10 MG MG le_with 300 MG _a_meal } Super Super No Super B-Complex - B-Complex - B-Complex - Levothyroxi Levothyroxi No QD Levothyrox ne Sodium ne Sodium ine Sodium 25 MCG 25 MCG 25 MCG Glucosamine Glucosamine No Glucosamin Chondroit-C Chondroit-C e ollagen - ollagen - Chondroit- Collagen - Donepezil Donepezil No Donepezil HCl 10 MG HCl 10 MG HCl 10 MG amLODIPine amLODIPine No amLODIPine Besy-Benaze Besy-Benaze Besy-Benaz pril HCl pril HCl epril HCl 5-20 MG 5-20 MG 5-20 MG Simvastatin Simvastatin No 1{table QD Simvastati 20 MG 20 MG t_in_th n 20 MG e_eveni ng} Aspir-81 81 Aspir-81 81 No 1{table QD Aspir-81 MG MG t} 81 MG Centrum Centrum No Centrum Silver Silver Silver 50+Women - 50+Women - 50+Women - Vitamin D-3 Vitamin D-3 No 1{capsu QD Vitamin 1000 UNIT 1000 UNIT le} D-3 1000 UNIT Ginkgo Ginkgo No Ginkgo Biloba 60 Biloba 60 Biloba 60 MG MG MG Lotrel 5-20 Lotrel 5-20 No QD Lotrel MG MG 5-20 MG Folic Acid Folic Acid No 1{table QD Folic Acid 1 MG 1 MG t} 1 MG Co Q-10 300 Co Q-10 300 No 1{capsu QD Co Q-10 MG MG le_with 300 MG _a_meal } Super Super No Super B-Complex - B-Complex - B-Complex - Levothyroxi Levothyroxi No QD Levothyrox ne Sodium ne Sodium ine Sodium 25 MCG 25 MCG 25 MCG Glucosamine Glucosamine No Glucosamin Chondroit-C Chondroit-C e ollagen - ollagen - Chondroit- Collagen - Donepezil Donepezil No Donepezil HCl 10 MG HCl 10 MG HCl 10 MG amLODIPine amLODIPine No amLODIPine Besy-Benaze Besy-Benaze Besy-Benaz pril HCl pril HCl epril HCl 5-20 MG 5-20 MG 5-20 MG Simvastatin Simvastatin No 1{table QD Simvastati 20 MG 20 MG t_in_th n 20 MG e_eveni ng} Aspir-81 81 Aspir-81 81 No 1{table QD Aspir-81 MG MG t} 81 MG Centrum Centrum No Centrum Silver Silver Silver 50+Women - 50+Women - 50+Women - Vitamin D-3 Vitamin D-3 No 1{capsu QD Vitamin 1000 UNIT 1000 UNIT le} D-3 1000 UNIT Ginkgo Ginkgo No Ginkgo Biloba 60 Biloba 60 Biloba 60 MG MG MG Lotrel 5-20 Lotrel 5-20 No QD Lotrel MG MG 5-20 MG Folic Acid Folic Acid No 1{table QD Folic Acid 1 MG 1 MG t} 1 MG Co Q-10 300 Co Q-10 300 No 1{capsu QD Co Q-10 MG MG le_with 300 MG _a_meal } Super Super No Super B-Complex - B-Complex - B-Complex - Levothyroxi Levothyroxi No QD Levothyrox ne Sodium ne Sodium ine Sodium 25 MCG 25 MCG 25 MCG Glucosamine Glucosamine No Glucosamin Chondroit-C Chondroit-C e ollagen - ollagen - Chondroit- Collagen - Donepezil Donepezil No Donepezil HCl 10 MG HCl 10 MG HCl 10 MG amLODIPine amLODIPine No amLODIPine Besy-Benaze Besy-Benaze Besy-Benaz pril HCl pril HCl epril HCl 5-20 MG 5-20 MG 5-20 MG Simvastatin Simvastatin No 1{table QD Simvastati 20 MG 20 MG t_in_th n 20 MG e_eveni ng} Aspir-81 81 Aspir-81 81 No 1{table QD Aspir-81 MG MG t} 81 MG Centrum Centrum No Centrum Silver Silver Silver 50+Women - 50+Women - 50+Women - Vitamin D-3 Vitamin D-3 No 1{capsu QD Vitamin 1000 UNIT 1000 UNIT le} D-3 1000 UNIT Ginkgo Ginkgo No Ginkgo Biloba 60 Biloba 60 Biloba 60 MG MG MG Lotrel 5-20 Lotrel 5-20 No QD Lotrel MG MG 5-20 MG Folic Acid Folic Acid No 1{table QD Folic Acid 1 MG 1 MG t} 1 MG Co Q-10 300 Co Q-10 300 No 1{capsu QD Co Q-10 MG MG le_with 300 MG _a_meal } Super Super No Super B-Complex - B-Complex - B-Complex - Levothyroxi Levothyroxi No QD Levothyrox ne Sodium ne Sodium ine Sodium 25 MCG 25 MCG 25 MCG Glucosamine Glucosamine No Glucosamin Chondroit-C Chondroit-C e ollagen - ollagen - Chondroit- Collagen - Donepezil Donepezil No Donepezil HCl 10 MG HCl 10 MG HCl 10 MG amLODIPine amLODIPine No amLODIPine Besy-Benaze Besy-Benaze Besy-Benaz pril HCl pril HCl epril HCl 5-20 MG 5-20 MG 5-20 MG Simvastatin Simvastatin No 1{table QD Simvastati 20 MG 20 MG t_in_th n 20 MG e_eveni ng} Aspir-81 81 Aspir-81 81 No 1{table QD Aspir-81 MG MG t} 81 MG Centrum Centrum No Centrum Silver Silver Silver 50+Women - 50+Women - 50+Women - Vitamin D-3 Vitamin D-3 No 1{capsu QD Vitamin 1000 UNIT 1000 UNIT le} D-3 1000 UNIT Ginkgo Ginkgo No Ginkgo Biloba 60 Biloba 60 Biloba 60 MG MG MG Lotrel 5-20 Lotrel 5-20 No QD Lotrel MG MG 5-20 MG Folic Acid Folic Acid No 1{table QD Folic Acid 1 MG 1 MG t} 1 MG Co Q-10 300 Co Q-10 300 No 1{capsu QD Co Q-10 MG MG le_with 300 MG _a_meal } Super Super No Super B-Complex - B-Complex - B-Complex - Levothyroxi Levothyroxi No QD Levothyrox ne Sodium ne Sodium ine Sodium 25 MCG 25 MCG 25 MCG Glucosamine Glucosamine No Glucosamin Chondroit-C Chondroit-C e ollagen - ollagen - Chondroit- Collagen - Donepezil Donepezil No Donepezil HCl 10 MG HCl 10 MG HCl 10 MG amLODIPine amLODIPine No amLODIPine Besy-Benaze Besy-Benaze Besy-Benaz pril HCl pril HCl epril HCl 5-20 MG 5-20 MG 5-20 MG Super Super No Super B-Complex - B-Complex - B-Complex - Co Q-10 300 Co Q-10 300 No 1{capsu QD Co Q-10 MG MG le_with 300 MG _a_meal } Donepezil Donepezil No Donepezil HCl 10 MG HCl 10 MG HCl 10 MG Vitamin D-3 Vitamin D-3 No 1{capsu QD Vitamin 1000 UNIT 1000 UNIT le} D-3 1000 UNIT Simvastatin Simvastatin No 1{table QD Simvastati 20 MG 20 MG t_in_th n 20 MG e_eveni ng} Ginkgo Ginkgo No Ginkgo Biloba 60 Biloba 60 Biloba 60 MG MG MG Aspir-81 81 Aspir-81 81 No 1{table QD Aspir-81 MG MG t} 81 MG amLODIPine amLODIPine No amLODIPine Besy-Benaze Besy-Benaze Besy-Benaz pril HCl pril HCl epril HCl 5-20 MG 5-20 MG 5-20 MG Glucosamine Glucosamine No Glucosamin Chondroit-C Chondroit-C e ollagen - ollagen - Chondroit- Collagen - Levothyroxi Levothyroxi No QD Levothyrox ne Sodium ne Sodium ine Sodium 25 MCG 25 MCG 25 MCG Immunizations Ordered Immunization Filled Immunization Date Status Commen ts Source Name Name COVID-19 Vaccine COVID-19 Vaccine 2020-04-21 Completed [facility]) 15:12:00 - [facility] COVID-19 Vaccine COVID-19 Vaccine 2020-04-21 Completed [facility] ([employer]) 15:12: [facility] COVID-19 Vaccine COVID-19 Vaccine 2020-04-21 Completed [facility] ([employer]) 15:12:00 - [facility] COVID-19 Vaccine COVID-19 Vaccine 2020-04-21 Completed [facility] ([facility] ([employer]) 15:12:00 - [facility] COVID-19 Vaccine COVID-19 Vaccine 2020-04-21 Completed [facility] ([facility] ([employer]) 15:12:00 - [facility] COVID-19 Vaccine COVID-19 Vaccine 2020-04-21 Completed [facility] ([facility] ([employer]) 15:12:00 [facility] COVID-19 Vaccine COVID-19 Vaccine 2020-04-21 Completed [facility] ([facility] ([employer]) 15:12: - [facility] COVID-19 Vaccine COVID-19 Vaccine 2020-04-21 Completed [facility] ([facility]) 15:12:00 - [facility] COVID-19 Vaccine COVID-19 Vaccine 2020-04-21 Completed [facility] ([facility]) 15:12:00 - [facility] COVID-19 Vaccine COVID-19 Vaccine 2020-04-21 Completed [facility] ([facility]) 15:12:00 - [facility] COVID-19 Vaccine COVID-19 Vaccine 2020-04-21 Completed [facility] ([facility]) 15:12:00 - [facility] COVID-19 Vaccine COVID-19 Vaccine 2020-04-21 Completed [facility] ([facility]) 15:12:00 - [facility] COVID-19 Vaccine COVID-19 Vaccine 2020-04-21 Completed [facility] ([facility]ay[facility]) 15:12:00 - [facility] FluAD FluAD 2019-12-06 Completed [facility] 09:44:00 - [facility] FluAD FluAD 2019-12-06 Completed [facility] 09:44:00 - [facility] FluAD FluAD 2019-12-06 Completed [facility] 09:44:00 - [facility] FluAD FluAD 2019-12-06 Completed [facility] 09:44:00 - [facility] FluAD FluAD 2019-12-06 Completed [facility] 09:44:00 - [facility] FluAD FluAD 2019-12-06 Completed [facility] 09[facility]44:00 - [facility] FluAD FluAD 2019-12-06 Completed [facility] 09:44:00 - [facility] FluAD FluAD 2019-12-06 Completed [facility] 09:44:00 - [facility] FluAD FluAD 2019-12-06 Completed [facility] 09[facility]44:00 - [facility] FluAD FluAD 2019-12-06 Completed [facility] 09:44:00 - [facility] FluAD FluAD 2019-12-06 Completed [facility] 09:44:00 - [facility] FluAD FluAD 2019-12-06 Completed [facility] 09:44:00 - [facility] FluAD FluAD 2019-12-06 Completed [facility] 09:44:00 [facility] Vital Signs Vital Name Observation Time Observation Value Comments Source height 2021-08-26 14:40:00 66 [in_i] [facility] weight 2021-08-26 14:40:00 149 [lb_av] [facility] temperature 2021-08-26 14:40:00 97.6 [degF] [facility] bmi 2021-08-26 14:40:00 24.05 kg/m2 [facility] oximetry 2021-08-26 14:40:00 99 % [facility] respiratory rate 2021-08-26 14:40:00 16 /min Comm on [facility] blood pressure 2021-08-26 14:40:00 132 mm[Hg] [facility] - systolic [facility] [facility] 2021-08-26 14:40:00 70 mm[Hg] [facility] height 2021-08-26 14:40:00 66 [in_i] [facility] weight 2021-08-26 14:40:00 149 [lb_av] [facility] temperature 2021-08-26 14:40:00 97.6 [degF] [facility] bmi 2021-08-26 14:40:00 24.05 kg/m2 [facility] oximetry 2021-08-26 14:40:00 99 % [facility] respiratory rate 2021-08-26 14:40:00 16 /min Comm on [facility] blood pressure 2021-08-26 14:40:00 132 mm[Hg] [facility] - systolic [facility] blood pressure 2021-08-26 14:40:00 70 mm[Hg] [facility] height 2021-05-26 15:40:00 66 [in_i] [facility] weight 2021-05-26 15:40:00 155.7 [lb_av] Common [facility] temperature 2021-05-26 15:40:00 97.6 [degF] Common [facility] bmi 2021-05-26 15:40:00 25.13 kg/m2 Common [facility] oximetry 2021-05-26 15:40:00 98 % Common [facility] respiratory rate 2021-05-26 15:40:00 17 /min Comm on [facility] blood pressure 2021-05-26 15:40:00 134 mm[Hg] Common [facility] - systolic [facility] blood pressure 2021-05-26 15:40:00 67 mm[Hg] [facility] - diastolic [facility] height 2021-02-24 14:30:00 66 [in_i] Common [facility] weight 2021-02-24 14:30:00 166.8 [lb_av] [facility] temperature 2021-02-24 14:30:00 97.2 [degF] Common [facility] bmi 2021-02-24 14:30:00 26.92 kg/m2 [facility] oximetry 2021-02-24 14:30:00 98 % Common [facility] respiratory rate 2021-02-24 14:30:00 18 /min Comm on [facility] blood pressure 2021-02-24 14:30:00 132 mm[Hg] [facility] blood pressure 2021-02-24 14:30:00 62 mm[Hg] [facility] height 2021-01-09 14:00:00 66 [in_i] Common [facility] weight 2021-01-09 14:00:00 160.2 [lb_av] Common [facility] temperature 2021-01-09 14:00:00 96.8 [degF] Common [facility] bmi 2021-01-09 14:00:00 25.85 kg/m2 [facility] oximetry 2021-01-09 14:00:00 99 % Common [facility] respiratory rate 2021-01-09 14:00:00 18 /min Comm on [facility] blood pressure 2021-01-09 14:00:00 138 mm[Hg] Common [facility] - systolic [facility] blood pressure 2021-01-09 14:00:00 70 mm[Hg] [facility] - diastolic [facility] height 2020-12-02 14:40:00 66 [in_i] [facility] weight 2020-12-02 14:40:00 164.6 [lb_av] [facility] temperature 2020-12-02 14:40:00 97.9 [degF] [facility] bmi 2020-12-02 14:40:00 26.56 kg/m2 [facility] oximetry 2020-12-02 14:40:00 96 % [facility] respiratory rate 2020-12-02 14:40:00 18 /min Comm on [facility] blood pressure 2020-12-02 14:40:00 136 mm[Hg] Common [facility] - systolic [facility] blood pressure 2020-12-02 14:40:00 78 mm[Hg] Common [facility] - diastolic [facility] Systolic blood 2019-08-31 14:15:00 134 mm[Hg] [facility] pressure Medicine Diastolic blood 2019-08-31 14:15:00 79 mm[Hg] [facility] pressure Medicine Heart rate 2019-08-31 14:15:00 65 /min [facility] Body height 2019-08-31 14:15:00 167.6 cm [facility] Body weight 2019-08-31 14:15:00 73.029 kg [facility] BMI 2019-08-31 14:15:00 25.99 kg/m2 [facility] Procedures This patient has no known procedures. Plan of Care Planned Activity Planned Date Details Comments Source Future Scheduled Test COLON CANCER SCREENING: [facility] COLONOSCOPY [code = Medicine COLON CANCER SCREENING: COLONOSCOPY] Future Scheduled Test MAMMOGRAM ANNUAL [code [facility] = MAMMOGRAM ANNUAL] Medicine Future Scheduled Test TETANUS SHOT (ADULT) [facility] [code = TETANUS SHOT Medicin e (ADULT)] Future Scheduled Test BMI FOLLOW UP PLAN [facility] [code = BMI FOLLOW UP Medici ne PLAN] Future Scheduled Test HEPATITIS C SCREENING [facility] [code = HEPATITIS C Medicine SCREENING] Future Scheduled Test ZOSTER VACCINE (1 of 2) [facility] [code = ZOSTER VACCINE Medic ine (1 of 2)] Future Scheduled Test MEDICARE AWV (Initial) [facility] [code = MEDICARE AWV Medicin e (Initial)] Future Scheduled Test FALL SCREEN [code = [facility] FALL SCREEN] Medicine Future Scheduled Test OSTEOPOROSIS SCREENING [facility] [code = OSTEOPOROSIS Medicin e SCREENING] Future Scheduled Test PNEUMOVAX >=65 (PPSV23) [facility] [code = PNEUMOVAX >=65 Medic ine (PPSV23)] Future Scheduled Test FLU VACCINE > 6 MONTHS [facility] [code = FLU VACCINE > 6 Medi cine MONTHS] Encounters Start End Encounter Admission Attending Care Care Encounter Source Date/Time Date/Time Type Type Clinicians Facility Department ID 2021-03-04 Outpatient Mascorro, [facility] Common 14:38:54 [facility] 2021-03-04 Outpatient Mascorro, [facility] Common 14:22:10 Randy [id number] [facility] 2021-03-04 Outpatient Mascorro, [facility] Common 14:19:16 [facility] 2021-03-04 Outpatient Mascorro, [facility] Common 13:21:13 [facility] [id number] [facility] 2021-03-04 Outpatient M[place]orro, [place] [id number] Common 12:40:51 Randy [id number] [facility] 2021-03-04 Outpatient Mascorro, STLMLC STLMLC [id number] Common 12:40:22 Randy [id number] [facility] 2021-03-04 Outpatient Mascorro, STLMLC STLMLC [id number] Common 12:39:19 Randy [id number] [facility] 2021-03-04 Outpatient Mascorro, STLMLC STLMLC [id number] Common 12:38:26 Randy [id number] [facility] 2021-03-04 Outpatient Mascorro, STLMLC STLMLC [id number] Common 12:37:28 Randy [id number] [facility] 2021-03-04 Outpatient Mascorro, STLMLC STLMLC [id number] Common 12:36:06 Randy [id number] [facility] 2021-03-04 Outpatient Mascorro, STLMLC STLMLC [id number] Common 12:17:31 Randy [id number] [facility] 2021-03-04 Outpatient Mascorro, STLMLC STLMLC [id number] Common 12:11:34 Randy [id number] [facility] 2021-03-04 Outpatient Mascorro, STLMLC STLMLC [id number] Common 11:36:13 Randy [id number] [facility] 2021-03-04 Outpatient Mascorro, STLMLC STLMLC [id number] Common 11:26:04 Randy [id number] [facility] 2021-03-04 Outpatient Mascorro, STLMLC STLMLC [id number] Common 11:23:42 Randy [id number] [facility] 2021-03-04 Outpatient Mascorro, STLMLC STLMLC [id number] Common 11:22:28 Randy [id number] [facility] 2021-03-04 Outpatient Mascorro, STLMLC STLMLC [id number] Common 11:13:10 Randy [id number] [facility] 2021-03-04 Outpatient Mascorro, STLMLC STLMLC [id number] Common 11:11:46 [facility] [id number] [facility] 2021-11-26 2021-11-26 (TEL) STLMLC STLMLC [id number] Co mmon 00:00:00 00:00:00 [facility] 2021-11-13 2021-11-13 (TEL) STLMLC STLMLC [id number] Co mmon 00:00:00 00:00:00 [facility] 2021-08-26 2021-08-26 OFFICE STLMLC STLMLC [id number] Co mmon 00:00:00 00:00:00 [facility] - CHI LEVEL 4 [facility] 2021-08-26 2021-08-26 SUB ANNUAL STLMLC STLMLC [id number] Common 00:00:00 00:00:00 MCR [facility] VISIT [facility] 2021-05-26 2021-05-26 (TEL) STLMLC STLMLC [id number] Co mmon 00:00:00 00:00:00 [facility] 2021-05-26 2021-05-26 (ESTPT) STLMLC STLMLC [id number] Co mmon 00:00:00 00:00:00 Clarisa soto Patient [facility] 2021-02-24 2021-02-24 OFFICE STLMLC STLMLC [id number] Co mmon 00:00:00 00:00:00 [facility]I L[facility]EL 4 [facility] 2021-01-14 2021-01-14 (TEL) STLMLC STLMLC [id number] Co mmon 00:00:00 00:00:00 [facility] 2021-01-09 2021-01-09 OFFICE STLMLC STLMLC [id number] Co mmon 00:00:00 00:00:00 VISIT [facility] ESTAB PT - CHI LEVEL 4 [facility] 2021-01-09 2021-01-09 (TEL) STLMLC STLMLC [id number] Co mmon 00:00:00 00:00:00 [facility] 2020-12-29 2020-12-29 Outpatient SHAV[place]NE [facility] [id number] [facility] 13:00:27 13:00:27 Zane 2020-12-26 2020-12-26 (TEL) STLMLC STLMLC [id number] Co mmon 00:00:00 00:00:00 [facility] 2020-12-02 2020-12-02 OFFICE STLMLC STLMLC [id number] Co mmon 00:00:00 00:00:00 VISIT EST Spir it PT LEVEL 3 [facility] 2020-09-16 2020-09-16 Outpatient STLMLC STLMLC [id number] Common 00:00:00 00:00:00 [facility] 2020-08-14 2020-08-14 Outpatient STLMLC STLMLC [id number] Common 00:00:00 00:00:00 [facility] 2020-08-14 2020-08-14 Outpatient STLMLC STLMLC [id number] Common 00:00:00 00:00:00 [facility] 2020-04-21 2020-04-21 Outpatient STLMLC STLMLC [id number] Common 00:00:00 00:00:00 [facility] 2020-04-16 2020-04-16 Outpatient STLMLC STLMLC [id number] Common 00:00:00 00:00:00 [facility] 2020-01-17 2020-01-17 Outpatient STLMLC STLMLC [id number] Common 00:00:00 00:00:00 [facility] 2019-10-17 2019-10-17 [facility] [id number] Common 10:50:00 10:50:[address] [facility] 2019-09-17 2019-09-17 [facility] [id number] Common 09:30:00 09:30:[address] [facility] 2019-08-15 2019-08-15 [facility] [id number] Common 11:45:00 11:45:[address] [facility] 2019-08-15 2019-08-15 [facility] [id number] Common 11:00:00 11:00:[address] [facility] 2019-07-27 2019-07-27 [facility] [id number] Common 13:26:00 13:26:[address] [facility] [address] [facility] 2019-07-20 2019-07-20 [facility] [id number] Common 15:29:00 15:29:[address] [facility] 2019-07-17 2019-07-17 [facility] [id number] Common 16:27:00 16:27:[address] [facility] 2019-07-06 2019-07-06 [facility] [id number] Common 16:15:00 16:15:[address] [facility] 2019-07-05 2019-07-05 [facility] [id number] Common 12:54:00 12:54:[address] [facility] 2019-07-05 2019-07-05 [facility] [id number] Common 11:30:00 11:30:[address] [facility] 2019-07-03 2019-07-03 [facility] [id number] Common 09:30:00 09:30:[address] [facility] 2019-06-26 2019-06-26 [facility] [id number] Common 11:18:00 11:18:[address] [facility] 2019-04-18 2019-04-18 [facility] [id number] Common 09:30:00 09:30:[address] [facility] 2019-01-12 2019-01-12 [facility] [id number] Common 10:22:00 10:22:[address] [facility] 2019-01-03 2019-01-03 [facility] [id number] Common 13:10:00 13:10:[address] [facility] 2018-12-18 2018-12-18 [facility] [id number] Common 10:15:00 10:15:[address] [facility] 2018-12-08 2018-12-08 [facility] [id number] Common 16:58:00 16:58:[address] [facility] 2018-11-20 2018-11-20 [facility] [id number] Common 08:30:00 08:30:[address] [facility] 2018-10-05 2018-10-05 [facility] [id number] Common 12:08:00 12:08:[address] [facility] 2018-08-16 2018-08-16 [facility] [id number] Common 10:15:00 10:15:[address] [facility] 2018-04-14 2018-04-14 [facility] [id number] Common 08:30:00 08:30:[address] [facility] 2017-09-16 2017-09-16 [facility] [id number] Common 09:45:00 09:45:[address] [facility] 2017-06-16 2017-06-16 [facility] [id number] Common 10:15:00 10:15:[address] [facility] Results This patient has no known results.
[2021-12-07] MEDS ORDERED: LIDOCAINE 1% W/EPI 1:100,000 30 ML VIAL ONE (06:18)
[2021-12-07] MEDS ORDERED: CEFAZOLIN SODIUM 1 GM/VIAL ONE (06:46)
[2021-12-07] MEDS ORDERED: NA CHLORIDE 0.9% 500 ML ONE (06:46)
[2021-12-07] MEDS ORDERED: NA CHLORIDE 0.9% 0 ML IV ONE (06:47)
[2021-12-07] MEDS ORDERED: TETANUS & DIPHTHERIA TOX,ADULT 0.5 ML VIAL ONE (06:47)
[2021-12-07] MEDS ORDERED: NA CHLORIDE 0.9% 50 ML IV ONE (06:55)
--- NOTE | 2021-12-07 07:14 | EDPHYS ---
Physician Documentation [facility] Name: Mallory Lai Age: 71 yrs Sex: Female : 1950 Arrival Date: 12/07/2021 Time: 04:42 Bed 7 Private MD: ED Physician Siddharth Andrea HPI: 12/07 06:42 This 71 yrs old Female presents to ER via EMS with complaints of Fall Injury. [facility] 06:42 Details of fall: The patient fell from an upright position, while standing, while stephanie walking. Onset: The symptoms/episode began/occurred just prior to arrival. Associated injuries: The patient sustained injury to the head. Severity of symptoms: At their worst the symptoms were mild, moderate, in the emergency department the symptoms are unchanged. The patient has experienced similar episodes in the past, a few times. Historical: - Allergies: 04:52 No Known Allergies; tw5 - Home Meds: 04:52 Lorazepam Oral [Active]; Hydromorphone Oral [Active]; tw5 - PMHx: 04:52 Dementia; Hypertension; Hypothyroidism; tw5 - PSHx: 04:52 Unable to Obtain; tw5 - Immunization history: Last tetanus immunization: unknown. - Social history:: Smoking status: unknown. ROS: 06:43 Constitutional: Negative for fever, chills, and weight loss, Eyes: Negative for injury, stephanie pain, redness, and discharge, ENT: Negative for injury, pain, and discharge, Neck: Negative for injury, pain, and swelling, Cardiovascular: Negative for chest pain, palpitations, and edema, Respiratory: Negative for shortness of breath, cough, wheezing, and pleuritic chest pain, Abdomen/GI: Negative for abdominal pain, nausea, vomiting, diarrhea, and constipation, Back: Negative for injury and pain, : Negative for injury, bleeding, discharge, and swelling, MS/Extremity: Negative for injury and deformity, Psych: Negative for depression, anxiety, suicide ideation, homicidal ideation, and hallucinations, Allergy/Immunology: Negative for hives, rash, and allergies, Endocrine: Negative for neck swelling, polydipsia, polyuria, polyphagia, and marked weight changes, Hematologic/Lymphatic: Negative for swollen nodes, abnormal bleeding, and unusual bruising. 06:43 Skin: Positive for laceration(s), of the face. 06:43 Neuro: Positive for altered mental status. Exam: 06:43 Constitutional: This is a well developed, well nourished patient who is awake, alert, stephanie and in no acute distress. Eyes: Pupils equal round and reactive to light, extra-ocular motions intact. Lids and lashes normal. Conjunctiva and sclera are non-icteric and not injected. Cornea within normal limits. Periorbital areas with no swelling, redness, or edema. ENT: Nares patent. No nasal discharge, no septal abnormalities noted. Tympanic membranes are normal and external auditory canals are clear. Oropharynx with no redness, swelling, or masses, exudates, or evidence of obstruction, uvula midline. Mucous membranes moist. Neck: Trachea midline, no thyromegaly or masses palpated, and no cervical lymphadenopathy. Supple, full range of motion without nuchal rigidity, or vertebral point tenderness. No Meningismus. Chest/axilla: Normal chest wall appearance and motion. Nontender with no deformity. No lesions are appreciated. Cardiovascular: Regular rate and rhythm with a normal S1 and S2. No gallops, murmurs, or rubs. Normal PMI, no JVD. No pulse deficits. Respiratory: Lungs have equal breath sounds bilaterally, clear to auscultation and percussion. No rales, rhonchi or wheezes noted. No increased work of breathing, no retractions or nasal flaring. Abdomen/GI: Soft, non-tender, with normal bowel sounds. No distension or tympany. No guarding or rebound. No evidence of tenderness throughout. Back: No spinal tenderness. No costovertebral tenderness. Full range of motion. Female : Normal external genitalia. Skin: Warm, dry with normal turgor. Normal color with no rashes, no lesions, and no evidence of cellulitis. MS/ Extremity: Pulses equal, no cyanosis. Neurovascular intact. Full, normal range of motion. Psych: Awake, alert, with orientation to person, place and time. Behavior, mood, and affect are within normal limits. 06:43 Head/face: Noted is a laceration(s), that is deep, that is jagged, 8 cm(s), of the left frontal area and right frontal area. 06:43 Cardiovascular: Rate: normal, Rhythm: regular, Pulses: Pulses are 4+ in bilateral radial, brachial, femoral, popliteal, posterior tibial and and dorsalis pedis arteries.. Heart sounds: normal, Edema: is not appreciated, JVD: is not appreciated. 06:43 ECG was reviewed by the Attending Physician. Vital Signs: 04:47 BP 165 / 64; Pulse 60; Resp 12; Temp 97.2(A); Pulse Ox 99% ; Weight 68.04 kg; Height 5 tw5 ft. 4 in. (162.56 cm); 04:47 Body Mass Index 25.75 (68.04 kg, 162.56 cm) tw5 Remberto Coma Score: 04:47 Eye Response: spontaneous(4). Verbal Response: confused(4). Motor Response: localizes tw5 pain(5). Total: 13. 06:48 Eye Response: spontaneous(4). Verbal Response: confused(4). Motor Response: obeys stephanie commands(6). Total: 14. Trauma Score (Adult): 04:47 Eye Response: spontaneous(1); Verbal Response: confused(1); Motor Response: localizes tw5 pain(1); Systolic BP: > 89 mm Hg(4); Respiratory Rate: 10 to 29 per min(4); Remberto Score: 13; Trauma Score: 11 Laceration: 06:50 Wound Repair of 8cm ( 3.1in ) subcutaneous laceration to left parietal area and right stephanie parietal area. Irregularly shaped.. Skin/tissue flap noted.. Distal neuro/vascular/tendon intact. Anesthesia: Local anesthetic administered with 10 mls of 1% lidocaine w/ Epi. Wound prep: Moderate cleansing with betadine by me. Skin closed with 10 demetria Prolene using staple gun. Dressed with pressure dressing, non-adherent dressing. Patient tolerated well. MDM: 04:46 Patient medically screened. stephanie 06:48 Differential diagnosis: Contusion of Hematoma on Laceration of Intracranial bleed- stephanie Concussion without LOC. cerebral contusion. Data reviewed: vital signs, nurses notes, lab test result(s), EKG, radiologic studies, CT scan. Data interpreted: phototypesetting equipment monitor: rate is 60 beats/min, rhythm is normal sinus rhythm, regular, Pulse oximetry: on room air is 99 %. Test interpretation: by ED physician or midlevel provider: ECG. Counseling: I had a detailed discussion with the patient and/or guardian regarding: the historical points, exam findings, and any diagnostic results supporting the discharge/admit diagnosis, lab results, radiology results, the need for outpatient follow up, for definitive care, an r d intern. 12/07 04:48 Order name: CBC with Diff [facility] 12/07 04:48 Order name: Comprehensive Metabolic Panel; Complete Time: 08:32 [facility] 12/07 04:48 Order name: CT Traumagram (Head C Spine CAP wo con) [facility] 12/07 04:48 Order name: EKG; Complete Time: 04:48 [facility] 12/07 04:48 Order name: EKG - Nurse/Tech; Complete Time: 07:09 [facility] 12/07 04:48 Order name: Gloves, Sterile; Complete Time: 05:16 [facility] 12/07 04:48 Order name: Setup Suture Tray; Complete Time: 05:16 [facility] 12/07 07:57 Order name: Labs - recollect needed: recollect lavender top; Complete Time: 08:38 bd EC:43 Rate is 60 beats/min. Rhythm is regular. QRS [place] is Normal. NC interval is normal. QRS stephanie interval is normal. QT interval is normal. No Q waves. T waves are Normal. No ST changes noted. Clinical impression: NSR w/ Non-specific ST/T Changes and No evidence of ischemia. Interpreted by me. Reviewed by me. 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 Exp: 06/27/2023. Lot ke1 #: [id number]. } Route: IM; Site: left deltoid; 08:38 Follow up: Response: No adverse reaction ph 07:00 Drug: Ancef (cefazolin) 1 grams Route: IVPB; Site: right forearm; ke1 07:30 Follow up: Response: No adverse reaction; IV Status: Completed infusion ph 07:00 Drug: NS 0.9% 500 ml Route: IV; Rate: bolus; Site: right forearm; ke1 Disposition Summary: 12/07/21 07:13 Discharge Ordered Location: Home stephanie Problem: new stephanie Symptoms: have improved stephanie Condition: Stable stephanie Diagnosis - Laceration without foreign body of other part of head - scalp stephanie - Fall on same level, unspecified stephanie - Unspecified injury of head, initial encounter stephanie - Dementia in other diseases classified elsewhere with behavioral disturbance stephanie Followup: stephanie - With: Private Physician - When: 2 - 3 days - Reason: Recheck today's complaints, Continuance of care, Re-evaluation by your physician Followup: stephanie - With: - When: 2 - 3 days - Reason: Recheck today's complaints, Re-evaluation by your physician Discharge Instructions: - Discharge Summary Sheet stephanie - Dementia stephanie - Head Injury, Adult stephanie - Head Injury, Adult, [id number] stephanie - Dementia, [id number] stephanie - Dementia Caregiver Guide [facility] Forms: - Medication Reconciliation Form stephanie - Thank You Letter stephanie - Antibiotic Education stephanie - Prescription Opioid Use [facility] Prescriptions: - Cephalexin 500 mg Oral Capsule - take 1 capsule by ORAL route every 6 hours for 7 days; 28 capsule; Refills: 0, [facility] Product Selection Permitted - Tylenol 325 mg Oral Tablet - take 2 tablets by ORAL route every 6 hours as needed; 1 bottle; Refills: 0, [facility] Product Selection Permitted Signatures: Dispatcher [employer] Deysi Navarrete Corey, MD MD cha Rittger, Kevin, MD MD kdr Wood, Tiffany 5 Wilmar Reese RN RN keTasha Green RN ph Corrections: (The following items were deleted from the chart) 04:53 04:52 PSHx: None; tw tw5
--- NOTE | 2021-12-07 07:14 | ER ---
Nurse's Notes [facility] Name: Mallory Lai Age: 71 yrs Sex: Female : 1950 Arrival Date: 12/07/2021 Time: 04:42 Bed 7 Private MD: Diagnosis: Laceration without foreign body of other part of head-scalp;Fall on same level, unspecified;Unspecified injury of head, initial encounter;Dementia in other diseases classified elsewhere with behavioral disturbance Presentation: 12/07 04:47 Chief complaint: EMS states: "She fell out of bed and hit her head. She lives at home. tw5 Her and hospice nurse are her caretakers. Her was a poor historian.". Care prior to arrival: None. Mechanism of Injury: Fall out of bed. Trauma event details: Injury occurred in the [facility], Injury occurred: at home. Injury occurred: December 07, 2021 Injury occurred at: 03:00. 04:47 Acuity: JAD 2 tw5 04:47 Method Of Arrival: EMS: [facility] tw5 04:52 Coronavirus screen: Vaccine status: unknown. Ebola Screen: Patient negative for fever tw5 greater than or equal to 101.5 degrees Fahrenheit, and additional compatible Ebola Virus Disease symptoms Patient denies exposure to infectious person. Patient denies travel to an Ebola-affected area in the 21 days before illness onset. Initial Sepsis Screen: Does the patient meet any 2 criteria? No. Patient's initial sepsis screen is negative. Does the patient have a suspected source of infection? No. Patient's initial sepsis screen is negative. Risk Assessment: Do you want to hurt yourself or someone else? Unable to obtain. Onset of symptoms was December 07, 2021 at 03:30. Triage Assessment: 04:52 General: Appears uncomfortable, Behavior is restless. Pain: Unable to use pain scale. tw5 Does not appear to understand pain scale. Patient appears confused, to be grimacing, to be moaning, restless. Trauma Activation: Physician: ED Physician; Name: Dr. Andrea; Notified At: 04:49; Arrived At: 04:49 Physician: General Surgeon; Name: ; Notified At: 04:49; Arrived At: Physician: Radiology; Name: ; Notified At: 04:49; Arrived At: Physician: Respiratory; Name: ; Notified At: 04:49; Arrived At: Physician: Lab; Name: ; Notified At: 04:49; Arrived At: Historical: - Allergies: 04:52 No Known Allergies; tw5 - Home Meds: 04:52 Lorazepam Oral [Active]; Hydromorphone Oral [Active]; tw5 - PMHx: 04:52 Dementia; Hypertension; Hypothyroidism; tw5 - PSHx: 04:52 Unable to Obtain; tw5 - Immunization history: Last tetanus immunization: unknown. - Social history:: Smoking status: unknown. Screenin:47 Abuse screen: Denies threats or abuse. Denies injuries from another. Tuberculosis tw5 screening: No symptoms or risk factors identified. Primary Survey: 04:47 NO uncontrolled hemorrhage observed. A: The client is awake and alert. The airway is tw5 patent. Breathing/Chest: Spontaneous respiratory effort, equal unlabored respirations, breath sounds clear bilaterally, regular pattern, symmetrical chest rise and fall. Circulation: No external hemorrhage present. Regular and strong central pulse, skin warm/dry/normal color. Hemorrhage: bleeding controlled by EMS. Disability Client is alert. Exposure/Environment: Obvious injury(ies) are noted at this time: Hematoma to head. Reassessment Alertness and Airway: Awake and alert. The airway is patent. Breathing: Spontaneous respiratory effort, equal unlabored respirations, breath sounds clear bilaterally, regular pattern with symmetrical chest rise and fall. Circulation: No external hemorrhage noted. Regular and strong central pulse, skin warm/dry/normal color. Disability: Alert. Secondary Survey: 04:47 Musculoskeletal: No deficits noted. tw5 Assessment: 04:47 General: Appears uncomfortable, Behavior is anxious, restless. Pain: Pain Unable to use tw5 pain scale. Does not appear to understand pain scale. Neuro: Level of Consciousness is confused, Oriented to person. 06:59 Reassessment: [id number] . ke1 Vital Signs: 04:47 BP 165 / 64; Pulse 60; Resp 12; Temp 97.2(A); Pulse Ox 99% ; Weight 68.04 kg; Height 5 tw5 ft. 4 in. (162.56 cm); 04:47 Body Mass Index 25.75 (68.04 kg, 162.56 cm) tw5 Clinton Coma Score: 04:47 Eye Response: spontaneous(4). Verbal Response: confused(4). Motor Response: localizes tw5 pain(5). Total: 13. 06:48 Eye Response: spontaneous(4). Verbal Response: confused(4). Motor Response: obeys stephanie commands(6). Total: 14. Trauma Score (Adult): 04:47 Eye Response: spontaneous(1); Verbal Response: confused(1); Motor Response: localizes tw5 pain(1); Systolic BP: > 89 mm Hg(4); Respiratory Rate: 10 to 29 per min(4); Remberto Score: 13; Trauma Score: 11 ED Course: 04:42 Patient arrived in ED. bp1 04:46 Siddharth Andrea MD is Attending Physician. stephanie 04:47 Patient has correct armband on for positive identification. tw5 04:49 Triage completed. tw5 04:52 Patient placed in an exam room. tw5 05:07 Wilmar Reese, RN is Primary Nurse. ke1 05:38 CT Traumagram (Head C Spine CAP wo con) In Process Unspecified. EDMS 06:00 Inserted saline lock: 24 gauge in right forearm, using aseptic technique. ke1 06:00 Irrigation of laceration on top of head irrigated with normal saline Patient tolerated ke1 assisted MD for demetria. 07:13 Frank Diaz MD is Referral Physician. stephanie Administered Medications: 06:10 Drug: Lidocaine-Epinephrine -1%: (1:100,000) 10 ml {Note: by MD andrea.} Volume: 20 ke1 ml; Route: Infiltration; 07:00 Drug: Tetanus Toxoid,Adsorbed 0.5 ml {Portable Canteen Operator: Tout. Exp: 06/27/2023. Lot ke1 #: [id number]. } Route: IM; Site: left deltoid; 08:38 Follow up: Response: No adverse reaction ph 07:00 Drug: Ancef (cefazolin) 1 grams Route: IVPB; Site: right forearm; ke1 07:30 Follow up: Response: No adverse reaction; IV Status: Completed infusion ph 07:00 Drug: NS 0.9% 500 ml Route: IV; Rate: bolus; Site: right forearm; ke1 Medication: 07:11 Vaccine Information Statement (VIS) provided today. Questions and/or concerns ke1 addressed. VIS edition date: December 07, 2021. Intake: 04:47 PO: 0ml; Total: 0ml. tw Output: 04:47 Urine: 0ml; Total: 0ml. tw5 Outcome: 07:13 Discharge ordered by MD. brown 09:14 Patient left the ED. jd3 Signatures: Dispatcher [employer] EDSiddharth Dunlap MD MD cha Hall, Patricia, RN RN Reddy Jacinto RN RN jd3 Skyla Corrales Tiffany tw5 Wilmar Reees, RN RN ke1 Corrections: (The following items were deleted from the chart) 04:53 04:52 PSHx: None; tw5 tw5
[2021-12-07 08:03] LABS: Albumin 3.5 g/dL (3.4-5.0); Bilirubin Total 0.9 mg/dL (0.2-1.0); Potassium 3.8 mmol/L (3.5-5.1); Protein, Total 6.6 g/dL (6.4-8.2)
[2021-12-07 08:30] LABS: Absolute Lymphocytes (CBC) 1.5 K/uL (0.7-4.9); Hematocrit 39.6 % (36.0-45.0); Lymphocytes % 14.8 % (15.3-44.8); MCV 90.3 fL (80-100); MPV 8.5 fL (7.6-11.3); RBC Red Blood Cell Count 4.39 M/uL (3.86-4.86)
[2021-12-07 09:25] VITALS: BP 165/64; TEMP 97.2; O2SAT 99
--- NOTE | 2021-12-07 15:56 | EKG ---
Test Date: 2021-12-07 Test Time: 06:02:05 Tongue Trimmer: TESSIE MEASUREMENT RESULTS: Intervals: Rate: 60 OK: 186 QRSD: 92 QT: 448 QTc: 448 Orange: P: 69 OK: 186 QRS: 16 T: 72 INTERPRETIVE STATEMENTS: Normal sinus rhythm Normal ECG Compared to ECG 05/19/2021 16:43:20 Sinus bradycardia no longer present Myocardial infarct finding no longer present Electronically Signed On 12-07-21 15:54:57 CDT by Alex Sanchez
--- NOTE | 2021-12-08 20:24 | RAD REPORT ---
EXAM DESCRIPTION: CT - Head C Spine Cap Wo Con - 12/07/2021 5:37 am CLINICAL HISTORY: 71 years Female fall TECHNIQUE: Multiple axial CT images of the brain, cervical spine, chest, abdomen and pelvis were per formed followed by sagittal and coronal reconstructed images. The CT study is performed according to ALARA (as low as reasonably achievable) or ALARA/IMAGE GENTLY, with automatic adjustment of mA and/or kV according to patient size. Performed on: 12/07/2021 at 5:21 AM COMPARISON: CT head and cervical spine performed on 11/06/[address] abdomen and pelvis performed on 10/15/2021 FINDINGS: CT HEAD: There is no evidence of mass, acute mass effect or midline shift. There are no acute extra-axial flui d collections. There is no evidence of acute intracranial hemorrhage. The cerebral sulci and ventricles are prominent consistent with mild cerebral volume loss. There are scattered areas of decreased attenuation within the subcortical and periventricular white m atter most likely due to mild chronic microangiopathy. There is mild mucosal thickening of the left maxillary sinus. The mastoid air cells are clear. The orbital contents are grossly unremarkable. No acute osseous abnormalities are identified. There is left frontal scalp soft tissue swelling and hematoma. CT CERVICAL SPINE: The cervical vertebrae are normal in height. There is straightening of the normal cervical lordosis w hich may be related to muscle spasm or patient positioning. There is stable mild to moderate disc spa ce narrowing C5-C6 and C6-C7 with associated degenerative spurring of the vertebral endplates. Bone m ineralization is normal. The atlanto-axial articulation is preserved and the odontoid process is i ntact. There are degenerative changes involving the atlantoaxial articulation. There is normal alignment of the facet joints on the parasagittal images. There is no evidence of acute fracture or subluxation. There is no significant canal stenosis. Ther e is multilevel bilateral neural foraminal stenosis secondary to uncovertebral joint and facet joint hypertrophy neural foraminal stenosis. The prevertebral and paraspinal soft tissues are unremarkable. The lung apices are clear. CHEST: Lungs: The lungs are well expanded and are clear. There are no pleural effusions. There is no pneumot horax. Central airways are patent. Heart: The heart is normal in size. There is no pericardial effusion. There are [id number] coronary artery calcifications. Mediastinum: The mediastinum is unremarkable. The mediastinal vessels are normal in caliber and con tour. Bones: No acute osseous abnormalities are identified. Soft tissues: No focal soft tissue abnormalities are identified. Lymphadenopathy: No pathologic hilar, mediastinal or axillary lymphadenopathy is identified. ABDOMEN/PELVIS: Liver: The liver is normal in size and configuration. No focal hepatic abnormalities are identified. Liver attenuation is within normal limits. Spleen: The spleen is normal is size, configuration and attenuation. Gallbladder and bile duct: The gallbladder is well distended and unremarkable. There is no biliary ductal dilatation. Pancreas: The pancreas is grossly normal in size and configuration. Adrenal Glands: The adrenal glands are normal in size and configuration. Kidneys: The kidneys are normal in size and configuration. There is no evidence of hydronephrosis. Th ere is no evidence of nephrolithiasis. There is a small stable left renal cortical cyst. No follow-up imaging is recommended. Stomach: The stomach is grossly normal. There may be a small sliding-type hiatal hernia. Bowel: The bowel gas pattern is non specific and non obstructive. There is scattered colonic divertic ulosis. There are postsurgical changes in the region of the cecum likely due to a prior appendectomy Appendix: Suspect prior appendectomy. Free air: There is no evidence of free air. Free fluid: There is no evidence of free fluid. Vasculature: The aorta is normal in caliber and contour. The inferior vena cava is grossly unremarkab le. There are mild atherosclerotic calcifications along the abdominal aorta and iliac arteries. Lymphadenopathy: No pathologic lymphadenopathy is identified. Bladder: The bladder is well distended and smooth in contour. Reproductive: The uterus is grossly within normal limits. The uterus appears retroflexed. There is a 3.9 x 2.8 cm left cystic adnexal mass lesion similar when compared to the prior study and stable when compared to the study performed on 06/23/2019. Bones: No acute osseous abnormalities are identified. Soft tissues: No acute soft tissue abnormalities are identified. IMPRESSION: CT HEAD: 1. No evidence of acute intracranial pathology. 2. Left frontal scalp soft tissue swelling and hematoma. 3. Mild cerebral atrophy with findings compatible with chronic microangiopathy. CT CERVICAL SPINE: 1. No evidence of acute osseous injury involving the cervical spine. 2. Degenerative changes of the cervical spine as described above. CT CHEST: 1. No evidence of acute intrathoracic disease. 2. Hddw-le-vepkohqa coronary artery calcifications. CT ABDOMEN AND PELVIS: 1. No evidence of acute intra-abdominal or intrapelvic pathology. 2. Colonic diverticulosis. 3. Stable left cystic adnexal mass lesion measuring up to 3.9 cm in diameter. The lack of interval change since 06/22/2021 favors a benign process. Consider baseline pelvic ultrasound for further patricio cterization. 4. Suspect prior appendectomy. Electronically signed by: Simona Blanchard DO 12/07/2021 6:30 AM CDT Due to temporary technical issues with the PACS/Fluency reporting system, reports are being signed by the in house radiologists without review as a courtesy to insure prompt reporting. The interpreting radiologist is fully responsible for the content of the report.
== END 2021-12-07 09:14 | disposition home or self-care (01) ==
LOC: ER 04:39
PROC: 0JQ00ZZ Repair Scalp Subcutaneous Tissue and Fascia, Open Approach (ICD-10-PCS; principal; 2021-12-07)
DX: S01.01XA Laceration without foreign body of scalp, initial encounter (principal); W18.30XA Fall on same level, unspecified, initial encounter; F02.818 Dementia in other diseases classified elsewhere, unspecified severity, with other behavioral disturbance; Z23 Encounter for immunization; I10 Essential (primary) hypertension
CPT/HCPCS: 96365; 93005; 85025; 36415; 80053; 70450; 71250; 72125; 90471; 90714; 99284; 12004; J7040; J0690

== ENCOUNTER 2022-03-18 13:52 | Emergency (ER) | payer OTHER, BC ==
--- OUTSIDE RECORDS SUMMARY | 2022-03-18 13:57 | XMS REPORT | Continuity of Care Document ---
:1950 Author Organization [facility] t Address [address] [place] [address] Care Team Providers Name Role Phone Randy Mascorro Attending Clinician Unavailable SHAVONNE MO Attending Clinician Unavailable Payers Payer Name Policy Type Policy Effective Date Expiration Date [facility] Number Blue Cross Blue 6 [id number] 2015 [facility] 00:00:00 - [facility] MEDICARE NOVITAS MB [id number] 2015 [facility] 00:00:00 - [facility] MEDICARE NOVITAS MB [id number] 2015 [facility] 00:00:00 - [facility] MEDICARE PART A [id number] \T\ B - MEDICARE MEDICARE [id number] SUPPLEMENT - BCBS ZJONATHAN [id number] 2015 00:00:00 MEDICARE NOVITAS MB [id number] 2015 [facility] 00:00:00 [facility] MEDICARE NOVITAS MB [id number] 2015 [facility] 00:00:00 [facility] Problems Condition Condition Condition Status Onset Resolution Last Treating Co mments Source Name Details Category Date Date Treatment Clinician Date Recurrent Multiple Problem Comm on falls falls [facility] [id number] Delirium Problem Common due to [facility] condition [facility] behavioral [facility] e [id number] Acute Problem Common metabolic [facility] encephalop - [facility] athy [facility] [id number] +6th digit Problem C ommon 103 eff Spirit 11/07/21*De - [facility] mentia in [facility] Medical classified Center elsewhere with behavioral disturbanc e Hypothyroi Hypothyroi Problem C ommon dism dism [facility] Hyperlipid Hyperlipid Problem C ommon emia emia [facility] Pain in Leg pain Problem Common limb [facility] Essential Benign Problem Common hypertensi essential Spi rit on HTN [facility] Memory Memory Problem Common loss loss [facility] Osteoarthr Osteoarthr Problem C ommon itis itis [facility] Hip joint Hip joint Problem Com mon pain pain [facility] 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 [facility] [id number] Breast Problem Commo n [id number] mass, left Spiri t [facility] [id number] S/P small Problem Co mmon [id number] bowel Spirit resection [facility] Alzheimer Alzheimer Problem Com mon disease disease [facility] Abnormal Abnormal Problem Commo n mammogram mammogram Spir it [facility] [id number] Short-term Problem Co mmon memory [facility] loss [facility] [id number] Dementia Problem Comm on in other Spirit diseases [facility] classified [facility] without Medical behavioral Center disturbanc e Allergies, Adverse Reactions, Alerts Allergy Allergy Status Severity Reaction(s) Onset Inactive Treating Comm ents Source Name Type Date Date Clinician Opioid Propensi Active Rash [facility] Analgesi ty to 08-30 [facility] cs adverse 00:00: of reaction 00 Medicin s to e drug Family History Family Member Diagnosis Comments Start Date Stop Date Source Natural father Heart Attack [facility] C ollege of Medicine Natural mother [facility] lege of Medicine Natural sister [facility] lege Medicine Social History Social Habit Start Date Stop Date Quantity Comments Source History of [facility] - Tobacco Use [facility] Sex Assigned At [facility] marybel - [facility] Tobacco use and 2019-08-31 2019-08-31 Never used [facility] Co llege exposure 00:00:00 00:00:00 of Medicine Alcohol intake 2019-08-31 2019-08-31 Ex-drinker [facility] leg 00:00:00 00:00:00 (finding) of Medicine Smoking Status Start Date Stop Date Source Never Smoker [facility] Medications Ordered Filled Start Stop Current Ordering [...] 1{table Ondansetro 4 MG 4 MG 8-10 t_on_ n 4 MG 00:00: e_tongu 00 e_and_a [...] 00:00: e_tongu 00 e_and_a llow_to _dissol ve} donepezil Yes 10mg [...] Lotrel Yes Randy 1 tab Common Mascorro [facility] Centrum Centrum Yes Randy not Common Silver Silver Mascorro defined [facility] 50+Women 50+Women - [facility] Vitamin D-3 Vitamin D-3 Yes Randy 1 capsule Common Mascorro [facility] Glucosamine Glucosamine Yes Randy not Common Chondroit-C Chondroit-C Mascorro defined [facility] ollagen ollagen [facility] Aspir-81 Aspir-81 Yes Randy 1 tablet C ommon Mascorro [facility] Super Super Yes Randy not Common B-Complex B-Complex Mascorro defined S pirit [facility] Simvastatin Simvastatin Yes Randy 1 tablet Common Mascorro in the [facility] evening [facility] Levothyroxi Levothyroxi Yes Randy 1 tablet Common ne Sodium ne Sodium Mascorro on an Spi rit empty - [facility]I stomach in [facility] Ginkgo Ginkgo Yes Randy not Common Biloba Biloba Mascorro defined [facility] Donepezil Donepezil Yes Randy TAKE 1 C ommon HCl HCl Mascorro TABLET BY [facility] MOUTH - [facility]I EVERY DAY St AT NIGHT [facility] Co Q-10 Co Q-10 Yes Randy 1 capsule Co mmon Mascorro with a Spirit meal [facility] Amlodipine Amlodipine Yes Randy 1 capsule Common Besy-Benaze Besy-Benaze Mascorro Spirit pril HCl pril HCl - [facility] Folic Acid Folic Acid Yes Randy 1 tablet Common Mascorro [facility] Centrum Centrum No Centrum Silver Silver Silver [...] 1{table QD Simvastati 20 MG 20 MG t_in_ n 20 MG e_eveni ng} Co Q-10 [...] MG t_in_th n 20 MG e_eveni ng} Aspir- 81 Aspir-81 81 No 1{table QD Aspir-81 [...] 1{table QD Simvastati 20 MG 20 MG t_in_ n 20 MG e_eveni ng} Aspir-81 81 [...] t} 81 MG amLODIPine amLODIPine No amLODIPine Besy-Benazfuentes Curiel-Aria Curiel-Benangelia pril HCl pril HCl epril HCl 5-20 [...] Vaccine 2020-04-21 Completed Co mmon [facility] (Shayy) (Stayzilla) 15:12: - [facility] COVID-19 Vaccine COVID-19 Vaccine 2020-04-21 Completed Co mmon [facility] (Shayy) (Stay[facility]) 15:12: [facility] COVID-19 Vaccine COVID-19 Vaccine 2020-04-21 Completed Co mmon [facility] (Shayy[facility] ([facility]) 15:12: [facility] COVID-19 Vaccine COVID-19 Vaccine 2020-04-21 Completed Co mmon [facility] (Shayy[facility] ([facility]) 15:12:00 - [facility] COVID-19 Vaccine COVID-19 Vaccine 2020-04-21 Completed Co mmon [facility] ([facility] ([facility]) 15:12: - [facility] COVID-19 Vaccine COVID-19 Vaccine 2020-04-21 Completed Co mmon [facility] ([facility] ([facility]) 15:12: [facility] COVID-19 Vaccine COVID-19 Vaccine 2020-04-21 Completed Co mmon [facility] ([facility] ([facility]) 15:12:00 [facility] COVID-19 Vaccine COVID-19 Vaccine 2020-04-21 Completed Co mmon [facility] ([facility] ([facility]) 15:12: [facility] COVID-19 Vaccine COVID-19 Vaccine 2020-04-21 Completed Co mmon [facility] ([facility] (Stay[facility]) 15:12: [facility] COVID-19 Vaccine COVID-19 Vaccine 2020-04-21 Completed Co mmon [facility] ([facility] ([facility]) 15:12: [facility] COVID-19 Vaccine COVID-19 Vaccine 2020-04-21 Completed Co mmon [facility] (Shayy) 15:12:00 - [facility] COVID-19 Vaccine COVID-19 Vaccine 2020-04-21 Completed Co mmon [facility] (Shayy) 15:12:00 - [facility] COVID-19 Vaccine COVID-19 Vaccine 2020-04-21 Completed Co mmon [facility] (Shayy) 15:12:00 - [facility] COVID-19 Vaccine COVID-19 Vaccine 2020-04-21 Completed Co mmon [facility] ([facility] (Shayy) 15:12:00 - [facility] FluAD FluAD 2019-12-06 Completed [facility] 09:44:00 - [facility] FluAD FluAD 2019-12-06 Completed [facility] 09:44:00 - [facility] FluAD FluAD 2019-12-06 Completed [facility] 09:44:00 - [facility] FluAD FluAD 2019-12-06 Completed [facility] 09:44:00 - [facility] FluAD FluAD 2019-12-06 Completed [facility] 09:44:00 - [facility] FluAD FluAD 2019-12-06 Completed [facility] 09:44:00 - [facility] FluAD FluAD 2019-12-06 Completed [facility] 09:44:00 - [facility] FluAD FluAD 2019-12-06 Completed [facility] 09:44:00 - [facility] FluAD FluAD 2019-12-06 Completed [facility] 09:44:00 - [facility] FluAD FluAD 2019-12-06 Completed [facility] 09:44:00 - [facility] FluAD FluAD 2019-12-06 Completed [facility] 09:44:00 - [facility] FluAD FluAD 2019-12-06 Completed [facility] 09:44:00 - [facility] FluAD FluAD 2019-12-06 Completed [facility] 09:44:00 - [facility] FluAD FluAD 2019-12-06 Completed [facility] 09:44:00 [facility] Vital Signs Vital Name Observation Time Observation Value Comments Source height 2021-08-26 14:40:00 66 [in_i] [facility] weight 2021-08-26 14:40:00 149 [lb_av] [facility] temperature 2021-08-26 14:40:00 97.6 [degF] [facility] bmi 2021-08-26 14:40:00 24.05 kg/m2 [facility] oximetry 2021-08-26 14:40:00 99 % [facility] respiratory rate 2021-08-26 14:40:00 16 /min Comm on [facility] blood pressure 2021-08-26 14:40:00 132 mm[Hg] Common [facility] - systolic [facility] blood pressure 2021-08-26 14:40:00 70 mm[Hg] Common [facility] - diastolic [facility] height 2021-08-26 14:40:00 66 [in_i] [facility] weight 2021-08-26 14:40:00 149 [lb_av] [facility] temperature 2021-08-26 14:40:00 97.6 [degF] [facility] bmi 2021-08-26 14:40:00 24.05 kg/m2 [facility] oximetry 2021-08-26 14:40:00 99 % [facility] respiratory rate 2021-08-26 14:40:00 16 /min Comm on [facility] blood pressure 2021-08-26 14:40:00 132 mm[Hg] [facility] - systolic [facility] blood pressure 2021-08-26 14:40:00 70 mm[Hg] [facility] - diastolic [facility] height 2021-05-26 15:40:00 66 [in_i] [facility] weight 2021-05-26 15:40:00 155.7 [lb_av] Common [facility] temperature 2021-05-26 15:40:00 97.6 [degF] [facility] bmi 2021-05-26 15:40:00 25.13 kg/m2 [facility] oximetry 2021-05-26 15:40:00 98 % [facility] respiratory rate 2021-05-26 15:40:00 17 /min Comm on [facility] blood pressure 2021-05-26 15:40:00 134 mm[Hg] Common [facility] - systolic [facility] blood pressure 2021-05-26 15:40:00 67 mm[Hg] Common [facility] - diastolic [facility] height 2021-02-24 14:30:00 66 [in_i] [facility] weight 2021-02-24 14:30:00 166.8 [lb_av] [facility] temperature 2021-02-24 14:30:00 97.2 [degF] [facility] bmi 2021-02-24 14:30:00 26.92 kg/m2 [facility] oximetry 2021-02-24 14:30:00 98 % [facility] respiratory rate 2021-02-24 14:30:00 18 /min Comm on [facility] blood pressure 2021-02-24 14:30:00 132 mm[Hg] Common [facility] - systolic [facility] blood pressure 2021-02-24 14:30:00 62 mm[Hg] Common [facility] - diastolic [facility] height 2021-01-09 14:00:00 66 [in_i] [facility] weight 2021-01-09 14:00:00 160.2 [lb_av] [facility] temperature 2021-01-09 14:00:00 96.8 [degF] [facility] bmi 2021-01-09 14:00:00 25.85 kg/m2 [facility] oximetry 2021-01-09 14:00:00 99 % [facility] respiratory rate 2021-01-09 14:00:00 18 /min Comm on [facility] blood pressure 2021-01-09 14:00:00 138 mm[Hg] Common [facility] - systolic [facility] blood pressure 2021-01-09 14:00:00 70 mm[Hg] Common [facility] - diastolic [facility] height 2020-12-02 14:40:00 66 [in_i] [facility] weight 2020-12-02 14:40:00 164.6 [lb_av] [facility] temperature 2020-12-02 14:40:00 97.9 [degF] [facility] bmi 2020-12-02 14:40:00 26.56 kg/m2 [facility] oximetry 2020-12-02 14:40:00 96 % [facility] respiratory rate 2020-12-02 14:40:00 18 /min Comm on [facility] blood pressure 2020-12-02 14:40:00 136 mm[Hg] [facility] [place] [facility] blood pressure 2020-12-02 14:40:00 78 mm[Hg] [facility] diastolic [facility] Systolic blood 2019-08-31 14:15:00 134 mm[Hg] [facility] pressure Medicine Diastolic blood 2019-08-31 14:15:00 79 mm[Hg] [facility] pressure Medicine Heart rate 2019-08-31 14:15:00 65 /min [facility] Body height 2019-08-31 14:15:00 167.6 cm [facility] Body weight 2019-08-31 14:15:00 73.029 kg [facility] BMI 2019-08-31 14:15:00 25.99 kg/m2 [facility] Procedures This patient has no known procedures. Plan of Care Planned Activity Planned Date Details Comments Source Future Scheduled Test COLON CANCER SCREENING: [facility] COLONOSCOPY [code = Medicine COLON CANCER SCREENING: COLONOSCOPY] Future Scheduled Test MAMMOGRAM ANNUAL [code [facility] = MAMMOGRAM ANNUAL] Medicine Future Scheduled Test TETANUS SHOT (ADULT) [facility] [code = TETANUS SHOT Medicin e (ADULT)] Future Scheduled Test BMI FOLLOW UP PLAN [facility] [code = BMI FOLLOW UP Medici ne PLAN] Future Scheduled Test HEPATITIS C SCREENING [facility] [code = HEPATITIS C Medicine SCREENING] Future Scheduled Test ZOSTER VACCINE (1 of 2) [facility] [code = ZOSTER VACCINE Medic ine (1 of 2)] Future Scheduled Test MEDICARE AWV (Initial) [facility] [code = MEDICARE AWV Medicin e (Initial)] Future Scheduled Test FALL SCREEN [code = [facility] FALL SCREEN] Medicine Future Scheduled Test OSTEOPOROSIS SCREENING [facility] [code = OSTEOPOROSIS Medicin e SCREENING] Future Scheduled Test PNEUMOVAX >=65 (PPSV23) [facility] [code = PNEUMOVAX >=65 Medic ine (PPSV23)] Future Scheduled Test FLU VACCINE > 6 MONTHS [facility] [code = FLU VACCINE > 6 Medi cine MONTHS] Encounters Start End Encounter Admission Attending Care Care Encounter Source Date/Time Date/Time Type Type Clinicians Facility Department ID 2021-03-04 [facility] 14:38[facility]54 [facility] 2021-03-04 [facility] Common 14[facility]22:10 [facility] 2021-03-04 [facility] Common 14:19:16 [facility] [id number] [facility] 2021-03-04 [facility] [id number] Common 13:21:13 [facility] [id number] [facility] 2021-03-04 [facility] Common 12:40:51 [facility] [id number] [facility] 2021-03-04 [facility] [id number] Common 12:40:22 [facility] [id number] [facility] 2021-03-04 Outpatient Mascorro, STLMLC STLMLC [id number] Common 12:39:19 Randy [id number] [facility] 2021-03-04 Outpatient Mascorro, STLMLC STLMLC [id number] Common 12:38:26 Randy [id number] [facility] 2021-03-04 Outpatient Mascorro, STLMLC STLMLC [id number] Common 12:37:28 Randy [id number] [facility] 2021-03-04 Outpatient Mascorro, STLMLC STLMLC [id number] Common 12:36:06 Randy [id number] [facility] 2021-03-04 Outpatient Mascorro, STLMLC STLMLC [id number] Common 12:17:31 Randy [id number] [facility] 2021-03-04 Outpatient Mascorro, STLMLC STLMLC [id number] Common 12:11:34 Randy [id number] [facility] 2021-03-04 Outpatient Mascorro, STLMLC STLMLC [id number] Common 11:36:13 Randy [id number] [facility] 2021-03-04 Outpatient Mascorro, STLMLC STLMLC [id number] Common 11:26:04 Randy [id number] [facility] 2021-03-04 Outpatient Mascorro, STLMLC STLMLC [id number] Common 11:23:42 Randy [id number] [facility] 2021-03-04 Outpatient Mascorro, STLMLC STLMLC [id number] Common 11:22:28 Randy [id number] [facility] 2021-03-04 Outpatient Mascorro, STLMLC STLMLC [id number] Common 11:13:10 Randy [id number] [facility] 2021-03-04 Outpatient Mascorro, STLMLC STLMLC [id number] Common 11:11:46 Randy [id number] [facility] 2021-12-24 2021-12-24 (TEL) STLMLC STLMLC [id number] Co mmon 00:00:00 00:00:00 [facility] 2021-11-26 2021-11-26 (TEL) STLMLC STLMLC [id number] Co mmon 00:00:00 00:00:00 [facility] 2021-11-13 2021-11-13 (TEL) STLMLC STLMLC [id number] Co mmon 00:00:00 00:00:00 [facility] 2021-08-26 2021-08-26 OFFICE STLMLC STLMLC [id number] Co mmon 00:00:00 00:00:00 VISIT [facility] PT - CHI LEVEL 4 [facility] 2021-08-26 2021-08-26 SUB ANNUAL STLMLC STLMLC [id number] Common 00:00:00 00:00:00 MCR [facility] WELLNESS [facility] VISIT [facility] 2021-05-26 2021-05-26 (TEL) STLMLC STLMLC [id number] Co mmon 00:00:00 00:00:00 [facility] 2021-05-26 2021-05-26 (ESTPT) STLMLC STLMLC [id number] Co mmon 00:00:00 00:00:00 Clarisa soto Patient [facility] 2021-02-24 2021-02-24 OFFICE STLMLC STLMLC [id number] Co mmon 00:00:00 00:00:00 VISIT [facility] PT - CHI LEVEL 4 [facility] 2021-01-14 2021-01-14 (TEL) STLMLC STLMLC [id number] Co mmon 00:00:00 00:00:00 [facility] 2021-01-09 2021-01-09 OFFICE STLMLC STLMLC [id number] Co mmon 00:00:00 00:00:00 VISIT [facility] PT - CHI LEVEL 4 [facility] 2021-01-09 2021-01-09 (TEL) STLMLC STLMLC [id number] Co mmon 00:00:00 00:00:00 [facility] 2020-12-29 2020-12-29 Outpatient SHAVONNE MO [facility] [id number] [facility] 13:00:27 13:00:27 Maday dill of Medicin e 2020-12-26 2020-12-26 (TEL) STLMLC STLMLC [id number] Co mmon 00:00:00 00:00:00 [facility] 2020-12-02 2020-12-02 OFFICE STLMLC STLMLC [id number] Co mmon 00:00:00 00:00:00 VISIT EST Spir it PT LEVEL 3 [facility] 2020-09-16 2020-09-16 Outpatient STLMLC STLMLC [id number] Common 00:00:00 00:00:00 [facility] 2020-08-14 2020-08-14 Outpatient STLMLC STLMLC [id number] Common 00:00:00 00:00:00 [facility] 2020-08-14 2020-08-14 Outpatient STLMLC STLMLC [id number] Common 00:00:00 00:00:00 [facility] 2020-04-21 2020-04-21 Outpatient STLMLC STLMLC [id number] Common 00:00:00 00:00:00 [facility] 2020-04-16 2020-04-16 Outpatient STLMLC STLMLC [id number] Common 00:00:00 00:00:00 [facility] 2020-01-17 2020-01-17 Outpatient STLMLC STLMLC [id number] Common 00:00:00 00:00:00 [facility] 2019-10-17 2019-10-17 [id number] Common 10:50:00 10:50:[address] [facility] [facility] 2019-09-17 2019-09-17 [facility] [id number] Common 09:30:00 09:30:[address] [facility] 2019-08-15 2019-08-15 [facility] [id number] Common 11:45:00 11:45:[address] [facility] 2019-08-15 2019-08-15 [facility] [id number] Common 11:00:00 11:00:[address] [facility] 2019-07-27 2019-07-27 [facility] [id number] Common 13:26:00 13:26:[address] [facility] [address] [facility] [facility] 2019-07-20 2019-07-20 [facility] [id number] Common 15:29:00 15:29:[address] [facility] 2019-07-17 2019-07-17 [facility] [id number] Common 16:27:00 16:27:[address] [facility] 2019-07-06 2019-07-06 [facility] [id number] Common 16:15:00 16:15:[address] [facility] 2019-07-05 2019-07-05 [facility] [id number] Common 12:54:00 12:54:[address] [facility] 2019-07-05 2019-07-05 [facility] [id number] Common 11:30:00 11:30:[address] [facility] 2019-07-03 2019-07-03 [facility] [id number] Common 09:30:00 09:30:[address] [facility] 2019-06-26 2019-06-26 [facility] [id number] Common 11:18:00 11:18:[address] [facility] 2019-04-18 2019-04-18 [facility] [id number] Common 09:30:00 09:30:[address] [facility] 2019-01-12 2019-01-12 [facility] [id number] Common 10:22:00 10:22:[address] [facility] 2019-01-03 2019-01-03 [facility] [id number] Common 13:10:00 13:10:[address] [facility] 2018-12-18 2018-12-18 [facility] [id number] Common 10:15:00 10:15:[address] [facility] 2018-12-08 2018-12-08 [facility] [id number] Common 16:58:00 16:58:[address] [facility] 2018-11-20 2018-11-20 [facility] [id number] Common 08:30:00 08:30:[address] [facility] 2018-10-05 2018-10-05 [facility] [id number] Common 12:08:00 12:08:[address] [facility] 2018-08-16 2018-08-16 [facility] [id number] Common 10:15:00 10:15:[address] [facility] 2018-04-14 2018-04-14 [facility] [id number] Common 08:30:00 08:30:[address] [facility] 2017-09-16 2017-09-16 [facility] [id number] Common 09:45:00 09:45:[address] [facility] 2017-06-16 2017-06-16 [facility] [id number] [address] 10:15:00 10:15:[address] Formerly [facility] Results This patient has no known results.
[2022-03-18 14:58] LABS: Absolute Lymphocytes (CBC) 2.4 K/uL (0.7-4.9); Hematocrit 39.4 % (36.0-45.0); Lymphocytes % 29.7 % (15.3-44.8); MCV 91.7 fL (80-100); MPV 8.5 fL (7.6-11.3); RBC Red Blood Cell Count 4.29 M/uL (3.86-4.86)
--- NOTE | 2022-03-18 15:02 | RAD REPORT ---
EXAM DESCRIPTION: CT - Head C Spine Cap W Con - 03/18/2022 2:37 pm CLINICAL HISTORY: Trauma, head and neck injury. Chest, abdomen and pelvis pain. Headache, fall injury COMPARISON: Head C Spine Cap Wo Con dated 12/07/2021 TECHNIQUE: CT head without contrast. CT cervical spine without contrast with coronal and sagittal reformatted images. CT chest, abdomen and pelvis with IV contrast (approximately 100 mL nonionic IV contrast) with mckeon l and sagittal reformatted images of the spine. All CT scans are performed using dose optimization technique as appropriate and may include automated exposure control or mA/KV adjustment according to patient size. FINDINGS: CT HEAD WITHOUT CONTRAST: No intracranial hemorrhage, hydrocephalus or extra-axial fluid collection. Mild generalized brain atr ophy is present with mild periventricular and deep white matter chronic microvascular ischemic change s. No areas of brain edema or midline shift. The paranasal sinuses and mastoids are essentially clear. The calvarium is intact. CT CERVICAL SPINE WITHOUT CONTRAST: No fracture or subluxation. Mild mid and lower cervical degenerative changes. The prevertebral soft t issues are normal in thickness. CT CHEST, ABDOMEN, PELVIS WITH CONTRAST: The lungs are clear.No pneumothorax or pericardial/pleural fluid. No evidence of intra-abdominal visceral injury, free fluid or free air. No concerning pelvic findings. No fractures. IMPRESSION: Negative for acute traumatic findings.
[2022-03-18 15:10] LABS: Potassium 4.1 mmol/L (3.5-5.1)
--- NOTE | 2022-03-18 15:36 | ER ---
Nurse's Notes [facility] Name: Mallory Lai Age: 71 yrs Sex: Female : 1950 Arrival Date: 03/18/2022 Time: 13:57 Bed 3 Private MD: Diagnosis: Abrasion of left elbow;Contusion of right forearm;Fall on same level, unspecified Presentation: 03/18 13:59 Chief complaint: EMS states: [place] stated no LOC. Coronavirus kc6 screen: At this time, the client does not indicate any symptoms associated with coronavirus-19. Ebola Screen: No symptoms or risks identified at this time. Initial Sepsis Screen: Does the patient meet any 2 criteria? No. Patient's initial sepsis screen is negative. Does the patient have a suspected source of infection? No. Patient's initial sepsis screen is negative. Risk Assessment: Do you want to hurt yourself or someone else? Patient reports no desire to harm self or others. Onset of symptoms was March 18, 2022. 13:59 Method Of Arrival: EMS: [facility] kc6 13:59 Acuity: JAD 3 kc6 Triage Assessment: 13:59 General: Appears in no apparent distress. comfortable, Behavior is cooperative, kc6 appropriate for age, agitated. Pain: Complains of pain in "everywhere". EENT: No signs and/or symptoms were reported regarding the EENT system. Neuro: Faulkner Agitation-Sedation Scale (RASS): +1 Restless Level of Consciousness is awake, alert, obeys commands. Cardiovascular: Capillary refill < 3 seconds. Respiratory: Airway is patent Trachea midline Respiratory effort is even, unlabored, Respiratory pattern is regular, symmetrical. GI: No signs and/or symptoms were reported involving the gastrointestinal system. : No signs and/or symptoms were reported regarding the genitourinary system. Derm: No signs and/or symptoms reported regarding the dermatologic system. Skin is intact, Skin is pink, warm \\T\\ dry. Musculoskeletal: No signs and/or symptoms reported regarding the musculoskeletal system. Circulation, motion, and sensation intact. Capillary refill < 3 seconds, Range of motion: intact in all extremities. Historical: - Allergies: 15:51 Iodine; ap3 - PMHx: 13:59 Dementia; Hypertension; Hypothyroidism; ap3 - Immunization history:: Adult Immunizations unknown. - Social history:: Smoking status: unknown. Screenin:02 [facility] ED Fall Risk Assessment (Adult) History of falling in the last 3 months, kc6 including since admission Yes- single mechanical fall (1 pt) Confusion or Disorientation Yes (5 pts) Intoxicated or Sedated No (0 pts) Impaired Gait No (0 pts) Mobility Assist Device Used No (0 pt) Altered Elimination No (0 pt) Score/Fall Risk Level 3 or more points = High Risk Oriented to surroundings, Maintained a safe environment, Educated pt \\T\\ family on fall prevention, incl call for assistance when getting out of bed, Assessed \\T\\ reinforced patient's understanding of fall precautions, Hourly rounding (assess needs \\T\\ fall precautionary measures) done. Abuse screen: Denies threats or abuse. Denies injuries from another. Nutritional screening: No deficits noted. Tuberculosis screening: No symptoms or risk factors identified. Assessment: 14:00 Reassessment: Called daughter, Ayanna, to retrieve further medical hx, was unable get vg1 in contact with. Called son, Florian, stated is unsure of mother's medical hx to try and get a hold of Ayanna. 15:35 Reassessment: Patient and/or family updated on plan of care and expected duration. Pain ap3 level reassessed. Patient is alert, oriented x 3, equal unlabored respirations, skin warm/dry/pink. Vital Signs: 13:59 BP 150 / 82; Pulse 78; Resp 14 S; Temp 97.8(A); Pulse Ox 100% on R/A; Weight 64 kg (M); kc6 15:35 BP 151 / 67; Pulse 59; Resp 15; Pulse Ox 100% ; ap3 ED Course: 13:57 Patient arrived in ED. ap3 13:59 Arm band placed on. kc6 14:01 Triage completed. kc6 14:02 Patient has correct armband on for positive identification. Bed in low position. Call kc6 light in reach. Side rails up X2. Adult w/ patient. 14:03 Ajith Samaniego NP is PHCP. pm1 14:03 Florian Baer MD is Attending Physician. pm1 14:06 Carmen Simpson, ARNIE is Primary Nurse. ap3 14:39 CT Traumagram (Head C Spine CAP W Con) In Process Unspecified. EDMS 15:51 Straight cath inserted, using sterile technique, 18 Fr. Returned karlos urine. Patient ap3 tolerated well. Administered Medications: No medications were administered Outcome: 15:35 Discharge ordered by . pm1 15:55 Patient left the ED. vg1 Signatures: Dispatcher [employer] EDMO Ajith Samaniego, MICHELLE EPIC PRELUDE ANALYST pm1 Carmen Simpson RN RN ap3 Vernell Cerda RN RN vg1 Cherelle Tolentino RN RN kc6
--- NOTE | 2022-03-18 15:36 | EDPHYS ---
Physician Documentation [facility] Name: Mallory Lai Age: 71 yrs Sex: Female : 1950 Arrival Date: 03/18/2022 Time: 13:57 Bed 3 Private MD: ED Physician Florian Baer HPI: 03/18 14:14 This 71 yrs old Female presents to ER via EMS with complaints of Fall Injury. pm1 14:14 Details of fall: The patient fell from an upright position, while walking. Onset: The pm1 symptoms/episode began/occurred just prior to arrival. Associated injuries: The patient sustained injury to the head, pain, left elbow, abrasion, palmar aspect of right forearm, contusion. The patient has experienced similar episodes in the past, multiple times, history of multiple falls. The patient has not recently seen a physician. Patient was walking with her in the mall and reports they are probably walking a little too fast and she tripped and stumbled falling onto her right side. was on her left side holding her right hand. Patient presenting to the ER in c-collar from EMS patient denies neck pain. Patient is complaining of headache. Negative for LOC. Historical: - Allergies: 15:51 Iodine; ap3 - PMHx: 13:59 Dementia; Hypertension; Hypothyroidism; ap3 - Immunization history:: Adult Immunizations unknown. - Social history:: Smoking status: unknown. ROS: 14:14 Constitutional: Negative for fever, chills, and weight loss, Cardiovascular: Negative pm1 for chest pain, palpitations, and edema, Respiratory: Negative for shortness of breath, cough, wheezing, and pleuritic chest pain, Abdomen/GI: Negative for abdominal pain, nausea, vomiting, diarrhea, and constipation. 14:14 Neck: Negative for injury, pain, and swelling. 14:14 MS/Extremity: Negative for injury and deformity. 14:14 Skin: Positive for abrasion(s), of the left elbow and contusion to right forearm. 14:14 Neuro: Positive for headache, Negative for loss of consciousness, weakness. 14:14 All other systems are negative. Exam: 14:14 Constitutional: This is a well developed, well nourished patient who is awake, alert, pm1 and in no acute distress. Head/Face: Normocephalic, atraumatic. 14:14 Skin: Warm, dry with normal turgor. Normal color with no rashes and no evidence of cellulitis. 14:14 Eyes: Exam is negative for acute changes, Periorbital structures: appear normal, Extraocular movements: no acute changes, Conjunctiva: no acute changes, no injection. 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 14:14 Chest/axilla: Exam negative for acute changes. 14:14 Cardiovascular: Exam negative for acute changes, Rate: normal, Rhythm: regular, Pulses: no pulse deficits are appreciated, Heart sounds: normal, normal S1and S2. 14:14 Respiratory: Exam negative for acute changes, respiratory distress, shortness of breath. 14:14 Abdomen/GI: Exam negative for acute changes, Inspection: abdomen appears normal, Palpation: abdomen is soft and non-tender, in all quadrants. 14:14 Back: pain, is absent, vertebral tenderness, is not appreciated, muscle spasm, is not present. 14:14 Musculoskeletal/extremity: Extremities: grossly normal except: noted in the left elbow: abrasion, There is no evidence of decreased ROM, deformity, noted in the palmar aspect of right forearm: ecchymosis, no evidence of decreased ROM, deformity. 14:14 Neuro: Exam negative for acute changes, baseline dementia per . Motor: moves all fours. Vital Signs: 13:59 BP 150 / 82; Pulse 78; Resp 14 S; Temp 97.8(A); Pulse Ox 100% on R/A; Weight 64 kg (M); kc6 15:35 BP 151 / 67; Pulse 59; Resp 15; Pulse Ox 100% ; ap3 MDM: 14:03 Patient medically screened. pm1 15:34 Data reviewed: vital signs. pm1 15:34 Counseling: I had a detailed discussion with the patient and/or guardian regarding: the pm1 historical points, exam findings, and any diagnostic results supporting the discharge/admit diagnosis, lab results, radiology results, the need for outpatient follow up, to return to the emergency department if symptoms worsen or persist or if there are any questions or concerns that arise at home. 03/18 14:14 Order name: Basic Metabolic Panel; Complete Time: 15:24 pm1 03/18 14:14 Order name: CBC with Diff; Complete Time: 15:24 pm1 03/18 14:14 Order name: CT Traumagram (Head C Spine CAP W Con); Complete Time: 15:24 pm1 03/18 14:14 Order name: Labs collected and sent; Complete Time: 14:20 pm1 03/18 14:34 Order name: CREATININE WHOLE BLOOD; Complete Time: 15:24 EDMS Administered Medications: No medications were administered Disposition: 17:48 Co-signature as Attending Physician, Florian Baer MD I reviewed the patient's care rt provided by the Advanced Practice Provider and agree with the diagnosis and treatment plan. Disposition Summary: 03/18/22 15:35 Discharge Ordered Location: Home pm1 Problem: new pm1 Symptoms: have improved pm1 Condition: Stable pm1 Diagnosis - Abrasion of left elbow pm1 - Contusion of right forearm pm1 - Fall on same level, unspecified pm1 Followup: pm1 - With: Emergency Department - When: As needed - Reason: Worsening of condition Followup: pm1 - With: Private Physician - When: 2 - 3 days - Reason: Recheck today's complaints, Continuance of care, Re-evaluation by your physician Discharge Instructions: - Discharge Summary Sheet pm1 - Abrasion pm1 - Fall Prevention in the Home, Adult pm1 - Contusion pm1 Forms: - Medication Reconciliation Form pm1 - Thank You Letter pm1 - Antibiotic Education pm1 - Prescription Opioid Use pm1 Signatures: Dispatcher [employer] EDAjith Blake NP MANAGER 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
[2022-03-18 17:13] VITALS: TEMP 97.8; O2SAT 100
[2022-03-18 17:14] VITALS: BP 151/67
== END 2022-03-18 15:55 | disposition home or self-care (01) ==
LOC: ER 13:52
DX: S50.312A Abrasion of left elbow, initial encounter (principal); S50.11XA Contusion of right forearm, initial encounter; R51.9 Headache, unspecified; W18.30XA Fall on same level, unspecified, initial encounter; I10 Essential (primary) hypertension; F03.90 Unspecified dementia, unspecified severity, without behavioral disturbance, psychotic disturbance, mood disturbance, and anxiety; Z91.048 Other nonmedicinal substance allergy status
CPT/HCPCS: 85025; 80048; 36415; 82565; 70450; 72125; 71260; 74177; 51702; 99283; Q9966

== ENCOUNTER 2022-03-21 08:16 | Emergency (ER) | payer OTHER, BC ==
--- OUTSIDE RECORDS SUMMARY | 2022-03-21 08:21 | XMS REPORT | Continuity of Care Document ---
:1950 Author Organization [facility] t Address [address] [place] [address] Care Team Providers Name Role Phone Randy Mascorro Attending Clinician Unavailable SHAVONNE MO Attending Clinician Unavailable Payers Payer Name Policy Type Policy Effective Date Expiration Date [facility] Number Blue Cross Blue 6 [id number] 2015 [facility] 00:00:00 - [facility] MEDICARE NOVITAS MB [id number] 2015 [facility] 00:00:00 - [facility] MEDICARE NOVITAS MB [id number] 2015 [facility] 00:00:00 - [facility] MEDICARE PART A [id number] \T\ B - MEDICARE MEDICARE [id number] SUPPLEMENT - BCBS ZJONATHAN [id number] 2015 00:00:00 MEDICARE NOVITAS MB [id number] 2015 [facility] 00:00:00 [facility] MEDICARE NOVITAS MB [id number] 2015 Common [facility] 00:00:00 [facility] Problems Condition Condition Condition Status Onset Resolution Last Treating Co mments Source Name Details Category Date Date Treatment Clinician Date Recurrent Multiple Problem Comm on falls falls [facility] [id number] Delirium Problem Common due to [facility] condition [facility] behavioral [facility] e [id number] Acute Problem Common metabolic [facility] encephalop - [facility] athy [facility] [id number] +6th digit Problem C ommon 103 eff Spirit 11/07/21*De - [facility] mentia in [facility] elsewhere with behavioral disturbanc e Hypothyroi Hypothyroi Problem C ommon dism dism [facility] Hyperlipid Hyperlipid Problem C ommon emia emia [facility] Pain in Leg pain Problem Common limb [facility] Essential Benign Problem Common hypertensi essential Spi rit on HTN [facility] Memory Memory Problem Common loss loss [facility] Osteoarthr Osteoarthr Problem C ommon itis itis [facility] Hip joint Hip joint Problem Com mon pain pain [facility] 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 [facility] [id number] Breast Problem Commo n [id number] mass, left Spiri t [facility] [id number] S/P small Problem Co mmon 16473 bowel Spirit resection [facility] Alzheimer Alzheimer Problem Com mon disease disease [facility] Abnormal Abnormal Problem Commo n mammogram mammogram Spir it [facility] [id number] Short-term Problem Co mmon memory [facility] loss [facility] [id number] Dementia Problem Comm on in other Spirit diseases [facility] classified [facility] without Medical behavioral Center disturbanc e Allergies, Adverse Reactions, Alerts Allergy Allergy Status Severity Reaction(s) Onset Inactive Treating Comm ents Source Name Type Date Date Clinician Opioid Propensi Active Rash [facility] Analgesi ty to 08-[address] cs adverse 00:00: of reaction 00 Medicin s to e drug Family History Family Member Diagnosis Comments Start Date Stop Date Source Natural father Heart Attack [facility] C ollege of Medicine Natural mother [facility] lege of Medicine Natural sister [facility] lege Medicine Social History Social Habit Start Date Stop Date Quantity Comments Source History of [facility] - Tobacco Use [facility] Sex [facility]igned [facility]arybel - [facility] Tobacco use and 2019-08-31 2019-08-31 Never used [facility] Co llege exposure 00:00:00 00:00:00 of Medicine Alcohol intake 2019-08-31 2019-08-31 Ex-drinker [facility] leg 00:00:00 00:00:00 (finding) of Medicine Smoking Status Start Date Stop Date Source Never Smoker [facility] Medications Ordered Filled Start Stop [...] Lotrel Yes Randy 1 tab Common Mascorro [facility] Centrum Centrum Yes Randy not Common Silver Silver Mascorro defined [facility] 50+Women 50+Women - [facility] Vitamin D-3 Vitamin D-3 Yes Randy 1 capsule Common Mascorro [facility] Glucosamine Glucosamine Yes Randy not Common Chondroit-C Chondroit-C Mascorro defined [facility] ollagen ollagen [facility] Aspir-81 Aspir-81 Yes Randy 1 tablet C ommon Mascorro [facility] Super Super Yes Randy not Common B-Complex B-Complex Mascorro defined S pirit [facility] Simvastatin Simvastatin Yes Randy 1 tablet Common Mascorro in the [facility] evening [facility] Levothyroxi Levothyroxi Yes Randy 1 tablet Common ne Sodium ne Sodium Mascorro on an Spi rit empty - [facility]I stomach in [facility] Ginkgo Ginkgo Yes Randy not Common Biloba Biloba Mascorro defined [facility] Donepezil Donepezil Yes Randy TAKE 1 C ommon HCl HCl Mascorro TABLET BY [facility] MOUTH - CHI EVERY DAY St AT NIGHT [facility] Co Q-10 Co Q-10 Yes Randy 1 capsule Co mmon Mascorro with a Spirit meal [facility] Amlodipine Amlodipine Yes Randy 1 capsule Common Besy-Benaze Besy-Benaze Mascorro Spirit pril HCl pril HCl - [facility] Folic Acid Folic Acid Yes Randy 1 tablet Common Mascorro [facility] Centrum Centrum No Centrum Silver [...] Vaccine 2020-04-21 Completed Co mmon [facility] ([facility]) 15:12: - [facility] COVID-19 Vaccine COVID-19 Vaccine 2020-04-21 Completed Co [facility]mon [facility] 15:12: [facility] COVID-19 Vaccine COVID-19 Vaccine 2020-04-21 Completed Co [facility]mon [facility] 15:12: [facility] COVID-19 Vaccine COVID-19 Vaccine 2020-04-21 Completed Co [facility]mon [facility] 15:12:00 - [facility] COVID-19 Vaccine COVID-19 Vaccine 2020-04-21 Completed Co [facility]mon [facility] 15:12: - [facility] COVID-19 Vaccine COVID-19 Vaccine 2020-04-21 Completed Co [facility]mon [facility] 15:12: [facility] COVID-19 Vaccine COVID-19 Vaccine 2020-04-21 Completed Co [facility]mon [facility] 15:12:00 [facility] COVID-19 Vaccine COVID-19 Vaccine 2020-04-21 Completed Co mmon [facility] 15:12: [facility] COVID-19 Vaccine COVID-19 Vaccine 2020-04-21 Completed Co mmon [facility] 15:12: [facility] COVID-19 Vaccine COVID-19 Vaccine 2020-04-21 Completed Co mmon [facility] 15:12: [facility] COVID-19 Vaccine COVID-19 Vaccine 2020-04-21 Completed Co mmon [facility] ([facility]) 15:12:00 - [facility] COVID-19 Vaccine COVID-19 Vaccine 2020-04-21 Completed Co mmon [facility] ([facility]) 15:12:00 - [facility] COVID-19 Vaccine COVID-19 Vaccine 2020-04-21 Completed Co mmon [facility] ([facility]) 15:12:00 - [facility] COVID-19 Vaccine COVID-19 Vaccine 2020-04-21 Completed Co mmon [facility] ([facility]) 15:12:00 - [facility] FluAD FluAD 2019-12-06 Completed [facility] 09:44:00 - [facility] FluAD FluAD 2019-12-06 Completed [facility] 09:44:00 - [facility] FluAD FluAD 2019-12-06 Completed [facility] 09[facility]44:00 - [facility] FluAD FluAD 2019-12-06 Completed [facility] 09:44:00 - [facility] FluAD FluAD 2019-12-06 Completed [facility] 09:44:00 - [facility] FluAD FluAD 2019-12-06 Completed [facility] 09:44:00 - [facility] FluAD FluAD 2019-12-06 Completed [facility] 09:44:00 - [facility] FluAD FluAD 2019-12-06 Completed [facility] 09:44:00 - [facility] FluAD FluAD 2019-12-06 Completed [facility] 09:44:00 - [facility] FluAD FluAD 2019-12-06 Completed [facility] 09:44:00 - [facility] FluAD FluAD 2019-12-06 Completed [facility] 09:44:00 - [facility] FluAD FluAD 2019-12-06 Completed [facility] 09:44:00 - [facility] FluAD FluAD 2019-12-06 Completed [facility] 09:44:00 - [facility] FluAD FluAD 2019-12-06 Completed [facility] 09:44:00 [facility] Vital Signs Vital Name Observation Time Observation Value Comments Source height 2021-08-26 14:40:00 66 [in_i] Common [facility] weight 2021-08-26 14:40:00 149 [lb_av] Common [facility] temperature 2021-08-26 14:40:00 97.6 [degF] Common [facility] bmi 2021-08-26 14:40:00 24.05 kg/m2 Common [facility] oximetry 2021-08-26 14:40:00 99 % Common [facility] respiratory rate 2021-08-26 14:40:00 16 /min Comm on [facility] blood pressure 2021-08-26 14:40:00 132 mm[Hg] Common [facility] - systolic [facility] blood pressure 2021-08-26 14:40:00 70 mm[Hg] Common [facility] - diastolic [facility] height 2021-08-26 14:40:00 66 [in_i] Common [facility] weight 2021-08-26 14:40:00 149 [lb_av] Common [facility] temperature 2021-08-26 14:40:00 97.6 [degF] Common [facility] bmi 2021-08-26 14:40:00 24.05 kg/m2 [facility] oximetry 2021-08-26 14:40:00 99 % [facility] respiratory rate 2021-08-26 14:40:00 16 /min Comm on [facility] blood pressure 2021-08-26 14:40:00 132 mm[Hg] [facility] - systolic [facility] blood pressure 2021-08-26 14:40:00 70 mm[Hg] [facility] - diastolic [facility] height 2021-05-26 15:40:00 66 [in_i] Common [facility] weight 2021-05-26 15:40:00 155.7 [lb_av] Common [facility] temperature 2021-05-26 15:40:00 97.6 [degF] [facility] bmi 2021-05-26 15:40:00 25.13 kg/m2 [facility] oximetry 2021-05-26 15:40:00 98 % Common [facility] respiratory rate 2021-05-26 15:40:00 17 /min Comm on [facility] blood pressure 2021-05-26 15:40:00 134 mm[Hg] Common [facility] - systolic [facility] blood pressure 2021-05-26 15:40:00 67 mm[Hg] Common [facility] - diastolic [facility] height 2021-02-24 14:30:00 66 [in_i] [facility] weight 2021-02-24 14:30:00 166.8 [lb_av] [facility] temperature 2021-02-24 14:30:00 97.2 [degF] Common [facility] bmi 2021-02-24 14:30:00 26.92 kg/m2 [facility] oximetry 2021-02-24 14:30:00 98 % [facility] respiratory rate 2021-02-24 14:30:00 18 /min Comm on [facility] blood pressure 2021-02-24 14:30:00 132 mm[Hg] Common [facility] - systolic [facility] blood pressure 2021-02-24 14:30:00 62 mm[Hg] Common [facility] - diastolic [facility] height 2021-01-09 14:00:00 66 [in_i] Common [facility] weight 2021-01-09 14:00:00 160.2 [lb_av] [facility] temperature 2021-01-09 14:00:00 96.8 [degF] Common [facility] bmi 2021-01-09 14:00:00 25.85 kg/m2 [facility] oximetry 2021-01-09 14:00:00 99 % Common [facility] respiratory rate 2021-01-09 14:00:00 18 /min Comm on [facility] blood pressure 2021-01-09 14:00:00 138 mm[Hg] Common [facility] - systolic [facility] blood pressure 2021-01-09 14:00:00 70 mm[Hg] Common [facility] - diastolic [facility] height 2020-12-02 14:40:00 66 [in_i] Common [facility] weight 2020-12-02 14:40:00 164.6 [lb_av] [facility] temperature 2020-12-02 14:40:00 97.9 [degF] [facility] bmi 2020-12-02 14:40:00 26.56 kg/m2 [facility] oximetry 2020-12-02 14:40:00 96 % [facility] respiratory rate 2020-12-02 14:40:00 18 /min Comm on [facility] blood pressure 2020-12-02 14:40:00 136 mm[Hg] [facility] systolic [facility] blood pressure 2020-12-02 14:40:00 78 mm[Hg] [facility] diastolic [facility] Systolic blood 2019-08-31 14:15:00 134 mm[Hg] [facility] pressure Medicine Diastolic blood 2019-08-31 14:15:00 79 mm[Hg] [facility] pressure Medicine Heart rate 2019-08-31 14:15:00 65 /min [facility] Body height 2019-08-31 14:15:00 167.6 cm [facility] Body weight 2019-08-31 14:15:00 73.029 kg [facility] BMI 2019-08-31 14:15:00 25.99 kg/m2 [facility] Procedures This patient has no known procedures. Plan of Care Planned Activity Planned Date Details Comments Source Future Scheduled Test COLON CANCER SCREENING: [facility] COLONOSCOPY [code = Medicine COLON CANCER SCREENING: COLONOSCOPY] Future Scheduled Test MAMMOGRAM ANNUAL [code [facility] = MAMMOGRAM ANNUAL] Medicine Future Scheduled Test TETANUS SHOT (ADULT) [facility] [code = TETANUS SHOT Medicin e (ADULT)] Future Scheduled Test BMI FOLLOW UP PLAN [facility] [code = BMI FOLLOW UP Medici ne PLAN] Future Scheduled Test HEPATITIS C SCREENING [facility] [code = HEPATITIS C Medicine SCREENING] Future Scheduled Test ZOSTER VACCINE (1 of 2) [facility] [code = ZOSTER VACCINE Medic ine (1 of 2)] Future Scheduled Test MEDICARE AWV (Initial) [facility] [code = MEDICARE AWV Medicin e (Initial)] Future Scheduled Test FALL SCREEN [code = [facility] FALL SCREEN] Medicine Future Scheduled Test OSTEOPOROSIS SCREENING [facility] [code = OSTEOPOROSIS Medicin e SCREENING] Future Scheduled Test PNEUMOVAX >=65 (PPSV23) [facility] [code = PNEUMOVAX >=65 Medic ine (PPSV23)] Future Scheduled Test FLU VACCINE > 6 MONTHS [facility] [code = FLU VACCINE > 6 Medi cine MONTHS] Encounters Start End Encounter Admission Attending Care Care Encounter Source Date/Time Date/Time Type Type Clinicians Facility Department ID 2021-03-04 [facility] Common 14[facility]38:54 [facility] 2021-03-04 Outpatient Mascorro, [facility] Common 14[facility]22:10 [facility] 2021-03-04 Outpatient Mascorro, [facility] Common 14:19:16 [facility] [id number] [facility] 2021-03-04 Outpatient Mascorro, [facility] [id number] Common 13:21:13 [facility] 74186 [facility] 2021-03-04 Outpatient Mascorro, [facility] Common 12:40:51 [facility] 30879 [facility] 2021-03-04 Outpatient Mascorro, [facility] [id number] Common 12:40:22 [facility] 14401 [facility] 2021-03-04 Outpatient Mascorro, STLMLC STLMLC [id number] Common 12:39:19 Randy [id number] [facility] 2021-03-04 Outpatient Mascorro, STLMLC STLMLC [id number] Common 12:38:26 Randy [id number] [facility] 2021-03-04 Outpatient Mascorro, STLMLC STLMLC [id number] Common 12:37:28 Randy [id number] [facility] 2021-03-04 Outpatient Mascorro, STLMLC STLMLC [id number] Common 12:36:06 Randy [id number] [facility] 2021-03-04 Outpatient Mascorro, STLMLC STLMLC [id number] Common 12:17:31 Randy [id number] [facility] 2021-03-04 Outpatient Mascorro, STLMLC STLMLC [id number] Common 12:11:34 Randy [id number] [facility] 2021-03-04 Outpatient Mascorro, STLMLC STLMLC [id number] Common 11:36:13 Randy [id number] [facility] 2021-03-04 Outpatient Mascorro, STLMLC STLMLC [id number] Common 11:26:04 Randy [id number] [facility] 2021-03-04 Outpatient Mascorro, STLMLC STLMLC [id number] Common 11:23:42 Randy [id number] [facility] 2021-03-04 Outpatient Mascorro, STLMLC STLMLC [id number] Common 11:22:28 Randy [id number] [facility] 2021-03-04 Outpatient Mascorro, STLMLC STLMLC [id number] Common 11:13:10 Randy [id number] [facility] 2021-03-04 Outpatient Mascorro, STLMLC STLMLC [id number] Common 11:11:46 Randy [id number] [facility] 2021-12-24 2021-12-24 (TEL) STLMLC STLMLC [id number] Co mmon 00:00:00 00:00:00 [facility] 2021-11-26 2021-11-26 (TEL) STLMLC STLMLC [id number] Co mmon 00:00:00 00:00:00 [facility] 2021-11-13 2021-11-13 (TEL) STLMLC STLMLC [id number] Co mmon 00:00:00 00:00:00 [facility] 2021-08-26 2021-08-26 OFFICE STLMLC STLMLC [id number] Co mmon 00:00:00 00:00:00 VISIT [facility] PT - CHI LEVEL 4 [facility] 2021-08-26 2021-08-26 SUB ANNUAL STLMLC STLMLC [id number] Common 00:00:00 00:00:00 MCR [facility] WELLNESS [facility] VISIT [facility] 2021-05-26 2021-05-26 (TEL) STLMLC STLMLC [id number] Co mmon 00:00:00 00:00:00 [facility] 2021-05-26 2021-05-26 (ESTPT) STLMLC STLMLC [id number] Co mmon 00:00:00 00:00:00 Clarisa soto Patient [facility] 2021-02-24 2021-02-24 OFFICE STLMLC STLMLC [id number] Co mmon 00:00:00 00:00:00 VISIT [facility] PT - CHI LEVEL 4 [facility] 2021-01-14 2021-01-14 (TEL) STLMLC STLMLC [id number] Co mmon 00:00:00 00:00:00 [facility] 2021-01-09 2021-01-09 OFFICE STLMLC STLMLC [id number] Co mmon 00:00:00 00:00:00 VISIT [facility] PT - CHI LEVEL 4 [facility] 2021-01-09 2021-01-09 (TEL) STLMLC STLMLC [id number] Co mmon 00:00:00 00:00:00 [facility] 2020-12-29 2020-12-29 Outpatient SHAVONNE MO [facility] [id number] [facility] 13:00:27 13:00:27 Maday dill of Medicin e 2020-12-26 2020-12-26 (TEL) STLMLC STLMLC [id number] Co mmon 00:00:00 00:00:00 [facility] 2020-12-02 2020-12-02 OFFICE STLMLC STLMLC [id number] Co mmon 00:00:00 00:00:00 VISIT EST Spir it PT LEVEL 3 [facility] 2020-09-16 2020-09-16 Outpatient STLMLC STLMLC [id number] Common 00:00:00 00:00:00 [facility] 2020-08-14 2020-08-14 Outpatient STLMLC STLMLC [id number] Common 00:00:00 00:00:00 [facility] 2020-08-14 2020-08-14 Outpatient STLMLC STLMLC [id number] Common 00:00:00 00:00:00 [facility] 2020-04-21 2020-04-21 Outpatient STLMLC STLMLC [id number] Common 00:00:00 00:00:00 [facility] 2020-04-16 2020-04-16 Outpatient STLMLC STLMLC [id number] Common 00:00:00 00:00:00 [facility] 2020-01-17 2020-01-17 Outpatient STLMLC STLMLC [id number] Common 00:00:00 00:00:00 [facility] 2019-10-17 2019-10-17 [id number] Common 10:50:00 10:50:[address] [facility] 2019-09-17 2019-09-17 [facility] [id number] Common 09:30:00 09:30:[address] [facility] 2019-08-15 2019-08-15 [facility] [id number] Common 11:45:00 11:45:[address] [facility] 2019-08-15 2019-08-15 [facility] [id number] Common 11:00:00 11:00:[address] [facility] 2019-07-27 2019-07-27 [facility] [id number] Common 13:26:00 13:26:[address] [facility] [address] [facility] 2019-07-20 2019-07-20 [facility] [id number] Common 15:29:00 15:29:[address] [facility] 2019-07-17 2019-07-17 [facility] [id number] Common 16:27:00 16:27:[address] [facility] 2019-07-06 2019-07-06 [facility] [id number] Common 16:15:00 16:15:[address] [facility] 2019-07-05 2019-07-05 [facility] [id number] Common 12:54:00 12:54:[address] [facility] 2019-07-05 2019-07-05 [facility] [id number] Common 11:30:00 11:30:[address] [facility] 2019-07-03 2019-07-03 [facility] [id number] Common 09:30:00 09:30:[address] [facility] 2019-06-26 2019-06-26 [facility] [id number] Common 11:18:00 11:18:[address] [facility] 2019-04-18 2019-04-18 [facility] [id number] Common 09:30:00 09:30:[address] [facility] 2019-01-12 2019-01-12 [facility] [id number] Common 10:22:00 10:22:[address] [facility] 2019-01-03 2019-01-03 [facility] [id number] Common 13:10:00 13:10:[address] [facility] 2018-12-18 2018-12-18 [facility] [id number] Common 10:15:00 10:15:[address] [facility] 2018-12-08 2018-12-08 [facility] [id number] Common 16:58:00 16:58:[address] [facility] 2018-11-20 2018-11-20 [facility] [id number] Common 08:30:00 08:30:[address] [facility] 2018-10-05 2018-10-05 [facility] [id number] Common 12:08:00 12:08:[address] [facility] 2018-08-16 2018-08-16 [facility] [id number] Common 10:15:00 10:15:[address] [facility] 2018-04-14 2018-04-14 [facility] [id number] Common 08:30:00 08:30:[address] [facility] 2017-09-16 2017-09-16 [facility] [id number] Common 09:45:00 09:45:[address] [facility] 2017-06-16 2017-06-16 [facility] [id number] Common 10:15:00 10:15:[address] [facility] Results This patient has no known results.
--- NOTE | 2022-03-21 08:50 | RAD REPORT ---
EXAM DESCRIPTION: CT - CTHCSPWOC - 03/21/2022 8:43 am CLINICAL HISTORY: Trauma, head and neck injury. fall COMPARISON: Head C Spine Mpr Wo Con dated 11/06/2021 TECHNIQUE: Axial 5 mm thick images of the head were obtained. Axial 2 mm thick images of the cervical spine were obtained with sagittal and coronal reconstruction images generated and reviewed. All CT scans are performed using dose optimization technique as appropriate and may include automated exposure control or mA/KV adjustment according to patient size. FINDINGS: CT HEAD WITHOUT CONTRAST: No acute hemorrhage, hydrocephalus or extra-axial collection is identified.Advanced brain atrophy.No areas of brain edema or midline shift. The paranasal sinuses and mastoids are clear.The calvarium is intact. CT CERVICAL SPINE WITHOUT CONTRAST: No fracture or subluxation.Mild mid and lower cervical degenerative changes are present.No prevertebr al soft tissues swelling is identified. IMPRESSION: No acute intracranial or cervical spine findings.
--- NOTE | 2022-03-21 09:44 | RAD REPORT ---
EXAM DESCRIPTION: RAD - Pelvis - 03/21/2022 8:55 am CLINICAL HISTORY: fall COMPARISON: Pelvis dated 11/06/2021 FINDINGS: Mild arthritic changes are present in both hips. No fracture, dislocation or AVN pattern i s observed.
--- NOTE | 2022-03-21 09:44 | RAD REPORT ---
EXAM DESCRIPTION: RAD - Chest Single View - 03/21/2022 8:55 am CLINICAL HISTORY: fall Chest pain. COMPARISON: Chest Single View dated 11/06/2021; Chest Single View dated 05/19/2021; Chest Pa And Lat ( 2 Views) dated 09/28/2019; Abdomen 1 View (KUB) dated 06/25/2019 FINDINGS: Portable technique limits examination quality. The lungs are grossly clear. The heart is normal in size. No displaced fractures. IMPRESSION: No acute intrathoracic process suspected.
[2022-03-21] MEDS ORDERED: HYDROCODONE/APAP 5/325 MG TAB ONE (10:05)
--- NOTE | 2022-03-21 10:18 | ER ---
Nurse's Notes [facility] Name: Mallory Lai Age: 71 yrs Sex: Female : 1950 Arrival Date: 03/21/2022 Time: 08:17 Bed 16 Private MD: Diagnosis: Fall on same level, unspecified Presentation: 03/21 08:17 Chief complaint: EMS states: Fell while ambulating in hallway without walker, no hb obvious injuries, favoring right side. down approx 1 hour per . Hx of dementia, on hospice, AOx1 at baseline. Care prior to arrival: None. Mechanism of Injury: Fall from standing position. Trauma event details: Injury occurred in the [facility] [place], Injury occurred: at home. Injury occurred: March 21, 2022. 08:17 Acuity: JAD 3 08:17 Method Of Arrival: EMS: [facility] 08:19 Coronavirus screen: At this time, the client does not indicate any symptoms associated hb with coronavirus-19. Initial Sepsis Screen: Does the patient meet any 2 criteria? No. Patient's initial sepsis screen is negative. Does the patient have a suspected source of infection? No. Patient's initial sepsis screen is negative. Risk Assessment: Do you want to hurt yourself or someone else? Patient reports no desire to harm self or others. Onset of symptoms was March 21, 2022. 08:21 Ebola Screen: No symptoms or risks identified at this time. hb Triage Assessment: 08:21 General: Appears in no apparent distress. Behavior is calm, cooperative. Pain: Unable hb to use pain scale. Does not appear to understand pain scale. FLACC scale score is 4 out of 10. EENT: No signs and/or symptoms were reported regarding the EENT system. Neuro: Level of Consciousness is awake, alert, Oriented to person. Cardiovascular: Patient's skin is warm and dry. Respiratory: Respiratory effort is even, unlabored, Respiratory pattern is regular, symmetrical. GI: No signs and/or symptoms were reported involving the gastrointestinal system. : No signs and/or symptoms were reported regarding the genitourinary system. Derm: Skin is pink, warm \T\ dry. Musculoskeletal: No deficits noted. Trauma Activation: Not Applicable Physician: ED Physician; Name: ; Notified At: ; Arrived At: Physician: General Surgeon; Name: ; Notified At: ; Arrived At: Physician: Radiology; Name: ; Notified At: ; Arrived At: Physician: Respiratory; Name: ; Notified At: ; Arrived At: Physician: Lab; Name: ; Notified At: ; Arrived At: Historical: - Allergies: 08:20 Iodine; hb - PMHx: 08:20 Dementia; Hypertension; Hypothyroidism; hb - Immunization history:: Adult Immunizations unknown. - Social history:: Smoking status: unknown. - Immunization history: Last tetanus immunization: < 5 years ago. Screenin:21 [facility] ED Fall Risk Assessment (Adult) Score/Fall Risk Level 3 or more points = High hb Risk Oriented to surroundings, Maintained a safe environment, Used ambulatory aids as needed (educated on \T\ assisted with), Remained with patient while ambulating. Abuse screen: Denies threats or abuse. Denies injuries from another. Nutritional screening: No deficits noted. Tuberculosis screening: No symptoms or risk factors identified. Primary Survey: 08:36 NO uncontrolled hemorrhage observed. A: The client is awake and alert. The airway is ko1 patent. The client is alert. Airway: patent, No supplemental oxygen in use on arrival. Oral cavity: clear, Trachea midline. Breathing/Chest: Spontaneous respiratory effort, equal unlabored respirations, breath sounds clear bilaterally, regular pattern, symmetrical chest rise and fall. Respiratory effort: spontaneous, unlabored, Breath sounds: clear, Respiratory pattern: regular, Chest inspection: symmetrical rise and fall of the chest. Circulation: No external hemorrhage present. Regular and strong central pulse, skin warm/dry/normal color. Disability Pupils are equal, round, reactive to light and accommodation. Client is alert. Exposure/Environment: A warming method has been applied: A warm blanket has been provided to the patient. Reassessment Alertness and Airway: Awake and alert. The airway is patent. Airway Patent Breathing: Spontaneous respiratory effort, equal unlabored respirations, breath sounds clear bilaterally, regular pattern with symmetrical chest rise and fall. Respiratory effort Spontaneous Unlabored Breath sounds Clear Circulation: No external hemorrhage noted. Regular and strong central pulse, skin warm/dry/normal color. Disability: Pupils Pupils are equal, round, reactive to light and accomodation. Alert. Assessment: 08:22 General: See triage assessment.. hb Vital Signs: 08:19 BP 147 / 71; Pulse 62; Resp 16; Temp 97.9(TE); Pulse Ox 100% on R/A; Pain 4/10; hb 09:00 BP 135 / 72; Pulse 50; Resp 18; Pulse Ox 99% on R/A; ko1 10:33 BP 134 / 68; Pulse 52; Resp 18; Pulse Ox 99% ; ko1 08:19 Maryam (FACES) hb [place] Coma Score: 08:36 Eye Response: spontaneous(4). Verbal Response: confused(4). Motor Response: obeys ko1 commands(6). Total: 14. Trauma Score (Adult): 08:36 Eye Response: spontaneous(1); Verbal Response: confused(1); Motor Response: obeys ko1 commands(2); Systolic BP: > 89 mm Hg(4); Respiratory Rate: 10 to 29 per min(4); [place] Score: 14; Trauma Score: 12 ED Course: 08:17 Patient arrived in ED. hb 08:19 Antione Olivarez PA is PHCP. [facility] 08:19 Siddharth Andrea MD is Attending Physician. [facility] 08:19 Triage completed. hb 08:21 Arm band placed on. hb 08:22 Patient has correct armband on for positive identification. hb 08:33 Pamela Cisse, RN is Primary Nurse. ko1 08:36 Patient maintains SpO2 saturation greater than 95% on room air. ko1 10:33 No provider procedures requiring assistance completed. Patient did not have IV access ko1 during this emergency room visit. 10:45 Thermoregulation: warm blanket given to patient. ko1 Administered Medications: 10:12 Drug: HYDROcodone-acetaminophen 5 mg-325 mg 1 tabs Route: PO; ko1 Medication: 08:22 VIS not applicable for this client. hb Output: 09:42 Urine: 400ml (Voided); Total: 400ml. ko1 Outcome: 10:18 Discharge ordered by . [facility] 10:33 Discharged to home via wheelchair, with family. ko1 10:33 Condition: stable 10:33 Discharge instructions given to patient, family, Instructed on discharge instructions, follow up and referral plans. medication usage, Demonstrated understanding of instructions, follow-up care, medications. 10:45 Patient left the ED. ko1 Signatures: Antione Olivarez PA PA jmm Baxter, Heather, RN RN hb Betito, Pamela, RN RN ko1
--- NOTE | 2022-03-21 10:18 | EDPHYS ---
Physician Documentation [facility] Name: Mallory Lai Age: 71 yrs Sex: Female : 1950 Arrival Date: 03/21/2022 Time: 08:17 Bed 16 Private MD: ED Physician Siddharth Andrea HPI: 03/21 08:19 This 71 yrs old Female presents to ER via EMS with complaints of Fall Injury. [facility] 08:19 Details of fall: The patient fell from an upright position. Onset: The symptoms/episode jmm began/occurred acutely, 1 hour(s) ago. This is a 71 year old female with a history of dementia, htn, hypothyroidism that presents to the ED with no complaints of pain. According to EMS found the patient down in the doorway. Patient denies pain. . Historical: - Allergies: 08:20 Iodine; hb - PMHx: 08:20 Dementia; Hypertension; Hypothyroidism; hb - Immunization history:: Adult Immunizations unknown. - Social history:: Smoking status: unknown. - Immunization history: Last tetanus immunization: < 5 years ago. ROS: 08:53 Unable to obtain ROS due to baseline dementia. jm Exam: 08:19 Head/Face: atraumatic. Eyes: EOMI, no conjunctival erythema appreciated ENT: Moist [facility] Mucus Membranes 08:19 Neck: C-spine: vertebral tenderness, is not appreciated. 08:19 Chest/axilla: Inspection: normal, Palpation: tenderness, is not appreciated. 08:19 Cardiovascular: Rate: normal, Rhythm: regular. 08:19 Respiratory: the patient does not display signs of respiratory distress, Respirations: normal, Breath sounds: are clear throughout. 08:19 Abdomen/GI: Inspection: abdomen appears normal, Bowel sounds: normal, Palpation: soft, in all quadrants. 08:19 Back: pain, is absent. 08:19 Skin: Appearance: Color: normal in color, ecchymosis, not noted. 08:19 Neuro: Orientation: to person. 08:19 Psych: Vital Signs: 08:19 BP 147 / 71; Pulse 62; Resp 16; Temp 97.9(TE); Pulse Ox 100% on R/A; Pain 4/10; hb 09:00 BP 135 / 72; Pulse 50; Resp 18; Pulse Ox 99% on R/A; ko1 10:33 BP 134 / 68; Pulse 52; Resp 18; Pulse Ox 99% ; ko1 08:19 Maryam (FACES) hb [place] Coma Score: 08:36 Eye Response: spontaneous(4). Verbal Response: confused(4). Motor Response: obeys ko1 commands(6). Total: 14. Trauma Score (Adult): 08:36 Eye Response: spontaneous(1); Verbal Response: confused(1); Motor Response: obeys ko1 commands(2); Systolic BP: > 89 mm Hg(4); Respiratory Rate: 10 to 29 per min(4); [place] Score: 14; Trauma Score: 12 MDM: 08:19 Patient medically screened. [facility] 10:16 Data reviewed: vital signs, nurses notes. I considered the following discharge [facility] prescriptions or medication management in the emergency department. Independent interpretation of the following test(s) in the Emergency Department X-Ray: My interpretation is No fracture appreciated. Historians other than the Patient: . Counseling: I had a detailed discussion with the patient and/or guardian regarding: the historical points, exam findings, and any diagnostic results supporting the discharge/admit diagnosis, radiology results, the need for outpatient follow up, to return to the emergency department if symptoms worsen or persist or if there are any questions or concerns that arise at home. 03/21 08:20 Order name: CT Head C Spine [facility] 03/21 08:20 Order name: Chest Single View XRAY [facility] 03/21 08:20 Order name: Pelvis XRAY [facility] 03/21 08:50 Order name: CT; Complete Time: 09:02 [facility] 03/21 09:44 Order name: RAD; Complete Time: 09:44 [facility] 03/21 09:44 Order name: RAD; Complete Time: 09:50 [facility] Administered Medications: 10:12 Drug: HYDROcodone-acetaminophen 5 mg-325 mg 1 tabs Route: PO; ko1 Disposition Summary: 03/21/22 10:18 Discharge Ordered Location: Home jm Condition: Stable jmm Diagnosis - Fall on same level, unspecified jmm Followup: jmm - With: Private Physician - When: 2 - 3 days - Reason: Recheck today's complaints, Continuance of care, Re-evaluation by your physician Discharge Instructions: - Discharge Summary Sheet jmm - Fall Prevention in the Home, Adult jm Forms: - Medication Reconciliation Form jmm - Thank You Letter jm - Antibiotic Education [facility] - Prescription Opioid Use [facility] Signatures: Dispatcher [employer] Antione Calhoun PA PA jmm Baxter, Heather, RN RN Pamela Mcnair RN RN ko1 Corrections: (The following items were deleted from the chart) 08:54 08:19 Constitutional: Negative for fever, chills, and weight loss, Cardiovascular: [facility] Negative for chest pain, palpitations, and edema, Respiratory: Negative for shortness of breath, cough, wheezing, and pleuritic chest pain, [facility] 08:19 MS/extremity: Positive for pain, [facility] :54 08:19 All other systems are negative, [facility]
[2022-03-21 10:50] VITALS: TEMP 97.9
[2022-03-21 10:51] VITALS: O2SAT 99
[2022-03-21 10:52] VITALS: BP 134/68
== END 2022-03-21 10:45 | disposition home or self-care (01) ==
LOC: ER 08:16
DX: Z04.3 Encounter for examination and observation following other accident (principal); W18.30XA Fall on same level, unspecified, initial encounter
CPT/HCPCS: 70450; 71045; 72125; 72170; 99284

== ENCOUNTER 2022-03-26 17:28 | Emergency (ER) | payer OTHER, BC ==
--- OUTSIDE RECORDS SUMMARY | 2022-03-26 17:33 | XMS REPORT | Continuity of Care Document ---
:1950 Author Organization [facility] t Address [address] [place] [address] Care Team Providers Name Role Phone Randy Mascorro Attending Clinician Unavailable SHAVONNE MO Attending Clinician Unavailable Payers Payer Name Policy Type Policy Effective Date Expiration Date [facility] Number Blue Cross Blue 6 [id number] 2015 [facility] 00:00:00 - [facility] MEDICARE NOVITAS MB [id number] 2015 [facility] 00:00:00 - [facility] MEDICARE NOVITAS MB [id number] 2015 [facility] 00:00:00 - [facility] MEDICARE PART A [id number] \T\ B - MEDICARE MEDICARE [id number] SUPPLEMENT - BCBS ZJONATHAN [id number] 2015 00:00:00 MEDICARE NOVITAS MB [id number] 2015 [facility] 00:00:00 [facility] MEDICARE NOVITAS MB [id number] 2015 Common [facility] 00:00:00 [facility] Problems Condition Condition Condition Status Onset Resolution Last Treating Co mments Source Name Details Category Date Date Treatment Clinician Date Recurrent Multiple Problem Comm on falls falls [facility] [id number] Delirium Problem Common due to [facility] condition [facility] behavioral [facility] e [id number] Acute Problem Common metabolic Spirit encephalop - [facility] athy [facility] [id number] +6th digit Problem C ommon 103 eff Spirit 11/07/21*De - [facility] mentia in [facility] elsewhere with behavioral disturbanc e Hypothyroi Hypothyroi Problem C ommon dism dism [facility] Hyperlipid Hyperlipid Problem C ommon emia emia [facility] Pain in Leg pain Problem Common limb [facility] Essential Benign Problem Common hypertensi essential Spi rit on HTN [facility] Memory Memory Problem Common loss loss [facility] Osteoarthr Osteoarthr Problem C ommon itis itis [facility] Hip joint Hip joint Problem Com mon pain pain [facility] 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 [facility] [id number] Breast Problem Commo n [id number] mass, left Spiri t [facility] [id number] S/P small Problem Co mmon 73762 bowel Spirit resection [facility] Alzheimer Alzheimer Problem Com mon disease disease [facility] Abnormal Abnormal Problem Commo n mammogram mammogram Spir it [facility] [id number] Short-term Problem Co mmon memory [facility] loss [facility] [id number] Dementia Problem Comm on in other Spirit diseases [facility] classified [facility] without Medical behavioral Center disturbanc e Allergies, Adverse Reactions, Alerts Allergy Allergy Status Severity Reaction(s) Onset Inactive Treating Comm ents Source Name Type Date Date Clinician Opioid Propensi Active Rash [facility] Analgesi ty to 08-30 [place] [facility] adverse 00:00: of reaction 00 Medicin s to e drug Family History Family Member Diagnosis Comments Start Date Stop Date Source Natural father [facility] ol[facility] of Medicine Natural mother [facility] lege of Medicine Natural sister [facility] lege Medicine Social History Social Habit Start Date Stop Date Quantity Comments Source History of [facility] - Tobacco Use [facility] Sex Assigned At [facility] marybel - [facility] Tobacco use and 2019-08-31 2019-08-31 Never used [facility] Co llege exposure 00:00:00 00:00:00 of Medicine Alcohol intake 2019-08-31 2019-08-31 Ex-drinker [facility] leg 00:00:00 00:00:00 (finding) of Medicine Smoking Status Start Date Stop Date Source Never Smoker [facility] - [facility] Medications Ordered Filled Start Stop Current Ordering [...] Lotrel Yes Randy 1 tab Common Mascorro [facility] Centrum Centrum Yes Randy not Common Silver Silver Mascorro defined [facility] 50+Women 50+Women - [facility] Vitamin D-3 Vitamin D-3 Yes Randy 1 capsule Common Mascorro [facility] Glucosamine Glucosamine Yes Randy not Common Chondroit-C Chondroit-C Mascorro defined [facility] ollagen ollagen [facility] Aspir-81 Aspir-81 Yes Randy 1 tablet C ommon Mascorro [facility] Super Super Yes Randy not Common B-Complex B-Complex Mascorro defined S pirit [facility] Simvastatin Simvastatin Yes Randy 1 tablet Common Mascorro in the [facility] evening [facility] Levothyroxi Levothyroxi Yes Randy 1 tablet Common ne Sodium ne Sodium Mascorro on an Spi rit empty - CHI stomach in [facility] Ginkgo Ginkgo Yes Randy not Common Biloba Biloba Mascorro defined [facility] Donepezil Donepezil Yes Randy TAKE 1 C ommon HCl HCl Mascorro TABLET BY [facility] MOUTH - CHI EVERY DAY [facility] AT NIGHT [facility] Co Q-10 Co Q-10 Yes Randy 1 capsule Co mmon Mascorro with a Spirit meal [facility] Amlodipine Amlodipine Yes Randy 1 capsule Common Besy-Benaze Besy-Benaze Mascorro Spirit pril HCl pril HCl - [facility] Folic Acid Folic Acid Yes Randy 1 tablet Common Mascorro [facility] Centrum Centrum No Centrum Silver [...] Vaccine 2020-04-21 Completed Co mmon [facility] ([facility] ([email or web address] 15:12: - [facility] COVID-19 Vaccine COVID-19 Vaccine 2020-04-21 Completed Co mmon [facility] ([email or web address]) 15:12: [facility] COVID-19 Vaccine COVID-19 Vaccine 2020-04-21 Completed Co mmon [facility] ([facility] ([email or web address]) 15:12: [facility] COVID-19 Vaccine COVID-19 Vaccine 2020-04-21 Completed Co mmon [facility] ([email or web address]) 15:12:00 - [facility] COVID-19 Vaccine COVID-19 Vaccine 2020-04-21 Completed Co mmon [facility] ([facility] ([email or web address]) 15:12: - [facility] COVID-19 Vaccine COVID-19 Vaccine 2020-04-21 Completed Co mmon [facility] ([email or web address]) 15:12: [facility] COVID-19 Vaccine COVID-19 Vaccine 2020-04-21 Completed Co mmon [facility] ([email or web address]) 15:12:00 [facility] COVID-19 Vaccine COVID-19 Vaccine 2020-04-21 Completed Co mmon [facility] ([email or web address]) 15:12: [facility] COVID-19 Vaccine COVID-19 Vaccine 2020-04-21 Completed Co mmon [facility] ([email or web address]) 15:12: [facility] COVID-19 Vaccine COVID-19 Vaccine 2020-04-21 Completed Co mmon [facility] ([email or web address]) 15:12: [facility] COVID-19 Vaccine COVID-19 Vaccine 2020-04-21 Completed Co mmon [facility] (Shayy) 15:12:00 - [facility] COVID-19 Vaccine COVID-19 Vaccine 2020-04-21 Completed Co mmon [facility] (Shayy) 15:12:00 - [facility] COVID-19 Vaccine COVID-19 Vaccine 2020-04-21 Completed Co mmon [facility] ([facility] (Shayy) 15:12:00 - [facility] COVID-19 Vaccine COVID-19 Vaccine 2020-04-21 Completed Co mmon [facility] ([facility] (Shayy) 15:12:00 - [facility] FluAD FluAD 2019-12-06 Completed [facility] 09:44:00 - [facility] FluAD FluAD 2019-12-06 Completed [facility] 09:44:00 - [facility] FluAD FluAD 2019-12-06 Completed [facility] 09:44:00 - [facility] FluAD FluAD 2019-12-06 Completed [facility] 09:44:00 - [facility] FluAD FluAD 2019-12-06 Completed [facility] 09:44:00 - [facility] FluAD FluAD 2019-12-06 Completed [facility] 09:44:00 - [facility] FluAD FluAD 2019-12-06 Completed [facility] 09:44:00 - [facility] FluAD FluAD 2019-12-06 Completed [facility] 09:44:00 - [facility] FluAD FluAD 2019-12-06 Completed [facility] 09:44:00 - [facility] FluAD FluAD 2019-12-06 Completed [facility] 09:44:00 - [facility] FluAD FluAD 2019-12-06 Completed [facility] 09:44:00 - [facility] FluAD FluAD 2019-12-06 Completed [facility] 09:44:00 - [facility] FluAD FluAD 2019-12-06 Completed [facility] 09:44:00 - [facility] FluAD FluAD 2019-12-06 Completed [facility] 09:44:00 [facility] Vital Signs Vital Name Observation Time Observation Value Comments Source height 2021-08-26 14:40:00 66 [in_i] Common [facility] weight 2021-08-26 14:40:00 149 [lb_av] Common [facility] temperature 2021-08-26 14:40:00 97.6 [degF] Common [facility] bmi 2021-08-26 14:40:00 24.05 kg/m2 Common [facility] oximetry 2021-08-26 14:40:00 99 % Common [facility] respiratory rate 2021-08-26 14:40:00 16 /min Comm on [facility] blood pressure 2021-08-26 14:40:00 132 mm[Hg] Common [facility] - systolic [facility] blood pressure 2021-08-26 14:40:00 70 mm[Hg] Common [facility] - diastolic [facility] height 2021-08-26 14:40:00 66 [in_i] Common [facility] weight 2021-08-26 14:40:00 149 [lb_av] Common [facility] temperature 2021-08-26 14:40:00 97.6 [degF] Common [facility] bmi 2021-08-26 14:40:00 24.05 kg/m2 [facility] oximetry 2021-08-26 14:40:00 99 % [facility] respiratory rate 2021-08-26 14:40:00 16 /min Comm on [facility] blood pressure 2021-08-26 14:40:00 132 mm[Hg] [facility] - systolic [facility] blood pressure 2021-08-26 14:40:00 70 mm[Hg] [facility] - diastolic [facility] height 2021-05-26 15:40:00 66 [in_i] Common [facility] weight 2021-05-26 15:40:00 155.7 [lb_av] Common [facility] temperature 2021-05-26 15:40:00 97.6 [degF] [facility] bmi 2021-05-26 15:40:00 25.13 kg/m2 [facility] oximetry 2021-05-26 15:40:00 98 % Common [facility] respiratory rate 2021-05-26 15:40:00 17 /min Comm on [facility] blood pressure 2021-05-26 15:40:00 134 mm[Hg] Common [facility] - systolic [facility] blood pressure 2021-05-26 15:40:00 67 mm[Hg] Common [facility] - diastolic [facility] height 2021-02-24 14:30:00 66 [in_i] [facility] weight 2021-02-24 14:30:00 166.8 [lb_av] [facility] temperature 2021-02-24 14:30:00 97.2 [degF] Common [facility] bmi 2021-02-24 14:30:00 26.92 kg/m2 [facility] oximetry 2021-02-24 14:30:00 98 % [facility] respiratory rate 2021-02-24 14:30:00 18 /min Comm on [facility] blood pressure 2021-02-24 14:30:00 132 mm[Hg] Common [facility] - systolic [facility] blood pressure 2021-02-24 14:30:00 62 mm[Hg] Common [facility] - diastolic [facility] height 2021-01-09 14:00:00 66 [in_i] Common [facility] weight 2021-01-09 14:00:00 160.2 [lb_av] [facility] temperature 2021-01-09 14:00:00 96.8 [degF] [facility] bmi 2021-01-09 14:00:00 25.85 kg/m2 Common [facility] oximetry 2021-01-09 14:00:00 99 % Common [facility] respiratory rate 2021-01-09 14:00:00 18 /min Comm on [facility] blood pressure 2021-01-09 14:00:00 138 mm[Hg] Common [facility] - systolic [facility] blood pressure 2021-01-09 14:00:00 70 mm[Hg] Common [facility] - diastolic [facility] height 2020-12-02 14:40:00 66 [in_i] Common [facility] weight 2020-12-02 14:40:00 164.6 [lb_av] [facility] temperature 2020-12-02 14:40:00 97.9 [degF] [facility] bmi 2020-12-02 14:40:00 26.56 kg/m2 [facility] oximetry 2020-12-02 14:40:00 96 % [facility] respiratory rate 2020-12-02 14:40:00 18 /min Comm on [facility] blood pressure 2020-12-02 14:40:00 136 mm[Hg] [facility] [place] [facility] blood pressure 2020-12-02 14:40:00 78 mm[Hg] [facility] [place] [facility] Systolic blood 2019-08-31 14:15:00 134 mm[Hg] [facility] pressure Medicine Diastolic blood 2019-08-31 14:15:00 79 mm[Hg] [facility] pressure Medicine Heart rate 2019-08-31 14:15:00 65 /min [facility] Body height 2019-08-31 14:15:00 167.6 cm [facility] weight 2019-08-31 14:15:00 73.029 kg [facility] BMI 2019-08-31 14:15:00 25.99 kg/m2 [facility] Procedures This patient has no known procedures. Plan of Care Planned Activity Planned Date Details Comments Source Future Scheduled Test COLON CANCER SCREENING: [facility] COLONOSCOPY [code = Medicine COLON CANCER SCREENING: COLONOSCOPY] Future Scheduled Test MAMMOGRAM ANNUAL [code [facility] = MAMMOGRAM ANNUAL] Medicine Future Scheduled Test TETANUS SHOT (ADULT) [facility] [code = TETANUS SHOT Medicin e (ADULT)] Future Scheduled Test BMI FOLLOW UP PLAN [facility] [code = BMI FOLLOW UP Medici ne PLAN] Future Scheduled Test HEPATITIS C SCREENING [facility] [code = HEPATITIS C Medicine SCREENING] Future Scheduled Test ZOSTER VACCINE (1 of 2) [facility] [code = ZOSTER VACCINE Medic ine (1 of 2)] Future Scheduled Test MEDICARE AWV (Initial) [facility] [code = MEDICARE AWV Medicin e (Initial)] Future Scheduled Test FALL SCREEN [code = [facility] FALL SCREEN] Medicine Future Scheduled Test OSTEOPOROSIS SCREENING [facility] [code = OSTEOPOROSIS Medicin e SCREENING] Future Scheduled Test PNEUMOVAX >=65 (PPSV23) [facility] [code = PNEUMOVAX >=65 Medic ine (PPSV23)] Future Scheduled Test FLU VACCINE > 6 MONTHS [facility] [code = FLU VACCINE > 6 Medi cine MONTHS] Encounters Start End Encounter Admission Attending Care Care Encounter Source Date/Time Date/Time Type Type Clinicians Facility Department ID 2021-03-04 [facility] Common 14:38:54 [facility] 2021-03-04 Outpatient Mascorro, [facility] Common 14:22:10 [facility] 2021-03-04 Outpatient Mascorro, [facility] Common 14:19:16 [facility] [id number] [facility] 2021-03-04 Outpatient Mascorro, [facility] [id number] Common 13:21:13 [facility] [id number] [facility] 2021-03-04 Outpatient Mascorro, [facility] Common 12:40:51 [facility] [id number] [facility] 2021-03-04 Outpatient Mascorro, [facility] [id number] Common 12:40:22 [facility] [id number] [facility] 2021-03-04 Outpatient Mascorro, STLMLC STLMLC [id number] Common 12:39:19 Randy [id number] [facility] 2021-03-04 Outpatient Mascorro, STLMLC STLMLC [id number] Common 12:38:26 Randy [id number] [facility] 2021-03-04 Outpatient Mascorro, STLMLC STLMLC [id number] Common 12:37:28 Randy [id number] [facility] 2021-03-04 Outpatient Mascorro, STLMLC STLMLC [id number] Common 12:36:06 Randy [id number] [facility] 2021-03-04 Outpatient Mascorro, STLMLC STLMLC [id number] Common 12:17:31 Randy [id number] [facility] 2021-03-04 Outpatient Mascorro, STLMLC STLMLC [id number] Common 12:11:34 Randy [id number] [facility] 2021-03-04 Outpatient Mascorro, STLMLC STLMLC [id number] Common 11:36:13 Randy [id number] [facility] 2021-03-04 Outpatient Mascorro, STLMLC STLMLC [id number] Common 11:26:04 Randy [id number] [facility] 2021-03-04 Outpatient Mascorro, STLMLC STLMLC [id number] Common 11:23:42 Randy [id number] [facility] 2021-03-04 Outpatient Mascorro, STLMLC STLMLC [id number] Common 11:22:28 Randy [id number] [facility] 2021-03-04 Outpatient Mascorro, STLMLC STLMLC [id number] Common 11:13:10 Randy [id number] [facility] 2021-03-04 Outpatient Mascorro, STLMLC STLMLC [id number] Common 11:11:46 Randy [id number] [facility] 2021-12-24 2021-12-24 (TEL) STLMLC STLMLC [id number] Co mmon 00:00:00 00:00:00 [facility] 2021-11-26 2021-11-26 (TEL) STLMLC STLMLC [id number] Co mmon 00:00:00 00:00:00 [facility] 2021-11-13 2021-11-13 (TEL) STLMLC STLMLC [id number] Co mmon 00:00:00 00:00:00 [facility] 2021-08-26 2021-08-26 OFFICE STLMLC STLMLC [id number] Co mmon 00:00:00 00:00:00 VISIT [facility] PT - CHI LEVEL 4 [facility] 2021-08-26 2021-08-26 SUB ANNUAL STLMLC STLMLC [id number] Common 00:00:00 00:00:00 MCR [facility] WELLNESS [facility] VISIT [facility] 2021-05-26 2021-05-26 (TEL) STLMLC STLMLC [id number] Co mmon 00:00:00 00:00:00 [facility] 2021-05-26 2021-05-26 (ESTPT) STLMLC STLMLC [id number] Co mmon 00:00:00 00:00:00 Clarisa soto Patient [facility] 2021-02-24 2021-02-24 OFFICE STLMLC STLMLC [id number] Co mmon 00:00:00 00:00:00 VISIT [facility] PT - CHI LEVEL 4 [facility] 2021-01-14 2021-01-14 (TEL) STLMLC STLMLC [id number] Co mmon 00:00:00 00:00:00 [facility] 2021-01-09 2021-01-09 OFFICE STLMLC STLMLC [id number] Co mmon 00:00:00 00:00:00 VISIT [facility] PT - CHI LEVEL 4 [facility] 2021-01-09 2021-01-09 (TEL) STLMLC STLMLC [id number] Co mmon 00:00:00 00:00:00 [facility] 2020-12-29 2020-12-29 Outpatient SHAVONNE MO [facility] [id number] [facility] 13:00:27 13:00:27 Maday dill [facility] Medicin e 2020-12-26 2020-12-26 (TEL) STLMLC STLMLC [id number] Co mmon 00:00:00 00:00:00 [facility] 2020-12-02 2020-12-02 OFFICE STLMLC STLMLC [id number] Co mmon 00:00:00 00:00:00 VISIT EST Spir it PT LEVEL 3 [facility] 2020-09-16 2020-09-16 Outpatient STLMLC STLMLC [id number] Common 00:00:00 00:00:00 [facility] 2020-08-14 2020-08-14 Outpatient STLMLC STLMLC [id number] Common 00:00:00 00:00:00 [facility] 2020-08-14 2020-08-14 Outpatient STLMLC STLMLC [id number] Common 00:00:00 00:00:00 [facility] 2020-04-21 2020-04-21 Outpatient STLMLC STLMLC [id number] Common 00:00:00 00:00:00 [facility] 2020-04-16 2020-04-16 Outpatient STLMLC STLMLC [id number] Common 00:00:00 00:00:00 [facility] 2020-01-17 2020-01-17 Outpatient STLMLC STLMLC [id number] Common 00:00:00 00:00:00 [facility] 2019-10-17 2019-10-17 [facility] [id number] Common 10:50:00 10:50:00 [place] [address] Sp[address] Drive [facility] 2019-09-17 2019-09-17 [facility] [id number] Common 09:30:00 09:30:00 [place] [address] Sp[address] [facility] 2019-08-15 2019-08-15 [facility] [id number] Common 11:45:00 11:45:00 [place] [address] Sp[address] [facility] 2019-08-15 2019-08-15 [facility] [id number] Common 11:00:00 11:00:00 [place] [address] Sp[address] [facility] 2019-07-27 2019-07-27 [facility] [id number] Common 13:26:00 13:26:[address] [facility] 2019-07-20 2019-07-20 [facility] [id number] Common 15:29:00 15:29:00 [place] [address] [facility] 2019-07-17 2019-07-17 [facility] [id number] Common 16:27:00 16:27:00 [place] [address] [facility] 2019-07-06 2019-07-06 [facility] [id number] Common 16:15:00 16:15:00 [place] [address] [facility] 2019-07-05 2019-07-05 [facility] [id number] Common 12:54:00 12:54:00 [place] [address] [facility] 2019-07-05 2019-07-05 [facility] [id number] Common 11:30:00 11:30:00 [place] [address] [facility] 2019-07-03 2019-07-03 [facility] [id number] Common 09:30:00 09:30:00 [place] [address] [facility] 2019-06-26 2019-06-26 [facility] [id number] Common 11:18:00 11:18:00 [place] [address] [facility] 2019-04-18 2019-04-18 [facility] [id number] Common 09:30:00 09:30:00 [place] [address] [facility] 2019-01-12 2019-01-12 [facility] [id number] Common 10:22:00 10:22:00 [place] [address] [facility] 2019-01-03 2019-01-03 [facility] [id number] Common 13:10:00 13:10:00 [place] [address] [facility] 2018-12-18 2018-12-18 [facility] [id number] Common 10:15:00 10:15:00 [place] [address] [facility] 2018-12-08 2018-12-08 [facility] [id number] Common 16:58:00 16:58:00 [place] [address] [facility] 2018-11-20 2018-11-20 [facility] [id number] Common 08:30:00 08:30:00 [place] [address] [facility] 2018-10-05 2018-10-05 [facility] [id number] Common 12:08:00 12:08:00 [place] [address] [facility] 2018-08-16 2018-08-16 [facility] [id number] Common 10:15:00 10:15:00 [place] [address] [facility] 2018-04-14 2018-04-14 [facility] [id number] Common 08:30:00 08:30:00 [place] [address] [facility] 2017-09-16 2017-09-16 [facility] [id number] Common 09:45:00 09:45:00 [place] [address] [facility] 2017-06-16 2017-06-16 [facility] [id number] Common 10:15:00 10:15:00 [place] [address] [facility] Results This patient has no known results.
--- NOTE | 2022-03-26 18:52 | RAD REPORT ---
EXAM DESCRIPTION: CT - Head C Spine Cap Wo Con - 03/26/2022 6:15 pm CLINICAL HISTORY: fall COMPARISON: Head C Spine Cap W Con dated 03/18/2022; Head C Spine Cap Wo Con dated 12/07/2021 TECHNIQUE: Head and cervical spine CT images were obtained without IV contrast. Chest, abdomen, and pelvis CT images were obtained without IV contrast. Multiplanar reformats were generated and reviewed . All CT scans are performed using dose optimization technique as appropriate and may include automated exposure control or mA/KV adjustment according to patient size. FINDINGS: CT HEAD: No intracranial hemorrhage, mass effect, or edema. No evidence of acute territorial infarct. No midli ne shift or abnormal fluid collection. Stable Ventricular prominence, somewhat out of proportion to t he degree of sulcal prominence, which could relate to centrally predominant volume loss. Basal cister ns are patent. Mastoid aircells are well aerated. Left maxillary sinus mucous retention cyst. No acut e skull fracture. CT CERVICAL SPINE: No acute cervical spine fracture or subluxation. Straightening of normal cervical lordosis which may be positional or secondary to muscle spasm. Vertebral body heights are well maintained. Normal alignm ent of the facet joints. Mild multilevel degenerative changes with mild disc height loss at C5-6 and C6-7, with Schmorl's node formation. Bilateral mild neural foraminal narrowing, most notably on the r ight at C4-5 and C5-6, and on the left at C3-4 and C6-7. No hyperattenuating canal hematoma. Preverte bral and paraspinous soft tissues are unremarkable. CT CHEST: Some motion artifact limits evaluation. No pneumothorax, pulmonary contusion or pleural fluid collect ion. No mediastinal hematoma. Ascending thoracic aorta is mildly ectatic, measuring 4.2 centimeter in caliber. Absence of IV contrast limits evaluation. . No chest will mass or abnormal axillary finding . No displaced rib fracture or other significant bony finding. CT ABDOMEN/ PELVIS: No evidence of traumatic injury to solid abdominal viscera. Gallbladder and biliary tree are unremark able. Incidentally noted exophytic left renal mid pole 2.3 centimeter cyst. No bowel injury or signif icant finding. No free air, free fluid or abnormal fat stranding. No urinary bladder abnormality. Mil d diffuse body wall edema along the flanks. Overlying the right gluteal region laterally, a subcutane ous 5.6 x 3.3 centimeter ill-defined collection is present, suggesting a soft tissue hematoma. Incide ntally noted left adnexal 3.6 x 2.5 centimeter cystic lesion. No significant bony finding. IMPRESSION: No acute traumatic abnormality of the head. Ventricular prominence somewhat out of propo rtion to sulcal prominence. This could relate to centrally predominant volume loss, although normal p ressure hydrocephalus should be considered in the appropriate clinical setting. No acute traumatic fracture or subluxation of the cervical spine. Multilevel degenerative changes as above. No acute traumatic chest finding. Incidentally noted mild ectasia of the ascending thoracic aorta reggie suring 4.2 centimeter in caliber. No evidence of traumatic solid organ injury in the abdomen pelvis. Incidental findings as above. Right gluteal 5.6 x 3.3 centimeter soft tissue hematoma.
[2022-03-26 19:01] LABS: Absolute Lymphocytes (CBC) 1.6 K/uL (0.7-4.9); Hematocrit 40.4 % (36.0-45.0); MCV 91.6 fL (80-100); RBC Red Blood Cell Count 4.41 M/uL (3.86-4.86)
[2022-03-26 19:02] LABS: Protime INR 0.95
[2022-03-26 19:14] LABS: Potassium 4.7 mmol/L (3.5-5.1)
[2022-03-26] MEDS ORDERED: LIDOCAINE 1% 20 ML MDV ONE (20:17)
[2022-03-26] MEDS ORDERED: LIDOCAINE 1% W/EPI 1:100,000 50 ML MDV ONE (20:20)
--- NOTE | 2022-03-26 21:00 | ER ---
Nurse's Notes [facility] Name: Mallory Lai Age: 71 yrs Sex: Female : 1950 Arrival Date: 03/26/2022 Time: 17:31 Bed 18 Private MD: Diagnosis: Laceration without foreign body of unspecified part of head;Fall on same level, unspecified;Contusion of right thigh, initial encounter-with hematoma of gluteal region Presentation: 03/26 17:31 Chief complaint: EMS states: unwitnessed fall, denies LOC, patient was found on floor kr3 after family member heard a loud noise and went to check on her. She was found on the floor sitting. Initial Sepsis Screen: Does the patient meet any 2 criteria? No. Patient's initial sepsis screen is negative. Does the patient have a suspected source of infection? No. Patient's initial sepsis screen is negative. Risk Assessment: Do you want to hurt yourself or someone else? Patient reports no desire to harm self or others. Onset of symptoms was March 26, 2022. 17:31 Method Of Arrival: EMS kr3 17:31 Acuity: JAD 3 kr3 21:29 Coronavirus screen: Vaccine status: Patient reports receiving the 2nd dose of the covid kr3 vaccine. Ebola Screen: Patient denies travel to an Ebola-affected area in the 21 days before illness onset. Triage Assessment: 17:34 General: Appears in no apparent distress. comfortable, Behavior is calm, cooperative, kr3 appropriate for age. Pain: Unable to use pain scale. Historical: - Allergies: 17:34 Iodine; kr3 - PMHx: 17:34 Dementia; Hypertension; Hypothyroidism; kr3 - Social history:: Smoking status: unknown. Screenin:27 [facility] ED Fall Risk Assessment (Adult) History of falling in the last 3 months, kr3 including since admission Yes- single mechanical fall (1 pt) Confusion or Disorientation Yes (5 pts) Intoxicated or Sedated No (0 pts) Impaired Gait Yes (1 pt) Mobility Assist Device Used Yes (1 pt) Altered Elimination Yes (1 pt) Score/Fall Risk Level 3 or more points = High Risk Oriented to surroundings, Maintained a safe environment, Assessed \T\ reinforced patient's understanding of fall precautions, Hourly rounding (assess needs \T\ fall precautionary measures) done, Used ambulatory aids as needed (educated on \T\ assisted with), Remained with patient while ambulating, Utilized family, sitter, or virtual bindery machine setter/set up operator as indicated. Abuse screen: Denies threats or abuse. Nutritional screening: No deficits noted. Tuberculosis screening: No symptoms or risk factors identified. Assessment: 18:30 Reassessment: Patient appears in no apparent distress at this time. Patient and/or kr3 family updated on plan of care and expected duration. Pain level reassessed. Patient is alert, oriented x 3, equal unlabored respirations, skin warm/dry/pink. 20:55 Reassessment: Patient appears in no apparent distress at this time. Patient and/or kr3 family updated on plan of care and expected duration. Pain level reassessed. Patient is alert, oriented x 3, equal unlabored respirations, skin warm/dry/pink. Vital Signs: 17:30 BP 163 / 79; Pulse 64; Resp 18; Pulse Ox 100% on R/A; kr3 17:31 BP 172 / 80; Pulse 68; Resp 18; Pulse Ox 100% on R/A; kr3 18:30 BP 159 / 66; Pulse 66; Resp 18; Pulse Ox 100% on R/A; kr3 19:15 BP 151 / 88; Pulse 74; Resp 18; Pulse Ox 99% ; kr3 20:30 BP 128 / 67; Pulse 58; Resp 18; Pulse Ox 100% on R/A; kr3 ED Course: 17:31 Patient arrived in ED. kr3 17:31 Marga Gunderson RN is Primary Nurse. kr3 17:32 Florian Baer MD is Attending Physician. rt 17:32 Siddharth Hodges PA is PHCP. cp 17:34 Triage completed. kr3 17:34 Arm band placed on right wrist. Patient placed in an exam room, on a stretcher. kr3 17:40 Bed in low position. Call light in reach. Side rails up X 1. kr3 17:58 Inserted saline lock: 22 gauge in left antecubital area, using aseptic technique. Blood kr3 collected. 18:17 CT Traumagram (Head C Spine CAP wo con) In Process Unspecified. EDMS 19:40 Bryanna Rueda MD is Attending Physician. cp 21:28 No provider procedures requiring assistance completed. IV discontinued, intact, kr3 bleeding controlled, No redness/swelling at site. Pressure dressing applied. Administered Medications: 20:05 Drug: Lidocaine-Epinephrine -1%: (1:100,000) 10 ml {Note: given by Sammie Hodges at bedside kr3 for procedure.} Volume: 20 ml; Route: Infiltration; Medication: 21:29 VIS not applicable for this client. kr3 Outcome: 20:59 Discharge ordered by MD. cp 21:26 Patient left the ED. ph 21:29 Discharged to home via wheelchair. kr3 21:29 Condition: stable 21:29 Discharge instructions given to patient, family, Instructed on discharge instructions, follow up and referral plans. Demonstrated understanding of instructions, follow-up care. Signatures: Dispatcher [employer] EDTasha Wade RN RN ph Siddharth Hodges PA PA cp Reid, Kelley, RN RN kr3 Florian Baer MD MD rt Corrections: (The following items were deleted from the chart) 21:29 19:50 Inserted saline lock: 22 gauge in left antecubital area, using aseptic technique. kr3 Blood collected. kr3
--- NOTE | 2022-03-26 21:00 | EDPHYS ---
Physician Documentation [facility] Name: Mallory Lai Age: 71 yrs Sex: Female : 1950 Arrival Date: 03/26/2022 Time: 17:31 Bed 18 Private MD: ED Physician Bryanna Rueda HPI: 03/26 18:00 This 71 yrs old Female presents to ER via EMS with complaints of Facial Laceration. cp 18:00 Details of fall: The patient fell from an upright position, while standing. cp 18:00 Onset: The symptoms/episode began/occurred just prior to arrival. Associated injuries: cp The patient sustained injury to the head, laceration, of the above left eye. Patient presents to ED by EMS. PMHX significant for dementia. EMS reports patient was found by on ground after suspected fall from standing. was reportedly in another room and heard patient fall. reported checking on patient immediately and finding her alert, sitting on floor attempting to get up. Historical: - Allergies: 17:34 Iodine; kr3 - PMHx: 17:34 Dementia; Hypertension; Hypothyroidism; kr3 - Social history:: Smoking status: unknown. ROS: 18:05 Constitutional: Negative for body aches, chills, fever, poor PO intake. cp 18:05 Cardiovascular: Negative for chest pain. cp 18:05 Abdomen/GI: Negative for vomiting, diarrhea, constipation. 18:05 Skin: Positive for laceration(s), of the above left eye. 18:05 Neuro: Negative for altered mental status. 18:05 Unable to obtain ROS due to baseline dementia. Exam: 18:10 Constitutional: The patient appears in no acute distress, alert, awake, cp non-diaphoretic, non-toxic, well developed, well nourished. 18:10 Head/face: Noted is a laceration(s), that is deep, that is linear, of the above left cp eye, swelling, that is mild. 18:10 Eyes: Pupils: equal, round, and reactive to light and accomodation, Extraocular movements: intact throughout, Conjunctiva: normal, Sclera: no appreciated abnormality, Lids and lashes: appear normal, bilaterally. 18:10 ENT: External ear(s): are unremarkable, Ear canal(s): are normal, clear, TM's: cp dullness, bilaterally, Nose: is normal, Mouth: Lips: moist, Oral mucosa: pink and intact, moist, Posterior pharynx: is normal, airway is patent, no erythema, no exudate. 18:10 Neck: C-spine: crepitus, is not appreciated. cp 18:10 Chest/axilla: Inspection: normal, Palpation: crepitus, is not appreciated. 18:10 Cardiovascular: Rate: normal, Rhythm: regular, Edema: is not appreciated, JVD: is not appreciated. 18:10 Respiratory: the patient does not display signs of respiratory distress, Respirations: normal, no use of accessory muscles, no retractions, labored breathing, is not present, Breath sounds: are clear throughout, no decreased breath sounds, no stridor, no wheezing. 18:10 Abdomen/GI: Inspection: abdomen appears normal, Bowel sounds: active, all quadrants, Palpation: soft, in all quadrants, rebound tenderness, is not appreciated, involuntary guarding, is not appreciated. 18:10 Skin: bruising noted right hip and right lateral upper leg. 18:10 Neuro: Orientation: no acute changes, per EMS, Mentation: no acute changes, per EMS, Motor: moves all fours, strength is normal. Vital Signs: 17:30 BP 163 / 79; Pulse 64; Resp 18; Pulse Ox 100% on R/A; kr3 17:31 BP 172 / 80; Pulse 68; Resp 18; Pulse Ox 100% on R/A; kr3 18:30 BP 159 / 66; Pulse 66; Resp 18; Pulse Ox 100% on R/A; kr3 19:15 BP 151 / 88; Pulse 74; Resp 18; Pulse Ox 99% ; kr3 20:30 BP 128 / 67; Pulse 58; Resp 18; Pulse Ox 100% on R/A; kr3 Laceration: 21:00 Wound Repair of 2.5cm ( 1.0in ) subcutaneous laceration to above left eye. Linear cp shaped.. Distal neuro/vascular/tendon intact. Anesthesia: Wound infiltrated with 4 mls of 1% lidocaine w/ Epi. Wound prep: Simple cleansing by me. Skin closed with 5 6-0 Prolene using interrupted sutures and sterile technique. Dressed with Bacitracin, 4x4's. Patient tolerated well. MDM: 17:39 Patient medically screened. cp 20:59 Data reviewed: vital signs, nurses notes, lab test result(s), radiologic studies, CT cp scan. 20:59 Differential diagnosis: closed head injury, contusion, fracture, laceration, multiple cp trauma. Consideration of Admission/Observation Escalation of care including admission/observation considered. Independent interpretation of the following test(s) in the Emergency Department EKG: See my EKG interpretation above. Historians other than the Patient: EMS: provides initial HPI. Spouse/Significant Other: assists with HPI. Care significantly affected by the following chronic conditions: dementia. Counseling: I had a detailed discussion with the patient and/or guardian regarding: the historical points, exam findings, and any diagnostic results supporting the discharge/admit diagnosis, lab results, radiology results, the need for outpatient follow up, a family practitioner, to return to the emergency department if symptoms worsen or persist or if there are any questions or concerns that arise at home. Response to treatment: the patient's symptoms have markedly improved after treatment, and as a result, I will discharge patient. Special discussion: Based on the patient's history, exam and DX evaluation, there is no indication for emergent intervention or inpatient TX. It is understood by the patient/guardian that if the SXs persist or worsen they need to return immediately for re-evaluation. 03/26 17:38 Order name: Basic Metabolic Panel; Complete Time: 19:37 cp 03/26 19:40 Interpretation: Normal except: BUN 26. 03/26 17:38 Order name: CBC with Diff; Complete Time: 19:37 03/26 17:38 Order name: PT-INR; Complete Time: 19:37 cp 03/26 17:38 Order name: CT Traumagram (Head C Spine CAP wo con); Complete Time: 19:37 cp 03/26 19:39 Interpretation: Report reviewed. 03/26 17:38 Order name: Labs collected and sent; Complete Time: 20:17 cp 03/26 17:38 Order name: EKG; Complete Time: 17:39 cp 03/26 17:38 Order name: EKG - Nurse/Tech 03/26 17:38 Order name: Urine Dipstick-Ancillary (obtain specimen) 03/26 18:14 Order name: Dressing - Wound; Complete Time: 20:16 cp 03/26 18:14 Order name: Gloves, Sterile; Complete Time: 20:59 cp 03/26 18:14 Order name: Setup Suture Tray; Complete Time: 20:17 cp 03/26 19:28 Order name: Wound Care cp Administered Medications: 20:05 Drug: Lidocaine-Epinephrine -1%: (1:100,000) 10 ml {Note: given by Sammie Hodges at bedside kr3 for procedure.} Volume: 20 ml; Route: Infiltration; Disposition Summary: 03/26/22 20:59 Discharge Ordered Location: Home cp Problem: new cp Symptoms: have improved cp Condition: Stable cp Diagnosis - Laceration without foreign body of unspecified part of head cp - Fall on same level, unspecified cp - Contusion of right thigh, initial encounter - with hematoma of gluteal cp region(03/26/22 21:00) Followup: cp - With: Private Physician - When: 1 week - Reason: Staple/Suture removal Discharge Instructions: - Discharge Summary Sheet cp - Contusion cp - Head Injury, Adult cp - Hematoma cp - Fall Prevention in the Home, Adult cp - Facial Laceration cp Forms: - Medication Reconciliation Form cp - Thank You Letter cp - Antibiotic Education cp - Prescription Opioid Use cp Addendum: 03/28/2022 06:30 I reviewed the patient's care provided by the Advanced Practice Provider and agree with s d2 the diagnosis and treatment plan. Signatures: Dispatcher [employer] EDMS Siddharth Hodges PA PA cp Bryanna Rueda MD MD sd2 Marga Gunderson RN RN kr3 Corrections: (The following items were deleted from the chart) 03/26 21:00 20:59 Contusion of right thigh, initial encounter cp cp 03/27 19:20 03/26 18:10 Eyes: Pupils: equal, round, and reactive to light and accomodation, cp Extraocular movements: intact throughout, Conjunctiva: normal, cp 03/27 19:22 19:20 Wound Repair of 2.5cm ( 1.0in ) subcutaneous laceration to above left eye. Linear cp shaped.. Distal neuro/vascular/tendon intact. Anesthesia: Wound infiltrated with 4 mls of 1% lidocaine w/ Epi. Wound prep: Simple cleansing by me. Skin closed with 5 6-0 Prolene using interrupted sutures and sterile technique. Dressed with Bacitracin, 4x4's. Patient tolerated well. cp
[2022-03-26 21:35] VITALS: BP 128/67; O2SAT 100
== END 2022-03-26 21:26 | disposition home or self-care (01) ==
LOC: ER 17:28
PROC: 0HQ1XZZ Repair Face Skin, External Approach (ICD-10-PCS; principal; 2022-03-26)
DX: S01.81XA Laceration without foreign body of other part of head, initial encounter (principal); S70.11XA Contusion of right thigh, initial encounter; S30.0XXA Contusion of lower back and pelvis, initial encounter; W18.30XA Fall on same level, unspecified, initial encounter; I10 Essential (primary) hypertension; F03.90 Unspecified dementia, unspecified severity, without behavioral disturbance, psychotic disturbance, mood disturbance, and anxiety; Z91.048 Other nonmedicinal substance allergy status
CPT/HCPCS: 36415; 70450; 71250; 72125; 80048; 85025; 85610; 99284; J2001